=== PATIENT | female | born 1945 | race Caucasian/White ===

== ENCOUNTER 2017-12-16 15:04 | Emergency (ER) | payer OTHER, SELFPAY ==
--- NOTE | 2017-12-16 15:05 | ED_ITS ---
HPI - Extremity Injury (Upper) <JAKE Meehan - Last Filed: 12/16/17 21:56> General Chief Complaint: Extremity Injury, Upper Stated Complaint: GLF,STATES LEFT ELBOW FRACTURE Time Seen by Provider: 12/16/17 15:05 History of Present Illness HPI narrative: 72-year-old female here for complaint of pain into her left elbow. Patient states that she was recently in [place] yesterday and she stepped off the sidewalk awkwardly fallen onto her left elbow. She was seen in the emergency room in [place] yesterday and was diagnosed with the left ulna ulcranon fracture. Patient returned back denies states today and is here for further evaluation and treatment. She denies any head injury. She denies any other concerns or complaints. Decreased pain while wearing the sling. Increased pain with motion of the left elbow MD complaint: injury to: left and elbow Related Data Home Medications Medication Instructions Recorded Confirmed aspirin 81 mg PO DAILY #0 11/20/11 12/18/17 multivitamin 1 cap PO DAILY #0 11/20/11 12/18/17 vitamins A,C,L-sdxo-gdovsq 1 tab PO DAILY #0 12/15/11 12/18/17 [PreserVision AREDS] cholecalciferol (vitamin D3) 1 tab PO QDAY #0 tab 03/13/16 12/18/17 [Vitamin D3] Previous Rx's Medication Instructions Recorded ibuprofen 400 mg PO Q8HP #90 tab 07/09/17 citalopram [Celexa] 40 mg PO QDAY #90 tab 09/27/17 hydroxyzine pamoate [Vistaril] 25 mg PO TID-QID PRN #40 cap 12/18/17 oxycodone-acetaminophen [Percocet] 2 tab PO Q4-6H PRN #60 tab 12/18/17 Allergies Allergy/AdvReac Type Severity Reaction Status Date / Time Penicillins [PENICILLINS] Allergy Unknown as a Verified 12/18/17 09:45 child, unknown Review of Systems <JAKE Meehan - Last Filed: 12/16/17 21:56> Constitutional Denies chills, Denies fever(s), Denies lethargy and Denies weakness Eyes Denies change in vision, Denies eye discharge, Denies irritation and Denies loss of vision ENT Ears, Nose, Mouth, and Throat: Denies change in voice, Denies neck pain and Denies sore throat Cardiovascular Denies chest pain, Denies irregular heart rhythm, Denies lightheadedness, Denies palpitations, Denies dyspnea, Denies dyspnea on exertion and Denies orthopnea Respiratory Denies cough, Denies dyspnea, Denies dyspnea on exertion and Denies wheezing Gastrointestinal Gastrointestinal: Denies abdominal pain, Denies change in bowel habits, Denies diarrhea, Denies nausea and Denies vomiting Genitourinary Denies hematuria, Denies flank pain, Denies urinary incontinence and Denies urinary urgency Musculoskeletal Denies neck pain Comments: Left elbow pain Integumentary/Breasts Denies pruritus, Denies erythema, Denies rash and Denies wounds Neurologic Denies confusion, Denies loss of vision and Denies weakness Psychiatric Denies anxiety, Denies confusion, Denies depression, Denies homicidal ideation and Denies suicidal ideation Endocrine Denies palpitations Hematologic/Lymphatic Denies easy bruising Allergic/Immunologic Denies wheezing Exam <JAKE Meehan - Last Filed: 12/16/17 21:56> Initial Vital Signs Initial Vital Signs: Vital Signs Temperature 99.8 F H 12/16/17 15:14 Pulse Rate 85 12/16/17 15:14 Respiratory Rate 18 12/16/17 15:14 Blood Pressure 141/67 H 12/16/17 15:14 Pulse Oximetry 100 12/16/17 15:14 Const General: cooperative and well developed Nutritional Appearance: well nourished Orientation: alert, awake, oriented x3 and not confused [facility] Mouth: oral mucosae normal and moist mucous membranes Eyes Conjunctivae: conjunctivae normal Sclera: sclerae normal Pupils: PERRL EOM: EOM intact bilaterally Resp Effort & Inspection: normal respiratory effort, able to speak in complete sentences, no respiratory distress and no use of accessory muscles Auscultation: clear to auscultation bilaterally, no rales, no rhonchi and no wheezes Cardio Rate: regular rate Rhythm: regular rhythm Heart Sounds: no click, no gallops, no murmurs and no rubs Pulses: normal peripheral pulses Skin General: no rashes or lesions noted, No jaundice and No petechiae Extrem Other: Swelling to the left elbow. Slight ecchymosis. No deformities. Distal CMS is intact <Claire Yan DO - Last Filed: 12/19/17 08:24> Initial Vital Signs Initial Vital Signs: Vital Signs Temperature 99.8 F H 12/16/17 15:14 Pulse Rate 85 12/16/17 15:14 Respiratory Rate 18 12/16/17 15:14 Blood Pressure 141/67 H 12/16/17 15:14 Pulse Oximetry 100 12/16/17 15:14 Course <JAKE Meehan - Last Filed: 12/16/17 21:56> Orders Ordered: Discontinued Medications Hydrocodone Bitart/Acetaminophen ([place] 5/325) 1 tab PO NOW ONE Stop: 12/16/17 16:13 Last Admin: 12/16/17 16:14 Dose: 1 tab Vital Signs - 8 hr 12/16/17 15:14 12/16/17 16:54 Temperature 99.8 F H 98.4 F Pulse Rate 85 74 Respiratory Rate 18 17 Blood Pressure 141/67 H 174/90 H Pulse Oximetry 100 98 <Claire Yan DO - Last Filed: 12/19/17 08:24> Orders Ordered: Discontinued Medications Hydrocodone Bitart/Acetaminophen ([place] 5/325) 1 tab PO NOW ONE Stop: 12/16/17 16:13 Last Admin: 12/16/17 16:14 Dose: 1 tab Vital Signs - 8 hr 12/16/17 15:14 12/16/17 16:54 Temperature 99.8 F H 98.4 F Pulse Rate 85 74 Respiratory Rate 18 17 Blood Pressure 141/67 H 174/90 H Pulse Oximetry 100 98 MDM - Extremity Injury (Upper) <JAKE Meehan - Last Filed: 12/16/17 21:56> Imaging Data Left elbow : Radiologist's impression: Patient: Kristel Byrd MR#: [id number] : 1945 Acct:[id number] Age/Sex: 72 / F Date of Service: 12/16/17 Loc: ED Accession Number: [id number] Procedure: XR elbow LT min 3V Ordering Provider: Victor M Irving PROCEDURE: XR ELBOW LT MIN 3V INDICATIONS: Fracture to left elbow TECHNIQUE: 3 views of the elbow were acquired. COMPARISON: None. FINDINGS: Bones: Severely displaced olecranon fracture. There is approximately 2 cm of diastasis. Soft tissues: There is elbow joint effusion. No suspicious soft tissue calcifications. IMPRESSION: Severely displaced olecranon fracture. Dictated by: Renato Khan M.D. on 12/16/2017 at 15:57 Approved by: Renato Khan M.D. on 12/16/2017 at 15:59 MDM Narrative Medical decision making narrative: X-ray of the left elbow was obtained and shows a displaced olcranon fracture to the left ulna. Discussed case with Orthopedics who recommended placing the patient in splint and follow up with Orthopedics later this week. She was also placed in a sling for comfort and support. Hqte-sol-kkqzcsz Tylenol as needed for discomfort may use T3 as prescribed for discomfort as prescribed. For any worsening symptoms return emergency room. Follow up with primary care provider. Discharge Plan Departure Patient Disposition: Home, Self-Care Clinical Impression: Closed fracture of left elbow Discharge Date/Time: 12/16/17 16:45 Interventions: ED Discharge Assessment Last Done: 12/16/17 16:54 Instructions: DI for Elbow Fracture Activity Restrictions/Additional Instructions: X-ray of the left elbow was obtained and shows a displaced olcranon fracture to the left ulna. Discussed case with Orthopedics who recommended placing the patient in splint and follow up with Orthopedics later this week. She was also placed in a sling for comfort and support. Wjge-vcp-miafioo Tylenol as needed for discomfort may use T3 as prescribed for discomfort as prescribed. For any worsening symptoms return emergency room. Follow up with primary care provider. Prescriptions: No Action aspirin 81 mg Tablet,Delayed Release (Dr/Ec) 81 mg PO DAILY Qty: 0 RF: 0 multivitamin Capsule 1 cap PO DAILY Qty: 0 RF: 0 vitamins A,C,W-bbmn-lbqlit [PreserVision AREDS] 14,320-226-200 kecj-ij-hykk Capsule 1 tab PO DAILY Qty: 0 RF: 0 cholecalciferol (vitamin D3) [Vitamin D3] 2,000 UNIT tablet 1 tab PO QDAY Qty: 0 RF: 0 ibuprofen 400 MG tablet 400 mg PO Q8HP Qty: 90 RF: 3 citalopram [Celexa] 40 MG tablet 40 mg PO QDAY Qty: 90 RF: 3 oxycodone-acetaminophen [Percocet] 5-325 mg tablet 2 tab PO Q4-6H PRN (Reason: pain) Qty: 60 RF: 0 hydroxyzine pamoate [Vistaril] 25 mg capsule 25 mg PO TID-QID PRN (Reason: spasms) Qty: 40 RF: 0 Referrals: Trista Lou MD [Primary Care Provider] - Israel Gabriel MD [Physician] - <Claire Yan DO - Last Filed: 12/19/17 08:24> Cosign ED Attending Marinature Attestation: I was immediately available in the department for consultation. Documentation has been reviewed. I agree with assessment and plan.
[2017-12-16 15:14] VITALS: BP 141/67; PULSE 85; RESP 18; TEMP 37.7; O2SAT 100; BMI 32.3
--- NOTE | 2017-12-16 15:22 | DI.RAD.S_ITS ---
PROCEDURE: XR ELBOW LT MIN 3V INDICATIONS: Fracture to left elbow TECHNIQUE: 3 views of the elbow were acquired. COMPARISON: None. FINDINGS: Bones: Severely displaced olecranon fracture. There is approximately 2 cm of diastasis. Soft tissues: There is elbow joint effusion. No suspicious soft tissue calcifications. IMPRESSION: Severely displaced olecranon fracture. Dictated by: Renato Khan M.D. on 12/16/2017 at 15:57 Approved by: Renato Khan M.D. on 12/16/2017 at 15:59
[2017-12-16] MEDS: HYDROCODONE/ACET 5/325 TABLET 1 TAB PO (16:14)
[2017-12-16 16:54] VITALS: BP 174/90; PULSE 74; RESP 17; TEMP 36.9; O2SAT 98
== END 2017-12-16 16:45 | disposition home or self-care (01) ==
PROVIDERS: Emergency Provider Nurse Practitioner Family; Family Provider Family Medicine; PCP Family Medicine
DX: S42.402A Unspecified fracture of lower end of left humerus, initial encounter for closed fracture (principal); W10.1XXA Fall (on)(from) sidewalk curb, initial encounter
CPT/HCPCS: 29240; 73080; 99282; 99283

== ENCOUNTER 2017-12-18 09:28 | Day surgery (SDC) | payer OTHER, SELFPAY ==
[2017-12-17 11:15] VITALS: BMI 33.5
[2017-12-18] VITALS (7 sets, daily range): BP systolic 123–167; BP diastolic 70–101; PULSE 80–104; RESP 12–16; TEMP 36.2–36.6; O2SAT 93–98; BMI 33.5
[2017-12-18] MEDS: LACTATED RINGERS 1,000 ML 42 ML IV (10:00)
[2017-12-18] MEDS: fentaNYL 100 MCG/2 ML INJ 50 MCG IV (10:03)
[2017-12-18] MEDS: MIDAZOLAM 2 MG/2 ML VIAL IV (10:03)
--- NOTE | 2017-12-18 10:05 | SUR.PREOP ---
SPOKE WITH DR. LIM REGARDING CURRENT ORDER FOR ANCEF IN REGARDS TO PT ALLERGY TO PCN. PER DR. LIM OK TO CONTINUE WITH CURRENT ORDER TO USE ANCEF. COMMUNICATED THIS WITH CIRCULATING RN.
[2017-12-18] MEDS: CEFAZOLIN 2 GM/100 ML FROZ.PIGGY IV (10:17)
--- NOTE | 2017-12-18 10:17 | SUR.PREOP ---
Block start time [1003] . Monitoring initiated and maintained throughout procedure. Oxygen and medications given per anesthesiologist instructions. Patient remained stable throughout procedure, no adverse reactions noted. Block end time [1014].
--- NOTE | 2017-12-18 10:18 | SUR.PREOP ---
PT TAKEN DIRECTLY INTO THE OR AFTER COMPLETION OF THE BLOCK. PT RESTING IN BED WITH EYES CLOSED, EASILY AROUSABLE TO VOICE WHEN SPOKEN TO. PT LEFT PRE OP AREA IN STABLE CONDITION, VSS.
--- NOTE | 2017-12-18 10:54 | SUR.OPER ---
Right lateral on young bag, on padded OR bed, head on pillow, gel axillary roll in place, bottom leg bent with gel pad under knee to foot, upper leg straight and supported with pillows. left arm draped free in arm positioner. Safety belt at hip, tape over blanket lower legs.
[2017-12-18] MEDS: BUPIVACAINE 0.25% (PF) 30 ML VIAL INJ (11:10)
--- NOTE | 2017-12-18 12:01 | SUR.OPER ---
patients wedding ring, 2 items, removed after letting tourniquet down
--- NOTE | 2017-12-18 12:01 | PM.OP.1 ---
Operative Date/Time/Diagnoses Date of procedure: 12/18/17 Time of procedure: 10:01 Pre-op diagnosis: Left displaced olecranon fracture Post-op diagnosis: same Procedure & Clinicians Procedure: Open reduction internal fixation of a left olecranon fracture Same procedure as scheduled: Yes Indications: Left displaced olecranon fracture Surgeon: Israel Gabriel Shipping Associate: Agnieszka Delacruz Anesthesia Type: General and Peripheral nerve block Operative Notes Findings: Displaced olecranon fracture no sign of any significant comminution. No sign of any distal humerus fracture or dislocation of the elbow joint. Closure Type: primary Specimen(s): none sent Implants & Drains: Trimed olecranon plate Applied: implant(s) Estimated Blood Loss (mL): 5 Blood products transfused: none Procedure in detail: On date of service, the patient was met in the holding area where her operative site was signed and witnessed by the OR staff. Surgeries once again discussed with the patient remaining questions or concerns she had were answered fully. Patient was taken back to the operating theater and placed on the operating table in a supine position. Great care was taken to ensure that all bony prominences were appropriately padded. Well-padded tourniquet was placed up along the left upper extremity. Time-out was performed verifying patient's name procedure and operative site. Patient was then placed into the lateral position. Axillary roll was placed. Beanbag used to position patient laterally. Left arm was then prepped and draped in the normal sterile fashion. Esmarch was used to exsanguinate the limb and the tourniquet was turned up to 250 mm of mercury. A posterior incision was made centered over the fracture site. Ten blade was used to incise the skin and fascial tissue. Electrocautery was used to achieve hemostasis. Gelpi retractors were placed and then sharp dissection was performed with the deep knife given us good visualization of the posterior aspect of the ulna as well as the fractured olecranon. No sign of any significant comminution. No sign of any cartilage loss to the distal humerus or any distal humeral fracture. Fracture site was copiously irrigated and a curette and rongeur were used to debride out the hematoma and soft tissue around the fracture. Once the fractured ends were debrided, reduction was performed and the fracture was held provisionally with 2 K-wires. This reduction was then verified with C-arm. Next a olecranon plate was placed. Screws were placed distal to the fracture site C-arm was used to verify plate positioning and overall reduction. Once we are satisfied with the reduction in the position of the plate the rest of the screws were placed. Combination of locking and nonlocking fully-threaded cortical screws were used. Final x-rays were obtained. Wound was then copiously irrigated and then closed in layered fashion. Patient was placed into a posterior splint extubated and taken to the PACU in stable condition. Patient will be immobilized for a few days and then will be able to begin gentle yzchu-yo-ohjfaj exercises of the elbow. No lifting with the left arm. Complications: none Condition: stable Disposition: PACU Plan for aftercare: Posterior splint for a few days followed by physical therapy to work on gentle mwfxz-da-zceikh exercises.
== END 2017-12-18 13:15 | disposition home or self-care (01) ==
PROVIDERS: PCP Family Medicine; Visit Provider Orthopaedic Surgery
PROC: 0RSM04Z Reposition Left Elbow Joint with Internal Fixation Device, Open Approach (ICD-10-PCS; CPT 24685; principal; 2017-12-18 10:45)
DX: S52.022A Displaced fracture of olecranon process without intraarticular extension of left ulna, initial encounter for closed fracture (principal); W10.1XXA Fall (on)(from) sidewalk curb, initial encounter; G89.18 Other acute postprocedural pain; E66.9 Obesity, unspecified; Z68.35 Body mass index [BMI] 35.0-35.9, adult
CPT/HCPCS: 24685; 64450; J0690; J1100; J2250; J2405; J2704; J3010

== ENCOUNTER 2018-03-12 09:30 | Outpatient (RCR) | payer OTHER, SELFPAY ==
--- NOTE | 2017-12-26 12:09 | OT.OP.EVAL ---
"Visit Care Team Role Provider Type Trista Lou MD Family Provider Physician Primary Care Provider Specialty: Family Practice Address: [address] [place] [address], [id number] Email: [email or web address] Israel Gabriel MD Attending Provider Physician Specialty: Orthopedic Surgery Address: [address] [place] [address], [id number] Email: [email or web address] Occupational Therapy Initial Evaluation OT Outpatient Adult Evaluation Start: 12/26/17 11:23 Freq: Status: Active Protocol: Document 12/26/17 11:24 AMS (Rec: 12/26/17 12:08 AMS [id number]) General Information Visit Start Time 09:30 Visit Stop Time 10:15 Total Visit Minutes 45 Visit Number Plan of Care Dates 12/26/17-02/06/18 Insurance Information [employer]; FED Retiree; No G-CODES Treatment Setting Outpatient Care Note Type Initial Evaluation Referring Physician Israel Gabriel MD Reason for Referral Closed fracture of olecranon process of left ulna; ORIF left ulna (12/18/17) Precautions Protocol: patient to be seen 2-4 days post surgery to start working on ROM of the elbow Patient reported that she was not to remove posterior splint until upcoming Sunday; patient also reported that she is not to lift anything heavy with the arm and to keep the arm dry. Identification Confirmed Yes Identification Confirmed By Paper chart Medical History Medical History Form completed and on file. Findings: arthritis; depression; dizziness; vision problems; h/ o hysterectomy and gallbladder surgeries. Social History Patient resides w/ ; reportedly is assisting patient has needed w / daily tasks. Patient is a [employer] employee who works at the local [employer] 15 hours per week. Therapy Pain Assessment When Pain Assessed pre-tx Pain Present Pain Reported Left Elbow Intensity 3 Scale Used Numeric (1 - 10) Patient Questionnaires Quick Dash UE Score 65.9 Quick Dash UE Impairment 60 to 79% Impaired (Score 60- 79) ADLs Comments Impaired IADLs Comments Impaired Sleep Description Sleeps in recliner versus in bed (+) history of sleep apnea Skill Level Impaired Fine Motor Hand Preference Right Functional Wrist/Hand Scan Overall Observations Able to oppose thumb to each digit pad without difficulty w / L and R hands. Goals Objective Measurements Mild swelling noted of distal L UE --> distal to posterior splint. (+) complaints of splint irritating skin; minor adjustments made to decrease skin irritation of left ulnar wrist and medial border of splint near arm pit. (-) c/o stiffness with wrist flexion/ extension and digit flexion/ extension. Minor c/o of wrist stiffness w/ UD and RD. Minor c/o of shoulder stiffness w/ sh ext w/ slight rounding of L shoulder given location of splint. Education on AROM of hand, wrist, and use of TT to support shoulder AROM. Patient denied questions. Bandages reapplied to reduce movement of arm within splint. ROM - Elbow/Forearm Elbow/Forearm Measured in Degrees Left Elbow/Forearm ROM WFL No Comments Will assess further at time of follow-up treatment session Right Elbow/Forearm ROM WFL Yes ROM Testing Position Sitting Elbow Flex AROM (degrees) WNL Elbow Ext AROM (degrees) WNL Forearm Pron AROM (degrees) WNL Forearm Sup AROM (degrees) 0-78 Forearm Sup PROM (degrees) 0-90 Comments h/o injury to distal right upper extremity ROM - Wrist Wrist Range of Motion Measured in Degrees Left ROM Testing Position Sitting Right ROM Testing Position Sitting Wrist Flex AROM (degrees) 0-65 Wrist Ext AROM Fingers Open (degrees) 0-60 Ulnar Deviation AROM (degrees) 0-30 Radial Deviation AROM (degrees) 0-15 Comments h/o injury to distal right upper extremity ROM Limitations Wrist ROM Limitations Muscle Weakness Swelling Comments Will assess further at time of follow-up treatment session Short Term Goals 1. Patient will be independent with home edema management program. 2. Patient will demonstrate AROM WFL for the left wrist, relative to left wrist flexion , extension, ulnar deviation and radial deviation. 3. Patient will be modified independent with home exercise program for left shoulder, wrist and hand, utilizing provided written and visual instructions. Attendance Clerk Goals 1. Patient will be able to dress independently on a daily basis, with active incorporation of the left upper extremity, without complaints of pain/discomfort. 2. Patient will be able to drive independently on a daily basis, with active incorporation of the left upper extremity, without complaints of pain/discomfort. 3. Patient will be modified independent with left upper extremity home exercise program utilizing provided written and visual instructions. Assessment/Plan Patient Response Good Rehabilitation Potential Good Impairments Identified ADLs Coordination/Dexterity Functional Activities Pain Weakness Posture Range of Motion Recreational Activities Meaningful Activities Stiffness Swelling Treatment Assessment Patient is a 72 year-old female referred to outpatient occupational therapy for post- op rehabilitation following surgery (ORIF left ulna fracture). Patient underwent surgery on 12/18/2017. PMH: arthritis; depression; dizziness; vision problems; additional h/o hysterectomy and gallbladder surgeries. PLOF: Independent with BADLS and IADLS, including driving and working 15 hours per week for the [employer] [facility]. Findings: Pt presents with posterior splint; mild swelling; stiffness of left shoulder and left wrist; full extension of digits w/ wrist extension and ability to oppose thumb to each digit pad ; post-op precautions; left elbow pain/discomfort; and decreased functional use of non-dominant left upper extremity. Patient would likely benefit from outpatient OT so that she may return to PLOF. Patient Understanding Good Comment 6 weeks Treatment Frequency Twice a Week Therapeutic Contents Active Range of Motion Client Education Functional Activities Home Exercise Program Manual Therapy Education Self-Care Stretching/Flexibility Activities Therapeutic Activities Therapeutic Exercises Modalities Modalities As Needed As Prescribed"
--- NOTE | 2018-01-03 14:05 | OT.OP.TRT ---
Visit Care Team Role Provider Type Trista Lou MD Family Provider Physician Primary Care Provider Specialty: Family Practice Address: [address] [place] [address], [id number] Email: [email or web address] Israel Gabriel MD Attending Provider Physician Specialty: Orthopedic Surgery Address: [address] [place] [address], [id number] Email: [email or web address] Occupational Therapy Treatment Note OT Outpatient Treatment Note - Adult Start: 01/03/18 13:35 Freq: Status: Active Protocol: Document 01/02/18 13:36 AMS (Rec: 01/03/18 14:01 AMS [id number]) OT Outpatient Adult Treatment Note Session Time Visit Start Time 08:40 Visit Stop Time 09:30 Total Visit Minutes 50 Visit Information Visit Number Plan of Care Dates 12/26/17-02/06/18 Insurance Information 60 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 Patient underwent surgery on 12/18/2017. PMH: arthritis; depression; dizziness; vision problems; additional h/o hysterectomy and gallbladder surgeries. - Subjective Identification Type Name Picture Identification Reconciled With Medical Record Observations He just told me that I was not to lift more than 5 pounds with this hand per Kristel. Chief Complaint(s) Loss of Motion/Stiffness Restricts Loss of Function Marked Degree Effect on Activity Marked Degree Effect on Daily Life Marked Degree Patient/Caregiver Compliance with Home Good Exercise Program - Objective Objective Measurements Please refer to ROM section for results of goniometer measurements. Pt arrived w/ cast removed; pt reported only limitations were to not lift more than 5 pounds with the left hand. Pt reported impaired sensation relative to site of scar (I can't feel that). (+) pictures taken of scar and placed in paper chart . (+) swelling of the left UE. Decreased active range of motion of elbow. Short Term Goals 1. Patient will be independent with home edema management program. 2. Patient will demonstrate AROM WFL for the left wrist, relative to left wrist flexion , extension, ulnar deviation and radial deviation. 3. Patient will be modified independent with home exercise program for left shoulder, wrist and hand, utilizing provided written and visual instructions. Customer Experience Intern Goals 1. Patient will be able to dress independently on a daily basis, with active incorporation of the left upper extremity, without complaints of pain/discomfort. 2. Patient will be able to drive independently on a daily basis, with active incorporation of the left upper extremity, without complaints of pain/discomfort. 3. Patient will be modified independent with left upper extremity home exercise program utilizing provided written and visual instructions. - Treatment 1 Descriptor HEP Swelling management AROM exercises Exercises 3 Descriptor AROM shoulder Side Left Body Position Sitting Sets 2 Repetitions 10 2 Descriptor AROM Wrist forearm in different positions Side Left Body Position Sitting Sets 2 Repetitions 10 1 Descriptor AROM elbow forearm in different positions Side Left Body Position Sitting Sets 2 Repetitions 10 - Assessment Patient Response to Treatment Good Rehab Potential Good Impairments Identified ADLs Coordination/Dexterity Functional Activities Pain Weakness Range of Motion Recreational Activities Meaningful Activities Stiffness Swelling Assessment of Improvement Decreased AROM of L UE. (+) swelling. Weakness. Decreased functional independence. Home Exercise Program Pt denied questions. See above for additional details. Reviewed with Patient/Caregiver Goals Progress Being Made Home Exercise Program Patient/Caregiver Understanding Fair - Plan Therapy Recommendations Continue with Current Program Advance per Rehabilitation Protocol Occupational Therapy Assessment OT Outpatient Modality Start: 01/03/18 14:01 Freq: Status: Active Protocol: Document 01/02/18 13:36 AMS (Rec: 01/03/18 14:04 AMS [email or web address]) OT Outpatient Modality Treatment Left Medial Forearm Name of Modality Ultrasound Duration (Minutes) 10 Body Position Sitting Comments Address swelling; pulsed; 20% duty cycle; 2.0 w/cm2 Skin intact pre and post treatment.
--- NOTE | 2018-01-07 07:50 | OT.OP.TRT ---
Visit Care Team Role Provider Type Trista Lou MD Family Provider Physician Primary Care Provider Specialty: Family Practice Address: [address] [place] [address], [id number] Email: [email or web address] Gabriel MD Attending Provider Physician Specialty: Orthopedic Surgery Address: [address] [place] [address], [address] Email: [email or web address] Therapy Treatment Note OT Outpatient Treatment Note - Adult Start: 01/03/18 13:35 Freq: Status: Active Protocol: Document 01/04/18 15:35 AMS (Rec: 01/07/18 07:49 AMS [email or web address]) OT Outpatient Adult Treatment Note Session Time Visit Start Time 14:30 Visit Stop Time 15:18 Total Visit Minutes 48 Visit Information Visit Number Plan of Care Dates 12/26/17-02/06/18 Insurance Information 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 Patient underwent surgery on 12/18/2017. PMH: arthritis; depression; dizziness; vision problems; additional h/o hysterectomy and gallbladder surgeries. - Subjective Identification Type Name Picture Identification Reconciled With Medical Record Observations It is feeling so much better per Kristel Chief Complaint(s) Loss of Motion/Stiffness Restricts Loss of Function Marked Degree Effect on Activity Marked Degree Effect on Daily Life Marked Degree Patient/Caregiver Compliance with Home Good Exercise Program - Objective Objective Measurements -35-70 L elbow flex/ext AROM (+) mild swelling. Decreased sensation at site of incision; incision healing. Decreased activity tolerance. Short Term Goals 1. Patient will be independent with home edema management program. 2. Patient will demonstrate AROM WFL for the left wrist, relative to left wrist flexion , extension, ulnar deviation and radial deviation. 3. Patient will be modified independent with home exercise program for left shoulder, wrist and hand, utilizing provided written and visual instructions. Group Home Goals 1. Patient will be able to dress independently on a daily basis, with active incorporation of the left upper extremity, without complaints of pain/discomfort. 2. Patient will be able to drive independently on a daily basis, with active incorporation of the left upper extremity, without complaints of pain/discomfort. 3. Patient will be modified independent with left upper extremity home exercise program utilizing provided written and visual instructions. - Treatment 1 Descriptor HEP AROM exercises Exercises 3 Descriptor AROM shoulder Side Left Body Position Sitting Sets 2 Repetitions 10 2 Descriptor AROM wrist forearm in different positions Side Left Body Position Sitting Sets 2 Repetitions 10 1 Descriptor AROM elbow forearm in different positions Side Left Body Position Sitting Sets 2 Repetitions 10 - Assessment Patient Response to Treatment Good Rehab Potential Good Impairments Identified ADLs Coordination/Dexterity Functional Activities Pain Weakness Range of Motion Recreational Activities Meaningful Activities Stiffness Swelling Assessment of Improvement Decreased functional independence. (+) swelling. Wound healing. Decreased AROM of L UE; improving left elbow extension w/ gravity assisting compared to previous treatment session. Reviewed with Patient/Caregiver Goals Progress Being Made Home Exercise Program Patient/Caregiver Understanding Fair - Plan Therapy Recommendations Continue with Current Program Advance per Rehabilitation Protocol Occupational Therapy Assessment OT Outpatient Modality Start: 01/03/18 14:01 Freq: Status: Active Protocol: Document 01/04/18 15:35 AMS (Rec: 01/07/18 07:49 AMS [email or web address]) OT Outpatient Modality Treatment Left Medial Forearm Name of Modality Ultrasound Duration (Minutes) 12 Body Position Sitting Comments Address swelling; pulsed; 20% duty cycle; 2.0 w/cm2 Skin intact pre and post treatment.
--- NOTE | 2018-01-07 15:33 | OT.OP.TRT ---
Visit Care Team Role Provider Type Trista Lou MD Family Provider Physician Primary Care Provider Specialty: Family Practice Address: [address] [place] [address], [id number] Email: [email or web address] Israel Gabriel MD Attending Provider Physician Specialty: Orthopedic Surgery Address: [address] [place] [address], [address] Email: [email or web address] Occupational Therapy Treatment Note OT Outpatient Treatment Note - Adult Start: 01/03/18 13:35 Freq: Status: Active Protocol: Document 01/07/18 15:25 AMS (Rec: 01/07/18 15:33 AMS [email or web address]) OT Outpatient Adult Treatment Note Session Time Visit Start Time 14:35 Visit Stop Time 15:20 Total Visit Minutes 45 Visit Information Visit Number Plan of Care Dates 12/26/17-02/06/18 Insurance Information 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 Patient underwent surgery on 12/18/2017. PMH: arthritis; depression; dizziness; vision problems; additional h/o hysterectomy and gallbladder surgeries. - Subjective Identification Type Name Picture Identification Reconciled With Medical Record Observations I have been moving this arm all the time per Kristel. Chief Complaint(s) Loss of Motion/Stiffness Restricts Loss of Function Marked Degree Effect on Activity Marked Degree Effect on Daily Life Marked Degree Patient/Caregiver Compliance with Home Good Exercise Program - Objective Objective Measurements -30-70 L elbow flex/ext AROM (+) mild swelling. Decreased sensation at site of incision; incision healing. Incision not healed at this time. No signs of infection at site of incision. Decreased activity tolerance. Decreased awareness of UE in space relative to elbow AROM; inconsistent w/ active L elbow extension. Discussed use of mirror for visual feedback. Short Term Goals 1. Patient will be independent with home edema management program. 2. Patient will demonstrate AROM WFL for the left wrist, relative to left wrist flexion , extension, ulnar deviation and radial deviation. 3. Patient will be modified independent with home exercise program for left shoulder, wrist and hand, utilizing provided written and visual instructions. Field Education Director Goals 1. Patient will be able to dress independently on a daily basis, with active incorporation of the left upper extremity, without complaints of pain/discomfort. 2. Patient will be able to drive independently on a daily basis, with active incorporation of the left upper extremity, without complaints of pain/discomfort. 3. Patient will be modified independent with left upper extremity home exercise program utilizing provided written and visual instructions. - Treatment 1 Descriptor HEP AROM exercises Mirror feedback Complexity Upgraded Exercises 3 Descriptor AROM shoulder Side Left Body Position Sitting Sets 2 Repetitions 10 2 Descriptor AROM wrist forearm in different positions Side Left Body Position Sitting Sets 2 Repetitions 10 1 Descriptor AROM elbow forearm in different positions [place] assist Pillow TT exercises Side Left Body Position Sitting Sets 2 Repetitions 10 Complexity Upgraded OT Outpatient Modality Treatment Left Medial Forearm Name of Modality Ultrasound Duration (Minutes) 12 Body Position Sitting Comments Address swelling; pulsed; 20% duty cycle; 2.0 w/cm2 Skin intact pre and post treatment. - Assessment Patient Response to Treatment Good Rehab Potential Good Impairments Identified ADLs Coordination/Dexterity Functional Activities Pain Weakness Range of Motion Recreational Activities Meaningful Activities Stiffness Swelling Assessment of Improvement Decreased functional independence. (+) swelling. Wound healing. Decreased AROM of L UE; however, improving active elbow extension. This is evidenced by goniometer measurements. Decreased awareness of UE in space relative to elbow AROM. Home Exercise Program Upgraded. Patient denied questions. Please see above for additional details. Reviewed with Patient/Caregiver Goals Progress Being Made Home Exercise Program Patient/Caregiver Understanding Fair - Plan Therapy Recommendations Continue with Current Program Advance per Rehabilitation Protocol
--- NOTE | 2018-01-14 09:59 | OT.OP.TRT ---
Visit Care Team Role Provider Type Trista Lou MD Family Provider Physician Primary Care Provider Specialty: Family Practice Address: [address] [place] [address], [address] Email: [email or web address] Israel Gabriel MD Attending Provider Physician Specialty: Orthopedic Surgery Address: [address] [place] [address], [id number] Email: [email or web address] Occupational Therapy Treatment Note OT Outpatient Treatment Note - Adult Start: 01/03/18 13:35 Freq: Status: Active Protocol: Document 01/11/18 15:30 AMS (Rec: 01/14/18 09:59 AMS [email or web address]) OT Outpatient Adult Treatment Note Session Time Visit Start Time 14:30 Visit Stop Time 15:18 Total Visit Minutes 48 Visit Information Visit Number Plan of Care Dates 12/26/17-02/06/18 Insurance Information 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 Patient underwent surgery on 12/18/2017. PMH: arthritis; depression; dizziness; vision problems; additional h/o hysterectomy and gallbladder surgeries. - Subjective Identification Type Name Picture Identification Reconciled With Medical Record Observations It seems to be getting better per Kristel. I have been getting this pain shooting down my arm. It just started. Chief Complaint(s) Loss of Motion/Stiffness Restricts Loss of Function Marked Degree Effect on Activity Marked Degree Effect on Daily Life Marked Degree Patient/Caregiver Compliance with Home Good Exercise Program - Objective Objective Measurements -20-70 L elbow flex/ext AROM (+) mild swelling. Decreased sensation at site of incision; incision healing. Incision not healed at this time. No signs of infection. Education re: importance of healing of incision. Decreased activity tolerance. Decreased awareness of UE in space relative to elbow AROM; inconsistent w/ active L elbow extension. Presenting w/ shooting pain from elbow --> distally; patient reports shooting pain is inconsistent. Will monitor. Patient denied reproduction of symptoms w/ glides on this date. Short Term Goals 1. Patient will be independent with home edema management program. 2. Patient will demonstrate AROM WFL for the left wrist, relative to left wrist flexion , extension, ulnar deviation and radial deviation. 3. Patient will be modified independent with home exercise program for left shoulder, wrist and hand, utilizing provided written and visual instructions. [facility] Goals 1. Patient will be able to dress independently on a daily basis, with active incorporation of the left upper extremity, without complaints of pain/discomfort. 2. Patient will be able to drive independently on a daily basis, with active incorporation of the left upper extremity, without complaints of pain/discomfort. 3. Patient will be modified independent with left upper extremity home exercise program utilizing provided written and visual instructions. - Treatment 1 Descriptor HEP AROM exercises Mirror feedback Complexity No Change Exercises 4 Descriptor Arm pulleys Side Both Body Position Sitting Time 2 minutes Complexity Upgraded 3 Descriptor AROM shoulder Side Left Body Position Sitting Sets 2 Repetitions 10 2 Descriptor AROM wrist forearm in different positions Side Left Body Position Sitting Sets 2 Repetitions 10 1 Descriptor AROM elbow forearm in different positions [place] assist Side Left Body Position Sitting Sets 2 Repetitions 10 - Assessment Patient Response to Treatment Good Rehab Potential Good Impairments Identified ADLs Coordination/Dexterity Functional Activities Pain Weakness Range of Motion Recreational Activities Meaningful Activities Stiffness Swelling Assessment of Improvement Decreased functional independence. (+) swelling. Decreased bruising. Wound healing. Decreased AROM of L UE. Improved active elbow extension compared to previous treatment session. Presenting w/ shooting pain from elbow - -> distally; patient reports shooting pain is inconsistent. Will monitor. Home Exercise Program Upgraded. Patient denied questions. Please see above for additional details. Reviewed with Patient/Caregiver Goals Progress Being Made Home Exercise Program Patient/Caregiver Understanding Fair - Plan Therapy Recommendations Continue with Current Program Advance per Rehabilitation Protocol Occupational Therapy Assessment OT Outpatient Modality Start: 01/03/18 14:01 Freq: Status: Active Protocol: Document 01/11/18 15:30 AMS (Rec: 01/14/18 09:59 AMS [email or web address]) OT Outpatient Modality Treatment Left Lateral Forearm Name of Modality Ultrasound Duration (Minutes) 15 Body Position Supine Comments Address swelling w/ gravity assisting elbow extension; pulsed; 20% duty cycle; 2.0 w/ cm2 Skin intact pre and post treatment. Occupational Therapy Assessment OT Outpatient Range of Motion Start: 12/26/17 11:23 Freq: Status: Active Protocol: Document 01/11/18 15:30 AMS (Rec: 01/14/18 09:59 AMS [email or web address]) ROM - Elbow/Forearm Elbow/Forearm Measured in Degrees Left Elbow/Forearm ROM WFL No ROM Testing Position Sitting Elbow Flex AROM (degrees) -20-70 Elbow Ext AROM (degrees) -20-70 Forearm Pron AROM (degrees) 0-90 Forearm Sup AROM (degrees) 0-75 Comments Initial evaluation findings: Elbow flex/ext = -45-70 Right Elbow/Forearm ROM WFL Yes ROM Testing Position Sitting Elbow Flex AROM (degrees) 0-140 Elbow Ext AROM (degrees) 0-140 Forearm Pron AROM (degrees) 0-90 Forearm Sup AROM (degrees) 0-78 Forearm Sup PROM (degrees) 0-90 Comments h/o injury to distal right upper extremity
--- NOTE | 2018-01-17 15:15 | OT.OP.TRT ---
Visit Care Team Role Provider Type Tirsta Lou MD Family Provider Physician Primary Care Provider Specialty: Family Practice Address: [address] [place] [address], [address] Email: [email or web address] Israel Gabriel MD Attending Provider Physician Specialty: Orthopedic Surgery Address: [address] [place] [address], [address] Email: [email or web address] Occupational Therapy Treatment Note OT Outpatient Treatment Note - Adult Start: 01/03/18 13:35 Freq: Status: Active Protocol: Document 01/15/18 15:06 AMS (Rec: 01/17/18 15:14 AMS [email or web address]) OT Outpatient Adult Treatment Note Session Time Visit Start Time 10:30 Visit Stop Time 11:18 Total Visit Minutes 48 Visit Information Visit Number Plan of Care Dates 12/26/17-02/06/18 Insurance Information 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 Patient underwent surgery on 12/18/2017. PMH: arthritis; depression; dizziness; vision problems; additional h/o hysterectomy and gallbladder surgeries. - Subjective Identification Type Name Picture Identification Reconciled With Medical Record Observations I didn't do anything with this arm yesterday. I was exhausted. I think I slept most of the day per Kristel. I was a little sore after the last session. I couldn't tell until I got home. The zingers are not as bad but they are still happening. Chief Complaint(s) Loss of Motion/Stiffness Restricts Loss of Function Marked Degree Effect on Activity Marked Degree Effect on Daily Life Marked Degree Patient/Caregiver Compliance with Home Good Exercise Program - Objective Objective Measurements -17 active L elbow extension (+) mild swelling. Decreased sensation at site of incision; incision healing. Incision not fully healed at this time. Scar mobilization initiated distally. Completed only at site of healing of scar. Decreased activity tolerance. Decreased awareness of UE in space relative to elbow AROM; inconsistent w/ active L elbow extension. Short Term Goals 1. Patient will be independent with home edema management program. 2. Patient will demonstrate AROM WFL for the left wrist, relative to left wrist flexion , extension, ulnar deviation and radial deviation. 3. Patient will be modified independent with home exercise program for left shoulder, wrist and hand, utilizing provided written and visual instructions. [facility] Goals 1. Patient will be able to dress independently on a daily basis, with active incorporation of the left upper extremity, without complaints of pain/discomfort. 2. Patient will be able to drive independently on a daily basis, with active incorporation of the left upper extremity, without complaints of pain/discomfort. 3. Patient will be modified independent with left upper extremity home exercise program utilizing provided written and visual instructions. - Treatment 1 Descriptor HEP AROM exercises Complexity No Change Exercises 4 Descriptor Arm pulleys Side Both Body Position Sitting Time 2 minutes Complexity Upgraded 3 Descriptor AROM shoulder Side Left Body Position Sitting Sets 2 Repetitions 10 2 Descriptor AROM wrist forearm in different positions Side Left Body Position Sitting Sets 2 Repetitions 10 1 Descriptor AROM elbow forearm in different positions [place] assist Side Left Body Position Sitting Sets 2 Repetitions 10 Manual Therapy Manual Therapy Scar tissue mobilization. Raised. Manual massage - medial/lateral focus of volar surface of left forearm. - Assessment Patient Response to Treatment Good Rehab Potential Good Impairments Identified ADLs Coordination/Dexterity Functional Activities Pain Weakness Range of Motion Recreational Activities Meaningful Activities Stiffness Swelling Assessment of Improvement Decreased functional independence. Decreasing swelling. Decreased bruising. Wound healing. Initiated scar tissue mobilization w/ positive response. Decreased AROM of L UE. Improved active elbow extension. Reported decreased shooting pain elbow --> distally. Will continue to monitor. Recommend advancement of exercises as able given MD orders; recommend continued scar tissue mobilization as able. Home Exercise Program Upgraded. Patient denied questions. Please see above for additional details. Reviewed with Patient/Caregiver Goals Progress Being Made Home Exercise Program Patient/Caregiver Understanding Fair - Plan Therapy Recommendations Continue with Current Program Advance per Rehabilitation Protocol
--- NOTE | 2018-01-18 12:07 | OT.OP.TRT ---
Visit Care Team Role Provider Type Trista Lou MD Family Provider Physician Primary Care Provider Specialty: Family Practice Address: [address] [place] [address], [id number] Email: [email or web address] Israel Gabriel MD Attending Provider Physician Specialty: Orthopedic Surgery Address: [address] [place] [address], [id number] Email: [email or web address] Occupational Therapy Treatment Note OT Outpatient Treatment Note - Adult Start: 01/03/18 13:35 Freq: Status: Active Protocol: Document 01/18/18 11:57 AMS (Rec: 01/18/18 12:07 AMS [email or web address]) OT Outpatient Adult Treatment Note Session Time Visit Start Time 10:30 Visit Stop Time 11:17 Total Visit Minutes 47 Visit Information Visit Number Plan of Care Dates 12/26/17-02/06/18 Insurance Information 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 Patient underwent surgery on 12/18/2017. PMH: arthritis; depression; dizziness; vision problems; additional h/o hysterectomy and gallbladder surgeries. - Subjective Identification Type Name Picture Identification Reconciled With Medical Record Observations My doctor's appt is later on this afternoon per Kristel. Chief Complaint(s) Loss of Motion/Stiffness Restricts Loss of Function Marked Degree Effect on Activity Marked Degree Effect on Daily Life Marked Degree Patient/Caregiver Compliance with Home Good Exercise Program - Objective Objective Measurements -16 active L elbow extension (+) mild swelling. Impaired sensation at site of incision; incision healing (97% healed at this time). Basic scar tissue mobilization instruction completed; discussed scar tissue sensitization program that can begun once fully healed. Decreased activity tolerance. Decreased awareness of UE in space relative to elbow AROM; inconsistent w/ active L elbow extension. Pt reported decreased intensity of ' zingers'; however, still present. Short Term Goals 1. Patient will be independent with home edema management program. 2. Patient will demonstrate AROM WFL for the left wrist, relative to left wrist flexion , extension, ulnar deviation and radial deviation. 3. Patient will be modified independent with home exercise program for left shoulder, wrist and hand, utilizing provided written and visual instructions. Halfway Goals 1. Patient will be able to dress independently on a daily basis, with active incorporation of the left upper extremity, without complaints of pain/discomfort. 2. Patient will be able to drive independently on a daily basis, with active incorporation of the left upper extremity, without complaints of pain/discomfort. 3. Patient will be modified independent with left upper extremity home exercise program utilizing provided written and visual instructions. - Treatment 1 Descriptor HEP Position Self-massage (scar tissue) Complexity Upgraded Exercises 3 Descriptor AROM shoulder Side Left Body Position Sitting Sets 2 Repetitions 10 2 Descriptor AROM wrist forearm in different positions Side Left Body Position Sitting Sets 2 Repetitions 10 1 Descriptor AROM elbow forearm in different positions [place] assist Side Left Body Position Sitting Sets 2 Repetitions 10 Manual Therapy Manual Therapy Scar tissue mobilization. Raised. Manual massage - medial focus of volar surface of left forearm. - Assessment Patient Response to Treatment Good Rehab Potential Good Impairments Identified ADLs Coordination/Dexterity Functional Activities Pain Weakness Range of Motion Recreational Activities Meaningful Activities Stiffness Swelling Assessment of Improvement Decreased functional independence. Decreasing swelling. Decreasing bruising. Site of incision almost fully healed at this time. Education re: scar tissue sensitization. Will begin once fully healed. Basic self- massage of scar tissue instruction completed. Pt denied questions. Decreased AROM of L UE. Improved active elbow extension. Reported decreased shooting pain elbow --> distally. Will continue to monitor. Recommend advancement of exercises as able given MD orders; recommend continued scar tissue mobilization as able. Home Exercise Program Upgraded. Patient denied questions. Please see above for additional details. Reviewed with Patient/Caregiver Goals Progress Being Made Home Exercise Program Patient/Caregiver Understanding Fair - Plan Therapy Recommendations Continue with Current Program Advance per Rehabilitation Protocol Occupational Therapy Assessment OT Outpatient Modality Start: 01/03/18 14:01 Freq: Status: Active Protocol: Document 01/18/18 11:57 AMS (Rec: 01/18/18 12:07 AMS [email or web address]) OT Outpatient Modality Treatment Left Lateral Forearm Name of Modality Ultrasound Duration (Minutes) 15 Body Position Supine Comments Address swelling w/ gravity assist elbow extension; pulsed ; 20% duty cycle; 2.0 w/cm2 Skin intact pre and post treatment.
--- NOTE | 2018-01-22 15:40 | OT.OP.TRT ---
Visit Care Team Role Provider Type Trista Lou MD Family Provider Physician Primary Care Provider Specialty: Family Practice Address: [address] [place] [address], [id number] Email: [email or web address] Israel Gabriel MD Attending Provider Physician Specialty: Orthopedic Surgery Address: [address] [place] [address], [address] Email: [email or web address] Occupational Therapy Treatment Note OT Outpatient Treatment Note - Adult Start: 01/03/18 13:35 Freq: Status: Active Protocol: Document 01/22/18 14:23 AMS (Rec: 01/22/18 15:40 AMS [email or web address]) OT Outpatient Adult Treatment Note Session Time Visit Start Time 10:35 Visit Stop Time 11:22 Total Visit Minutes 47 Visit Information Visit Number Plan of Care Dates 12/26/17-02/06/18 Insurance Information 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 Patient underwent surgery on 12/18/2017. PMH: arthritis; depression; dizziness; vision problems; additional h/o hysterectomy and gallbladder surgeries. - Subjective Identification Type Name Picture Identification Reconciled With Medical Record Observations Pt had follow-up appt w/ surgeon on 01/18/18. Treatment description: occupational therapist to evaluate and treat. Home exercise program. Range of motion. Protocol: Continue w/ ROM only for 2 more weeks; then in 2 weeks she may start light strengthening. Frequency: 2 x per week. Duration: 6 weeks. *Copy of orders placed in chart. Chief Complaint(s) Loss of Motion/Stiffness Restricts Loss of Function Marked Degree Effect on Activity Marked Degree Effect on Daily Life Marked Degree Patient/Caregiver Compliance with Home Good Exercise Program Comments w/ use of visual/written instructions - Objective Objective Measurements -12-135 active L elbow extension/flexion post- treatment (+) mild swelling. Impaired sensation at site of incision; incision healing (98% healed at this time). Home scar tissue mobilization reviewed; pt denied questions. Decreasing height of scar; focus on proximal scar tissue management. Impaired sensation at site of scar; no c/o pain/ discomfort w/ scar tissue mobilization. Pt reported decreased intensity of ' zingers'; however, still present. Pt reported decreased concerns re: 'zingers' given surgeon told her 'that it will eventually go away'. Short Term Goals 1. Patient will be independent with home edema management program. 2. Patient will demonstrate AROM WFL for the left wrist, relative to left wrist flexion , extension, ulnar deviation and radial deviation. 3. Patient will be modified independent with home exercise program for left shoulder, wrist and hand, utilizing provided written and visual instructions. Setter Up Goals 1. Patient will be able to dress independently on a daily basis, with active incorporation of the left upper extremity, without complaints of pain/discomfort. 2. Patient will be able to drive independently on a daily basis, with active incorporation of the left upper extremity, without complaints of pain/discomfort. 01/22/18= 50% met. 3. Patient will be modified independent with left upper extremity home exercise program utilizing provided written and visual instructions. - Treatment 1 Descriptor HEP Self-massage (scar tissue) Complexity No Change Exercises 4 Descriptor Arm pulleys Side Both Body Position Sitting Time 3 minutes Complexity Upgraded 2 Descriptor UEB Side Both Body Position Sitting Time 3 minutes Complexity Upgraded 1 Descriptor AROM elbow forearm in different positions [place] assist Side Left Body Position Sitting Sets 2 Repetitions 10 - Assessment Patient Response to Treatment Good Rehab Potential Good Impairments Identified ADLs Coordination/Dexterity Functional Activities Pain Weakness Range of Motion Recreational Activities Meaningful Activities Stiffness Swelling Assessment of Improvement Decreased functional independence. Decreasing swelling. Decreasing bruising. Site of incision almost fully healed. Decreased AROM of L UE. Improving active elbow flexion and extension. Decreased verbal report of shooting pain elbow --> distally; pt reported decreased concerns re: ' zingers' given surgeon told her 'that it will eventually go away'. Will follow surgeon recommendations w/ focus on HEP and ROM. Will begin light strengthening program in 2 weeks per surgeon's orders. Home Exercise Program Please see above for additional details. No changes to HEP at this time. Reviewed with Patient/Caregiver Goals Progress Being Made Home Exercise Program Patient/Caregiver Understanding Fair - Plan Therapy Recommendations Continue with Current Program Advance per Rehabilitation Protocol Occupational Therapy Assessment OT Outpatient Modality Start: 01/03/18 14:01 Freq: Status: Active Protocol: Document 01/22/18 14:23 AMS (Rec: 01/22/18 15:40 AMS [email or web address]) OT Outpatient Modality Treatment Left Medial Forearm Name of Modality Ultrasound Duration (Minutes) 15 Body Position Sitting Comments Pulsed; 20% duty cycle; 2.0 w/ cm2 Skin intact pre and post treatment.
--- NOTE | 2018-01-25 14:19 | OT.OP.REEVAL ---
Visit Care Team Role Provider Type Trista Lou MD Family Provider Physician Primary Care Provider Address: [address] [place] [address], [address] Email: [email or web address] Israel Gabriel MD Attending Provider Physician Address: [address] [place] [address], [address] Email: [email or web address] Outpatient OT Outpatient Adult Evaluation Start: 12/26/17 11:23 Freq: Status: Active Protocol: Document 12/26/17 11:24 AMS (Rec: 12/26/17 12:08 AMS [email or web address]) General Information Session Time Visit Start Time 09:30 Visit Stop Time 10:15 Total Visit Minutes 45 Visit Information Visit Number Plan of Care Dates 12/26/17-02/06/18 Insurance Information 60 Vis[employer]; FED Retiree; No G-CODES Setting Treatment Setting Outpatient Care Visit Type Note Type Initial Evaluation Referral Referring Physician Israel Gabriel MD Reason for Referral Closed fracture of olecranon process of left ulna; ORIF left ulna (12/18/17) Precautions Protocol: patient to be seen 2-4 days post surgery to start working on ROM of the elbow Patient reported that she was not to remove posterior splint until upcoming Sunday; patient also reported that she is not to lift anything heavy with the arm and to keep the arm dry. Identification Identification Confirmed Yes Identification Confirmed By Paper chart Medical Information Medical History Medical History Form completed and on file. Findings: arthritis; depression; dizziness; vision problems; h/ o hysterectomy and gallbladder surgeries. Social Information Social History Patient resides w/ ; reportedly is assisting patient has needed w / daily tasks. Patient is a [employer] employee who works at the local [employer] 15 hours per week. Therapy Pain Assessment Pain When Pain Assessed pre-tx Pain Present Pain Present Pain Reported Location Left Elbow Intensity 3 Scale Used Numeric (1 - 10) Patient Questionnaires Quick Dash- Upper Extremity Quick Dash UE Score 65.9 Quick Dash UE Impairment 60 to 79% Impaired (Score 60- 79) ADLs Overall Ability Comments Impaired IADLs Overall Function Comments Impaired Sleep Sleep Description Sleeps in recliner versus in bed (+) history of sleep apnea Driving Skill Level Impaired Fine Motor Handedness Hand Preference Right Functional Wrist/Hand Scan Hand Side Impressions Overall Observations Able to oppose thumb to each digit pad without difficulty w / L and R hands. Goals Objective Measurements Objective Measurements Mild swelling noted of distal L UE --> distal to posterior splint. (+) complaints of splint irritating skin; minor adjustments made to decrease skin irritation of left ulnar wrist and medial border of splint near arm pit. (-) c/o stiffness with wrist flexion/ extension and digit flexion/ extension. Minor c/o of wrist stiffness w/ UD and RD. Minor c/o of shoulder stiffness w/ sh ext w/ slight rounding of L shoulder given location of splint. Education on AROM of hand, wrist, and use of TT to support shoulder AROM. Patient denied questions. Bandages reapplied to reduce movement of arm within splint. Short Term Goals Short Term Goals 1. Patient will be independent with home edema management program. 2. Patient will demonstrate AROM WFL for the left wrist, relative to left wrist flexion , extension, ulnar deviation and radial deviation. 3. Patient will be modified independent with home exercise program for left shoulder, wrist and hand, utilizing provided written and visual instructions. Bar Pointer Goals Bar Pointer Goals 1. Patient will be able to dress independently on a daily basis, with active incorporation of the left upper extremity, without complaints of pain/discomfort. 2. Patient will be able to drive independently on a daily basis, with active incorporation of the left upper extremity, without complaints of pain/discomfort. 3. Patient will be modified independent with left upper extremity home exercise program utilizing provided written and visual instructions. Assessment/Plan Assessment Patient Response Good Rehabilitation Potential Good Impairments Identified ADLs Coordination/Dexterity Functional Activities Pain Weakness Posture Range of Motion Recreational Activities Meaningful Activities Stiffness Swelling Treatment Assessment Patient is a 72 year-old female referred to outpatient occupational therapy for post- op rehabilitation following surgery (ORIF left ulna fracture). Patient underwent surgery on 12/18/2017. PMH: arthritis; depression; dizziness; vision problems; additional h/o hysterectomy and gallbladder surgeries. PLOF: Independent with BADLS and IADLS, including driving and working 15 hours per week for the [employer]. Findings: Pt presents with posterior splint; mild swelling; stiffness of left shoulder and left wrist; full extension of digits w/ wrist extension and ability to oppose thumb to each digit pad ; post-op precautions; left elbow pain/discomfort; and decreased functional use of non-dominant left upper extremity. Patient would likely benefit from outpatient OT so that she may return to [facility]. Patient Understanding Good Plan Comment 6 weeks Treatment Frequency Twice a Week Therapeutic Contents Active Range of Motion Client Education Functional Activities Home Exercise Program Manual Therapy Education Self-Care Stretching/Flexibility Activities Therapeutic Activities Therapeutic Exercises Modalities Modalities As Needed As Prescribed Sensory Assessment Sensory Profile2 OT Outpatient Range of Motion Start: 12/26/17 11:23 Freq: Status: Active Protocol: Document 01/25/18 14:03 AMS (Rec: 01/25/18 14:19 AMS [email or web address]) ROM - Elbow/Forearm Elbow/Forearm Measured in Degrees Left Elbow/Forearm ROM WFL No ROM Testing Position Sitting Elbow Flex AROM (degrees) -10-138 Elbow Ext AROM (degrees) -10-138 Comments Initial evaluation findings: Elbow flex/ext = -45-70 Right Elbow/Forearm ROM WFL Yes ROM Testing Position Sitting Elbow Flex AROM (degrees) 0-140 Elbow Ext AROM (degrees) 0-140 Forearm Pron AROM (degrees) 0-90 Forearm Sup AROM (degrees) 0-78 Forearm Sup PROM (degrees) 0-90 Comments h/o injury to distal right upper extremity ROM - Wrist Wrist Range of Motion Measured in Degrees Left ROM Testing Position Sitting Wrist Flex AROM (degrees) 0-65 Wrist Ext AROM Fingers Open (degrees) 0-55 Ulnar Deviation AROM (degrees) 0-25 Radial Deviation AROM (degrees) 0-15 Right ROM Testing Position Sitting Wrist Flex AROM (degrees) 0-65 Wrist Ext AROM Fingers Open (degrees) 0-60 Ulnar Deviation AROM (degrees) 0-30 Radial Deviation AROM (degrees) 0-15 Comments h/o injury to distal right upper extremity ROM Limitations Wrist ROM Limitations Muscle Weakness Swelling Comments Will assess further at time of follow-up treatment session OT Outpatient Treatment Note - Adult Start: 01/03/18 13:35 Freq: Status: Active Protocol: Document 01/25/18 14:03 AMS (Rec: 01/25/18 14:19 AMS [email or web address]) OT Outpatient Adult Treatment Note Session Time Visit Start Time 10:35 Visit Stop Time 11:30 Total Visit Minutes 55 Visit Information Visit Number Plan of Care Dates 01/25/18-03/08/18 Insurance Information 60 Visits [employer]; FED Retiree; No G-CODES Setting Treatment Setting Outpatient Care Visit Type Note Type Re-Evaluation General Information General Information Patient is a 72 year-old female referred to outpatient occupational therapy for post- op rehabilitation following surgery (ORIF left ulna fracture). Patient underwent surgery on 12/18/2017. PMH: arthritis; depression; dizziness; vision problems; additional h/o hysterectomy and gallbladder surgeries. - Subjective Identification Type Name Picture Identification Reconciled With Medical Record Observations I can't wait to be able to lift things with this hand per Kristel. I can't start it yet can I? Pt had follow-up appt w/ surgeon on 01/18/18. Treatment description: occupational therapist to evaluate and treat. Home exercise program. Range of motion. Protocol: Continue w/ ROM only for 2 more weeks; then in 2 weeks she may start light strengthening. Frequency: 2 x per week. Duration: 6 weeks. *Copy of orders placed in chart. QuickDASH Disability/Symptom Score: 34.1 Pt completed Pain Assessment Grid; pt indicated 2/10 on the pain scale relative to the left elbow. Chief Complaint(s) Loss of Motion/Stiffness Restricts Loss of Function Marked Degree Effect on Activity Marked Degree Effect on Daily Life Marked Degree Patient/Caregiver Compliance with Home Good Exercise Program Comments w/ use of visual/written instructions - Objective Objective Measurements -10-138 active L elbow extension/flexion post- treatment (+) mild swelling. Pt denied impaired sensation at site of scar; recommend following up d /t previous h/o c/o impaired sensation. Reviewed home scar tissue mobilization reviewed; c/o pain/discomfort w/ scar tissue mobilization. Pt reported decreased intensity of 'zingers'; however, still present. Short Term Goals 1. Patient will be independent with home edema management program. 2. Patient will demonstrate AROM WFL for the left wrist, relative to left wrist flexion , extension, ulnar deviation and radial deviation. 3. Patient will be modified independent with home exercise program for left shoulder, wrist and hand, utilizing provided written and visual instructions. Snf Goals 1. Patient will be able to dress independently on a daily basis, with active incorporation of the left upper extremity, without complaints of pain/discomfort. 2. Patient will be able to drive independently on a daily basis, with active incorporation of the left upper extremity, without complaints of pain/discomfort. 01/22/18= 50% met. 3. Patient will be modified independent with left upper extremity home exercise program utilizing provided written and visual instructions. - Treatment 1 Descriptor HEP Provided written and visual instructions Copy placed in chart (date inclusion on HEP - reviewed surgeon's protocol per documentation provided by patient and faxed by surgeon) Complexity Upgraded Exercises 4 Descriptor Arm pulleys In front Sides Side Both Body Position Sitting Time 6 minutes (x3 minutes each) Complexity Upgraded 2 Descriptor UEB Side Both Body Position Sitting Time 3 minutes Complexity No Change 1 Descriptor AROM elbow forearm in different positions [place] assist Side Left Body Position Sitting Sets 2 Repetitions 10 - Assessment Patient Response to Treatment Good Rehab Potential Good Impairments Identified ADLs Coordination/Dexterity Functional Activities Pain Weakness Range of Motion Recreational Activities Meaningful Activities Stiffness Swelling Assessment of Overall Progress Improving Assessment of Improvement Patient is presenting with decreased swelling of the left UE, improved active elbow flexion and extension and decreased left elbow pain (2 vs 3). Pt is reporting improving sensation relative to site of incision; however, has been inconsistent w/ report. Pt continues to present w/ decreased functional abilities of the left hand compared to PLOF; thus, would likely continue to benefit from OT. Home Exercise Program Please see above for additional details. No changes to HEP at this time. Reviewed with Patient/Caregiver Goals Progress Being Made Home Exercise Program Patient/Caregiver Understanding Fair - Plan Therapy Recommendations Continue with Current Program Advance per Rehabilitation Protocol Additional Therapy Recommendations Follow physician protocol Comment 6 weeks Frequency of Treatment Once a Week Therapeutic Contents Active Range of Motion Client Education Functional Activities Home Exercise Program Manual Therapy Education Neuromuscular Re-Education Self-Care Stretching/Flexibility Activities Therapeutic Activities Therapeutic Exercises Modalities Sensory Re-education Modalities As Needed As Prescribed Types of Modalities Contrast Bath E-Stim Ice Massage Ultrasound Additional Types of Modalities Heat Occupational Therapy Assessment OT Outpatient Modality Start: 01/03/18 14:01 Freq: Status: Active Protocol: Document 01/25/18 14:03 AMS (Rec: 01/25/18 14:19 AMS [email or web address]) OT Outpatient Modality Treatment Left Medial Forearm Name of Modality Ultrasound Duration (Minutes) 15 Body Position Sitting Comments Pulsed; 20% duty cycle; 2.0 w/ cm2 Skin intact pre and post treatment. Occupational Therapy Assessment OT Outpatient Range of Motion Start: 12/26/17 11:23 Freq: Status: Active Protocol: Document 01/25/18 14:03 [facility] (Rec: 01/25/18 14:19 AMS [email or web address]) ROM - Elbow/Forearm Elbow/Forearm Measured in Degrees Left Elbow/Forearm ROM WFL No ROM Testing Position Sitting Elbow Flex AROM (degrees) -10-138 Elbow Ext AROM (degrees) -10-138 Comments Initial evaluation findings: Elbow flex/ext = -45-70 Right Elbow/Forearm ROM WFL Yes ROM Testing Position Sitting Elbow Flex AROM (degrees) 0-140 Elbow Ext AROM (degrees) 0-140 Forearm Pron AROM (degrees) 0-90 Forearm Sup AROM (degrees) 0-78 Forearm Sup PROM (degrees) 0-90 Comments h/o injury to distal right upper extremity ROM - Wrist Wrist Range of Motion Measured in Degrees Left ROM Testing Position Sitting Wrist Flex AROM (degrees) 0-65 Wrist Ext AROM Fingers Open (degrees) 0-55 Ulnar Deviation AROM (degrees) 0-25 Radial Deviation AROM (degrees) 0-15 Right ROM Testing Position Sitting Wrist Flex AROM (degrees) 0-65 Wrist Ext AROM Fingers Open (degrees) 0-60 Ulnar Deviation AROM (degrees) 0-30 Radial Deviation AROM (degrees) 0-15 Comments h/o injury to distal right upper extremity ROM Limitations Wrist ROM Limitations Muscle Weakness Swelling Comments Will assess further at time of follow-up treatment session
--- NOTE | 2018-02-15 11:51 | OT.OP.TRT ---
Visit Care Team Role Provider Type Trista Lou MD Family Provider Physician Primary Care Provider Specialty: Family Practice Address: [address] [place] [address], [address] Email: [email or web address] Israel Gabriel MD Attending Provider Physician Specialty: Orthopedic Surgery Address: [address] [place] [address], [address] Email: [email or web address] Occupational Therapy Treatment Note OT Outpatient Treatment Note - Adult Start: 01/03/18 13:35 Freq: Status: Active Protocol: Document 02/15/18 10:33 AMS (Rec: 02/15/18 11:34 AMS [email or web address]) OT Outpatient Adult Treatment Note Session Time Visit Start Time 10:35 Visit Stop Time 11:22 Total Visit Minutes 48 Visit Information Visit Number Plan of Care Dates 01/25/18-03/08/18 Insurance Information 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 Patient underwent surgery on 12/18/2017. PMH: arthritis; depression; dizziness; vision problems; additional h/o hysterectomy and gallbladder surgeries. - Subjective Identification Type Name Picture Identification Reconciled With Medical Record Observations I am now able to touch the top of my shoulder with this hand. I feel like this motion still needs work per Kristel. Chief Complaint(s) Loss of Motion/Stiffness Restricts Loss of Function Marked Degree Effect on Activity Marked Degree Effect on Daily Life Marked Degree Patient/Caregiver Compliance with Home Good Exercise Program Comments w/ use of visual/written instructions - Objective Objective Measurements Please refer to ROM and Muscle Testing section of treatment note for specific details. (+) need for continued scar tissue mobilization proximal; slightly raised. c/o decreased functional I relative to managing heavy objects/items and donning personal bra. c/o mild discomfort of medial arm, proximal to volar surface of elbow; c/o stiffness of left wrist (decreased flexibility). Short Term Goals 1. Patient will be independent with home edema management program. 02/15/18= 50% met 2. Patient will be modified independent w/ home exercise program for left shoulder, wrist and hand, utilizing provided written and visual instructions. 02/15/18= HEP upgraded GOALS MET: Pt demonstrated AROM WFL for the left wrist (0-70 active wrist ext fingers open; 0-65 active wrist flex; 0-26 active wrist UD; 0-[address]). *MET 02/15/18 Appliances Sample Maker Goals 1. Patient will be able to dress independently on a daily basis, with active incorporation of the left upper extremity, without complaints of pain/discomfort. 02/15/18= 50% met 2. Patient will be able to drive independently on a daily basis, with active incorporation of the left upper extremity, without complaints of pain/discomfort. 02/15/18= 75% met. 3. Patient will be modified independent with left upper extremity home exercise program utilizing provided written and visual instructions. - Treatment 1 Descriptor HEP Increased resistance (rec. use of 3# DB; TB#2 in the home) Complexity Upgraded Exercises 4 Descriptor Arm pulleys In front Sides Side Both Body Position Sitting Time 6 minutes (x3 minutes each) Complexity Upgraded 2 Descriptor UEB 1 min. Both 2 min. 15 sec. L Body Position Sitting Time 3 min; 15 sec Complexity Upgraded 1 Descriptor Strengthening Standing row Elbow flex/ext Side Left Body Position Sitting Sets 1 Repetitions 10 Resistance 3# DB Manual Therapy Manual Therapy Scar tissue mobilization. Raised proximally. Focus on this area w/ scar tissue mobilization. Manual massage - medial focus of volar surface of left forearm (proximal to elbow). - Assessment Patient Response to Treatment Good Rehab Potential Good Impairments Identified ADLs Coordination/Dexterity Functional Activities Pain Weakness Range of Motion Recreational Activities Meaningful Activities Stiffness Swelling Assessment of Overall Progress Improving Assessment of Improvement Improving active elbow flexion ; improving active wrist ext w / fingers open. Improving functional AROM of L UE. This is also evidenced by meeting short term goal in this area. Decreased functional independence compared to PLOF. Mild discomfort reaching end active range of elbow flexion/ ext. Verbal cueing to execute strengthening exercises through full range to also assist w/ motor planning for functional task completion. Decreased strength of L UE compared to PLOF. Home Exercise Program Please see above for additional details. Upgraded on this treatment date. Reviewed with Patient/Caregiver Goals Progress Being Made Home Exercise Program Patient/Caregiver Understanding Fair - Plan Therapy Recommendations Continue with Current Program Advance per Rehabilitation Protocol Occupational Therapy Assessment OT Outpatient Muscle Testing Start: 02/15/18 11:30 Freq: Status: Active Protocol: Document 02/15/18 10:33 AMS (Rec: 02/15/18 11:31 AMS [email or web address]) Cutting Machine Operator Helper/Hand Strength Cutting Machine Operator Helper/Hand Strength Left Cutting Machine Operator Helper Dynamometer II 51.3 Right Cutting Machine Operator Helper Dynamometer II 61.0 Occupational Therapy Assessment OT Outpatient Modality Start: 01/03/18 14:01 Freq: Status: Active Protocol: Document 02/15/18 10:33 AMS (Rec: 02/15/18 11:29 AMS [id number]) OT Outpatient Modality Treatment Left Medial Distal Arm Name of Modality ultrasound Duration (Minutes) 12 Body Position Supine Comments pulsed 20% duty cycle, 2.0 w/ cm2. skin intact pre- ad post- tx Occupational Therapy Assessment OT Outpatient Range of Motion Start: 12/26/17 11:23 Freq: Status: Active Protocol: Document 02/15/18 10:33 AMS (Rec: 02/15/18 11:29 AMS [id number]) ROM - Elbow/Forearm Elbow/Forearm Measured in Degrees Left ROM Testing Position Sitting Elbow Flex AROM (degrees) -10-143 Elbow Ext AROM (degrees) -10-143 Forearm Pron AROM (degrees) 0-90 Forearm Sup AROM (degrees) 0-75 Comments Initial evaluation findings: Elbow flex/ext = -45-70 Right Elbow/Forearm ROM WFL Yes ROM Testing Position Sitting Elbow Flex AROM (degrees) 0-140 Elbow Ext AROM (degrees) 0-140 Forearm Pron AROM (degrees) 0-90 Forearm Sup AROM (degrees) 0-78 Forearm Sup PROM (degrees) 0-90 Comments h/o injury to distal right upper extremity ROM - Wrist Wrist Range of Motion Measured in Degrees Left ROM Testing Position Sitting Wrist Flex AROM (degrees) 0-65 Wrist Ext AROM Fingers Open (degrees) 0-70 Ulnar Deviation AROM (degrees) 0-26 Radial Deviation AROM (degrees) 0-15 Right ROM Testing Position Sitting Wrist Flex AROM (degrees) 0-65 Wrist Ext AROM Fingers Open (degrees) 0-60 Ulnar Deviation AROM (degrees) 0-30 Radial Deviation AROM (degrees) 0-15 Comments h/o injury to distal right upper extremity ROM Limitations Wrist ROM Limitations Muscle Weakness Swelling
--- NOTE | 2018-02-19 11:36 | OT.OP.TRT ---
Visit Care Team Role Provider Type Trista Lou MD Family Provider Physician Primary Care Provider Specialty: Family Practice Address: [address] [place] [address], [id number] Email: [email or web address] Israel Gabriel MD Attending Provider Physician Specialty: Orthopedic Surgery Address: [address] [place] [address], [address] Email: [email or web address] Occupational Therapy Treatment Note OT Outpatient Treatment Note - Adult Start: 01/03/18 13:35 Freq: Status: Active Protocol: Document 02/19/18 11:19 AMS (Rec: 02/19/18 11:36 AMS [email or web address]) OT Outpatient Adult Treatment Note Session Time Visit Start Time 10:31 Visit Stop Time 11:17 Total Visit Minutes 46 Visit Information Visit Number Plan of Care Dates 01/25/18-03/08/18 Insurance Information 60 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 Patient underwent surgery on 12/18/2017. PMH: arthritis; depression; dizziness; vision problems; additional h/o hysterectomy and gallbladder surgeries. - Subjective Identification Type Name Picture Identification Reconciled With Medical Record Observations I am now able to fasten my bra with this hand per Kristel . Chief Complaint(s) Loss of Motion/Stiffness Restricts Loss of Function Marked Degree Effect on Activity Marked Degree Effect on Daily Life Marked Degree Patient/Caregiver Compliance with Home Good Exercise Program Comments w/ use of visual/written instructions - Objective Objective Measurements Slightly improved active L elbow flexion; please refer to ROM section of treatment note for specific details. (+) need for continued scar tissue mobilization proximally; slightly raised. Pt reports ability to fasten bra w/ L hand (PLOF); however, pt continues to c/o decreased functional I relative to managing heavy objects/items w / the L hand. c/o mild discomfort of medial elbow. c/ o pain of lateral side of L forearm w/ active forearm supination/pronation w/ 90 degrees sh flex w/ 3# DB. Modified to positioning of DB at side w/ elbow extended; no c/o discomfort. Short Term Goals 1. Patient will be independent with home edema management program. 02/15/18= 50% met GOALS MET: Pt demonstrated AROM WFL for the left wrist (0-70 active wrist ext fingers open; 0-65 active wrist flex; 0-26 active wrist UD; 0-[address]). *MET 02/15/18 GOAL D/C to LTG: Patient will be modified independent w/ home exercise program for left shoulder, wrist and hand, utilizing provided written and visual instructions. 02/19/18 Roll Finisher Goals 1. Patient will be able to dress independently on a daily basis, with active incorporation of the left upper extremity, without complaints of pain/discomfort. 02/19/18= 75% met 2. Patient will be able to drive independently on a daily basis, with active incorporation of the left upper extremity, without complaints of pain/discomfort. 02/19/18= 75% met. 3. Patient will be modified independent with left upper extremity home exercise program utilizing provided written and visual instructions. 4. Patient will demonstrate improved functional abilities of the left hand/upper extremity, as evidenced by obtaining a score of < 10.0 on the QuickDASH UE Outcome Measure. 02/19/18= 25% met - Treatment 1 Descriptor HEP Forearm supination/pronation w / elbow ext seated 2 sets of 15 reps w/ 3# DB w/ home exercises Complexity Upgraded Exercises 7 Descriptor Shoulder ext w/ elbow ext Side Left Body Position Standing Sets 1 Repetitions 15 Resistance 3# DB Complexity Upgraded 6 Descriptor Forearm sup/pronation w/ elbow extension Side Left Body Position Seated Sets 1 Repetitions 15 Resistance 3# DB Complexity Upgraded 5 Descriptor Elbow flexion/extension Side Left Body Position Standing Sets 1 Repetitions 15 Resistance 3# DB Complexity Upgraded 2 Descriptor UEB 1 min. Both 2 min. 15 sec. L Body Position Sitting Time 3 min; 15 sec Complexity Upgraded 1 Descriptor Strengthening Standing row Elbow flex/ext Side Left Body Position Sitting Sets 1 Repetitions 15 Resistance 3# DB Complexity Upgraded Manual Therapy Manual Therapy Scar tissue mobilization. Raised proximally. Focus on this area w/ scar tissue mobilization. Manual massage - medial elbow. - Assessment Patient Response to Treatment Good Rehab Potential Good Impairments Identified ADLs Coordination/Dexterity Functional Activities Pain Weakness Range of Motion Recreational Activities Meaningful Activities Stiffness Swelling Assessment of Overall Progress Improving Assessment of Improvement Slightly improved active elbow flexion. Improving functional abilities of L UE; this is evidenced by pt's report of ability to fasten bra for the first time w/ L hand. Decreased functional independence compared to PLOF. Decreased ability to manipulate objects against gravity near end range of elbow extension. (+) tightness w/ tendency towards slight elbow flexion and forearm pronation. Education completed . Pt denied questions. Decreased strength of L UE compared to PLOF. Home Exercise Program Please see above for additional details. Upgraded on this treatment date. Pt denied questions. Reviewed with Patient/Caregiver Goals Progress Being Made Home Exercise Program Patient/Caregiver Understanding Fair - Plan Therapy Recommendations Continue with Current Program Advance per Rehabilitation Protocol Occupational Therapy Assessment OT Outpatient Range of Motion Start: 12/26/17 11:23 Freq: Status: Active Protocol: Document 02/19/18 11:19 AMS (Rec: 02/19/18 11:36 AMS [email or web address]) ROM - Elbow/Forearm Elbow/Forearm Measured in Degrees Left ROM Testing Position Sitting Elbow Flex AROM (degrees) -10-145 Elbow Ext AROM (degrees) -10-145 Forearm Pron AROM (degrees) 0-90 Forearm Sup AROM (degrees) 0-75 Comments Initial evaluation findings: Elbow flex/ext = -45-70 Right Elbow/Forearm ROM WFL Yes ROM Testing Position Sitting Elbow Flex AROM (degrees) 0-140 Elbow Ext AROM (degrees) 0-140 Forearm Pron AROM (degrees) 0-90 Forearm Sup AROM (degrees) 0-78 Forearm Sup PROM (degrees) 0-90 Comments h/o injury to distal right upper extremity ROM - Wrist Wrist Range of Motion Measured in Degrees Left ROM Testing Position Sitting Wrist Flex AROM (degrees) 0-65 Wrist Ext AROM Fingers Open (degrees) 0-70 Ulnar Deviation AROM (degrees) 0-26 Radial Deviation AROM (degrees) 0-15 Comments Initial evaluation findings: 0-65 wrist flex 0-55 wrist ext fingers open 0-25 wrist [address] Right ROM Testing Position Sitting Wrist Flex AROM (degrees) 0-65 Wrist Ext AROM Fingers Open (degrees) 0-60 Ulnar Deviation AROM (degrees) 0-30 Radial Deviation AROM (degrees) 0-15 Comments h/o injury to distal right upper extremity ROM Limitations Wrist ROM Limitations Muscle Weakness Swelling
--- NOTE | 2018-02-22 11:40 | OT.OP.TRT ---
Visit Care Team Role Provider Type Trista Lou MD Family Provider Physician Primary Care Provider Specialty: Family Practice Address: [address] [place] [address], [address] Email: [email or web address] Israel Gabriel MD Attending Provider Physician Specialty: Orthopedic Surgery Address: [address] [place] [address], [address] Email: [email or web address] Occupational Therapy Treatment Note OT Outpatient Treatment Note - Adult Start: 01/03/18 13:35 Freq: Status: Active Protocol: Document 02/22/18 11:23 AMS (Rec: 02/22/18 11:40 AMS [email or web address]) OT Outpatient Adult Treatment Note Session Time Visit Start Time 10:30 Visit Stop Time 11:15 Total Visit Minutes 45 Visit Information Visit Number Plan of Care Dates 01/25/18-03/08/18 Insurance Information 60 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 Patient underwent surgery on 12/18/2017. PMH: arthritis; depression; dizziness; vision problems; additional h/o hysterectomy and gallbladder surgeries. - Subjective Identification Type Name Picture Identification Reconciled With Medical Record Observations My wrist feels stiff when I do this per Kristel in re: touching sh w/ sh flex & elbow flex and sh abd & elbow flex. I feel it on this side. Chief Complaint(s) Loss of Motion/Stiffness Restricts Loss of Function Marked Degree Effect on Activity Marked Degree Effect on Daily Life Marked Degree Patient/Caregiver Compliance with Home Good Exercise Program Comments w/ use of visual/written instructions - Objective Objective Measurements Pt continues to c/o wrist tightness w/ active elbow flexion. Decreased functional I relative to managing heavy objects/items w/ the L hand. c /o mild discomfort of medial elbow. Upgrading of supination /pronation exercise to sh flex in prep for functional tasks and heavy object manipulation. Short Term Goals 1. Patient will be independent with home edema management program. 02/22/18= 75% met GOALS MET: Pt demonstrated AROM WFL for the left wrist (0-70 active wrist ext fingers open; 0-65 active wrist flex; 0-26 active wrist UD; 0-[address] *MET 02/15/18 GOAL D/C to LTG: Patient will be modified independent w/ home exercise program for left shoulder, wrist and hand, utilizing provided written and visual instructions. 02/19/18 Waterproof Material Folder Goals 1. Patient will be able to dress independently on a daily basis, with active incorporation of the left upper extremity, without complaints of pain/discomfort. 02/22/18= 75% met 2. Patient will be able to drive independently on a daily basis, with active incorporation of the left upper extremity, without complaints of pain/discomfort. 02/22/18= 75% met. 3. Patient will be modified independent with left upper extremity home exercise program utilizing provided written and visual instructions. 02/22/18= 25% met 4. Patient will demonstrate improved functional abilities of the left hand/upper extremity, as evidenced by obtaining a score of < 10.0 on the QuickDASH UE Outcome Measure. 02/22/18= 25% met - Treatment 1 Descriptor HEP Stretch TT (elbow ext w/ wrist ext and sh ext as needed) Complexity Upgraded Exercises 7 Descriptor Shoulder ext w/ elbow ext Side Left Body Position Standing Sets 1 Repetitions 15 Resistance 3# DB Complexity No Change 6 Descriptor Forearm sup/pronation w/ elbow extension w/ sh flex 90 degrees Side Left Body Position Seated Sets 1 Repetitions 15 Resistance 3# DB Complexity Upgraded 5 Descriptor Elbow flexion/extension Side Left Body Position Standing Sets 1 Repetitions 15 Resistance 3# DB Complexity No Change 1 Descriptor Strengthening Standing row Elbow flex/ext Side Left Body Position Sitting Sets 1 Repetitions 15 Resistance 3# DB Complexity No Change Manual Therapy Manual Therapy Manual massage - medial elbow. - Assessment Patient Response to Treatment Good Rehab Potential Good Impairments Identified ADLs Coordination/Dexterity Functional Activities Pain Weakness Range of Motion Recreational Activities Meaningful Activities Stiffness Swelling Assessment of Overall Progress Improving Assessment of Improvement Decreased functional independence compared to PLOF. Improving ability to manipulate heavy objects against gravity near end range of active elbow extension w/ forearm supination/pronation. No increase to amount of resistance w/ HEP at this time based on pt verbal feedback. (+) tightness w/ tendency towards slight elbow flexion and forearm pronation. Pt denied questions. Decreased strength of L UE compared to PLOF. Home Exercise Program Please see above for additional details. Upgraded HEP on this treatment date. Pt denied questions. Reviewed with Patient/Caregiver Goals Progress Being Made Home Exercise Program Patient/Caregiver Understanding Fair - Plan Therapy Recommendations Continue with Current Program Advance per Rehabilitation Protocol Occupational Therapy Assessment OT Outpatient Range of Motion Start: 12/26/17 11:23 Freq: Status: Active Protocol: Document 02/22/18 11:23 AMS (Rec: 02/22/18 11:40 AMS [email or web address]) ROM - Elbow/Forearm Elbow/Forearm Measured in Degrees Left ROM Testing Position Sitting Elbow Flex AROM (degrees) -10-145 Elbow Ext AROM (degrees) -10-145 Forearm Pron AROM (degrees) 0-90 Forearm Sup AROM (degrees) 0-75 Comments Initial evaluation findings: Elbow flex/ext = -45-70 Right Elbow/Forearm ROM WFL Yes ROM Testing Position Sitting Elbow Flex AROM (degrees) 0-140 Elbow Ext AROM (degrees) 0-140 Forearm Pron AROM (degrees) 0-90 Forearm Sup AROM (degrees) 0-78 Forearm Sup PROM (degrees) 0-90 Comments h/o injury to distal right upper extremity ROM - Wrist Wrist Range of Motion Measured in Degrees Left ROM Testing Position Sitting Wrist Flex AROM (degrees) 0-65 Wrist Ext AROM Fingers Open (degrees) 0-70 Ulnar Deviation AROM (degrees) 0-26 Radial Deviation AROM (degrees) 0-15 Comments Initial evaluation findings: 0-65 wrist flex 0-55 wrist ext fingers open 0-25 wrist UD 0-[address] Right ROM Testing Position Sitting Wrist Flex AROM (degrees) 0-65 Wrist Ext AROM Fingers Open (degrees) 0-60 Ulnar Deviation AROM (degrees) 0-30 Radial Deviation AROM (degrees) 0-15 Comments h/o injury to distal right upper extremity ROM Limitations Wrist ROM Limitations Muscle Weakness Swelling Occupational Therapy Assessment OT Outpatient Muscle Testing Start: 02/15/18 11:30 Freq: Status: Active Protocol: Document 02/22/18 11:23 AMS (Rec: 02/22/18 11:40 AMS [email or web address]) Restrictive Preparation Operator/Hand Strength Restrictive Preparation Operator/Hand Strength Left Restrictive Preparation Operator Dynamometer II 51.3 Right Restrictive Preparation Operator Dynamometer II 61.0
--- NOTE | 2018-02-26 11:27 | OT.OP.TRT ---
Visit Care Team Role Provider Type Trista Lou MD Family Provider Physician Primary Care Provider Specialty: Family Practice Address: [address] [place] [address], [id number] Email: [email or web address] Israel Gabriel MD Attending Provider Physician Specialty: Orthopedic Surgery Address: [address] [place] [address], [address] Email: [email or web address] Occupational Therapy Treatment Note OT Outpatient Treatment Note - Adult Start: 01/03/18 13:35 Freq: Status: Active Protocol: Document 02/26/18 11:08 AMS (Rec: 02/26/18 11:27 AMS [email or web address]) OT Outpatient Adult Treatment Note Session Time Visit Start Time 09:35 Visit Stop Time 10:22 Total Visit Minutes 47 Visit Information Visit Number Plan of Care Dates 01/25/18-03/08/18 Insurance Information 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 Patient underwent surgery on 12/18/2017. PMH: arthritis; depression; dizziness; vision problems; additional h/o hysterectomy and gallbladder surgeries. - Subjective Identification Type Name Picture Identification Reconciled With Medical Record Observations I see Dr Ballesteros on Sunday at 3:00 per Kristel. I can tell this hand is getting stronger . I am not having to ask my to help open things anymore (jaw). Chief Complaint(s) Loss of Motion/Stiffness Restricts Loss of Function Marked Degree Effect on Activity Marked Degree Effect on Daily Life Marked Degree Patient/Caregiver Compliance with Home Good Exercise Program Comments w/ use of visual/written instructions - Objective Objective Measurements Decreased functional I relative to managing heavy objects/items w/ the L hand. c /o mild discomfort of medial elbow; c/o L wrist stiffness w / active elbow flexion when attempting to touch shoulder w / sh flex or sh abd. c/o L UE weakness. Decreased L UE strength compared to R UE. See MMT testing for additional details; upgraded HEP and treatment session exercises based on results. Short Term Goals 1. Patient will be independent with home edema management program. 02/22/18= 75% met 2. MMT L forearm supination 4+ /5. 3. MMT L wrist RD/UD 4+/5. GOALS MET: Pt demonstrated AROM WFL for the left wrist (0-70 active wrist ext fingers open; 0-65 active wrist flex; 0-26 active wrist UD; 0-[address] *MET 02/15/18 GOAL D/C to LTG: Patient will be modified independent w/ home exercise program for left shoulder, wrist and hand, utilizing provided written and visual instructions. 02/19/18 Campus Administrator Goals 1. Patient will be able to dress independently on a daily basis, with active incorporation of the left upper extremity, without complaints of pain/discomfort. 02/22/18= 75% met 2. Patient will be modified independent with left upper extremity home exercise program utilizing provided written and visual instructions. 02/26/18= 25% met 3. Patient will demonstrate improved functional abilities of the left hand/upper extremity, as evidenced by obtaining a score of < 10.0 on the QuickDASH UE Outcome Measure. 02/22/18= 25% met GOALS MET Patient is able to drive independently w/ active incorporation of L UE without complaints. *MET 02/26/18 - Treatment 1 Descriptor HEP Sup/Pro on TT Wrist flex/ext Written and visual instructions provided as able (wrist strengthening). Copy placed in chart. Pt denied questions. Complexity Upgraded Exercises 7 Descriptor Shoulder ext w/ elbow ext Side Left Body Position Standing Sets 1 Repetitions 15 Resistance 3# DB Complexity No Change 6 Descriptor Forearm sup/pronation w/ elbow extension w/ sh flex 90 degrees Side Left Body Position Seated Sets 1 Repetitions 15 Resistance 3# DB Complexity No Change 5 Descriptor Elbow flexion/extension Side Left Body Position Standing Sets 1 Repetitions 15 Resistance 3# DB Complexity No Change 4 Descriptor Wrist flex/ext Sh abd Side Left Body Position Standing Sets 1 Repetitions 10 Resistance 3# DB Complexity Upgraded 3 Descriptor Weight bearing Trunk flex EOM L<->R wt shift Side Both Body Position Sitting Sets 1 Repetitions 10 Complexity Upgraded 1 Descriptor Strengthening Standing row Elbow flex/ext Side Left Body Position Sitting Sets 1 Repetitions 15 Resistance 3# DB Complexity No Change Manual Therapy Manual Therapy Manual massage - medial elbow. - Assessment Patient Response to Treatment Good Rehab Potential Good Impairments Identified ADLs Coordination/Dexterity Functional Activities Pain Weakness Range of Motion Recreational Activities Meaningful Activities Stiffness Swelling Assessment of Overall Progress Improving Assessment of Improvement Decreased functional independence compared to PLOF; however, pt reports ability to drive w/ active incorporation of the L UE without restrictions. Decreased L UE elbow/wrist strength compared to PLOF and compared to unaffected UE. Continued c/o stiffness of L wrist and decreased ability to manipulate heavier objects away from body w/ use of L UE. Home Exercise Program Please see above for additional details. Upgraded HEP on this treatment date. Pt denied questions. Reviewed with Patient/Caregiver Goals Progress Being Made Home Exercise Program Patient/Caregiver Understanding Fair - Plan Therapy Recommendations Continue with Current Program Advance per Rehabilitation Protocol Occupational Therapy Assessment OT Outpatient Modality Start: 01/03/18 14:01 Freq: Status: Active Protocol: Document 02/26/18 11:08 AMS (Rec: 02/26/18 11:27 AMS [email or web address]) OT Outpatient Modality Treatment Left Medial Distal Arm Name of Modality ultrasound Duration (Minutes) 12 Body Position Supine Comments pulsed 20% duty cycle, 2.0 w/ cm2. skin intact pre- tx post- tx Occupational Therapy Assessment OT Outpatient Range of Motion Start: 12/26/17 11:23 Freq: Status: Active Protocol: Document 02/26/18 11:08 AMS (Rec: 02/26/18 11:27 AMS [email or web address]) ROM - Elbow/Forearm Elbow/Forearm Measured in Degrees Left ROM Testing Position Sitting Elbow Flex AROM (degrees) -10-145 Elbow Ext AROM (degrees) -10-145 Forearm Pron AROM (degrees) 0-90 Forearm Sup AROM (degrees) 0-75 Comments Initial evaluation findings: Elbow flex/ext = -45-70 Right Elbow/Forearm ROM WFL Yes ROM Testing Position Sitting Elbow Flex AROM (degrees) 0-140 Elbow Ext AROM (degrees) 0-140 Forearm Pron AROM (degrees) 0-90 Forearm Sup AROM (degrees) 0-78 Forearm Sup PROM (degrees) 0-90 Comments h/o injury to distal right upper extremity ROM - Wrist Wrist Range of Motion Measured in Degrees Left ROM Testing Position Sitting Wrist Flex AROM (degrees) 0-65 Wrist Ext AROM Fingers Open (degrees) 0-70 Ulnar Deviation AROM (degrees) 0-26 Radial Deviation AROM (degrees) 0-15 Comments Initial evaluation findings: 0-65 wrist flex 0-55 wrist ext fingers open 0-25 wrist UD 0-[address] Right ROM Testing Position Sitting Wrist Flex AROM (degrees) 0-65 Wrist Ext AROM Fingers Open (degrees) 0-60 Ulnar Deviation AROM (degrees) 0-30 Radial Deviation AROM (degrees) 0-15 Comments h/o injury to distal right upper extremity ROM Limitations Wrist ROM Limitations Muscle Weakness Swelling Occupational Therapy Assessment OT Outpatient Muscle Testing Start: 02/15/18 11:30 Freq: Status: Active Protocol: Document 02/26/18 11:08 AMS (Rec: 02/26/18 11:27 AMS [email or web address]) Elbow/Forearm Strength Elbow and Forearm Manual Muscle Testing Left Flexion (C6) 4 Good Extension (C7) 5 Normal Pronation 4 Good Supination 4- Good- Comments MMT taken 02/26/18 Right Flexion (C6) 5 Normal Extension (C7) 5 Normal Pronation 5 Normal Supination 5 Normal Comments MMT taken 02/26/18 Wrist Strength Wrist Manual Muscle Testing Left Flexion (C7) 4 Good Extension (C6) 4 Good Ulnar Deviation 4- Good- Radial Deviation 4- Good- Comments MMT taken 02/26/18 Right Flexion (C7) 5 Normal Extension (C6) 5 Normal Ulnar Deviation 5 Normal Radial Deviation 5 Normal Comments MMT taken 02/26/18 Project Production Engineer/Hand Strength Project Production Engineer/Hand Strength Left Project Production Engineer Dynamometer II 51.3 Right Project Production Engineer Dynamometer II 61.0
--- NOTE | 2018-03-01 12:58 | OT.OP.TRT ---
Visit Care Team Role Provider Type Trista Lou MD Family Provider Physician Primary Care Provider Specialty: Family Practice Address: [address] [place] [address], [address] Email: [email or web address] Israel Gabriel MD Attending Provider Physician Specialty: Orthopedic Surgery Address: [address] [place] [address], [id number] Email: [email or web address] Occupational Therapy Treatment Note OT Outpatient Treatment Note - Adult Start: 01/03/18 13:35 Freq: Status: Active Protocol: Document 03/01/18 12:48 AMS (Rec: 03/01/18 12:58 AMS [email or web address]) OT Outpatient Adult Treatment Note Session Time Visit Start Time 09:30 Visit Stop Time 10:17 Total Visit Minutes 47 Visit Information Visit Number Plan of Care Dates 01/25/18-03/08/18 Insurance Information 60 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 Patient underwent surgery on 12/18/2017. PMH: arthritis; depression; dizziness; vision problems; additional h/o hysterectomy and gallbladder surgeries. - Subjective Identification Type Name Picture Identification Reconciled With Medical Record Observations I see Dr. Delaney this afternoon per Kristel. I fell into the stairs yesterday. I don't think I injured this arm when I fell. Chief Complaint(s) Loss of Motion/Stiffness Restricts Loss of Function Marked Degree Effect on Activity Marked Degree Effect on Daily Life Marked Degree Patient/Caregiver Compliance with Home Fair Exercise Program - Objective Objective Measurements Decreased functional I relative to managing heavy objects/items w/ the L hand. c /o mild discomfort of medial elbow; c/o L wrist stiffness w / active elbow flexion when attempting to touch shoulder w / sh flex or sh abd. c/o L UE weakness. Decreased L UE strength compared to R UE. See MMT testing for additional details; upgraded HEP and treatment session exercises based on results. Short Term Goals 1. Patient will be independent with home edema management program. 02/22/18= 75% met 2. MMT L forearm supination 4+ /5. 3. MMT L wrist RD/UD 4+/5. GOALS MET: Pt demonstrated AROM WFL for the left wrist (0-70 active wrist ext fingers open; 0-65 active wrist flex; 0-26 active wrist UD; 0-[address] *MET 02/15/18 GOAL D/C to LTG: Patient will be modified independent w/ home exercise program for left shoulder, wrist and hand, utilizing provided written and visual instructions. 02/19/18 Licensed Psychologist Director Goals 1. Patient will be able to dress independently on a daily basis, with active incorporation of the left upper extremity, without complaints of pain/discomfort. 02/22/18= 75% met 2. Patient will be modified independent with left upper extremity home exercise program utilizing provided written and visual instructions. 02/26/18= 25% met 3. Patient will demonstrate improved functional abilities of the left hand/upper extremity, as evidenced by obtaining a score of < 10.0 on the QuickDASH UE Outcome Measure. 02/22/18= 25% met GOALS MET Patient is able to drive independently w/ active incorporation of L UE without complaints. *MET 02/26/18 - Treatment 1 Descriptor HEP Complexity No Change Exercises 7 Descriptor Shoulder ext w/ elbow ext Side Left Body Position Standing Sets 1 Repetitions 15 Resistance 4# DB Complexity Upgraded 6 Descriptor Forearm sup/pronation w/ elbow extension w/ sh flex 90 degrees Side Left Body Position Seated Sets 1 Repetitions 15 Resistance 4# DB Complexity Upgraded 5 Descriptor Elbow flexion/extension Side Left Body Position Standing Sets 1 Repetitions 15 Resistance 4# DB Complexity Upgraded 4 Descriptor Wrist flex/ext Sh abd Side Left Body Position Standing Sets 1 Repetitions 15 Resistance 3# DB Complexity No Change 3 Descriptor Weight bearing Side Both Body Position Sitting Sets 1 Repetitions 10 Complexity Upgraded 2 Descriptor UEB Side Left Body Position Sitting Time 3 min Complexity Upgraded 1 Descriptor Strengthening Standing row Elbow flex/ext Side Left Body Position Sitting Sets 1 Repetitions 15 Resistance 4# DB Complexity Upgraded Manual Therapy Manual Therapy Manual massage - medial elbow. Scar tissue mobilization proximal focus. - Assessment Patient Response to Treatment Good Rehab Potential Good Impairments Identified ADLs Coordination/Dexterity Functional Activities Pain Weakness Range of Motion Recreational Activities Meaningful Activities Stiffness Swelling Assessment of Overall Progress Improving Assessment of Improvement Improving functional incorporation of L UE in daily life; however, decreased ability to manage heavier items w/ active incorporation of the L UE/hand. However, therapist able to increase resistance w/ certain UE strengthening exercises to 4# DB. Decreased compliance w/ HEP over this past week; decreased L UE elbow/wrist strength compared to PLOF. Thus, continued outpt OT recommended. Pt to have follow -up w/ surgeon this afternoon; adjust POC as needed/as recommended by surgeon. Home Exercise Program No changes to HEP on this treatment date given decreased frequency of execution of recommended exercises over this last week. It should be noted however, pt reports increased use of the left upper extremity in daily life and denies current limitations functionally. Reviewed with Patient/Caregiver Goals Progress Being Made Home Exercise Program Patient/Caregiver Understanding Fair - Plan Therapy Recommendations Continue with Current Program Advance per Rehabilitation Protocol Additional Therapy Recommendations Follow physician protocol Occupational Therapy Assessment OT Outpatient Modality Start: 01/03/18 14:01 Freq: Status: Active Protocol: Document 03/01/18 12:48 AMS (Rec: 03/01/18 12:58 AMS [email or web address]) OT Outpatient Modality Treatment Left Medial Distal Arm Name of Modality ultrasound Duration (Minutes) 12 Body Position Supine Comments Medial elbow focus pulsed 20% duty cycle, 2.0 w/ cm2. skin intact pre- tx post- tx
--- NOTE | 2018-03-11 10:16 | OT.OP.REEVAL ---
Visit Care Team Role Provider Type Trista Lou MD Family Provider Physician Primary Care Provider Address: [address] [place] [address], [id number] Email: [email or web address] Israel Gabriel MD Attending Provider Physician Address: [address] [place] [address], [id number] Email: [email or web address] Outpatient OT Outpatient Adult Evaluation Start: 12/26/17 11:23 Freq: Status: Active Protocol: Document 12/26/17 11:24 AMS (Rec: 12/26/17 12:08 AMS [email or web address]) General Information Session Time Visit Start Time 09:30 Visit Stop Time 10:15 Total Visit Minutes 45 Visit Information Visit Number Plan of Care Dates 12/26/17-02/06/18 Insurance Information 60 [employer]; FED Retiree; No G-CODES Setting Treatment Setting Outpatient Care Visit Type Note Type Initial Evaluation Referral Referring Physician Israel Gabriel MD Reason for Referral Closed fracture of olecranon process of left ulna; ORIF left ulna (12/18/17) Precautions Protocol: patient to be seen 2-4 days post surgery to start working on ROM of the elbow Patient reported that she was not to remove posterior splint until upcoming Sunday; patient also reported that she is not to lift anything heavy with the arm and to keep the arm dry. Identification Identification Confirmed Yes Identification Confirmed By Paper chart Medical Information Medical History Medical History Form completed and on file. Findings: arthritis; depression; dizziness; vision problems; h/ o hysterectomy and gallbladder surgeries. Social Information Social History Patient resides w/ ; reportedly is assisting patient has needed w / daily tasks. Patient is a [employer] employee who works at the local [employer] 15 hours per week. Therapy Pain Assessment Pain When Pain Assessed pre-tx Pain Present Pain Present Pain Reported Location Left Elbow Intensity 3 Scale Used Numeric (1 - 10) Patient Questionnaires Quick Dash- Upper Extremity Quick Dash UE Score 65.9 Quick Dash UE Impairment 60 to 79% Impaired (Score 60- 79) ADLs Overall Ability Comments Impaired IADLs Overall Function Comments Impaired Sleep Sleep Description Sleeps in recliner versus in bed (+) history of sleep apnea Driving Skill Level Impaired Fine Motor Handedness Hand Preference Right Functional Wrist/Hand Scan Hand Side Impressions Overall Observations Able to oppose thumb to each digit pad without difficulty w / L and R hands. Goals Objective Measurements Objective Measurements Mild swelling noted of distal L UE --> distal to posterior splint. (+) complaints of splint irritating skin; minor adjustments made to decrease skin irritation of left ulnar wrist and medial border of splint near arm pit. (-) c/o stiffness with wrist flexion/ extension and digit flexion/ extension. Minor c/o of wrist stiffness w/ UD and RD. Minor c/o of shoulder stiffness w/ sh ext w/ slight rounding of L shoulder given location of splint. Education on AROM of hand, wrist, and use of TT to support shoulder AROM. Patient denied questions. Bandages reapplied to reduce movement of arm within splint. Short Term Goals Short Term Goals 1. Patient will be independent with home edema management program. 2. Patient will demonstrate AROM WFL for the left wrist, relative to left wrist flexion , extension, ulnar deviation and radial deviation. 3. Patient will be modified independent with home exercise program for left shoulder, wrist and hand, utilizing provided written and visual instructions. Electrical Products Sales Engineer Goals Electrical Products Sales Engineer Goals 1. Patient will be able to dress independently on a daily basis, with active incorporation of the left upper extremity, without complaints of pain/discomfort. 2. Patient will be able to drive independently on a daily basis, with active incorporation of the left upper extremity, without complaints of pain/discomfort. 3. Patient will be modified independent with left upper extremity home exercise program utilizing provided written and visual instructions. Assessment/Plan Assessment Patient Response Good Rehabilitation Potential Good Impairments Identified ADLs Coordination/Dexterity Functional Activities Pain Weakness Posture Range of Motion Recreational Activities Meaningful Activities Stiffness Swelling Treatment Assessment Patient is a 72 year-old female referred to outpatient occupational therapy for post- op rehabilitation following surgery (ORIF left ulna fracture). Patient underwent surgery on 12/18/2017. PMH: arthritis; depression; dizziness; vision problems; additional h/o hysterectomy and gallbladder surgeries. PLOF: Independent with BADLS and IADLS, including driving and working 15 hours per week for the [employer]. Findings: Pt presents with posterior splint; mild swelling; stiffness of left shoulder and left wrist; full extension of digits w/ wrist extension and ability to oppose thumb to each digit pad ; post-op precautions; left elbow pain/discomfort; and decreased functional use of non-dominant left upper extremity. Patient would likely benefit from outpatient OT so that she may return to [facility]. Patient Understanding Good Plan Comment 6 weeks Treatment Frequency Twice a Week Therapeutic Contents Active Range of Motion Client Education Functional Activities Home Exercise Program Manual Therapy Education Self-Care Stretching/Flexibility Activities Therapeutic Activities Therapeutic Exercises Modalities Modalities As Needed As Prescribed Sensory Assessment Sensory Profile2 OT Outpatient Muscle Testing Start: 02/15/18 11:30 Freq: Status: Active Protocol: Document 03/05/18 12:30 AMS (Rec: 03/11/18 10:15 AMS [email or web address]) Elbow/Forearm Strength Elbow and Forearm Manual Muscle Testing Left Flexion (C6) 5 Normal Extension (C7) 5 Normal Pronation 5 Normal Supination 4+ Good+ Comments MMT 02/26/18 Elbow flex 4/5 Elbow ext 5/5 Pron 4/5 Sup 4-/5 Right Flexion (C6) 5 Normal Extension (C7) 5 Normal Pronation 5 Normal Supination 5 Normal Comments MMT 02/26/18 Elbow flex 5/5 Elbow ext 5/5 Pron 5/5 Sup 5/5 Wrist Strength Wrist Manual Muscle Testing Left Flexion (C7) 5 Normal Extension (C6) 4+ Good+ Ulnar Deviation 5 Normal Radial Deviation 5 Normal Comments MMT 02/26/18: Wrist flex 4/5 Wrist ext 4/5 UD 4-/5 RD 4-/5 Right Flexion (C7) 5 Normal Extension (C6) 5 Normal Ulnar Deviation 5 Normal Radial Deviation 5 Normal Comments MMT taken 02/26/18 Heel Wheeler/Hand Strength Heel Wheeler/Hand Strength Left Heel Wheeler Dynamometer II 51.3 Right Heel Wheeler Dynamometer II 61.0 OT Outpatient Range of Motion Start: 12/26/17 11:23 Freq: Status: Active Protocol: Document 03/05/18 12:30 AMS (Rec: 03/11/18 10:15 AMS [email or web address]) ROM - Elbow/Forearm Elbow/Forearm Measured in Degrees Left ROM Testing Position Sitting Elbow Flex AROM (degrees) -8-145 Elbow Ext AROM (degrees) -8-145 Forearm Pron AROM (degrees) 0-90 Forearm Sup AROM (degrees) 0-75 Comments Initial evaluation findings: Elbow flex/ext = -45-70 Right Elbow/Forearm ROM WFL Yes ROM Testing Position Sitting Elbow Flex AROM (degrees) 0-140 Elbow Ext AROM (degrees) 0-140 Forearm Pron AROM (degrees) 0-90 Forearm Sup AROM (degrees) 0-78 Forearm Sup PROM (degrees) 0-90 Comments h/o injury to distal right upper extremity ROM - Wrist Wrist Range of Motion Measured in Degrees Left ROM Testing Position Sitting Wrist Flex AROM (degrees) 0-65 Wrist Ext AROM Fingers Open (degrees) 0-70 Ulnar Deviation AROM (degrees) 0-26 Radial Deviation AROM (degrees) 0-15 Comments Initial evaluation findings: 0-65 wrist flex 0-55 wrist ext fingers open 0-25 wrist UD 0-[address] Right ROM Testing Position Sitting Wrist Flex AROM (degrees) 0-65 Wrist Ext AROM Fingers Open (degrees) 0-60 Ulnar Deviation AROM (degrees) 0-30 Radial Deviation AROM (degrees) 0-15 Comments h/o injury to distal right upper extremity ROM Limitations Wrist ROM Limitations Soft Tissue Tightness Muscle Weakness Swelling OT Outpatient Treatment Note - Adult Start: 01/03/18 13:35 Freq: Status: Active Protocol: Document 03/05/18 12:30 AMS (Rec: 03/11/18 10:15 AMS [email or web address]) OT Outpatient Adult Treatment Note Session Time Visit Start Time 09:30 Visit Stop Time 10:21 Total Visit Minutes 51 Visit Information Visit Number [id number] Plan of Care Dates 03/08/18-05/31/18 Insurance Information 60 Visits P[employer]; FED Retiree; No G-CODES Setting Treatment Setting Outpatient Care Visit Type Note Type Re-Evaluation General Information General Information Patient is a 72 year-old female referred to outpatient occupational therapy for post- op rehabilitation following surgery (ORIF left ulna fracture). Patient underwent surgery on 12/18/2017. PMH: arthritis; depression; dizziness; vision problems; additional h/o hysterectomy and gallbladder surgeries. - Subjective Identification Type Name Picture Identification Reconciled With Medical Record Observations New orders from Doctor Gabriel placed in paper chart from appt w/ pt. Treatment description as follows: Occupational therapist to evaluate and treat. Home exercise program. Range of motion. Strengthening exercises. Protocol: No restrictions. Frequency: 2 per week. Duration: 6 weeks. Pt completed Pain Assessment Grid; pt indicated 1/10 on the pain scale relative to left elbow and left wrist. Pt completed QuickDASH UE Outcome Measure; pt obtained a score of 6.82. Pt indicated Mild Difficulty washing back; slight limitations in daily activities; and mild arm, shoulder or hand pain. Chief Complaint(s) Loss of Motion/Stiffness Restricts Loss of Function Marked Degree Effect on Activity Marked Degree Effect on Daily Life Marked Degree Patient/Caregiver Compliance with Home Fair Exercise Program Comments w/ use of visual/written instructions - Objective Objective Measurements Increased distal L UE strength ; please refer to MMT section of note. Increased functional I compared to time of initial eval; please refer to results of QuickDASH UE Outcome Measure. Improved AROM of elbow since time of initial evaluation; please refer to ROM section of note for details. Decreased wrist ext and forearm supination strength of L UE compared to R UE. Short Term Goals 1. MMT L forearm supination 10/13. 03/05/18= GOAL UPGRADED 2. MMT L wrist extension 10/13. 03/05/18= 75% met GOALS MET: Pt demonstrated AROM WFL for the left wrist (0-70 active wrist ext fingers open; 0-65 active wrist flex; 0-26 active wrist UD; 0-[address] *MET 02/15/18 MMT L forearm supination 4+/5. *MET 03/05/18; 4+/5 MMT L forearm supination MMT L wrist RD/UD 4+/5. *MET ; 5/[address]/UD Pt mod I w/ home edema management program. *MET Long-Term Goals 1. Patient will be mod independent with left upper extremity home exercise program utilizing provided written and visual instructions. 03/05/18= 75% met ; HEP upgraded GOALS MET Patient is able to drive independently w/ active incorporation of L UE without complaints. *MET 02/26/18 Patient is able to dress I on daily basis, w/ active use of L UE, without c/o. *MET Patient is demonstrating improved functional abilities of L hand/UE, as evidenced by obtaining a score of < 10.0 on the QuickDASH UE Outcome Measure. *MET 03/05/18= obtained a score of 6.82 - Treatment 1 Descriptor HEP Written and visual instructions provided for new exercises. Original was placed in paper chart for reference. All exercises were practiced in treatment session and pt denied all questions. Complexity Upgraded Exercises 6 Descriptor Sh flex [address]/UD Side Left Body Position Seated Sets 1 Repetitions 15 Resistance 5# DB Complexity Upgraded 5 Descriptor Elbow flex/ext w/ wrist flex/ ext at end range of elbow flex Side Left Body Position Standing Sets 1 Repetitions 15 Resistance 5# DB Complexity Upgraded 3 Descriptor Weight bearing PROM Side Both Body Position Sitting Sets 1 Repetitions 3 Complexity Upgraded 2 Descriptor UEB Side Left Body Position Sitting Time 3 min Complexity Upgraded Manual Therapy Manual Therapy Manual massage - medial elbow. - Assessment Patient Response to Treatment Good Rehab Potential Good Impairments Identified ADLs Coordination/Dexterity Functional Activities Pain Weakness Range of Motion Recreational Activities Meaningful Activities Stiffness Swelling Assessment of Overall Progress Improving Assessment of Improvement Pt has made progress over the last certification period in the areas of strength and functional independence; this is evidenced by pt meeting short term goals in these areas, as well as pt indicating low degree of pain on rating scale of 1/10. Pt continues to present w/ decreased L wrist ext and L forearm supination strength compared to R UE; pt also continues to c/o intermittent pain/stiffness of the left wrist when manipulating heavier objects away from base of support and actively combining motor movements (e.g ., supination w/ wrist ext). For these reasons, pt would likely continue to benefit from outpatient OT to address these areas and to advance HEP and guarantee pt's mod I w/ HEP execution. Continued outpt OT also recommended given referring physician's orders. Home Exercise Program Please refer to treatment section of note for specific details. Reviewed with Patient/Caregiver Goals Progress Being Made Home Exercise Program Patient/Caregiver Understanding Fair - Plan Therapy Recommendations Advance per Rehabilitation Protocol Comment 6 weeks per MD instructions Frequency of Treatment Twice a Week Therapeutic Contents Active Range of Motion Client Education Functional Activities Home Exercise Program Manual Therapy Neurodevelopment Treatment Neuromuscular Re-Education Self-Care Stretching/Flexibility Activities Modalities Sensory Re-education Modalities As Needed As Prescribed Types of Modalities Contrast Bath E-Stim Functional Stimulation (FES) Ice Massage Ultrasound Occupational Therapy Assessment OT Outpatient Modality Start: 01/03/18 14:01 Freq: Status: Active Protocol: Document 03/05/18 12:30 AMS (Rec: 03/11/18 10:15 AMS [email or web address]) OT Outpatient Modality Treatment Left Medial Distal Arm Name of Modality ultrasound Duration (Minutes) 12 Body Position Supine Comments Medial elbow focus pulsed 20% duty cycle, 2.0 w/ cm2. skin intact pre- tx post- tx Occupational Therapy Assessment OT Outpatient Range of Motion Start: 12/26/17 11:23 Freq: Status: Active Protocol: Document 03/05/18 12:30 AMS (Rec: 03/11/18 10:15 AMS [email or web address]) ROM - Elbow/Forearm Elbow/Forearm Measured in Degrees Left ROM Testing Position Sitting Elbow Flex AROM (degrees) -8-145 Elbow Ext AROM (degrees) -8-145 Forearm Pron AROM (degrees) 0-90 Forearm Sup AROM (degrees) 0-75 Comments Initial evaluation findings: Elbow flex/ext = -45-70 Right Elbow/Forearm ROM WFL Yes ROM Testing Position Sitting Elbow Flex AROM (degrees) 0-140 Elbow Ext AROM (degrees) 0-140 Forearm Pron AROM (degrees) 0-90 Forearm Sup AROM (degrees) 0-78 Forearm Sup PROM (degrees) 0-90 Comments h/o injury to distal right upper extremity ROM - Wrist Wrist Range of Motion Measured in Degrees Left ROM Testing Position Sitting Wrist Flex AROM (degrees) 0-65 Wrist Ext AROM Fingers Open (degrees) 0-70 Ulnar Deviation AROM (degrees) 0-26 Radial Deviation AROM (degrees) 0-15 Comments Initial evaluation findings: 0-65 wrist flex 0-55 wrist ext fingers open 0-25 wrist UD 0-[address] Right ROM Testing Position Sitting Wrist Flex AROM (degrees) 0-65 Wrist Ext AROM Fingers Open (degrees) 0-60 Ulnar Deviation AROM (degrees) 0-30 Radial Deviation AROM (degrees) 0-15 Comments h/o injury to distal right upper extremity ROM Limitations Wrist ROM Limitations Soft Tissue Tightness Muscle Weakness Swelling Occupational Therapy Assessment OT Outpatient Muscle Testing Start: 02/15/18 11:30 Freq: Status: Active Protocol: Document 03/05/18 12:30 AMS (Rec: 03/11/18 10:15 AMS [email or web address]) Elbow/Forearm Strength Elbow and Forearm Manual Muscle Testing Left Flexion (C6) 5 Normal Extension (C7) 5 Normal Pronation 5 Normal Supination 4+ Good+ Comments MMT 02/26/18 Elbow flex 4/5 Elbow ext 5/5 Pron 4/5 Sup 4-/5 Right Flexion (C6) 5 Normal Extension (C7) 5 Normal Pronation 5 Normal Supination 5 Normal Comments MMT 02/26/18 Elbow flex 5/5 Elbow ext 5/5 Pron 5/5 Sup 5/5 Wrist Strength Wrist Manual Muscle Testing Left Flexion (C7) 5 Normal Extension (C6) 4+ Good+ Ulnar Deviation 5 Normal Radial Deviation 5 Normal Comments MMT 02/26/18: Wrist flex 4/5 Wrist ext 4/5 UD 4-/5 RD 4-/5 Right Flexion (C7) 5 Normal Extension (C6) 5 Normal Ulnar Deviation 5 Normal Radial Deviation 5 Normal Comments MMT taken 02/26/18 Heel Wheeler/Hand Strength Heel Wheeler/Hand Strength Left Heel Wheeler Dynamometer II 51.3 Right Heel Wheeler Dynamometer II 61.0
--- NOTE | 2018-03-12 15:50 | OT.OP.DC ---
Visit Care Team Role Provider Type Trista Lou MD Family Provider Physician Primary Care Provider Address: [address] [place] [address], [id number] Email: [email or web address] Israel Gabriel MD Attending Provider Physician Address: [address] [place] [address], [id number] Email: [email or web address] Outpatient OT Outpatient Adult Evaluation Start: 12/26/17 11:23 Freq: Status: Active Protocol: Document 12/26/17 11:24 AMS (Rec: 12/26/17 12:08 AMS [email or web address]) General Information Session Time Visit Start Time 09:30 Visit Stop Time 10:15 Total Visit Minutes 45 Visit Information Visit Number Plan of Care Dates 12/26/17-02/06/18 Insurance Information 60 [employer]its [employer]; FED Retiree; No G-CODES Setting Treatment Setting Outpatient Care Visit Type Note Type Initial Evaluation Referral Referring Physician Israel Gabriel MD Reason for Referral Closed fracture of olecranon process of left ulna; ORIF left ulna (12/18/17) Precautions Protocol: patient to be seen 2-4 days post surgery to start working on ROM of the elbow Patient reported that she was not to remove posterior splint until upcoming Sunday; patient also reported that she is not to lift anything heavy with the arm and to keep the arm dry. Identification Identification Confirmed Yes Identification Confirmed By Paper chart Medical Information Medical History Medical History Form completed and on file. Findings: arthritis; depression; dizziness; vision problems; h/ o hysterectomy and gallbladder surgeries. Social Information Social History Patient resides w/ ; reportedly is assisting patient has needed w / daily tasks. Patient is a [employer] [employer] employee who works at the local [employer] 15 hours per week. Therapy Pain Assessment Pain When Pain Assessed pre-tx Pain Present Pain Present Pain Reported Location Left Elbow Intensity 3 Scale Used Numeric (1 - 10) Patient Questionnaires Quick Dash- Upper Extremity Quick Dash UE Score 65.9 Quick Dash UE Impairment 60 to 79% Impaired (Score 60- 79) ADLs Overall Ability Comments Impaired IADLs Overall Function Comments Impaired Sleep Sleep Description Sleeps in recliner versus in bed (+) history of sleep apnea Driving Skill Level Impaired Fine Motor Handedness Hand Preference Right Functional Wrist/Hand Scan Hand Side Impressions Overall Observations Able to oppose thumb to each digit pad without difficulty w / L and R hands. Goals Objective Measurements Objective Measurements Mild swelling noted of distal L UE --> distal to posterior splint. (+) complaints of splint irritating skin; minor adjustments made to decrease skin irritation of left ulnar wrist and medial border of splint near arm pit. (-) c/o stiffness with wrist flexion/ extension and digit flexion/ extension. Minor c/o of wrist stiffness w/ UD and RD. Minor c/o of shoulder stiffness w/ sh ext w/ slight rounding of L shoulder given location of splint. Education on AROM of hand, wrist, and use of TT to support shoulder AROM. Patient denied questions. Bandages reapplied to reduce movement of arm within splint. Short Term Goals Short Term Goals 1. Patient will be independent with home edema management program. 2. Patient will demonstrate AROM WFL for the left wrist, relative to left wrist flexion , extension, ulnar deviation and radial deviation. 3. Patient will be modified independent with home exercise program for left shoulder, wrist and hand, utilizing provided written and visual instructions. Clinical Safety Specialist Goals Clinical Safety Specialist Goals 1. Patient will be able to dress independently on a daily basis, with active incorporation of the left upper extremity, without complaints of pain/discomfort. 2. Patient will be able to drive independently on a daily basis, with active incorporation of the left upper extremity, without complaints of pain/discomfort. 3. Patient will be modified independent with left upper extremity home exercise program utilizing provided written and visual instructions. Assessment/Plan Assessment Patient Response Good Rehabilitation Potential Good Impairments Identified ADLs Coordination/Dexterity Functional Activities Pain Weakness Posture Range of Motion Recreational Activities Meaningful Activities Stiffness Swelling Treatment Assessment Patient is a 72 year-old female referred to outpatient occupational therapy for post- op rehabilitation following surgery (ORIF left ulna fracture). Patient underwent surgery on 12/18/2017. PMH: arthritis; depression; dizziness; vision problems; additional h/o hysterectomy and gallbladder surgeries. PLOF: Independent with BADLS and IADLS, including driving and working 15 hours per week for the [employer]. Findings: Pt presents with posterior splint; mild swelling; stiffness of left shoulder and left wrist; full extension of digits w/ wrist extension and ability to oppose thumb to each digit pad ; post-op precautions; left elbow pain/discomfort; and decreased functional use of non-dominant left upper extremity. Patient would likely benefit from outpatient OT so that she may return to [facility]. Patient Understanding Good Plan Comment 6 weeks Treatment Frequency Twice a Week Therapeutic Contents Active Range of Motion Client Education Functional Activities Home Exercise Program Manual Therapy Education Self-Care Stretching/Flexibility Activities Therapeutic Activities Therapeutic Exercises Modalities Modalities As Needed As Prescribed Sensory Assessment Sensory Profile2 OT Outpatient Muscle Testing Start: 02/15/18 11:30 Freq: Status: Active Protocol: Document 03/12/18 15:24 AMS (Rec: 03/12/18 15:49 AMS [email or web address]) Elbow/Forearm Strength Elbow and Forearm Manual Muscle Testing Left Flexion (C6) 5 Normal Extension (C7) 5 Normal Pronation 5 Normal Supination 4+ Good+ Comments MMT 02/26/18 Elbow flex 4/5 Elbow ext 5/5 Pron 4/5 Sup 4-/5 Right Flexion (C6) 5 Normal Extension (C7) 5 Normal Pronation 5 Normal Supination 5 Normal Comments MMT 02/26/18 Elbow flex 5/5 Elbow ext 5/5 Pron 5/5 Sup 5/5 Wrist Strength Wrist Manual Muscle Testing Left Flexion (C7) 5 Normal Extension (C6) 5 Normal Ulnar Deviation 5 Normal Radial Deviation 5 Normal Comments MMT 02/26/18: Wrist flex 4/5 Wrist ext 4/5 UD 4-/5 RD 4-/5 Right Flexion (C7) 5 Normal Extension (C6) 5 Normal Ulnar Deviation 5 Normal Radial Deviation 5 Normal Comments MMT taken 02/26/18 Street Openings Inspector/Hand Strength Street Openings Inspector/Hand Strength Left Street Openings Inspector Dynamometer II 51.[address] Openings Inspector Dynamometer II 61.0 OT Outpatient Range of Motion Start: 12/26/17 11:23 Freq: Status: Active Protocol: Document 03/12/18 15:24 AMS (Rec: 03/12/18 15:49 AMS [email or web address]) ROM - Elbow/Forearm Elbow/Forearm Measured in Degrees Left ROM Testing Position Sitting Elbow Flex AROM (degrees) -8-145 Elbow Ext AROM (degrees) -8-145 Forearm Pron AROM (degrees) 0-90 Forearm Sup AROM (degrees) 0-75 Comments Initial evaluation findings: Elbow flex/ext = -45-70 Right Elbow/Forearm ROM WFL Yes ROM Testing Position Sitting Elbow Flex AROM (degrees) 0-140 Elbow Ext AROM (degrees) 0-140 Forearm Pron AROM (degrees) 0-90 Forearm Sup AROM (degrees) 0-78 Forearm Sup PROM (degrees) 0-90 Comments h/o injury to distal right upper extremity ROM - Wrist Wrist Range of Motion Measured in Degrees Left ROM Testing Position Sitting Wrist Flex AROM (degrees) 0-65 Wrist Ext AROM Fingers Open (degrees) 0-70 Ulnar Deviation AROM (degrees) 0-26 Radial Deviation AROM (degrees) 0-15 Comments Initial evaluation findings: 0-65 wrist flex 0-55 wrist ext fingers open 0-25 wrist UD 0-[address] Right ROM Testing Position Sitting Wrist Flex AROM (degrees) 0-65 Wrist Ext AROM Fingers Open (degrees) 0-60 Ulnar Deviation AROM (degrees) 0-30 Radial Deviation AROM (degrees) 0-15 Comments h/o injury to distal right upper extremity ROM Limitations Wrist ROM Limitations Soft Tissue Tightness Muscle Weakness Swelling OT Outpatient Treatment Note - Adult Start: 01/03/18 13:35 Freq: Status: Active Protocol: Document 03/12/18 15:24 AMS (Rec: 03/12/18 15:49 AMS [email or web address]) OT Outpatient Adult Treatment Note Session Time Visit Start Time 09:30 Visit Stop Time 10:22 Total Visit Minutes 52 Visit Information Visit Number [id number] Plan of Care Dates 03/08/18-05/31/18 Insurance Information 60 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 Patient underwent surgery on 12/18/2017. PMH: arthritis; depression; dizziness; vision problems; additional h/o hysterectomy and gallbladder surgeries. - Subjective Identification Type Name Picture Identification Reconciled With Medical Record Loss of Function None Effect on Activity None Effect on Daily Life None Patient/Caregiver Compliance with Home Good Exercise Program Comments w/ use of visual/written instructions - Objective Objective Measurements Increased distal L UE strength ; please refer to MMT section of note. Increased functional I. Short Term Goals 1. MMT L forearm supination 5/ 5. 03/12/18= GOAL DISCHARGED; pt request to d/c to HEP GOALS MET: Pt demonstrated AROM WFL for the left wrist (0-70 active wrist ext fingers open; 0-65 active wrist flex; 0-26 active wrist UD; 0-[address] *MET 02/15/18 MMT L forearm supination 4+/5. *MET 03/05/18; 4+/5 MMT L forearm supination MMT L wrist RD/UD 4+/5. *MET ; 5/[address]/UD Pt mod I w/ home edema management program. *MET MMT L wrist ext 5/5. 03/12/18 Clinical Safety Specialist Goals GOALS MET: Pt is able to drive I w/ active incorporation of L UE without complaints. *MET Pt is able to dress I on daily basis, w/ active use of L UE, without c/o. *MET 03/05/18 Pt is demonstrating improved functional abilities of L hand /UE, as evidenced by obtaining a score of < 10.0 on the QuickDASH UE Outcome Measure. *MET 03/05/18= obtained a score of 6.82 Pt is mod I w/ L UE HEP. *MET 03/12/18 - Treatment 1 Descriptor HEP Reviewed current HEP and answered all questions. Complexity No Change Exercises 7 Descriptor Arm Pulleys Side Both Body Position Sitting Time 3 minutes Complexity No Change 6 Descriptor Sh flex [address]UD Side Left Body Position Seated Sets 1 Repetitions 15 Resistance 5# DB Complexity No Change 5 Descriptor Elbow flex/ext w/ wrist flex/ ext at end range of elbow flex Side Left Body Position Standing Sets 1 Repetitions 15 Resistance 5# DB Complexity No Change 4 Descriptor Gross grasp - Spherical ball exchange between hands Side Both Body Position Sitting Sets 1 Repetitions 15 Resistance 4.4# Complexity Upgraded 3 Descriptor Weight bearing PROM Side Both Body Position Sitting Sets 1 Repetitions 3 Complexity No Change 2 Descriptor UEB Side Left Body Position Sitting Time 3 min Complexity No Change 1 Descriptor Rowing Machine Side Both Body Position Sitting Resistance Level 3 Time 3 minutes Complexity Upgraded Manual Therapy Manual Therapy Manual massage - medial elbow. - Assessment Patient Response to Treatment Good Rehab Potential Good Impairments Identified ADLs Coordination/Dexterity Functional Activities Pain Weakness Range of Motion Recreational Activities Meaningful Activities Stiffness Swelling Assessment of Improvement Patient request to d/c to HEP. Therapist reviewed current HEP w/ focus on functional strengthening of the hand/ upper extremity (e.g., managing purse and grocery bags w/ the left hand). Patient denied questions. Patient has made progress since time of initial evaluation in the areas of ROM , strength, and functional independence w/ active engagement of the L UE. Home Exercise Program Please refer to treatment section of note for specific details. Reviewed with Patient/Caregiver Goals Progress Being Made Home Exercise Program Patient/Caregiver Understanding Fair - Plan Therapy Recommendations Discharge to Home Exercise Program Discharge from Occupational Therapy Additional Therapy Recommendations d/c to HEP per pt request Occupational Therapy Assessment OT Outpatient Muscle Testing Start: 02/15/18 11:30 Freq: Status: Active Protocol: Document 03/12/18 15:24 AMS (Rec: 03/12/18 15:49 AMS [email or web address]) Elbow/Forearm Strength Elbow and Forearm Manual Muscle Testing Left Flexion (C6) 5 Normal Extension (C7) 5 Normal Pronation 5 Normal Supination 4+ Good+ Comments MMT 02/26/18 Elbow flex 4/5 Elbow ext 5/5 Pron 4/5 Sup 4-/5 Right Flexion (C6) 5 Normal Extension (C7) 5 Normal Pronation 5 Normal Supination 5 Normal Comments MMT 02/26/18 Elbow flex 5/5 Elbow ext 5/5 Pron 5/5 Sup 5/5 Wrist Strength Wrist Manual Muscle Testing Left Flexion (C7) 5 Normal Extension (C6) 5 Normal Ulnar Deviation 5 Normal Radial Deviation 5 Normal Comments MMT 02/26/18: Wrist flex 4/5 Wrist ext 4/5 UD 4-/5 RD 4-/5 Right Flexion (C7) 5 Normal Extension (C6) 5 Normal Ulnar Deviation 5 Normal Radial Deviation 5 Normal Comments MMT taken 02/26/18 Street Openings Inspector/Hand Strength Street Openings Inspector/Hand Strength Left Street Openings Inspector Dynamometer II 51.[address] Openings Inspector Dynamometer II 61.0 Occupational Therapy Assessment OT Outpatient Range of Motion Start: 12/26/17 11:23 Freq: Status: Active Protocol: Document 03/12/18 15:24 AMS (Rec: 03/12/18 15:49 AMS [email or web address]) ROM - Elbow/Forearm Elbow/Forearm Measured in Degrees Left ROM Testing Position Sitting Elbow Flex AROM (degrees) -8-145 Elbow Ext AROM (degrees) -8-145 Forearm Pron AROM (degrees) 0-90 Forearm Sup AROM (degrees) 0-75 Comments Initial evaluation findings: Elbow flex/ext = -45-70 Right Elbow/Forearm ROM WFL Yes ROM Testing Position Sitting Elbow Flex AROM (degrees) 0-140 Elbow Ext AROM (degrees) 0-140 Forearm Pron AROM (degrees) 0-90 Forearm Sup AROM (degrees) 0-78 Forearm Sup PROM (degrees) 0-90 Comments h/o injury to distal right upper extremity ROM - Wrist Wrist Range of Motion Measured in Degrees Left ROM Testing Position Sitting Wrist Flex AROM (degrees) 0-65 Wrist Ext AROM Fingers Open (degrees) 0-70 Ulnar Deviation AROM (degrees) 0-26 Radial Deviation AROM (degrees) 0-15 Comments Initial evaluation findings: 0-65 wrist flex 0-55 wrist ext fingers open 0-25 wrist UD 0-[address] Right ROM Testing Position Sitting Wrist Flex AROM (degrees) 0-65 Wrist Ext AROM Fingers Open (degrees) 0-60 Ulnar Deviation AROM (degrees) 0-30 Radial Deviation AROM (degrees) 0-15 Comments h/o injury to distal right upper extremity ROM Limitations Wrist ROM Limitations Soft Tissue Tightness Muscle Weakness Swelling
== END 2018-03-25 09:23 ==
LOC: OT 09:30
PROVIDERS: Family Provider Family Medicine; PCP Family Medicine; Visit Provider Orthopaedic Surgery
DX: S52.022A Displaced fracture of olecranon process without intraarticular extension of left ulna, initial encounter for closed fracture (principal)
CPT/HCPCS: 97035; 97110; 97140; 97166; 97530

== ENCOUNTER → 2018-07-24 09:40 | Outpatient (CLI) | payer OTHER, SELFPAY ==
--- NOTE | 2018-07-24 09:43 | DI.RAD.S_ITS ---
PROCEDURE: XR ELBOW RT 2V INDICATIONS: right shoulder pain TECHNIQUE: 2 views of the elbow were acquired. COMPARISON: [facility], CR, XR ELBOW 1 OR 2 VIEWS LEFT, 05/28/2018, 13:25. FINDINGS: Bones: No fractures or dislocations. No suspicious bony lesions. Soft tissues: No elbow joint effusion. No suspicious soft tissue calcifications. IMPRESSION: No trauma found to the elbow. Delayed plain films or advanced imaging such as MR or CT scanning may be warranted if a fracture is clinically suspected. MR scanning is considered the gold standard for detecting occult fractures. Dictated by: Shemar Sneed M.D. on 07/24/2018 at 10:11 Approved by: Shemar Sneed M.D. on 07/24/2018 at 10:12
--- NOTE | 2018-07-24 09:43 | DI.RAD.S_ITS ---
PROCEDURE: XR SHOULDER RT MIN 2V INDICATIONS: right shoulder pain TECHNIQUE: 3 views of the shoulder were acquired. COMPARISON: None. FINDINGS: Bones: No dislocations but there is a greater tuberosity fracture involving the right humeral head. No suspicious bony lesions. Visualized ribs appear intact. A moderate to moderately severe a.c. joint osteoarthritis. A small calcific radiodensity at the lateral border of the humeral head superiorly appears amorphous and likely represents calcific tendinitis or bursitis. This measures only 6 mm in maximal dimension Soft tissues: No suspicious soft tissue calcifications. IMPRESSION: Minimally displaced acute appearing fracture vertically oriented through the right humeral greater tuberosity base. 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 Dictated by: Shemar Sneed M.D. on 07/24/2018 at 10:08 Approved by: Shemar Sneed M.D. on 07/24/2018 at 10:11
--- NOTE | 2018-07-24 09:43 | DI.RAD.S_ITS ---
PROCEDURE: XR CLAVICLE RT INDICATIONS: right shoulder pain TECHNIQUE: 2 views of the clavicle were acquired. COMPARISON: None. FINDINGS: Bones: No dislocations. No suspicious bony lesions. Again noted is the fracture involving the humeral head at the base of the greater tuberosity. Moderate a.c. joint osteoarthritis is present. No clavicular fracture is found. Soft tissues: No suspicious soft tissue calcifications. IMPRESSION: Acute humeral head fracture through the base of the greater tuberosity. Clavicle fracture is not found. Dictated by: Shemar Sneed M.D. on 07/24/2018 at 10:12 Approved by: Shemar Sneed M.D. on 07/24/2018 at 10:13
== END ==
PROVIDERS: PCP Family Medicine; Visit Provider Physician Assistant
DX: S42.251A Displaced fracture of greater tuberosity of right humerus, initial encounter for closed fracture (principal); M19.011 Primary osteoarthritis, right shoulder; M25.511 Pain in right shoulder; M75.31 Calcific tendinitis of right shoulder; W19.XXXA Unspecified fall, initial encounter
CPT/HCPCS: 73000; 73030; 73070

== ENCOUNTER → 2018-09-12 10:56 | Outpatient (CLI) | payer OTHER, SELFPAY ==
--- NOTE | 2018-09-12 11:03 | DI.CT.S_ITS ---
PROCEDURE: CT KIDNEY URETER BLADDER (KUB) INDICATIONS: suspect kidney stone right side TECHNIQUE: Noncontrast 5 mm thick sections acquired from the diaphragms to the symphysis. 5 mm thick coronal and sagittal reformats were then performed. For radiation dose reduction, the following was used: automated exposure control, adjustment of mA and/or kV according to patient size. COMPARISON: [facility], CT, ABDOMEN/PELVIS WITH CONTRAST, 05/16/2016, 8:14. [facility], CT, IVP (ABD & PEL WWO CONTRAST), 10/05/2014, 8:52. FINDINGS: Image quality: Excellent. Lung bases: Lung bases are clear. Heart size is normal. Urinary system: Both kidneys are normal in size. Areas of dense medullary calcification are seen. Several low-density lesions are seen, with a simple cyst involving posterior left kidney that measures water density and 5.3 cm. Small presumed cysts are seen elsewhere. They did not appear suspicious on [address] CT examination. No hydronephrosis or perinephric fat stranding. Both ureters appear non-dilated throughout their expected courses. 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 This is better seen on the prior contrast enhanced examination. Bladder wall thickness is normal; no calcified bladder stones. Other solid organs: Liver is normal in size. Gallbladder has been removed. Pancreas is normal in contours. Spleen is normal in size. No adrenal nodules. Peritoneum and bowel: Unenhanced bowel loops demonstrate normal wall thickness and caliber. No free fluid or air. Air is a moderate amount. The cecum is mildly high riding. No appendix (either normal or abnormal) is identified on this study. Nodes and vessels: No retroperitoneal or mesenteric adenopathy by size criteria. Aorta and inferior vena cava are normal in caliber. Abdominal wall: No ventral hernias. Pelvis: No free pelvic fluid. No inguinal hernias or adenopathy. This patient is status post hysterectomy. No adnexal masses are seen. Bones: No suspicious bony lesions. No vertebral body compression fractures. Mild levoconvex scoliotic curvature is noted. Age-appropriate bony degenerative changes are seen. IMPRESSION: Numerous bilateral renal calcifications are seen. The appearance and distribution of the calcifications is most consistent with prominent medullary nephrocalcinosis There is no hydronephrosis. Dislocation of the right renal collecting system is again seen. There is a moderate amount of stool seen within the colon. Please correlate with an underlying history of constipation. The cecum is high riding. There is a 5.3 cm left renal cyst. Apparent simple appearing renal cysts are seen elsewhere. Incidental note is made of: Cholecystectomy Levoconvex scoliotic curvature Hysterectomy Dictated by: Michael Roth M.D. on 09/12/2018 at 10:44 Approved by: Michael Roth M.D. on 09/12/2018 at 10:50
== END ==
PROVIDERS: PCP Internal Medicine; Visit Provider Physician Assistant
DX: R10.9 Unspecified abdominal pain (principal); R31.9 Hematuria, unspecified; N20.0 Calculus of kidney; N28.1 Cyst of kidney, acquired; Z90.49 Acquired absence of other specified parts of digestive tract; M41.9 Scoliosis, unspecified
CPT/HCPCS: 74176

== ENCOUNTER 2018-10-15 09:00 | Outpatient (RCR) | payer OTHER, SELFPAY ==
--- NOTE | 2018-08-07 16:40 | PT.OIE ---
Current Diagnoses Pain in right shoulder (08/07/18) Other nondisplaced fracture of upper end of right humerus, initial encounter for closed fracture (08/07/18) History of falling (08/07/18) Past Medical History (Last Updated 03/18/18 @ 14:55 by Katherine Moody) Anxiety and depression (Chronic) History of squamous cell carcinoma (Chronic) Hyperlipidemia (Chronic) Osteopenia (Chronic) Past Surgical History (Last Updated 03/18/18 @ 14:55 by Katherine Moody) Hx of excision of dermoid cyst (Resolved) Status post adenoidectomy Status post hysterectomy Status post laparoscopic cholecystectomy Provider Visit Care Team Role Provider Type Jefferson Raya MD Primary Care Provider Physician Specialty: Internal Medicine Address: [address] [place] [address], [id number] Email: [email or web address] Ifeoma Maharaj MD Attending Provider Physician Specialty: Orthopedic Surgery Address: [address] [place] [address], [id number] Email: Physical Therapy Initial Evaluation PT-OP-A Visit Information Start: 08/07/18 12:47 Freq: Status: Active Protocol: Document 08/07/18 13:00 AMB (Rec: 08/09/18 11:15 AMB [email or web address]) Out-Patient Physical Therapy Visit Information Visit Information Visit Type Initial Evaluation Visit Start Time 13:00 Visit Stop Time 13:45 Total Visit Minutes 45 Visit Number 1 Precautions Precautions See protocol in paper chart: PROM until week 5, Add resistance at week 7. Avoid external rotation with abduction for six weeks. Sling for 2 weeks. PT-OP-B Current Condition Start: 08/07/18 12:47 Freq: Status: Active Protocol: Document 08/07/18 13:00 AMB (Rec: 08/09/18 11:15 AMB [email or web address]) Current Condition History of Current Condition Onset Date 07/24/18 Current Complaints R humerus fracture, difficulty / pain with using R arm History of Current Condition Kristel is a RHD woman who fell on the ice on 07/24 and fractured her R humerus at the greater tuberosity. Last summer she fell and broke her left elbow, she states neither of these had to do with poor balance but that she hasn't had a DEXA scan in a while and will mention this to her PCP, she does not believe she has been diagnosed with osteoporosis. She has been wearing a sling for the last 2 weeks, but is slowly starting to use it less. She will be traveling to [place] in a few weeks. She lives in a private home with her Francisco J. Prior Treatments and Tests X-ray on 07/24/18: Minimally displaced acute appearing fracture vertically oriented through the right humeral greater tuberosity base. 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 Prior Functional Status Baseline Function- ADL's Independent Baseline Function- Mobility Independent Current Functional Impairments (Reported) Functional Limitations- ADL's Difficulty dressing, requires assist to write, unable to lift anything with dominant arm Personal Factors Other Personal Factors That May Effect History of L elbow fracture Therapy/Recovery due to fall, concussion 11 years ago, TMJ pain, depression. PT-OP-C Subjective Start: 08/07/18 12:47 Freq: Status: Active Protocol: Document 08/07/18 13:00 AMB (Rec: 08/09/18 11:15 AMB [email or web address]) Patient Questionnaires Quick Dash- Upper Extremity Quick Dash UE Score 77 Quick Dash UE Impairment 60 to 79% Impaired (Score 60- 79) OP-PT Pain Assessment Location Right Shoulder Intensity 4 Scale Used Numeric (1 - 10) PT-OP-J Posture/Palpation/Skin Start: 08/07/18 12:47 Freq: Status: Active Protocol: Document 08/07/18 13:00 AMB (Rec: 08/09/18 16:21 AMB [email or web address]) Posture Evaluation Comments Posture Comments R arm raised in slight elevation while in sling. Palpation Assessment Location One Palpation Location R shoulder Palpation Findings Muscle Guarding Tenderness Palpation Details Tender at anterior shoulder and down into bicep, mild tenderness through scapular musculature PT-OP-K Range of Motion Start: 08/07/18 12:47 Freq: Status: Active Protocol: Document 08/07/18 13:00 AMB (Rec: 08/09/18 16:21 AMB [email or web address]) Shoulder Goniometric Range of Motion Shoulder Measured in Degrees Right Passive Testing Position Supine Flexion 70 External Rotation at 0 degrees Abduction 20 Internal Rotation 60 Left Active Testing Position Supine Flexion 175 Abduction 180 External Rotation at 90 degrees 95 Abduction Internal Rotation 95 PT-OP-Q Treatments Start: 08/07/18 12:47 Freq: Status: Active Protocol: Document 08/07/18 13:00 AMB (Rec: 08/09/18 16:21 AMB [email or web address]) Therapeutic Exercises Supine Exercises 1 Supine Exercise Name PROM flexion, ER, IR Comments instructed pt and PT-OP-T Assessment and Plan Start: 08/07/18 12:47 Freq: Status: Active Protocol: Document 08/07/18 13:00 AMB (Rec: 08/09/18 16:37 AMB [email or web address]) Physical Therapy Assessment Rehab Potential Rehabilitation Potential Good Evaluation Complexity Number of Personal Factors/Comorbidities 1-2 Number of Body Systems Impaired 4 or More Clinical Presentation at Evaluation Evolving Impairments Impairments Pain Posture ROM Strength Goals Four Impairment balance/gait Short Term Goal (STG) Pt will complete DGI and be instructed in balance HEP if in fall risk category. STG Duration 09/25/09 Three Impairment ADLs Short Term Goal (STG) Kristel will perform all upper body dressing independently. STG Duration 09/18/18 Artificial Flower Maker Goal (LTG) Kristel will perform light cooking activities (chopping, stirring) without an increase in shoulder pain. LTG Duration 10/16/18 Two Impairment Strength Short Term Goal (STG) Kristel will have 3/10 strength in all planes. STG Duration 09/25/18 Long-Term Goal (LTG) Kristel will lift 10 pounds to shoulder height without an increase in baseline pain. LTG Duration 10/16/18 One Impairment Range of motion Short Term Goal (STG) Kristel will increase her shoulder PROM to 150 degrees of flexion and abduction. STG Duration 09/18/18 Artificial Flower Maker Goal (LTG) Kristel will increase her shoulder AROM to 150 degrees of flexion and abduction. LTG Duration 10/16/18 Assessment Summary Assessment Kristel attends PT with a non- displaced R humeral fracture. Currently 2 weeks s/p fracture. She will be traveling out of state, so we will see her for 2-3 visits to instruct her and her in a safe HEP of PROM. Then when she returns we will be able to progress to AROM and then strengthening per Dr. Maharaj's protocol. We will also perform a balance screen, since this is the patient's second fall resulting in fracture in a year. Pt did have difficulty relaxing into PROM, and did have pain when not relaxing, but this should improve with instruction. Physical Therapy Plan Frequency and Duration Frequency of Treatment 2x/Week Duration of Treatment 10 weeks Plan of Care Start Date 08/07/18 Plan of Care End Date 10/16/18 Therapeutic Interventions Therapeutic Interventions Balance Training Gait Training Home Exercise Program Joint Mobilizations Manual Therapy Neuromuscular Re-education Self-Care/Home Management Therapeutic Activities Therapeutic Exercises Modalities Cold Pack/Ice Massage Electric Stimulation Hot Packs Ultrasound Next Visit Focus/Plan Next Note Type Treatment Note Next Visit Plan Progress HEP for PROM
--- NOTE | 2018-08-07 16:41 | PT.OPPOC ---
Current Diagnoses Pain in right shoulder (08/07/18) Other nondisplaced fracture of upper end of right humerus, initial encounter for closed fracture (08/07/18) History of falling (08/07/18) Provider Visit Care Team Role Provider Type Jefferson Raya MD Primary Care Provider Physician Specialty: Internal Medicine Address: [address] [place] [address], [phone] Email: [email or web address] Ifeoma Maharaj MD Attending Provider Physician Specialty: Orthopedic Surgery Address: [address] [place] [address], [address] Email: Plan Of Care PT-OP-T Assessment and Plan Start: 08/07/18 12:47 Freq: Status: Active Protocol: Document 08/07/18 13:00 AMB (Rec: 08/09/18 16:37 AMB [email or web address]) Physical Therapy Assessment Rehab Potential Rehabilitation Potential Good Evaluation Complexity Number of Personal Factors/Comorbidities 1-2 Number of Body Systems Impaired 4 or More Clinical Presentation at Evaluation Evolving Impairments Impairments Pain Posture ROM Strength Goals Four Impairment balance/gait Short Term Goal (STG) Pt will complete DGI and be instructed in balance HEP if in fall risk category. STG Duration 09/25/09 Three Impairment ADLs Short Term Goal (STG) Kristel will perform all upper body dressing independently. STG Duration 09/18/18 Sound Ranging Crewmember Goal (LTG) Kristel will perform light cooking activities (chopping, stirring) without an increase in shoulder pain. LTG Duration 10/16/18 Two Impairment Strength Short Term Goal (STG) Kristel will have 3/10 strength in all planes. STG Duration 09/25/18 Sound Ranging Crewmember Goal (LTG) Kristel will lift 10 pounds to shoulder height without an increase in baseline pain. LTG Duration 10/16/18 One Impairment Range of motion Short Term Goal (STG) Kristel will increase her shoulder PROM to 150 degrees of flexion and abduction. STG Duration 09/18/18 Longterm Goal (LTG) Kristel will increase her shoulder AROM to 150 degrees of flexion and abduction. LTG Duration 10/16/18 Assessment Summary Assessment Kristel attends PT with a non- displaced R humeral fracture. Currently 2 weeks s/p fracture. She will be traveling out of state, so we will see her for 2-3 visits to instruct her and her in a safe HEP of PROM. Then when she returns we will be able to progress to AROM and then strengthening per Dr. Maharaj's protocol. We will also perform a balance screen, since this is the patient's second fall resulting in fracture in a year. Pt did have difficulty relaxing into PROM, and did have pain when not relaxing, but this should improve with instruction. Physical Therapy Plan Frequency and Duration Frequency of Treatment 2x/Week Duration of Treatment 10 weeks Plan of Care Start Date 08/07/18 Plan of Care End Date 10/16/18 Therapeutic Interventions Therapeutic Interventions Balance Training Gait Training Home Exercise Program Joint Mobilizations Manual Therapy Neuromuscular Re-education Self-Care/Home Management Therapeutic Activities Therapeutic Exercises Modalities Cold Pack/Ice Massage Electric Stimulation Hot Packs Ultrasound Next Visit Focus/Plan Next Note Type Treatment Note Next Visit Plan Progress HEP for PROM Plan of Care Dates Plan of Care Start Date 08/07/18 Plan of Care End Date 10/16/18 Please Sign and Return: I have reviewed this Plan of Care and certify that the skilled therapy services above are required to meet the patient?s needs. Physician Signature Date Printed Name and Credentials Clinical Instructor Signature Printed Name and Credentials
--- NOTE | 2018-08-09 16:37 | PT.OIE ---
Current Diagnoses Other nondisplaced fracture of upper end of right humerus, initial encounter for closed fracture (08/07/18) Past Medical History (Last Updated 03/18/18 @ 14:55 by Katherine Moody) Anxiety and depression (Chronic) History of squamous cell carcinoma (Chronic) Hyperlipidemia (Chronic) Osteopenia (Chronic) Past Surgical History (Last Updated 03/18/18 @ 14:55 by Katherine Moody) Hx of excision of dermoid cyst (Resolved) Status post adenoidectomy Status post hysterectomy Status post laparoscopic cholecystectomy Provider Visit Care Team Role Provider Type Jefferson Raya MD Primary Care Provider Physician Specialty: Internal Medicine Address: [address] [place] [address], [phone] Email: [email or web address] Ifeoma Maharaj MD Attending Provider Physician Specialty: Orthopedic Surgery Address: [address] [place] [address], [phone] Email: Physical Therapy Initial Evaluation PT-OP-A Visit Information Start: 08/07/18 12:47 Freq: Status: Active Protocol: Document 08/07/18 13:00 AMB (Rec: 08/09/18 11:15 AMB [email or web address]) Out-Patient Physical Therapy Visit Information Visit Information Visit Type Initial Evaluation Visit Start Time 13:00 Visit Stop Time 13:45 Total Visit Minutes 45 Visit Number 1 Precautions Precautions See protocol in paper chart: PROM until week 5, Add resistance at week 7. Avoid external rotation with abduction for six weeks. Sling for 2 weeks. PT-OP-B Current Condition Start: 08/07/18 12:47 Freq: Status: Active Protocol: Document 08/07/18 13:00 AMB (Rec: 08/09/18 11:15 AMB [email or web address]) Current Condition History of Current Condition Onset Date 07/24/18 Current Complaints R humerus fracture, difficulty / pain with using R arm History of Current Condition Kristel is a RHD woman who fell on the ice on 07/24 and fractured her R humerus at the greater tuberosity. Last summer she fell and broke her left elbow, she states neither of these had to do with poor balance but that she hasn't had a DEXA scan in a while and will mention this to her PCP, she does not believe she has been diagnosed with osteoporosis. She has been wearing a sling for the last 2 weeks, but is slowly starting to use it less. She will be traveling to [place] in a few weeks. She lives in a private home with her Francisco J. Prior Treatments and Tests X-ray on 07/24/18: Minimally displaced acute appearing fracture vertically oriented through the right humeral greater tuberosity base. 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 Prior Functional Status Baseline Function- ADL's Independent Baseline Function- Mobility Independent Current Functional Impairments (Reported) Functional Limitations- ADL's Difficulty dressing, requires assist to write, unable to lift anything with dominant arm Personal Factors Other Personal Factors That May Effect History of L elbow fracture Therapy/Recovery due to fall, concussion 11 years ago, TMJ pain, depression. PT-OP-C Subjective Start: 08/07/18 12:47 Freq: Status: Active Protocol: Document 08/07/18 13:00 AMB (Rec: 08/09/18 11:15 AMB [email or web address]) Patient Questionnaires Quick Dash- Upper Extremity Quick Dash UE Score 77 Quick Dash UE Impairment 60 to 79% Impaired (Score 60- 79) OP-PT Pain Assessment Location Right Shoulder Intensity 4 Scale Used Numeric (1 - 10) PT-OP-J Posture/Palpation/Skin Start: 08/07/18 12:47 Freq: Status: Active Protocol: Document 08/07/18 13:00 AMB (Rec: 08/09/18 16:21 AMB [email or web address]) Posture Evaluation Comments Posture Comments R arm raised in slight elevation while in sling. Palpation Assessment Location One Palpation Location R shoulder Palpation Findings Muscle Guarding Tenderness Palpation Details Tender at anterior shoulder and down into bicep, mild tenderness through scapular musculature PT-OP-K Range of Motion Start: 08/07/18 12:47 Freq: Status: Active Protocol: Document 08/07/18 13:00 AMB (Rec: 08/09/18 16:21 AMB [email or web address]) Shoulder Goniometric Range of Motion Shoulder Measured in Degrees Right Passive Testing Position Supine Flexion 70 External Rotation at 0 degrees Abduction 20 Internal Rotation 60 Left Active Testing Position Supine Flexion 175 Abduction 180 External Rotation at 90 degrees 95 Abduction Internal Rotation 95 PT-OP-Q Treatments Start: 08/07/18 12:47 Freq: Status: Active Protocol: Document 08/07/18 13:00 AMB (Rec: 08/09/18 16:21 AMB [email or web address]) Therapeutic Exercises Supine Exercises 1 Supine Exercise Name PROM flexion, ER, IR Comments instructed pt and PT-OP-T Assessment and Plan Start: 08/07/18 12:47 Freq: Status: Active Protocol: Document 08/07/18 13:00 AMB (Rec: 08/09/18 16:37 AMB [email or web address]) Physical Therapy Assessment Rehab Potential Rehabilitation Potential Good Evaluation Complexity Number of Personal Factors/Comorbidities 1-2 Number of Body Systems Impaired 4 or More Clinical Presentation at Evaluation Evolving Impairments Impairments Pain Posture ROM Strength Goals Four Impairment balance/gait Short Term Goal (STG) Pt will complete DGI and be instructed in balance HEP if in fall risk category. STG Duration 09/25/09 Three Impairment ADLs Short Term Goal (STG) Kristel will perform all upper body dressing independently. STG Duration 09/18/18 Associate Professor Of Anthropology Goal (LTG) Kristel will perform light cooking activities (chopping, stirring) without an increase in shoulder pain. LTG Duration 10/16/18 Two Impairment Strength Short Term Goal (STG) Kristel will have 3/10 strength in all planes. STG Duration 09/25/18 Associate Professor Of Anthropology Goal (LTG) Kristel will lift 10 pounds to shoulder height without an increase in baseline pain. LTG Duration 10/16/18 One Impairment Range of motion Short Term Goal (STG) Kristel will increase her shoulder PROM to 150 degrees of flexion and abduction. STG Duration 09/18/18 Assisted Goal (LTG) Kristel will increase her shoulder AROM to 150 degrees of flexion and abduction. LTG Duration 10/16/18 Assessment Summary Assessment Kristel attends PT with a non- displaced R humeral fracture. Currently 2 weeks s/p fracture. She will be traveling out of state, so we will see her for 2-3 visits to instruct her and her in a safe HEP of PROM. Then when she returns we will be able to progress to AROM and then strengthening per Dr. Maharaj's protocol. We will also perform a balance screen, since this is the patient's second fall resulting in fracture in a year. Pt did have difficulty relaxing into PROM, and did have pain when not relaxing, but this should improve with instruction. Physical Therapy Plan Frequency and Duration Frequency of Treatment 2x/Week Duration of Treatment 10 weeks Plan of Care Start Date 08/07/18 Plan of Care End Date 10/16/18 Therapeutic Interventions Therapeutic Interventions Balance Training Gait Training Home Exercise Program Joint Mobilizations Manual Therapy Neuromuscular Re-education Self-Care/Home Management Therapeutic Activities Therapeutic Exercises Modalities Cold Pack/Ice Massage Electric Stimulation Hot Packs Ultrasound Next Visit Focus/Plan Next Note Type Treatment Note Next Visit Plan Progress HEP for PROM
--- NOTE | 2018-08-13 15:24 | PT.OTN ---
Current Diagnoses Other nondisplaced fracture of upper end of right humerus, initial encounter for closed fracture (08/13/18) Physical Therapy Treatment Note PT-OP-A Visit Information Start: 08/07/18 12:47 Freq: Status: Active Protocol: Document 08/13/18 10:30 AMB (Rec: 08/13/18 12:57 AMB [email or web address]) Out-Patient Physical Therapy Visit Information Visit Information Visit Type Treatment Note Visit Start Time 10:30 Visit Stop Time 11:15 Total Visit Minutes 45 Visit Number 2 PT-OP-B Current Condition Start: 08/07/18 12:47 Freq: Status: Active Protocol: Document 08/07/18 13:00 AMB (Rec: 08/09/18 11:15 AMB [email or web address]) Current Condition History of Current Condition Onset Date 07/24/18 Current Complaints R humerus fracture, difficulty / pain with using R arm History of Current Condition Kristel is a RHD woman who fell on the ice on 07/24 and fractured her R humerus at the greater tuberosity. Last summer she fell and broke her left elbow, she states neither of these had to do with poor balance but that she hasn't had a DEXA scan in a while and will mention this to her PCP, she does not believe she has been diagnosed with osteoporosis. She has been wearing a sling for the last 2 weeks, but is slowly starting to use it less. She will be traveling to [place] in a few weeks. She lives in a private home with her Francisco J. Prior Treatments and Tests X-ray on 07/24/18: Minimally displaced acute appearing fracture vertically oriented through the right humeral greater tuberosity base. 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 Prior Functional Status Baseline Function- ADL's Independent Baseline Function- Mobility Independent Current Functional Impairments (Reported) Functional Limitations- ADL's Difficulty dressing, requires assist to write, unable to lift anything with dominant arm Personal Factors Other Personal Factors That May Effect History of L elbow fracture Therapy/Recovery due to fall, concussion 11 years ago, TMJ pain, depression. PT-OP-C Subjective Start: 08/07/18 12:47 Freq: Status: Active Protocol: Document 08/13/18 10:30 AMB (Rec: 08/13/18 12:57 AMB [email or web address]) OP-PT Subjective Patient Comments Patient Comments Pt states her shoulder hurt after her helped her with her exercises on and they have not tried them since. Overall she is able to use the arm a bit more normally, able to type now. PT-OP-J Posture/Palpation/Skin Start: 08/07/18 12:47 Freq: Status: Active Protocol: Document 08/07/18 13:00 AMB (Rec: 08/09/18 16:21 AMB [email or web address]) Posture Evaluation Comments Posture Comments R arm raised in slight elevation while in sling. Palpation Assessment Location One Palpation Location R shoulder Palpation Findings Muscle Guarding Tenderness Palpation Details Tender at anterior shoulder and down into bicep, mild tenderness through scapular musculature PT-OP-K Range of Motion Start: 08/07/18 12:47 Freq: Status: Active Protocol: Document 08/07/18 13:00 AMB (Rec: 08/09/18 16:21 AMB [email or web address]) Shoulder Goniometric Range of Motion Shoulder Measured in Degrees Right Passive Testing Position Supine Flexion 70 External Rotation at 0 degrees Abduction 20 Internal Rotation 60 Left Active Testing Position Supine Flexion 175 Abduction 180 External Rotation at 90 degrees 95 Abduction Internal Rotation 95 PT-OP-Q Treatments Start: 08/07/18 12:47 Freq: Status: Active Protocol: Document 08/13/18 10:30 AMB (Rec: 08/13/18 12:57 AMB [email or web address]) Therapeutic Exercises Supine Exercises 1 Supine Exercise Name PROM flexion, ER, IR Side right Comments slow and gentle, up to 90 degrees flexion Standing Exercises 1 Standing Exercise Name pendulum Comments vc to avoid active movement Manual Therapy Treatment Soft Tissue Mobilization 1 Body Location upper trap, deltoid, Mobilization Type Myofascial Release Strumming PT-OP-R Modalities Start: 08/07/18 12:47 Freq: Status: Active Protocol: Document 08/13/18 10:30 AMB (Rec: 08/13/18 15:24 AMB [email or web address]) Hot Pack/Cold Pack Treatment Cold Pack Location R shoulder Patient Position Hooklying Treatment Duration (minutes) 10 PT-OP-T Assessment and Plan Start: 08/07/18 12:47 Freq: Status: Active Protocol: Document 08/13/18 10:30 AMB (Rec: 08/13/18 12:57 AMB [email or web address]) Physical Therapy Assessment Assessment Summary Assessment Pt did well with tolerance with exercises, will need more follow up on pendulum exercises, provide written handout next visit. Physical Therapy Plan Next Visit Focus/Plan Next Note Type Treatment Note Next Visit Plan Progress HEP for PROM
--- NOTE | 2018-08-20 13:25 | PT.OTN ---
Current Diagnoses Other nondisplaced fracture of upper end of right humerus, initial encounter for closed fracture (08/20/18) Physical Therapy Treatment Note PT-OP-A Visit Information Start: 08/07/18 12:47 Freq: Status: Active Protocol: Document 08/20/18 09:45 AMB (Rec: 08/20/18 13:25 AMB [email or web address]) Out-Patient Physical Therapy Visit Information Visit Information Visit Type Treatment Note Visit Start Time 09:45 Visit Stop Time 10:30 Total Visit Minutes 45 Visit Number 3 PT-OP-B Current Condition Start: 08/07/18 12:47 Freq: Status: Active Protocol: Document 08/07/18 13:00 AMB (Rec: 08/09/18 11:15 AMB [email or web address]) Current Condition History of Current Condition Onset Date 07/24/18 Current Complaints R humerus fracture, difficulty / pain with using R arm History of Current Condition Kristel is a RHD woman who fell on the ice on 07/24 and fractured her R humerus at the greater tuberosity. Last summer she fell and broke her left elbow, she states neither of these had to do with poor balance but that she hasn't had a DEXA scan in a while and will mention this to her PCP, she does not believe she has been diagnosed with osteoporosis. She has been wearing a sling for the last 2 weeks, but is slowly starting to use it less. She will be traveling to [place] in a few weeks. She lives in a private home with her Francisco J. Prior Treatments and Tests X-ray on 07/24/18: Minimally displaced acute appearing fracture vertically oriented through the right humeral greater tuberosity base. 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 Prior Functional Status Baseline Function- ADL's Independent Baseline Function- Mobility Independent Current Functional Impairments (Reported) Functional Limitations- ADL's Difficulty dressing, requires assist to write, unable to lift anything with dominant arm Personal Factors Other Personal Factors That May Effect History of L elbow fracture Therapy/Recovery due to fall, concussion 11 years ago, TMJ pain, depression. PT-OP-C Subjective Start: 08/07/18 12:47 Freq: Status: Active Protocol: Document 08/20/18 09:45 AMB (Rec: 08/20/18 13:25 AMB [email or web address]) OP-PT Subjective Patient Comments Patient Comments Pt reports her has been trying to help with her exercises, and it is going better. She can use the computer now just fine. PT-OP-J Posture/Palpation/Skin Start: 08/07/18 12:47 Freq: Status: Active Protocol: Document 08/07/18 13:00 AMB (Rec: 08/09/18 16:21 AMB [email or web address]) Posture Evaluation Comments Posture Comments R arm raised in slight elevation while in sling. Palpation Assessment Location One Palpation Location R shoulder Palpation Findings Muscle Guarding Tenderness Palpation Details Tender at anterior shoulder and down into bicep, mild tenderness through scapular musculature PT-OP-K Range of Motion Start: 08/07/18 12:47 Freq: Status: Active Protocol: Document 08/07/18 13:00 AMB (Rec: 08/09/18 16:21 AMB [email or web address]) Shoulder Goniometric Range of Motion Shoulder Measured in Degrees Right Passive Testing Position Supine Flexion 70 External Rotation at 0 degrees Abduction 20 Internal Rotation 60 Left Active Testing Position Supine Flexion 175 Abduction 180 External Rotation at 90 degrees 95 Abduction Internal Rotation 95 PT-OP-Q Treatments Start: 08/07/18 12:47 Freq: Status: Active Protocol: Document 08/20/18 09:45 AMB (Rec: 08/20/18 13:25 AMB [email or web address]) Therapeutic Exercises Supine Exercises 2 Supine Exercise Name AAROM with cane Comments instructed pt to start at week 5 while on vacation 1 Supine Exercise Name PROM flexion, ER, IR Side right Comments ~100 degrees of flexion Sitting Exercises 1 Sitting Exercise Name table stretch into flexion Standing Exercises 1 Standing Exercise Name pendulum Comments vc to avoid active movement Manual Therapy Treatment Soft Tissue Mobilization 1 Body Location upper trap, deltoid, bicep Mobilization Type Myofascial Release Strumming PT-OP-R Modalities Start: 08/07/18 12:47 Freq: Status: Active Protocol: Document 08/13/18 10:30 AMB (Rec: 08/13/18 15:24 AMB [email or web address]) Hot Pack/Cold Pack Treatment Cold Pack Location R shoulder Patient Position Hooklying Treatment Duration (minutes) 10 PT-OP-T Assessment and Plan Start: 08/07/18 12:47 Freq: Status: Active Protocol: Document 08/20/18 09:45 AMB (Rec: 08/20/18 13:25 AMB [email or web address]) Physical Therapy Assessment Assessment Summary Assessment Pt tolerating PROM better, will start AAROM while on vacation, and then return to PT after vacation. Physical Therapy Plan Frequency and Duration Frequency of Treatment 2x/Week Duration of Treatment 10 weeks Plan of Care Start Date 08/07/18 Plan of Care End Date 10/16/18 Therapeutic Interventions Therapeutic Interventions Balance Training Gait Training Home Exercise Program Joint Mobilizations Manual Therapy Neuromuscular Re-education Self-Care/Home Management Therapeutic Activities Therapeutic Exercises Modalities Cold Pack/Ice Massage Electric Stimulation Hot Packs Ultrasound Next Visit Focus/Plan Next Note Type Treatment Note Next Visit Plan Advance to AROM after returning from vacation
--- NOTE | 2018-09-13 09:27 | PT.OTN ---
Current Diagnoses Other nondisplaced fracture of upper end of right humerus, initial encounter for closed fracture (09/13/18) Physical Therapy Treatment Note PT-OP-A Visit Information Start: 08/07/18 12:47 Freq: Status: Active Protocol: Document 09/13/18 08:25 [facility] (Rec: 09/13/18 09:27 [facility] [id number]) Out-Patient Physical Therapy Visit Information Visit Information Visit Type Treatment Note Visit Start Time 08:20 Visit Stop Time 09:10 Total Visit Minutes 50 Visit Number 4 PT-OP-B Current Condition Start: 08/07/18 12:47 Freq: Status: Active Protocol: Document 08/07/18 13:00 AMB (Rec: 08/09/18 11:15 AMB [email or web address]) Current Condition History of Current Condition Onset Date 07/24/18 Current Complaints R humerus fracture, difficulty / pain with using R arm History of Current Condition Kristel is a RHD woman who fell on the ice on 07/24 and fractured her R humerus at the greater tuberosity. Last summer she fell and broke her left elbow, she states neither of these had to do with poor balance but that she hasn't had a DEXA scan in a while and will mention this to her PCP, she does not believe she has been diagnosed with osteoporosis. She has been wearing a sling for the last 2 weeks, but is slowly starting to use it less. She will be traveling to [place] in a few weeks. She lives in a private home with her Francisco J. Prior Treatments and Tests X-ray on 07/24/18: Minimally displaced acute appearing fracture vertically oriented through the right humeral greater tuberosity base. 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 Prior Functional Status Baseline Function- ADL's Independent Baseline Function- Mobility Independent Current Functional Impairments (Reported) Functional Limitations- ADL's Difficulty dressing, requires assist to write, unable to lift anything with dominant arm Personal Factors Other Personal Factors That May Effect History of L elbow fracture Therapy/Recovery due to fall, concussion 11 years ago, TMJ pain, depression. PT-OP-C Subjective Start: 08/07/18 12:47 Freq: Status: Active Protocol: Document 09/13/18 08:25 [facility] (Rec: 09/13/18 09:27 [facility] [id number]) OP-PT Subjective Patient Comments Patient Comments Reports she has not been doing exercises. PT-OP-J Posture/Palpation/Skin Start: 08/07/18 12:47 Freq: Status: Active Protocol: Document 08/07/18 13:00 AMB (Rec: 08/09/18 16:21 AMB [email or web address]) Posture Evaluation Comments Posture Comments R arm raised in slight elevation while in sling. Palpation Assessment Location One Palpation Location R shoulder Palpation Findings Muscle Guarding Tenderness Palpation Details Tender at anterior shoulder and down into bicep, mild tenderness through scapular musculature PT-OP-K Range of Motion Start: 08/07/18 12:47 Freq: Status: Active Protocol: Document 08/07/18 13:00 AMB (Rec: 08/09/18 16:21 AMB [email or web address]) Shoulder Goniometric Range of Motion Shoulder Measured in Degrees Right Passive Testing Position Supine Flexion 70 External Rotation at 0 degrees Abduction 20 Internal Rotation 60 Left Active Testing Position Supine Flexion 175 Abduction 180 External Rotation at 90 degrees 95 Abduction Internal Rotation 95 PT-OP-Q Treatments Start: 08/07/18 12:47 Freq: Status: Active Protocol: Document 09/13/18 08:25 [facility] (Rec: 09/13/18 09:27 [facility] [id number]) Therapeutic Exercises Supine Exercises abd Supine Exercise Name tbar Side right Reps/Minutes 10 2 Supine Exercise Name rotation ER 90/90 Side right Reps/Minutes 10 1 Supine Exercise Name flex tbar Side right Reps/Minutes 15 Standing Exercises IR Standing Exercise Name behind back w/tbar Side right Reps/Minutes 10 ext Standing Exercise Name tbar Side right Reps/Minutes 10 pully Standing Exercise Name pully:flex, abd, IR Side right Reps/Minutes 15 Manual Therapy Treatment Soft Tissue Mobilization 1 Body Location upper trap, deltoid, bicep Mobilization Type Myofascial Release Strumming Manual Techniques prom Type flex, abd, er, ir PT-OP-R Modalities Start: 08/07/18 12:47 Freq: Status: Active Protocol: Document 09/13/18 08:25 [facility] (Rec: 09/13/18 09:27 [facility] [id number]) Hot Pack/Cold Pack Treatment Cold Pack Location R shoulder Patient Position Hooklying Treatment Duration (minutes) 10 PT-OP-T Assessment and Plan Start: 08/07/18 12:47 Freq: Status: Active Protocol: Document 09/13/18 08:25 [facility] (Rec: 09/13/18 09:27 [facility] [id number]) Physical Therapy Assessment Goals Four Impairment balance/gait Short Term Goal (STG) Pt will complete DGI and be instructed in balance HEP if in fall risk category. STG Duration 09/25/09 Three Impairment ADLs Short Term Goal (STG) Kristel will perform all upper body dressing independently. STG Duration 09/18/18 Group Home Goal (LTG) Kristel will perform light cooking activities (chopping, stirring) without an increase in shoulder pain. LTG Duration 10/16/18 Two Impairment Strength Short Term Goal (STG) Kristel will have 3/10 strength in all planes. STG Duration 09/25/18 Group Home Goal (LTG) Kristel will lift 10 pounds to shoulder height without an increase in baseline pain. LTG Duration 10/16/18 One Impairment Range of motion Short Term Goal (STG) Kristel will increase her shoulder PROM to 150 degrees of flexion and abduction. STG Duration 09/18/18 Group Home Goal (LTG) Kristel will increase her shoulder AROM to 150 degrees of flexion and abduction. LTG Duration 10/16/18 Assessment Summary Assessment Pt tolerated AAROM w/ breaks. Encouraged to start exercises daily and icing daily now. She has significant pec tightness that does limit ROM Physical Therapy Plan Frequency and Duration Frequency of Treatment 2x/Week Duration of Treatment 10 weeks Plan of Care Start Date 08/07/18 Plan of Care End Date 10/16/18 Next Visit Focus/Plan Next Note Type Treatment Note Next Visit Plan Advance to AROM
--- NOTE | 2018-09-17 18:14 | PT.OTN ---
Current Diagnoses Other nondisplaced fracture of upper end of right humerus, initial encounter for closed fracture (09/17/18) Physical Therapy Treatment Note PT-OP-A Visit Information Start: 08/07/18 12:47 Freq: Status: Active Protocol: Document 09/17/18 18:08 [facility] (Rec: 09/18/18 18:14 [facility] [email or web address]) Out-Patient Physical Therapy Visit Information Visit Information Visit Type Treatment Note Visit Start Time 10:30 Visit Stop Time 11:20 Total Visit Minutes 50 Visit Number 5 PT-OP-B Current Condition Start: 08/07/18 12:47 Freq: Status: Active Protocol: Document 08/07/18 13:00 AMB (Rec: 08/09/18 11:15 AMB [email or web address]) Current Condition History of Current Condition Onset Date 07/24/18 Current Complaints R humerus fracture, difficulty / pain with using R arm History of Current Condition Kristel is a RHD woman who fell on the ice on 07/24 and fractured her R humerus at the greater tuberosity. Last summer she fell and broke her left elbow, she states neither of these had to do with poor balance but that she hasn't had a DEXA scan in a while and will mention this to her PCP, she does not believe she has been diagnosed with osteoporosis. She has been wearing a sling for the last 2 weeks, but is slowly starting to use it less. She will be traveling to [place] in a few weeks. She lives in a private home with her Francisco J. Prior Treatments and Tests X-ray on 07/24/18: Minimally displaced acute appearing fracture vertically oriented through the right humeral greater tuberosity base. 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 Prior Functional Status Baseline Function- ADL's Independent Baseline Function- Mobility Independent Current Functional Impairments (Reported) Functional Limitations- ADL's Difficulty dressing, requires assist to write, unable to lift anything with dominant arm Personal Factors Other Personal Factors That May Effect History of L elbow fracture Therapy/Recovery due to fall, concussion 11 years ago, TMJ pain, depression. PT-OP-C Subjective Start: 08/07/18 12:47 Freq: Status: Active Protocol: Document 09/17/18 18:08 [facility] (Rec: 09/18/18 18:14 [facility] [email or web address]) OP-PT Subjective Patient Comments Patient Comments Reports she has been doing her exercises since last session PT-OP-J Posture/Palpation/Skin Start: 08/07/18 12:47 Freq: Status: Active Protocol: Document 08/07/18 13:00 AMB (Rec: 08/09/18 16:21 AMB [email or web address]) Posture Evaluation Comments Posture Comments R arm raised in slight elevation while in sling. Palpation Assessment Location One Palpation Location R shoulder Palpation Findings Muscle Guarding Tenderness Palpation Details Tender at anterior shoulder and down into bicep, mild tenderness through scapular musculature PT-OP-K Range of Motion Start: 08/07/18 12:47 Freq: Status: Active Protocol: Document 08/07/18 13:00 AMB (Rec: 08/09/18 16:21 AMB [email or web address]) Shoulder Goniometric Range of Motion Shoulder Measured in Degrees Right Passive Testing Position Supine Flexion 70 External Rotation at 0 degrees Abduction 20 Internal Rotation 60 Left Active Testing Position Supine Flexion 175 Abduction 180 External Rotation at 90 degrees 95 Abduction Internal Rotation 95 PT-OP-Q Treatments Start: 08/07/18 12:47 Freq: Status: Active Protocol: Document 09/17/18 18:08 [facility] (Rec: 09/18/18 18:14 [facility] [email or web address]) Therapeutic Exercises Supine Exercises 1 Supine Exercise Name chest press w/serratus punch Side right Reps/Minutes 20 Sidelying Exercises abd Sidelying Exercise Name abd Side right Reps/Minutes 20 Comments to 90 deg ER Sidelying Exercise Name ER Side right Reps/Minutes 20 Standing Exercises ext Standing Exercise Name tbar Side right Reps/Minutes 10 pully Standing Exercise Name pully:flex, abd, IR Side right Reps/Minutes 15 1 Standing Exercise Name tbar:flex, abd , 90/90 ER Side right Reps/Minutes 10 ea Manual Therapy Treatment Soft Tissue Mobilization 1 Body Location upper trap, deltoid, bicep Mobilization Type Myofascial Release Strumming Manual Techniques prom Type flex, abd, er, ir Comments focus on rotations PT-OP-R Modalities Start: 08/07/18 12:47 Freq: Status: Active Protocol: Document 09/17/18 18:08 [facility] (Rec: 09/18/18 18:14 [facility] [email or web address]) Hot Pack/Cold Pack Treatment Cold Pack Location R shoulder Patient Position Hooklying Treatment Duration (minutes) 10 PT-OP-T Assessment and Plan Start: 08/07/18 12:47 Freq: Status: Active Protocol: Document 09/17/18 18:08 [facility] (Rec: 09/18/18 18:14 [facility] [email or web address]) Physical Therapy Assessment Goals Four Impairment balance/gait Short Term Goal (STG) Pt will complete DGI and be instructed in balance HEP if in fall risk category. STG Duration 09/25/09 Three Impairment ADLs Short Term Goal (STG) Kristel will perform all upper body dressing independently. STG Duration 09/18/18 [employer] Goal (LTG) Kristel will perform light cooking activities (chopping, stirring) without an increase in shoulder pain. LTG Duration 10/16/18 Two Impairment Strength Short Term Goal (STG) Kristel will have 3/10 strength in all planes. STG Duration 09/25/18 [employer] Goal (LTG) Kristel will lift 10 pounds to shoulder height without an increase in baseline pain. LTG Duration 10/16/18 One Impairment Range of motion Short Term Goal (STG) Kristel will increase her shoulder PROM to 150 degrees of flexion and abduction. STG Duration 09/18/18 [employer]rycook Goal (LTG) Kristel will increase her shoulder AROM to 150 degrees of flexion and abduction. LTG Duration 10/16/18 Assessment Summary Assessment Pt tolerated progression with AAROM and AROM exercises today . She fatigues with exercise but does improve ROM w/ repetition. Encouraged pt to ice at home. Physical Therapy Plan Frequency and Duration Frequency of Treatment 2x/Week Duration of Treatment 10 weeks Plan of Care Start Date 08/07/18 Plan of Care End Date 10/16/18 Next Visit Focus/Plan Next Note Type Treatment Note Next Visit Plan Prone AROM
--- NOTE | 2018-09-20 11:46 | PT.OTN ---
Current Diagnoses Other nondisplaced fracture of upper end of right humerus, initial encounter for closed fracture (09/20/18) Physical Therapy Treatment Note PT-OP-A Visit Information Start: 08/07/18 12:47 Freq: Status: Active Protocol: Document 09/20/18 09:05 [facility] (Rec: 09/20/18 11:45 [facility] [id number]) Out-Patient Physical Therapy Visit Information Visit Information Visit Type Treatment Note Visit Start Time 09:05 Visit Stop Time 09:55 Total Visit Minutes 50 Visit Number 6 PT-OP-B Current Condition Start: 08/07/18 12:47 Freq: Status: Active Protocol: Document 08/07/18 13:00 AMB (Rec: 08/09/18 11:15 AMB [email or web address]) Current Condition History of Current Condition Onset Date 07/24/18 Current Complaints R humerus fracture, difficulty / pain with using R arm History of Current Condition Kristel is a RHD woman who fell on the ice on 07/24 and fractured her R humerus at the greater tuberosity. Last summer she fell and broke her left elbow, she states neither of these had to do with poor balance but that she hasn't had a DEXA scan in a while and will mention this to her PCP, she does not believe she has been diagnosed with osteoporosis. She has been wearing a sling for the last 2 weeks, but is slowly starting to use it less. She will be traveling to [place] in a few weeks. She lives in a private home with her Francisco J. Prior Treatments and Tests X-ray on 07/24/18: Minimally displaced acute appearing fracture vertically oriented through the right humeral greater tuberosity base. 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 Prior Functional Status Baseline Function- ADL's Independent Baseline Function- Mobility Independent Current Functional Impairments (Reported) Functional Limitations- ADL's Difficulty dressing, requires assist to write, unable to lift anything with dominant arm Personal Factors Other Personal Factors That May Effect History of L elbow fracture Therapy/Recovery due to fall, concussion 11 years ago, TMJ pain, depression. PT-OP-C Subjective Start: 08/07/18 12:47 Freq: Status: Active Protocol: Document 09/20/18 09:05 [facility] (Rec: 09/20/18 11:45 [facility] [id number]) OP-PT Subjective Patient Comments Patient Comments Reports MD thinks her issue is LBP not kidney stones creating the pain. PT-OP-J Posture/Palpation/Skin Start: 08/07/18 12:47 Freq: Status: Active Protocol: Document 08/07/18 13:00 AMB (Rec: 08/09/18 16:21 AMB [email or web address]) Posture Evaluation Comments Posture Comments R arm raised in slight elevation while in sling. Palpation Assessment Location One Palpation Location R shoulder Palpation Findings Muscle Guarding Tenderness Palpation Details Tender at anterior shoulder and down into bicep, mild tenderness through scapular musculature PT-OP-K Range of Motion Start: 08/07/18 12:47 Freq: Status: Active Protocol: Document 08/07/18 13:00 AMB (Rec: 08/09/18 16:21 AMB [email or web address]) Shoulder Goniometric Range of Motion Shoulder Measured in Degrees Right Passive Testing Position Supine Flexion 70 External Rotation at 0 degrees Abduction 20 Internal Rotation 60 Left Active Testing Position Supine Flexion 175 Abduction 180 External Rotation at 90 degrees 95 Abduction Internal Rotation 95 PT-OP-Q Treatments Start: 08/07/18 12:47 Freq: Status: Active Protocol: Document 09/20/18 09:05 [facility] (Rec: 09/20/18 11:45 [facility] [id number]) Cardio Equipment Upper Body Ergometer (UBE) Duration (Minutes) 5 Seat Position 13 Height 4 Therapeutic Exercises Standing Exercises IR Standing Exercise Name resisted Side right Equipment Used L1 Reps/Minutes 20 ext Standing Exercise Name resisted Side bilateral Equipment Used L1 Reps/Minutes 20 1 Standing Exercise Name ER Side right Equipment Used L1 Reps/Minutes 20 Manual Therapy Treatment Soft Tissue Mobilization 1 Body Location upper trap, deltoid, bicep Mobilization Type Myofascial Release Strumming Manual Techniques prom Type flex, abd, er, ir Comments focus on rotations PT-OP-R Modalities Start: 08/07/18 12:47 Freq: Status: Active Protocol: Document 09/17/18 18:08 [facility] (Rec: 09/18/18 18:14 [facility] [email or web address]) Hot Pack/Cold Pack Treatment Cold Pack Location R shoulder Patient Position Hooklying Treatment Duration (minutes) 10 PT-OP-T Assessment and Plan Start: 08/07/18 12:47 Freq: Status: Active Protocol: Document 09/20/18 09:05 [facility] (Rec: 09/20/18 11:45 [facility] [id number]) Physical Therapy Assessment Goals Four Impairment balance/gait Short Term Goal (STG) Pt will complete DGI and be instructed in balance HEP if in fall risk category. STG Duration 09/25/09 Three Impairment ADLs Short Term Goal (STG) Kristel will perform all upper body dressing independently. STG Duration 09/18/18 [facility] Goal (LTG) Kristel will perform light cooking activities (chopping, stirring) without an increase in shoulder pain. LTG Duration 10/16/18 Two Impairment Strength Short Term Goal (STG) Kristel will have 3/10 strength in all planes. STG Duration 09/25/18 Manager Contact Goal (LTG) Kristel will lift 10 pounds to shoulder height without an increase in baseline pain. LTG Duration 10/16/18 One Impairment Range of motion Short Term Goal (STG) Kristel will increase her shoulder PROM to 150 degrees of flexion and abduction. STG Duration 09/18/18 [facility] Goal (LTG) Kristel will increase her shoulder AROM to 150 degrees of flexion and abduction. LTG Duration 10/16/18 Assessment Summary Assessment Pt is improving with ROM and had about 120 deg PROM into flex and about 80 deg of ER today.She was able to tolerate resistance without inc pain. Physical Therapy Plan Frequency and Duration Frequency of Treatment 2x/Week Duration of Treatment 10 weeks Plan of Care Start Date 08/07/18 Plan of Care End Date 10/16/18 Next Visit Focus/Plan Next Note Type Treatment Note Next Visit Plan Prone AROM
--- NOTE | 2018-09-24 17:09 | PT.OTN ---
Current Diagnoses Other nondisplaced fracture of upper end of right humerus, initial encounter for closed fracture (09/24/18) Physical Therapy Treatment Note PT-OP-A Visit Information Start: 08/07/18 12:47 Freq: Status: Active Protocol: Document 09/24/18 10:30 [facility] (Rec: 09/24/18 17:08 [facility] [email or web address]) Out-Patient Physical Therapy Visit Information Visit Information Visit Type Treatment Note Visit Start Time 10:30 Visit Stop Time 11:15 Total Visit Minutes 45 Visit Number 7 Number of LASER BEAM CUTTER Visits 1 PT-OP-B Current Condition Start: 08/07/18 12:47 Freq: Status: Active Protocol: Document 08/07/18 13:00 AMB (Rec: 08/09/18 11:15 AMB [email or web address]) Current Condition History of Current Condition Onset Date 07/24/18 Current Complaints R humerus fracture, difficulty / pain with using R arm History of Current Condition Kristel is a RHD woman who fell on the ice on 07/24 and fractured her R humerus at the greater tuberosity. Last summer she fell and broke her left elbow, she states neither of these had to do with poor balance but that she hasn't had a DEXA scan in a while and will mention this to her PCP, she does not believe she has been diagnosed with osteoporosis. She has been wearing a sling for the last 2 weeks, but is slowly starting to use it less. She will be traveling to [place] in a few weeks. She lives in a private home with her Francisco J. Prior Treatments and Tests X-ray on 07/24/18: Minimally displaced acute appearing fracture vertically oriented through the right humeral greater tuberosity base. 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 Prior Functional Status Baseline Function- ADL's Independent Baseline Function- Mobility Independent Current Functional Impairments (Reported) Functional Limitations- ADL's Difficulty dressing, requires assist to write, unable to lift anything with dominant arm Personal Factors Other Personal Factors That May Effect History of L elbow fracture Therapy/Recovery due to fall, concussion 11 years ago, TMJ pain, depression. PT-OP-C Subjective Start: 08/07/18 12:47 Freq: Status: Active Protocol: Document 09/24/18 10:30 [facility] (Rec: 09/24/18 17:08 [facility] [email or web address]) OP-PT Subjective Patient Comments Patient Comments Pt states she is using her arm mobr. PT-OP-J Posture/Palpation/Skin Start: 08/07/18 12:47 Freq: Status: Active Protocol: Document 08/07/18 13:00 AMB (Rec: 08/09/18 16:21 AMB [email or web address]) Posture Evaluation Comments Posture Comments R arm raised in slight elevation while in sling. Palpation Assessment Location One Palpation Location R shoulder Palpation Findings Muscle Guarding Tenderness Palpation Details Tender at anterior shoulder and down into bicep, mild tenderness through scapular musculature PT-OP-K Range of Motion Start: 08/07/18 12:47 Freq: Status: Active Protocol: Document 08/07/18 13:00 AMB (Rec: 08/09/18 16:21 AMB [email or web address]) Shoulder Goniometric Range of Motion Shoulder Measured in Degrees Right Passive Testing Position Supine Flexion 70 External Rotation at 0 degrees Abduction 20 Internal Rotation 60 Left Active Testing Position Supine Flexion 175 Abduction 180 External Rotation at 90 degrees 95 Abduction Internal Rotation 95 PT-OP-Q Treatments Start: 08/07/18 12:47 Freq: Status: Active Protocol: Document 09/24/18 10:30 [facility] (Rec: 09/24/18 17:08 [facility] [email or web address]) Cardio Equipment Upper Body Ergometer (UBE) Duration (Minutes) 5 Seat Position 13 Height 4 Therapeutic Exercises Supine Exercises 1 Supine Exercise Name chest press w/serratus punch Side right Reps/Minutes 20 Prone Exercises 1 Prone Exercise Name AAROM into flexion, extension and abduciton Side left Reps/Minutes 10 x Sidelying Exercises abd Sidelying Exercise Name abd Side right Reps/Minutes 20 Comments to 90 deg ER Sidelying Exercise Name ER Side right Reps/Minutes 20 Standing Exercises IR Standing Exercise Name resisted Side right Equipment Used L1 Reps/Minutes 20 ext Standing Exercise Name resisted Side bilateral Equipment Used L1 Reps/Minutes 20 1 Standing Exercise Name ER Side right Equipment Used L1 Reps/Minutes 20 Manual Therapy Treatment Soft Tissue Mobilization 1 Body Location upper trap, deltoid, bicep Mobilization Type Myofascial Release Strumming Manual Techniques prom Type flex, abd, er, ir Comments focus on rotations PT-OP-R Modalities Start: 08/07/18 12:47 Freq: Status: Active Protocol: Document 09/17/18 18:08 [facility] (Rec: 09/18/18 18:14 [facility] [email or web address]) Hot Pack/Cold Pack Treatment Cold Pack Location R shoulder Patient Position Hooklying Treatment Duration (minutes) 10 PT-OP-T Assessment and Plan Start: 08/07/18 12:47 Freq: Status: Active Protocol: Document 09/24/18 10:30 [facility]GD (Rec: 09/24/18 17:08 [facility]GD [email or web address]) Physical Therapy Assessment Assessment Summary Assessment Pt improving with PROM. She needed AA with prone ROM for scap. control. She had increase in UT activation with flexion. Physical Therapy Plan Frequency and Duration Frequency of Treatment 2x/Week Duration of Treatment 10 weeks Plan of Care Start Date 08/07/18 Plan of Care End Date 10/16/18 Next Visit Focus/Plan Next Note Type Treatment Note Next Visit Plan Prone AROM
--- NOTE | 2018-09-27 09:46 | PT.OTN ---
Current Diagnoses Other nondisplaced fracture of upper end of right humerus, initial encounter for closed fracture (09/27/18) Physical Therapy Treatment Note PT-OP-A Visit Information Start: 08/07/18 12:47 Freq: Status: Active Protocol: Document 09/27/18 09:07 [facility] (Rec: 09/27/18 09:46 [facility] [id number]) Out-Patient Physical Therapy Visit Information Visit Information Visit Type Treatment Note Visit Start Time 09:05 Visit Stop Time 09:45 Total Visit Minutes 40 Visit Number 8 Number of FACEPIECE LINE SUPERVISOR Visits 0 PT-OP-B Current Condition Start: 08/07/18 12:47 Freq: Status: Active Protocol: Document 08/07/18 13:00 AMB (Rec: 08/09/18 11:15 AMB [email or web address]) Current Condition History of Current Condition Onset Date 07/24/18 Current Complaints R humerus fracture, difficulty / pain with using R arm History of Current Condition Kristel is a RHD woman who fell on the ice on 07/24 and fractured her R humerus at the greater tuberosity. Last summer she fell and broke her left elbow, she states neither of these had to do with poor balance but that she hasn't had a DEXA scan in a while and will mention this to her PCP, she does not believe she has been diagnosed with osteoporosis. She has been wearing a sling for the last 2 weeks, but is slowly starting to use it less. She will be traveling to [place] in a few weeks. She lives in a private home with her Francisco J. Prior Treatments and Tests X-ray on 07/24/18: Minimally displaced acute appearing fracture vertically oriented through the right humeral greater tuberosity base. 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 Prior Functional Status Baseline Function- ADL's Independent Baseline Function- Mobility Independent Current Functional Impairments (Reported) Functional Limitations- ADL's Difficulty dressing, requires assist to write, unable to lift anything with dominant arm Personal Factors Other Personal Factors That May Effect History of L elbow fracture Therapy/Recovery due to fall, concussion 11 years ago, TMJ pain, depression. PT-OP-C Subjective Start: 08/07/18 12:47 Freq: Status: Active Protocol: Document 09/27/18 09:07 [facility] (Rec: 09/27/18 09:46 [facility] [id number]) OP-PT Subjective Patient Comments Patient Comments Pt reports she feels like she can reach further. Patient Reported Progress Improving PT-OP-J Posture/Palpation/Skin Start: 08/07/18 12:47 Freq: Status: Active Protocol: Document 08/07/18 13:00 AMB (Rec: 08/09/18 16:21 AMB [email or web address]) Posture Evaluation Comments Posture Comments R arm raised in slight elevation while in sling. Palpation Assessment Location One Palpation Location R shoulder Palpation Findings Muscle Guarding Tenderness Palpation Details Tender at anterior shoulder and down into bicep, mild tenderness through scapular musculature PT-OP-K Range of Motion Start: 08/07/18 12:47 Freq: Status: Active Protocol: Document 08/07/18 13:00 AMB (Rec: 08/09/18 16:21 AMB [email or web address]) Shoulder Goniometric Range of Motion Shoulder Measured in Degrees Right Passive Testing Position Supine Flexion 70 External Rotation at 0 degrees Abduction 20 Internal Rotation 60 Left Active Testing Position Supine Flexion 175 Abduction 180 External Rotation at 90 degrees 95 Abduction Internal Rotation 95 PT-OP-Q Treatments Start: 08/07/18 12:47 Freq: Status: Active Protocol: Document 09/27/18 09:07 [facility] (Rec: 09/27/18 09:46 [facility] [id number]) Cardio Equipment Upper Body Ergometer (UBE) Duration (Minutes) 6 RPM 60 Seat Position 13 Height 4 Therapeutic Exercises Prone Exercises HAbd Prone Exercise Name Habd Side right Reps/Minutes 10 Comments cueing for scapula ext Prone Exercise Name ext Side right Reps/Minutes 10 1 Prone Exercise Name AAROM into flexion Side right Reps/Minutes 3 Comments stopped d/t pain Sidelying Exercises abd Sidelying Exercise Name abd Side right Reps/Minutes 20 Comments to 90 deg Standing Exercises pec stretch Standing Exercise Name doorway straightelbow Side bilateral Reps/Minutes 30 sec hold elbow flex Standing Exercise Name curls Side bilateral Equipment Used lvl 2 Reps/Minutes 20 IR Standing Exercise Name resisted Side right Equipment Used L2 Reps/Minutes 20 ext Standing Exercise Name resisted Side bilateral Equipment Used L2 Reps/Minutes 20 1 Standing Exercise Name ER Side right Equipment Used L2 Reps/Minutes 20 Manual Therapy Treatment Soft Tissue Mobilization 1 Body Location pec Mobilization Type Rolling Manual Techniques prom Type flex, abd, er, ir Comments focus on flex & abd PT-OP-R Modalities Start: 08/07/18 12:47 Freq: Status: Active Protocol: Document 09/17/18 18:08 [facility] (Rec: 09/18/18 18:14 [facility] [id number]) Hot Pack/Cold Pack Treatment Cold Pack Location R shoulder Patient Position Hooklying Treatment Duration (minutes) 10 PT-OP-T Assessment and Plan Start: 08/07/18 12:47 Freq: Status: Active Protocol: Document 09/27/18 09:07 [facility] (Rec: 09/27/18 09:46 [facility] [id number]) Physical Therapy Assessment Goals Four Impairment balance/gait Short Term Goal (STG) Pt will complete DGI and be instructed in balance HEP if in fall risk category. STG Duration 09/25/09 Three Impairment ADLs Short Term Goal (STG) Kristel will perform all upper body dressing independently. STG Duration 09/18/18 [employer] Plant Operator Goal (LTG) Kristel will perform light cooking activities (chopping, stirring) without an increase in shoulder pain. LTG Duration 10/16/18 Two Impairment Strength Short Term Goal (STG) Kristel will have 3/10 strength in all planes. STG Duration 09/25/18 Long-Term Goal (LTG) Kristel will lift 10 pounds to shoulder height without an increase in baseline pain. LTG Duration 10/16/18 One Impairment Range of motion Short Term Goal (STG) Kristel will increase her shoulder PROM to 150 degrees of flexion and abduction. STG Duration 09/18/18 Long-Term Goal (LTG) Kristel will increase her shoulder AROM to 150 degrees of flexion and abduction. LTG Duration 10/16/18 Assessment Summary Assessment Pt improved with AROM for HAbd and ext today but was unable to do flex without significant pain. min cueing with exercises and was able to tolerate inc resistance. Physical Therapy Plan Frequency and Duration Frequency of Treatment 2x/Week Duration of Treatment 10 weeks Plan of Care Start Date 08/07/18 Plan of Care End Date 10/16/18 Next Visit Focus/Plan Next Note Type Treatment Note Next Visit Plan cont to advance strengthening.
--- NOTE | 2018-10-01 11:22 | PT.OTN ---
Current Diagnoses Other nondisplaced fracture of upper end of right humerus, initial encounter for closed fracture (10/01/18) Physical Therapy Treatment Note PT-OP-A Visit Information Start: 08/07/18 12:47 Freq: Status: Active Protocol: Document 10/01/18 10:43 LR (Rec: 10/01/18 11:22 [facility] [id number]) Out-Patient Physical Therapy Visit Information Visit Information Visit Type Treatment Note Visit Start Time 10:35 Visit Stop Time 11:15 Total Visit Minutes 40 Visit Number 9 Number of ADULT SCHOOL TEACHER Visits 0 PT-OP-B Current Condition Start: 08/07/18 12:47 Freq: Status: Active Protocol: Document 08/07/18 13:00 AMB (Rec: 08/09/18 11:15 AMB [email or web address]) Current Condition History of Current Condition Onset Date 07/24/18 Current Complaints R humerus fracture, difficulty / pain with using R arm History of Current Condition Kristel is a RHD woman who fell on the ice on 07/24 and fractured her R humerus at the greater tuberosity. Last summer she fell and broke her left elbow, she states neither of these had to do with poor balance but that she hasn't had a DEXA scan in a while and will mention this to her PCP, she does not believe she has been diagnosed with osteoporosis. She has been wearing a sling for the last 2 weeks, but is slowly starting to use it less. She will be traveling to [place] in a few weeks. She lives in a private home with her Francisco J. Prior Treatments and Tests X-ray on 07/24/18: Minimally displaced acute appearing fracture vertically oriented through the right humeral greater tuberosity base. 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 Prior Functional Status Baseline Function- ADL's Independent Baseline Function- Mobility Independent Current Functional Impairments (Reported) Functional Limitations- ADL's Difficulty dressing, requires assist to write, unable to lift anything with dominant arm Personal Factors Other Personal Factors That May Effect History of L elbow fracture Therapy/Recovery due to fall, concussion 11 years ago, TMJ pain, depression. PT-OP-C Subjective Start: 08/07/18 12:47 Freq: Status: Active Protocol: Document 10/01/18 10:43 [facility] (Rec: 10/01/18 11:22 [facility] [id number]) OP-PT Subjective Patient Comments Patient Comments Pt notes she is doing better with her hair and daily tasks Patient Reported Progress Improving PT-OP-J Posture/Palpation/Skin Start: 08/07/18 12:47 Freq: Status: Active Protocol: Document 08/07/18 13:00 AMB (Rec: 08/09/18 16:21 AMB [email or web address]) Posture Evaluation Comments Posture Comments R arm raised in slight elevation while in sling. Palpation Assessment Location One Palpation Location R shoulder Palpation Findings Muscle Guarding Tenderness Palpation Details Tender at anterior shoulder and down into bicep, mild tenderness through scapular musculature PT-OP-K Range of Motion Start: 08/07/18 12:47 Freq: Status: Active Protocol: Document 08/07/18 13:00 AMB (Rec: 08/09/18 16:21 AMB [email or web address]) Shoulder Goniometric Range of Motion Shoulder Measured in Degrees Right Passive Testing Position Supine Flexion 70 External Rotation at 0 degrees Abduction 20 Internal Rotation 60 Left Active Testing Position Supine Flexion 175 Abduction 180 External Rotation at 90 degrees 95 Abduction Internal Rotation 95 PT-OP-Q Treatments Start: 08/07/18 12:47 Freq: Status: Active Protocol: Document 10/01/18 10:43 [facility] (Rec: 10/01/18 11:22 [facility] [id number]) Cardio Equipment Upper Body Ergometer (UBE) Duration (Minutes) 6 RPM 60 Seat Position 13 Height 4 Therapeutic Exercises Sitting Exercises 1 Sitting Exercise Name pully Side right Reps/Minutes 10 x5 sec hold Comments flex, abd, IR Standing Exercises flex Standing Exercise Name wall slides Side right Reps/Minutes 8 pec stretch Standing Exercise Name doorway straightelbow Side bilateral Reps/Minutes 30 sec hold Manual Therapy Treatment Soft Tissue Mobilization 1 Body Location upper trap, deltoid, bicep Mobilization Type Myofascial Release Strumming Manual Techniques prom Type flex, abd, er, ir Comments focus on flex & abd PT-OP-R Modalities Start: 08/07/18 12:47 Freq: Status: Active Protocol: Document 10/01/18 10:43 [facility] (Rec: 10/01/18 11:22 [facility] [id number]) Hot Pack/Cold Pack Treatment Cold Pack Location R shoulder Patient Position Hooklying Treatment Duration (minutes) 10 PT-OP-T Assessment and Plan Start: 08/07/18 12:47 Freq: Status: Active Protocol: Document 10/01/18 10:43 [facility] (Rec: 10/01/18 11:22 [facility] [id number]) Physical Therapy Assessment Goals Four Impairment balance/gait Short Term Goal (STG) Pt will complete DGI and be instructed in balance HEP if in fall risk category. STG Duration 09/25/09 Three Impairment ADLs Short Term Goal (STG) Kristel will perform all upper body dressing independently. STG Duration 09/18/18 Roof Bolter Operator Goal (LTG) Kristel will perform light cooking activities (chopping, stirring) without an increase in shoulder pain. LTG Duration 10/16/18 Two Impairment Strength Short Term Goal (STG) Kristel will have 3/10 strength in all planes. STG Duration 09/25/18 Penitentiary Goal (LTG) Kristel will lift 10 pounds to shoulder height without an increase in baseline pain. LTG Duration 10/16/18 One Impairment Range of motion Short Term Goal (STG) Kristel will increase her shoulder PROM to 150 degrees of flexion and abduction. STG Duration 09/18/18 Penitentiary Goal (LTG) Kristel will increase her shoulder AROM to 150 degrees of flexion and abduction. LTG Duration 10/16/18 Assessment Summary Assessment Pt encouraged to cont stretching at home to work on ROM. She had difficulty with holding stretches for extended time. Improving PROM with most limit into abd & IR. Physical Therapy Plan Frequency and Duration Frequency of Treatment 2x/Week Duration of Treatment 10 weeks Plan of Care Start Date 08/07/18 Plan of Care End Date 10/16/18 Next Visit Focus/Plan Next Note Type Treatment Note Next Visit Plan cont to advance strengthening &ROM.
--- NOTE | 2018-10-04 09:47 | PT.OTN ---
Current Diagnoses Other nondisplaced fracture of upper end of right humerus, initial encounter for closed fracture (10/04/18) Physical Therapy Treatment Note PT-OP-A Visit Information Start: 08/07/18 12:47 Freq: Status: Active Protocol: Document 10/04/18 08:59 [facility] (Rec: 10/04/18 09:47 [facility] [id number]) Out-Patient Physical Therapy Visit Information Visit Information Visit Type Treatment Note Visit Start Time 09:02 Visit Stop Time 09:42 Total Visit Minutes 40 Visit Number 10 Number of CONTACT CENTER DIRECTOR Visits 0 PT-OP-B Current Condition Start: 08/07/18 12:47 Freq: Status: Active Protocol: Document 08/07/18 13:00 AMB (Rec: 08/09/18 11:15 AMB [email or web address]) Current Condition History of Current Condition Onset Date 07/24/18 Current Complaints R humerus fracture, difficulty / pain with using R arm History of Current Condition Kristel is a RHD woman who fell on the ice on 07/24 and fractured her R humerus at the greater tuberosity. Last summer she fell and broke her left elbow, she states neither of these had to do with poor balance but that she hasn't had a DEXA scan in a while and will mention this to her PCP, she does not believe she has been diagnosed with osteoporosis. She has been wearing a sling for the last 2 weeks, but is slowly starting to use it less. She will be traveling to [place] in a few weeks. She lives in a private home with her Francisco J. Prior Treatments and Tests X-ray on 07/24/18: Minimally displaced acute appearing fracture vertically oriented through the right humeral greater tuberosity base. 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 Prior Functional Status Baseline Function- ADL's Independent Baseline Function- Mobility Independent Current Functional Impairments (Reported) Functional Limitations- ADL's Difficulty dressing, requires assist to write, unable to lift anything with dominant arm Personal Factors Other Personal Factors That May Effect History of L elbow fracture Therapy/Recovery due to fall, concussion 11 years ago, TMJ pain, depression. PT-OP-C Subjective Start: 08/07/18 12:47 Freq: Status: Active Protocol: Document 10/04/18 08:59 [facility] (Rec: 10/04/18 09:47 [facility] [id number]) OP-PT Subjective Patient Comments Patient Comments Pt reports she is suprised at how well she is progressing. Patient Reported Progress Improving PT-OP-J Posture/Palpation/Skin Start: 08/07/18 12:47 Freq: Status: Active Protocol: Document 08/07/18 13:00 AMB (Rec: 08/09/18 16:21 AMB [email or web address]) Posture Evaluation Comments Posture Comments R arm raised in slight elevation while in sling. Palpation Assessment Location One Palpation Location R shoulder Palpation Findings Muscle Guarding Tenderness Palpation Details Tender at anterior shoulder and down into bicep, mild tenderness through scapular musculature PT-OP-K Range of Motion Start: 08/07/18 12:47 Freq: Status: Active Protocol: Document 08/07/18 13:00 AMB (Rec: 08/09/18 16:21 AMB [email or web address]) Shoulder Goniometric Range of Motion Shoulder Measured in Degrees Right Passive Testing Position Supine Flexion 70 External Rotation at 0 degrees Abduction 20 Internal Rotation 60 Left Active Testing Position Supine Flexion 175 Abduction 180 External Rotation at 90 degrees 95 Abduction Internal Rotation 95 PT-OP-Q Treatments Start: 08/07/18 12:47 Freq: Status: Active Protocol: Document 10/04/18 08:59 [facility] (Rec: 10/04/18 09:47 [facility] [id number]) Cardio Equipment Upper Body Ergometer (UBE) Duration (Minutes) 6 RPM 60 Seat Position 13 Height 4 Therapeutic Exercises Sitting Exercises 1 Sitting Exercise Name pully Side right Reps/Minutes 10 x5 sec hold Comments flex, abd, IR Standing Exercises serratus punch Standing Exercise Name on wall Side bilateral Reps/Minutes 10 flex Standing Exercise Name wall slides Side right Reps/Minutes 8 pec stretch Standing Exercise Name doorway straightelbow Side bilateral Reps/Minutes 30 sec hold elbow flex Standing Exercise Name curls Side bilateral Equipment Used lvl 3 Reps/Minutes 20 Manual Therapy Treatment Soft Tissue Mobilization 1 Body Location upper trap, deltoid, bicep Mobilization Type Myofascial Release Strumming Manual Techniques prom Type flex, abd, er, ir Comments focus on flex & abd PT-OP-R Modalities Start: 08/07/18 12:47 Freq: Status: Active Protocol: Document 10/01/18 10:43 [facility] (Rec: 10/01/18 11:22 [facility] [id number]) Hot Pack/Cold Pack Treatment Cold Pack Location R shoulder Patient Position Hooklying Treatment Duration (minutes) 10 PT-OP-T Assessment and Plan Start: 08/07/18 12:47 Freq: Status: Active Protocol: Document 10/04/18 08:59 [facility] (Rec: 10/04/18 09:47 [facility] [id number]) Physical Therapy Assessment Goals Four Impairment balance/gait Short Term Goal (STG) Pt will complete DGI and be instructed in balance HEP if in fall risk category. STG Duration 09/25/09 Three Impairment ADLs Short Term Goal (STG) Kristel will perform all upper body dressing independently. STG Duration 09/18/18 National Expansion Recruiter Goal (LTG) Kristel will perform light cooking activities (chopping, stirring) without an increase in shoulder pain. LTG Duration 10/16/18 Two Impairment Strength Short Term Goal (STG) Kristel will have 3/10 strength in all planes. STG Duration 09/25/18 National Expansion Recruiter Goal (LTG) Kristel will lift 10 pounds to shoulder height without an increase in baseline pain. LTG Duration 10/16/18 One Impairment Range of motion Short Term Goal (STG) Kristel will increase her shoulder PROM to 150 degrees of flexion and abduction. STG Duration 09/18/18 National Expansion Recruiter Goal (LTG) Kristel will increase her shoulder AROM to 150 degrees of flexion and abduction. LTG Duration 10/16/18 Assessment Summary Assessment Pt had much imrpoved PROM & AAROM today. She cont to progress with toleraance to strengthening exercises. Physical Therapy Plan Frequency and Duration Frequency of Treatment 2x/Week Duration of Treatment 10 weeks Plan of Care Start Date 08/07/18 Plan of Care End Date 10/16/18 Next Visit Focus/Plan Next Note Type Treatment Note Next Visit Plan cont to advance strengthening &ROM.
--- NOTE | 2018-10-08 11:35 | PT.OTN ---
Current Diagnoses Other nondisplaced fracture of upper end of right humerus, initial encounter for closed fracture (10/08/18) Physical Therapy Treatment Note PT-OP-A Visit Information Start: 08/07/18 12:47 Freq: Status: Active Protocol: Document 10/08/18 10:34 [facility] (Rec: 10/08/18 11:34 [facility] [id number]) Out-Patient Physical Therapy Visit Information Visit Information Visit Type Progress Note Visit Start Time 10:30 Visit Stop Time 11:10 Total Visit Minutes 40 Visit Number 11 Number of APIGEE DEVELOPER Visits 0 PT-OP-B Current Condition Start: 08/07/18 12:47 Freq: Status: Active Protocol: Document 08/07/18 13:00 AMB (Rec: 08/09/18 11:15 AMB [email or web address]) Current Condition History of Current Condition Onset Date 07/24/18 Current Complaints R humerus fracture, difficulty / pain with using R arm History of Current Condition Kristel is a RHD woman who fell on the ice on 07/24 and fractured her R humerus at the greater tuberosity. Last summer she fell and broke her left elbow, she states neither of these had to do with poor balance but that she hasn't had a DEXA scan in a while and will mention this to her PCP, she does not believe she has been diagnosed with osteoporosis. She has been wearing a sling for the last 2 weeks, but is slowly starting to use it less. She will be traveling to [place] in a few weeks. She lives in a private home with her Francisco J. Prior Treatments and Tests X-ray on 07/24/18: Minimally displaced acute appearing fracture vertically oriented through the right humeral greater tuberosity base. 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 Prior Functional Status Baseline Function- ADL's Independent Baseline Function- Mobility Independent Current Functional Impairments (Reported) Functional Limitations- ADL's Difficulty dressing, requires assist to write, unable to lift anything with dominant arm Personal Factors Other Personal Factors That May Effect History of L elbow fracture Therapy/Recovery due to fall, concussion 11 years ago, TMJ pain, depression. PT-OP-C Subjective Start: 08/07/18 12:47 Freq: Status: Active Protocol: Document 10/08/18 10:34 [facility] (Rec: 10/08/18 11:34 [facility] [id number]) OP-PT Subjective Patient Comments Patient Comments Pt feels like she is doing more activity. Reports she is feels like she has too many exercises. PT-OP-E Functional Tests Start: 10/08/18 10:34 Freq: Status: Active Protocol: Document 10/08/18 10:34 [facility] (Rec: 10/08/18 11:34 [facility] [id number]) Functional Tests Dynamic Gait Index (DGI) Score 24 DGI Impairment Rating 0% Impaired (Score 24) Functional Gait Assessment Score 28 Functional Gait Assessment Impairment 1 to <20% Impaired (Score 25- Rating 29) PT-OP-J Posture/Palpation/Skin Start: 08/07/18 12:47 Freq: Status: Active Protocol: Document 08/07/18 13:00 AMB (Rec: 08/09/18 16:21 AMB [email or web address]) Posture Evaluation Comments Posture Comments R arm raised in slight elevation while in sling. Palpation Assessment Location One Palpation Location R shoulder Palpation Findings Muscle Guarding Tenderness Palpation Details Tender at anterior shoulder and down into bicep, mild tenderness through scapular musculature PT-OP-K Range of Motion Start: 08/07/18 12:47 Freq: Status: Active Protocol: Document 10/08/18 10:34 [facility] (Rec: 10/08/18 11:34 [facility] [id number]) Shoulder Goniometric Range of Motion Shoulder Measured in Degrees Right Active Testing Position Standing Flexion 116 Extension 66 Abduction 104 External Rotation at 45 degrees 70 Abduction Internal Rotation 46 Internal Rotation Behind Back (text) R SI Right Passive Testing Position Supine Flexion 133 Abduction 103 External Rotation at 90 degrees 71 Abduction Internal Rotation 48 PT-OP-M Strength Start: 08/07/18 12:47 Freq: Status: Active Protocol: Document 10/08/18 10:34 [facility] (Rec: 10/08/18 11:34 [facility] [id number]) Shoulder Strength Shoulder Manual Muscle Testing Right Flexion 4 Good Extension 4+ Good+ Abduction (C5) 3+ Fair+ External Rotation 4 Good Internal Rotation 4 Good Left Flexion 5 Normal Extension 5 Normal Abduction (C5) 5 Normal External Rotation 5 Normal Internal Rotation 5 Normal Elbow/Forearm Strength Elbow and Forearm Manual Muscle Testing Left Flexion (C6) 5 Normal Extension (C7) 5 Normal Right Flexion (C6) 5 Normal Extension (C7) 5 Normal PT-OP-Q Treatments Start: 08/07/18 12:47 Freq: Status: Active Protocol: Document 10/08/18 10:34 [facility] (Rec: 10/08/18 11:34 [facility] [id number]) Cardio Equipment Upper Body Ergometer (UBE) Duration (Minutes) 6 RPM 60 Seat Position 13 Height 5 Therapeutic Exercises Prone Exercises HAbd Prone Exercise Name Habd Side right Reps/Minutes 10 Comments cueing for scapula ext Prone Exercise Name ext Side right Reps/Minutes 10 1 Prone Exercise Name scaption Side right Reps/Minutes 10 Standing Exercises IR Standing Exercise Name resisted Side right Equipment Used L2 Reps/Minutes 20 ext Standing Exercise Name resisted Side bilateral Equipment Used L3 Reps/Minutes 20 1 Standing Exercise Name ER Side right Equipment Used L3 Reps/Minutes 20 Manual Therapy Treatment Joint Mobilizations GH Joint gh r Direction inf, post & distraction Grade I Body Position Supine Manual Techniques prom Type flex, abd, er, ir Comments focus on flex & abd Self-Care/Home Management Treatment Education Patient Education Home Exercise Program Other Education Adjusted and reviewed PT-OP-R Modalities Start: 08/07/18 12:47 Freq: Status: Active Protocol: Document 10/08/18 10:34 [facility] (Rec: 10/08/18 11:35 [facility] [id number]) Hot Pack/Cold Pack Treatment Cold Pack Location R shoulder Patient Position Hooklying Treatment Duration (minutes) 10 PT-OP-T Assessment and Plan Start: 08/07/18 12:47 Freq: Status: Active Protocol: Document 10/08/18 10:34 [facility] (Rec: 10/08/18 11:34 [facility] [id number]) Physical Therapy Assessment Goals Four Impairment balance/gait Short Term Goal (STG) Pt will complete DGI and be instructed in balance HEP if in fall risk category. STG Duration achieved Three Impairment ADLs Short Term Goal (STG) Kristel will perform all upper body dressing independently. STG Duration achieved Warehouse Attendant Goal (LTG) Kristel will perform light cooking activities (chopping, stirring) without an increase in shoulder pain. LTG Duration achieved Two Impairment Strength Short Term Goal (STG) Kristel will have 3/10 strength in all planes. STG Duration 4/5 strength achieved Skilled Nursing Goal (LTG) Kristel will lift 10 pounds to shoulder height without an increase in baseline pain. LTG Duration 5/8/19 One Impairment Range of motion Short Term Goal (STG) Kristel will increase her shoulder PROM to 150 degrees of flexion and abduction. STG Duration 09/18/18improving Skilled Nursing Goal (LTG) Kristel will increase her shoulder AROM to 150 degrees of flexion and abduction. LTG Duration 10/16/18 Assessment Summary Assessment Pt is improving with her ROM and her strength and functional activity. She cont to advance with exercises and requires mod cueing for form. Physical Therapy Plan Frequency and Duration Frequency of Treatment 2x/Week Duration of Treatment 10 weeks Plan of Care Start Date 08/07/18 Plan of Care End Date 10/16/18 Next Visit Focus/Plan Next Note Type Treatment Note Next Visit Plan cont to advance strengthening &ROM as tolerated
--- NOTE | 2018-10-08 11:37 | PT.OPPOC ---
Current Diagnoses Other nondisplaced fracture of upper end of right humerus, initial encounter for closed fracture (10/08/18) Provider Visit Care Team Role Provider Type Jefferson Raya MD Primary Care Provider Physician Specialty: Internal Medicine Address: [address] [place] [address], [id number] Email: [email or web address] Ifeoma Maharaj MD Attending Provider Physician Specialty: Orthopedic Surgery Address: [address] [place] [address], [id number] Email: Plan Of Care PT-OP-T Assessment and Plan Start: 08/07/18 12:47 Freq: Status: Active Protocol: Document 10/08/18 10:34 [facility] (Rec: 10/08/18 11:34 [facility] [id number]) Physical Therapy Assessment Goals Four Impairment balance/gait Short Term Goal (STG) Pt will complete DGI and be instructed in balance HEP if in fall risk category. STG Duration achieved Three Impairment ADLs Short Term Goal (STG) Kristel will perform all upper body dressing independently. STG Duration achieved Mold Making Plastics Sheets Supervisor Goal (LTG) Kristel will perform light cooking activities (chopping, stirring) without an increase in shoulder pain. LTG Duration achieved Two Impairment Strength Short Term Goal (STG) Kristel will have 3/10 strength in all planes.- achieved Upgraded to pt able to have 4+ /5 strength in all planes STG Duration 11/07/18 Senior Care Goal (LTG) Kristel will lift 10 pounds to shoulder height without an increase in baseline pain. LTG Duration 12/08/18 One Impairment Range of motion Short Term Goal (STG) Kristel will increase her shoulder PROM to 150 degrees of flexion and abduction. STG Duration 10/18/18improving Senior Care Goal (LTG) Kristel will increase her shoulder AROM to 150 degrees of flexion and abduction. LTG Duration 11/28/18 Assessment Summary Assessment Pt is improving with her ROM and her strength and functional activity. She cont to advance with exercises and requires mod cueing for form. Physical Therapy Plan Frequency and Duration Frequency of Treatment 2x/Week Duration of Treatment 2 months Plan of Care Start Date 10/08/18 Plan of Care End Date 12/08/18 Therapeutic Interventions Therapeutic Interventions Aquatic Therapy Home Exercise Program Joint Mobilizations Manual Therapy Neuromuscular Re-education Self-Care/Home Management Sensory Integration Soft Tissue Mobilization Taping Therapeutic Activities Therapeutic Exercises Modalities Cold Pack/Ice Massage Electric Stimulation Hot Packs Infrared Therapy Iontophoresis Ultrasound Next Visit Focus/Plan Next Note Type Treatment Note Next Visit Plan cont to advance strengthening &ROM as tolerated Plan of Care Dates Plan of Care Start Date 10/08/18 Plan of Care End Date 12/08/18 Please Sign and Return: I have reviewed this Plan of Care and certify that the skilled therapy services above are required to meet the patient?s needs. Physician Signature Date Printed Name and Credentials Clinical Instructor Signature Printed Name and Credentials
--- NOTE | 2018-10-15 10:10 | PT.OTN ---
Current Diagnoses Other nondisplaced fracture of upper end of right humerus, initial encounter for closed fracture (10/15/18) Physical Therapy Treatment Note PT-OP-A Visit Information Start: 08/07/18 12:47 Freq: Status: Active Protocol: Document 10/15/18 10:00 SA (Rec: 10/15/18 10:10 SA [email or web address]) Out-Patient Physical Therapy Visit Information Visit Information Visit Type Treatment Note Visit Start Time 09:00 Visit Stop Time 09:48 Total Visit Minutes 48 Visit Number 12 Number of AS400 OPERATOR Visits 1 PT-OP-B Current Condition Start: 08/07/18 12:47 Freq: Status: Active Protocol: Document 08/07/18 13:00 AMB (Rec: 08/09/18 11:15 AMB [email or web address]) Current Condition History of Current Condition Onset Date 07/24/18 Current Complaints R humerus fracture, difficulty / pain with using R arm History of Current Condition Kristel is a RHD woman who fell on the ice on 07/24 and fractured her R humerus at the greater tuberosity. Last summer she fell and broke her left elbow, she states neither of these had to do with poor balance but that she hasn't had a DEXA scan in a while and will mention this to her PCP, she does not believe she has been diagnosed with osteoporosis. She has been wearing a sling for the last 2 weeks, but is slowly starting to use it less. She will be traveling to [place] in a few weeks. She lives in a private home with her Francisco J. Prior Treatments and Tests X-ray on 07/24/18: Minimally displaced acute appearing fracture vertically oriented through the right humeral greater tuberosity base. 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 Prior Functional Status Baseline Function- ADL's Independent Baseline Function- Mobility Independent Current Functional Impairments (Reported) Functional Limitations- ADL's Difficulty dressing, requires assist to write, unable to lift anything with dominant arm Personal Factors Other Personal Factors That May Effect History of L elbow fracture Therapy/Recovery due to fall, concussion 11 years ago, TMJ pain, depression. PT-OP-C Subjective Start: 08/07/18 12:47 Freq: Status: Active Protocol: Document 10/15/18 10:00 SA (Rec: 10/15/18 10:10 SA [email or web address]) OP-PT Subjective Patient Comments Patient Comments Pt reports very little pain and improving tolerance of OH activity, doing HEP daily. States she feels like her ROM is greatly improved. PT-OP-E Functional Tests Start: 10/08/18 10:34 Freq: Status: Active Protocol: Document 10/08/18 10:34 LR (Rec: 10/08/18 11:34 LR [id number]) Functional Tests Dynamic Gait Index (DGI) Score 24 DGI Impairment Rating 0% Impaired (Score 24) Functional Gait Assessment Score 28 Functional Gait Assessment Impairment 1 to <20% Impaired (Score 25- Rating 29) PT-OP-J Posture/Palpation/Skin Start: 08/07/18 12:47 Freq: Status: Active Protocol: Document 08/07/18 13:00 AMB (Rec: 08/09/18 16:21 AMB [email or web address]) Posture Evaluation Comments Posture Comments R arm raised in slight elevation while in sling. Palpation Assessment Location One Palpation Location R shoulder Palpation Findings Muscle Guarding Tenderness Palpation Details Tender at anterior shoulder and down into bicep, mild tenderness through scapular musculature PT-OP-K Range of Motion Start: 08/07/18 12:47 Freq: Status: Active Protocol: Document 10/08/18 10:34 LR (Rec: 10/08/18 11:34 [facility] [id number]) Shoulder Goniometric Range of Motion Shoulder Measured in Degrees Right Active Testing Position Standing Flexion 116 Extension 66 Abduction 104 External Rotation at 45 degrees 70 Abduction Internal Rotation 46 Internal Rotation Behind Back (text) R SI Right Passive Testing Position Supine Flexion 133 Abduction 103 External Rotation at 90 degrees 71 Abduction Internal Rotation 48 PT-OP-M Strength Start: 08/07/18 12:47 Freq: Status: Active Protocol: Document 10/08/18 10:34 LR (Rec: 10/08/18 11:34 [facility] [id number]) Shoulder Strength Shoulder Manual Muscle Testing Right Flexion 4 Good Extension 4+ Good+ Abduction (C5) 3+ Fair+ External Rotation 4 Good Internal Rotation 4 Good Left Flexion 5 Normal Extension 5 Normal Abduction (C5) 5 Normal External Rotation 5 Normal Internal Rotation 5 Normal Elbow/Forearm Strength Elbow and Forearm Manual Muscle Testing Left Flexion (C6) 5 Normal Extension (C7) 5 Normal Right Flexion (C6) 5 Normal Extension (C7) 5 Normal PT-OP-Q Treatments Start: 08/07/18 12:47 Freq: Status: Active Protocol: Document 10/15/18 10:00 SA (Rec: 10/15/18 10:10 SA [email or web address]) Cardio Equipment Upper Body Ergometer (UBE) Duration (Minutes) 6 RPM 60 Seat Position 13 Height 5 Other frw/bkw Therapeutic Exercises Supine Exercises Serratus Punch Side right Reps/Minutes 12x Comments cues for scapular movement Prone Exercises HAbd Prone Exercise Name Habd Side right Reps/Minutes 10 Comments cueing for scapula ext Prone Exercise Name ext Side right Reps/Minutes 10 1 Prone Exercise Name scaption Side right Reps/Minutes 10 Sitting Exercises 1 Sitting Exercise Name pully Side right Reps/Minutes 10 x5 sec hold Comments flex, abd, IR Standing Exercises flex Standing Exercise Name wall slides Side right Reps/Minutes 8 pec stretch Standing Exercise Name doorway straightelbow Side bilateral Reps/Minutes 30 x 2 IR Standing Exercise Name resisted Side right Equipment Used L2 Reps/Minutes 20 ext Standing Exercise Name resisted Side bilateral Reps/Minutes 20 1 Standing Exercise Name ER Side right Equipment Used L3 Reps/Minutes 20 Manual Therapy Treatment Joint Mobilizations GH Joint gh r Direction inf, post & distraction Grade I Body Position Supine Manual Techniques prom Type flex, abd, er, ir Comments focus on flex & abd PT-OP-R Modalities Start: 08/07/18 12:47 Freq: Status: Active Protocol: Document 10/15/18 10:00 SA (Rec: 10/15/18 10:10 [email or web address]) Hot Pack/Cold Pack Treatment Cold Pack Location R shoulder Patient Position Hooklying Treatment Duration (minutes) 10 Patient Tolerance Good PT-OP-T Assessment and Plan Start: 08/07/18 12:47 Freq: Status: Active Protocol: Document 10/15/18 10:00 SA (Rec: 10/15/18 10:10 [email or web address]) Physical Therapy Assessment Progress Towards Goals Progress Towards Goals Progressing Toward Goals Progress Comments Improving ROM and exercise tolerance, decreased pain. Assessment Summary Assessment Pt reports progress, review of HEP and pt to continue with HEP IND for two weeks then follow up with primary PT for possible d/c. Physical Therapy Plan Next Visit Focus/Plan Next Note Type Discharge Summary Next Visit Plan Pt progressing well, IND with HEP, follow up visit in 2 weeks for probable d/c.
--- NOTE | 2018-10-31 11:57 | PT.OPDS ---
Current Diagnoses Other nondisplaced fracture of upper end of right humerus, initial encounter for closed fracture (10/15/18) Provider Visit Care Team Role Provider Type Jefferson Raya MD Primary Care Provider Physician Specialty: Internal Medicine Address: [address] [place] [address], [id number] Email: [email or web address] Ifeoma Maharaj MD Attending Provider Physician Specialty: Orthopedic Surgery Address: [address] [place] [address], [phone] Email: Visit Number Visit Number 12 Discharge Summary PT-OP-B Current Condition Start: 08/07/18 12:47 Freq: Status: Active Protocol: Document 08/07/18 13:00 AMB (Rec: 08/09/18 11:15 AMB [email or web address]) Current Condition History of Current Condition Onset Date 07/24/18 Current Complaints R humerus fracture, difficulty / pain with using R arm History of Current Condition Kristel is a RHD woman who fell on the ice on 07/24 and fractured her R humerus at the greater tuberosity. Last summer she fell and broke her left elbow, she states neither of these had to do with poor balance but that she hasn't had a DEXA scan in a while and will mention this to her PCP, she does not believe she has been diagnosed with osteoporosis. She has been wearing a sling for the last 2 weeks, but is slowly starting to use it less. She will be traveling to [place] in a few weeks. She lives in a private home with her Francisco J. Prior Treatments and Tests X-ray on 07/24/18: Minimally displaced acute appearing fracture vertically oriented through the right humeral greater tuberosity base. 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 Prior Functional Status Baseline Function- ADL's Independent Baseline Function- Mobility Independent Current Functional Impairments (Reported) Functional Limitations- ADL's Difficulty dressing, requires assist to write, unable to lift anything with dominant arm Personal Factors Other Personal Factors That May Effect History of L elbow fracture Therapy/Recovery due to fall, concussion 11 years ago, TMJ pain, depression. PT-OP-C Subjective Start: 08/07/18 12:47 Freq: Status: Active Protocol: Document 10/15/18 10:00 SA (Rec: 10/15/18 10:10 SA [email or web address]) OP-PT Subjective Patient Comments Patient Comments Pt reports very little pain and improving tolerance of OH activity, doing HEP daily. States she feels like her ROM is greatly improved. PT-OP-E Functional Tests Start: 10/08/18 10:34 Freq: Status: Active Protocol: Document 10/08/18 10:34 [facility] (Rec: 10/08/18 11:34 [facility] [id number]) Functional Tests Dynamic Gait Index (DGI) Score 24 DGI Impairment Rating 0% Impaired (Score 24) Functional Gait Assessment Score 28 Functional Gait Assessment Impairment 1 to <20% Impaired (Score 25- Rating 29) PT-OP-J Posture/Palpation/Skin Start: 08/07/18 12:47 Freq: Status: Active Protocol: Document 08/07/18 13:00 AMB (Rec: 08/09/18 16:21 AMB [email or web address]) Posture Evaluation Comments Posture Comments R arm raised in slight elevation while in sling. Palpation Assessment Location One Palpation Location R shoulder Palpation Findings Muscle Guarding Tenderness Palpation Details Tender at anterior shoulder and down into bicep, mild tenderness through scapular musculature PT-OP-K Range of Motion Start: 08/07/18 12:47 Freq: Status: Active Protocol: Document 10/08/18 10:34 [facility] (Rec: 10/08/18 11:34 [facility] [id number]) Shoulder Goniometric Range of Motion Shoulder Measured in Degrees Right Active Testing Position Standing Flexion 116 Extension 66 Abduction 104 External Rotation at 45 degrees 70 Abduction Internal Rotation 46 Internal Rotation Behind Back (text) R SI Right Passive Testing Position Supine Flexion 133 Abduction 103 External Rotation at 90 degrees 71 Abduction Internal Rotation 48 PT-OP-M Strength Start: 08/07/18 12:47 Freq: Status: Active Protocol: Document 10/08/18 10:34 [facility] (Rec: 10/08/18 11:34 [facility] [id number]) Shoulder Strength Shoulder Manual Muscle Testing Right Flexion 4 Good Extension 4+ Good+ Abduction (C5) 3+ Fair+ External Rotation 4 Good Internal Rotation 4 Good Left Flexion 5 Normal Extension 5 Normal Abduction (C5) 5 Normal External Rotation 5 Normal Internal Rotation 5 Normal Elbow/Forearm Strength Elbow and Forearm Manual Muscle Testing Left Flexion (C6) 5 Normal Extension (C7) 5 Normal Right Flexion (C6) 5 Normal Extension (C7) 5 Normal PT-OP-T Assessment and Plan Start: 08/07/18 12:47 Freq: Status: Active Protocol: Document 10/31/18 11:56 [facility] (Rec: 10/31/18 11:57 [facility] [email or web address]) Physical Therapy Assessment Goals Four Impairment balance/gait Short Term Goal (STG) Pt will complete DGI and be instructed in balance HEP if in fall risk category. STG Duration achieved Three Impairment ADLs Short Term Goal (STG) Kristel will perform all upper body dressing independently. STG Duration achieved Lapel Padder Goal (LTG) Kristel will perform light cooking activities (chopping, stirring) without an increase in shoulder pain. LTG Duration achieved Two Impairment Strength Short Term Goal (STG) Kristel will have 3/10 strength in all planes.- achieved Upgraded to pt able to have 4+ /5 strength in all planes STG Duration 11/07/18 Lapel Padder Goal (LTG) Kristel will lift 10 pounds to shoulder height without an increase in baseline pain. LTG Duration 12/08/18 One Impairment Range of motion Short Term Goal (STG) Kristel will increase her shoulder PROM to 150 degrees of flexion and abduction. STG Duration 10/18/18improving Care Home Goal (LTG) Kristel will increase her shoulder AROM to 150 degrees of flexion and abduction. LTG Duration 11/28/18 improved Physical Therapy Plan Discharge Physical Therapy Discharge Reasons Patient Request Discharge Comments Pt reports MD told pt to d/c. Pt made good progress with goals but was still limited with ROM. She is planning to cont w/HEP
== END 2018-10-31 16:07 | disposition home or self-care (01) ==
LOC: PHYS 09:00
PROVIDERS: PCP Internal Medicine; Visit Provider Orthopaedic Surgery Foot and Ankle Surgery
DX: S42.294A Other nondisplaced fracture of upper end of right humerus, initial encounter for closed fracture (principal)
CPT/HCPCS: 97110; 97140; 97161

== ENCOUNTER → 2018-12-13 10:26 | Outpatient (CLI) | payer OTHER, SELFPAY ==
[2018-12-13 11:23] LABS: Add Manual Diff / Slide Review NO; Basophils Absolute Auto 100 /uL (0-100); Eosinophils Absolute Auto 200 /uL (0-450); Eosinophils Percent Auto 3.6 % (2-4); Hematocrit 36.5 % (36-46); Hemoglobin 12.1 g/dL (12.0-16.0); Lymphocytes Absolute Auto 1800 /uL (1100-4500); Lymphocytes Percent Auto 25.7 % (25-40); Mean Corpuscular HGB Conc 33.1 % (30-36); Mean Corpuscular Hemoglobin 29.6 PG (26-34); Mean Corpuscular Volume 89.3 fL (80-100); Monocytes Absolute Auto 600 /uL (0-900); Monocytes Percent Auto 8.4 % (3-14); Neutrophils Absolute Auto 4200 /uL (1500-7000); Neutrophils Percent Auto 61.3 % (50-75); Platelet Count 356 X10^3/uL (150-400); Red Blood Cell Count 4.08 X10^6/uL (4.0-5.2); Red Cell Distribution Width 14.3 % (11.6-14.8); White Blood Cell Count 6.9 X10^3/uL (4.5-11.0)
[2018-12-13 12:03] LABS: Alanine Aminotransferase 38 IU/L (9-52); Albumin 4.3 g/dL (3.5-5.0); Alkaline Phosphatase 161 U/L (38-126); Aspartate Aminotransferase 34 IU/L (14-36); BUN Creatinine Ratio 31.1 (6-22); Bilirubin Total 0.3 mg/dL (0.2-1.3); Blood Urea Nitrogen 28 mg/dL (7-17); Calcium 9.3 mg/dL (8.4-10.2); Carbon Dioxide 32 mmol/L (22-32); Chloride 106 mmol/L (98-107); Cholesterol 172 mg/dL (140-199); Estimated Glomerular Filt Rate > 60.0 mL/min (>60); Globulin 4.1 g/dL (1.7-4.1); Glucose 102 mg/dL (80-110); HDL Cholesterol 36 mg/dL (40-60); HEMOLYSIS < 15 (0-50); LDL Cholesterol Calculated 107 mg/dL (<100); Potassium 4.6 mmol/L (3.4-5.1); Sodium 144 mmol/L (137-145); Total Protein 8.4 g/dL (6.3-8.2); Triglycerides 146 mg/dL (35-150)
== END ==
PROVIDERS: PCP Hospitalist; Visit Provider Hospitalist
DX: Z00.00 Encounter for general adult medical examination without abnormal findings (principal); Z13.220 Encounter for screening for lipoid disorders; Z13.6 Encounter for screening for cardiovascular disorders
CPT/HCPCS: 36415; 80053; 80061; 85025

== ENCOUNTER → 2018-12-23 14:17 | Outpatient (CLI) | payer OTHER, SELFPAY ==
--- NOTE | 2018-12-23 | DI.MG.S_ITS ---
BILATERAL DIGITAL SCREENING MAMMOGRAM 3D/2D WITH CAD: 12/23/2018 CLINICAL: Routine screening. Family history of breast cancer. Comparison is made to exams dated: 02/15/2016 mammogram, 06/05/2013 mammogram, and 05/31/2010 mammogram - [facility]. There are scattered fibroglandular elements in both breasts. Current study was also evaluated with a Computer Aided Detection (CAD) system. There are benign calcifications in both breasts. No significant masses, calcifications, or other findings are seen in either breast. There has been no significant interval change. IMPRESSION: There is no mammographic evidence of malignancy. A 1 year screening mammogram is recommended. This exam was interpreted at Station ID: [id number]. NOTE: For mammograms, a report in lay terms will be sent to the patient. Approximately 15% of breast malignancies will not be visualized mammographically. In the management of a palpable breast mass, a negative mammogram must not discourage biopsy of a clinically suspicious lesion. Electronically Signed By: Jorge scott/deejay:12/23/2018 19:09:06 letter sent: Normal Exam ACR BI-RADS Category 2: Benign Finding(s) 3342F
== END ==
PROVIDERS: PCP Hospitalist; Visit Provider Hospitalist
DX: Z12.31 Encounter for screening mammogram for malignant neoplasm of breast (principal); Z80.3 Family history of malignant neoplasm of breast; Z78.0 Asymptomatic menopausal state
CPT/HCPCS: 77063; 77067; 77080

== ENCOUNTER 2019-04-07 07:28 | Day surgery (SDC) | payer OTHER, SELFPAY ==
[2019-04-07] VITALS (9 sets, daily range): BP systolic 112–143; BP diastolic 62–84; PULSE 79–96; RESP 13–18; TEMP 36.1–37.3; O2SAT 91–97; BMI 35.5
--- NOTE | 2019-04-07 06:48 | P.HP_ITS ---
History of Present Illness History of Present Illness Date Patient Seen: 04/07/19 Time Patient Seen: 09:09 Chief complaint: [id number] SCREENING COLONOSCOPY Narrative: Patient presents for colorectal screening. They had 2 prior colonoscopies last 5 years ago notable for an adenomatous polyp. On further history denies any recent gastrointestinal symptoms. No nausea, vomiting, abdominal pain, loss of appetite, unexplained weight loss, change in bowel habits, diarrhea, constipation, melena, hematochezia, or bright red blood per rectum. Patient History Family & Social History Social History: household members spouse Tobacco & Substance use: Smoking Status Never smoker alcohol intake current alcohol intake frequency 0-2 drinks per day Substance Use Type does not use Meds Home Medications and Allergies Home Medications Medication Instructions Recorded Confirmed Type aspirin 81 mg PO DAILY #0 11/20/11 10/23/18 History multivitamin 1 cap PO DAILY #0 11/20/11 10/23/18 History vitamins A,C,X-lqfu-khjecs 1 tab PO DAILY #0 12/15/11 10/23/18 History [PreserVision AREDS] cholecalciferol (vitamin D3) 1 tab PO QDAY #0 tab 03/13/16 10/23/18 History [Vitamin D3] ibuprofen 400 mg PO Q8HP #90 tab 07/09/17 10/23/18 Rx tamsulosin 0.4 mg capsule 0.4 mg PO BEDTIME #14 cap 09/18/18 10/23/18 Rx adjuvant AS01B (PF)vial 1 of 2 0.5 ml IM ONCE #0.5 ml 10/02/18 10/23/18 Rx sertraline 25 mg tablet 25 mg PO DAILY #30 tab 10/02/18 10/23/18 Rx citalopram 40 mg tablet 40 mg PO QDAY #90 tab 01/10/19 Rx Allergies Allergy/AdvReac Type Severity Reaction Status Date / Time Penicillins [PENICILLINS] Allergy Unknown as a Verified 10/23/18 08:49 child, unknown Review of Systems Review of Systems ROS Unobtainable: All systems reviewed & are unremarkable except as noted in HPI and below Exam Narrative Exam Narrative: General-no acute distress, well nourished HEENT-moist mucous membranes, no scleral icterus Neck-supple, no lymphadenopathy Chest- non labored respirations, clear to auscultation bilaterally Cardiac-regular rate no peripheral edema Abdomen-soft, nontender, non distended Extremities-warm, well perfused Neurological-alert and oriented, no focal deficits Assessment & Plan Assessment & Plan narrative: The patient requires colorectal screening and c olonoscopy is recommended. Technical details were discussed. Risks, benefits, alternatives explained. Risks including but not limited to myocardial infarction, aspiration, bleeding, pain, missed lesion, incomplete examination, need for further radiographic studies, colonic perforation, and need for major abdominal surgery were discussed. All questions were answered to their satisfaction, and they are in agreement with this plan.
[2019-04-07] MEDS: SODIUM CHLORIDE 0.9% 1,000 ML 200 ML IV (08:11)
[2019-04-07] MEDS: fentaNYL 250 MCG/5 ML INJ IV (09:13)
[2019-04-07] MEDS: MIDAZOLAM 5 MG/5 ML VIAL IV ×2 (09:13→09:21)
--- NOTE | 2019-04-07 09:43 | PM.OP.ENDO ---
Operative Date/Time/Diagnoses Date of procedure: 04/07/19 Time of procedure: 09:43 Pre-op diagnosis: History of adenomatous polyps Post-op diagnosis: same Procedure & Clinicians Study performed: Colonoscopy Same procedure as scheduled: Yes Indications: This is a 74-year-old woman 2 prior colonoscopies last performed 5 years ago demonstrated adenomatous polyp Surgeon: Brooks Painting Procedure Notes SCOAP/Timeout: Performed Procedure in detail: Patient placed in left lateral decubitus position. Time out was performed. Procedural sedation was administered with Versed and Fentanyl. A rectal exam demonstrated external hemorrhoids no internal masses. Colonoscopy scope was placed into the rectum and advanced through the colon to the cecum. The ileocecal valve was identified. The scope was then slowly withdrawn examining colon thoroughly in all directions. The colonoscopy was notable for the following 1. Excellent prep 2. Internal hemorrhoids grade 1 Scope withdrawal time: 8 Sedation minutes: 21 Findings: internal hemorrhoids Specimen(s): none sent Complications: none Impression: normal Post-procedure Recommendations: Colonscopy in 10 years Disposition: same day surgery
--- NOTE | 2019-04-07 11:31 | SUR.PHASEII ---
Pt awake. Condition stable.
== END 2019-04-07 11:19 | disposition home or self-care (01) ==
PROVIDERS: PCP Hospitalist; Visit Provider Surgery
PROC: 0DJD8ZZ Inspection of Lower Intestinal Tract, Via Natural or Artificial Opening Endoscopic (ICD-10-PCS; CPT 45378; principal; 2019-04-07 08:45)
DX: Z86.010 Personal history of colon polyps (principal); K64.0 First degree hemorrhoids
CPT/HCPCS: 45378; 99152; J2250; J3010

== ENCOUNTER → 2020-06-22 08:59 | Outpatient (CLI) | payer OTHER, SELFPAY ==
[2020-06-22 11:29] LABS: Alanine Aminotransferase 30 IU/L (<35); Albumin Globulin Ratio 1.1 (1.0-2.8); Alkaline Phosphatase 128 U/L (38-126); Aspartate Aminotransferase 24 IU/L (14-36); BUN Creatinine Ratio 27.5 (6-22); Bilirubin Total 0.2 mg/dL (0.2-1.3); Blood Urea Nitrogen 25 mg/dL (7-17); Calcium 9.4 mg/dL (8.4-10.2); Carbon Dioxide 33 mmol/L (22-32); Chloride 104 mmol/L (98-107); Cholesterol 180 mg/dL (140-199); Estimated Glomerular Filt Rate > 60.0 mL/min (>60); Globulin 3.6 g/dL (1.7-4.1); Glucose 103 mg/dL (80-110); HDL Cholesterol 37 mg/dL (40-60); HEMOLYSIS < 15 (0-50); LDL Cholesterol Calculated 110 mg/dL (<100); Potassium 4.6 mmol/L (3.4-5.1); Sodium 140 mmol/L (137-145); Total Protein 7.6 g/dL (6.3-8.2); Triglycerides 166 mg/dL (35-150)
[2020-06-22 17:23] LABS: Vitamin D 25 Hydroxy (D3) 54.1 ng/mL (30.0-100.0)
== END ==
PROVIDERS: PCP Family Medicine; Referring Provider Family Medicine; Visit Provider Family Medicine
DX: E78.5 Hyperlipidemia, unspecified (principal); F32.9 Major depressive disorder, single episode, unspecified; F41.9 Anxiety disorder, unspecified; R74.8 Abnormal levels of other serum enzymes
CPT/HCPCS: 36415; 80053; 80061; 82306

== ENCOUNTER → 2020-09-08 10:26 | Outpatient (CLI) | payer OTHER, SELFPAY ==
--- NOTE | 2020-09-08 10:27 | DI.RAD.S_ITS ---
PROCEDURE: XR LUMBAR SPINE 2-3V INDICATIONS: LOW BACK PAIN TECHNIQUE: 3 views of the lumbar spine were acquired. COMPARISON: [facility], CT, CT KIDNEY URETER BLADDER (KUB), 09/12/2018, 10:59. FINDINGS: Bones: 5 [id number] vertebrae are present. There is normal bony alignment except for a slight degree of convex leftward scoliosis centered at L2. No vertebral body compression fractures. No suspicious bony lesions. The degenerative disc disease present is associated with ligamentous laxity allowing slight retrolisthesis of L2 on L3 and anterolisthesis that is also grade 1 of L4 on L5. L5 on S1 anterolisthesis is moderate grade 1 and there is slight retrolisthesis of L3 on L4. Soft tissues: Overlying bowel gas pattern is normal. No suspicious soft tissue calcifications. IMPRESSION: Multilevel degenerative disc disease and facet osteoarthritis present along the middle and lower thirds of the LS spine allowing ligamentous laxity and both anterolisthesis and retrolisthesis, grade 1, at multiple levels. No compression fracture found. Spinal and foraminal stenosis likely is present at L4-5 and L5-S1. Dictated by: Shemar Sneed M.D. on 09/08/2020 at 12:08 Approved by: Shemar Sneed M.D. on 09/08/2020 at 12:11
== END ==
PROVIDERS: PCP Family Medicine; Referring Provider Family Medicine; Visit Provider Family Medicine
DX: M54.5 Low back pain (principal); M51.36 Other intervertebral disc degeneration, lumbar region; M47.816 Spondylosis without myelopathy or radiculopathy, lumbar region; M43.16 Spondylolisthesis, lumbar region; M43.17 Spondylolisthesis, lumbosacral region
CPT/HCPCS: 72100

== ENCOUNTER 2020-11-23 09:45 | Outpatient (RCR) | payer OTHER, SELFPAY ==
--- NOTE | 2020-10-13 10:04 | PT.OIE ---
Current Diagnoses Unspecified osteoarthritis, unspecified site (10/13/20) Spinal stenosis, lumbosacral region (10/13/20) Low back pain (10/13/20) Difficulty in walking, not elsewhere classified (10/13/20) Abnormal posture (10/13/20) Weakness (10/13/20) Past Medical History (Last Reviewed 09/08/20 @ 10:29 by Werner Fernandez MD) Actinic keratosis Anxiety and depression Dry skin dermatitis Headache History of nephrolithiasis History of squamous cell carcinoma Hyperlipidemia Left foot pain Neoplasm of uncertain behavior of skin Obstructive sleep apnea Osteopenia Seborrhea Shingles Stress incontinence Ureterolithiasis Past Surgical History (Last Reviewed 09/08/20 @ 10:29 by Werner Fernandez MD) Hx of excision of dermoid cyst Status post adenoidectomy Status post hysterectomy Status post laparoscopic cholecystectomy Visit Care Team Role Provider Type Werner Fernandez MD Attending Provider Physician Family Provider Primary Care Provider Referring Provider Specialty: Family Practice Address: [address] [place] [address] Email: [email or web address] Physical Therapy Initial Evaluation PT-OP-A Visit Information Start: 10/12/20 17:50 Freq: Status: Active Protocol: Document 10/13/20 08:07 [facility] (Rec: 10/13/20 09:01 [facility] [id number]) Out-Patient Physical Therapy Visit Information Visit Information Visit Type Initial Evaluation Visit Note 06/20 Visit Start Time 08:15 Visit Stop Time 09:00 Total Visit Minutes 45 Visit Number 1 Number of NEUROLOGY EPILEPSY PHYSICIAN Visits 0 PT-OP-B Current Condition Start: 10/12/20 17:50 Freq: Status: Active Protocol: Document 10/13/20 08:07 [facility] (Rec: 10/13/20 09:01 [facility] [id number]) Current Condition History of Current Condition Onset Date over a year Current Complaints LBP History of Current Condition Pt notes she has noticed for a while, when she is doing dishes, if its a long session, she needs to sit down to rest . Pt notes when she went to Dr Rajinder Fernandez, she had been sititng in her recliner all day and when she went to bed, it was painful wehn rolling in bed. Now she is careful to not stay in one place for too long. She was prescribed mm relaxors but hasn't taken them. Pain typcally starts in L side and then spreads to entire lower area. Used to walk the [email or web address] loop but cannot even think about that. Walking from [employer] to [employer] is about as far as she can go. Its been a couple years since edita walked [place]. R knee pain limits her. She had Dr. Child work on it whcih helped but edita has to move it often. Pt reports within 10-15 min standing like in line,she gets pain. Pt has chronic history of incontinence that improved w/ seeing Meryl in past but now its back worse so she plans to go see her again. Prior Treatments and Tests Dr. Fernandez taught her to do some exercises and those helped a lot. Xray: IMPRESSION: Multilevel degenerative disc disease and facet osteoarthritis present along the middle and lower thirds of the LS spine allowing ligamentous laxity and both anterolisthesis and retrolisthesis, grade 1, at multiple levels. No compression fracture found. Spinal and foraminal stenosis likely is present at L4-5 and L5-S1. Treatment Goals Patient/Caregiver Goals Return to walking [email or web address] 2x/ week, be able to stand longer, be able to garden, be able to get up/down from the ground easier, improve balance Personal Factors Other Personal Factors That May Effect gallbladder removal, Therapy/Recovery hysterectomy, R knee pain, incontinence, SALAZAR, dizziness when getting out of bed too fast, thoracic pain PT-OP-C Subjective Start: 10/12/20 17:50 Freq: Status: Active Protocol: Document 10/13/20 08:07 [facility] (Rec: 10/13/20 09:01 [facility] [id number]) Patient Questionnaires Oswestry Low Back Index Oswestry Score 8/50 OP-PT Pain Assessment Location LBP Pain Location Details L progressing to entire LB Intensity 7 Scale Used Numeric (0 - 10) Description Sharp Description- Other strong Frequency Intermittent Pain Duration goes away pretty quickly when sit down Radiating Location none Pain Aggravating Factors Standing,Walking,Lifting Other Pain Aggravating Factors dishes Pain Alleviating Factors Sitting PT-OP-D Balance Start: 10/12/20 17:50 Freq: Status: Active Protocol: Document 10/13/20 08:07 [facility] (Rec: 10/13/20 09:01 [facility] [id number]) Balance Tests Single Limb Standing Single Limb- Right 2 sec signficiant lat lean & hip lat Single Limb- Left 3 sec signficiant lat lean & hip lat PT-OP-F Manual Assessment Start: 10/12/20 17:50 Freq: Status: Active Protocol: Document 10/13/20 08:07 [facility] (Rec: 10/13/20 09:01 [facility] [id number]) Manual Assessments Soft Tissue Assessment Soft Tissue Mobility Assessment tightness L>R QL, ES, tightness sup glutes B Joint Mobility Assessment Joint Mobility Assessment R iliac crest higher, greater trochanters equal PT-OP-G Mobility & Gait Start: 10/12/20 17:50 Freq: Status: Active Protocol: Document 10/13/20 08:07 [facility] (Rec: 10/13/20 09:01 [facility] [id number]) OP Gait Assessment Comments Gait Comments L leg turned out, R pelvic shear w/R wt bearing, dec push off B PT-OP-J Posture/Palpation/Skin Start: 10/12/20 17:50 Freq: Status: Active Protocol: Document 10/13/20 08:07 [facility] (Rec: 10/13/20 09:01 [facility] [id number]) Posture Evaluation [facility] Postural Classification System April Postural Classifications Vertical/Posterior Vertebral Compression Test 1 Elbow Flexion Test 1 Lumbar Protective Mechanism Left AP 0 Lumbar Protective Mechanism Right AP 0 Lumbar Protective Mechanism Left PA 0 Lumbar Protective Mechanism Right PA 0 Comments Posture Comments L trunk sidebend, inc kyphosis , fwd head PT-OP-K Range of Motion Start: 10/12/20 17:50 Freq: Status: Active Protocol: Document 10/13/20 08:07 [facility] (Rec: 10/13/20 09:01 [facility] [id number]) Lumbar Spine Range of Motion Lumbar Spine Active Degrees Flexion 36 Extension 24 Rotation Left 64 Rotation Right 65 Lateral Flexion Left 14 Lateral Flexion Right 13 Comments all ext occurs around TL junction PT-OP-L Special Tests Start: 10/12/20 17:50 Freq: Status: Active Protocol: Document 10/13/20 08:07 [facility] (Rec: 10/13/20 09:01 [facility] [id number]) Special Tests Lumbar Spine Special Tests Straight Leg Raise Test Results 72 R, 78 L Comments neg for neutral tension Slump Test Results neg B PT-OP-M Strength Start: 10/12/20 17:50 Freq: Status: Active Protocol: Document 10/13/20 08:07 [facility] (Rec: 10/13/20 09:01 [facility] [id number]) Hip Strength Hip Manual Muscle Testing Right Flexion (L2) 4 Good Extension (S1) 3+ Fair+ Abduction 4 Good External Rotation 4 Good Internal Rotation 4 Good Left Flexion (L2) 4 Good Extension (S1) 3+ Fair+ Abduction 4 Good External Rotation 4 Good Internal Rotation 4 Good Knee Strength Knee Manual Muscle Testing Right Flexion (S2) 4+ Good+ Extension (L3) 4 Good Left Flexion (S2) 5 Normal Extension (L3) 5 Normal Ankle/Foot Strength Ankle and Foot Manual Muscle Testing Right Dorsiflexion (L4) 5 Normal Plantarflexion (S1) 5 Normal Comments PF tested seated B Left Dorsiflexion (L4) 5 Normal Plantarflexion (S1) 5 Normal PT-OP-Q Treatments Start: 10/12/20 17:50 Freq: Status: Active Protocol: Document 10/13/20 08:07 [facility] (Rec: 10/13/20 09:01 [facility] [id number]) Therapeutic Exercises Supine Exercises diaphramatic breathing Reps/Minutes 10 2 Supine Exercise Name pelvic tilts Reps/Minutes 5 sec x8 1 Supine Exercise Name TA engagment w/march Side bilateral Reps/Minutes 2x8 Comments cues slow and controlled PT-OP-T Assessment and Plan Start: 10/12/20 17:50 Freq: Status: Active Protocol: Document 10/13/20 08:07 [facility] (Rec: 10/13/20 09:01 [facility] [id number]) Physical Therapy Assessment Rehab Potential Rehabilitation Potential Good Evaluation Complexity Number of Personal Factors/Comorbidities 3 or More Number of Body Systems Impaired 4 or More Clinical Presentation at Evaluation Stable Impairments Impairments Activity Tolerance,Balance, Functional Activities, Functional Mobility,Gait,Pain, Posture,ROM,Soft Tissue Mobility,Strength Goals Four Impairment activity tolerance Short Term Goal (STG) Pt will be able to stand as long as she needs for home chores and waiting in line. STG Duration 11/13/20 Sand Cutter Goal (LTG) Pt will be able to return to full gardening activity without inc pain. LTG Duration 12/13/20 Three Short Term Goal (STG) pt will be able to do SLS B for at least 5 sec w/lat lean/ shear STG Duration 11/13/20 Senior Care Goal (LTG) Pt will be able to get up/down from the gorund without inc difficulty. LTG Duration 12/13/20 Two Impairment walking Short Term Goal (STG) Pt will be able to walk 1 mile without inc pain more than 3 points on VAS scale STG Duration 11/13/20 Sand Cutter Goal (LTG) pt will be able to walk around [place] park without inc pain more than 3 points on VAS scale. LTG Duration 12/13/20 One Impairment weakness Short Term Goal (STG) Pt will be indep with HEP STG Duration 11/13/20 Senior Care Goal (LTG) Pt will have 5/5 LE strength in all planes along with LPM of at least 3/5 in all planes to show imrpoved stability to improve pt's ability to particiapte in typical activities. LTG Duration 12/13/20 Assessment Summary Assessment Pt presents with chronic LBP that pt describes as arthritis pain and notes pain over the past year that did imrpove with some stretching exercises provided by her physician. She is able to have relief with sitting down, but any extended time standing or walking, especially uphill increases her pain. She has dec core stability and dec hip strength whcih likely is related to this pain. She would benefit from skilled PT to work on these deficits to improve her overall mobility. Physical Therapy Plan Frequency and Duration Frequency of Treatment 2x/Week Duration of Treatment 2 months Plan of Care Start Date 10/13/20 Plan of Care End Date 12/13/20 Therapeutic Interventions Therapeutic Interventions Aquatic Therapy,Balance Training,Gait Training,Home Exercise Program,Joint Mobilizations,Manual Therapy, Neuromuscular Re-education, Patient/Caregiver Education, Self-Care/Home Management,Soft Tissue Mobilization,Taping, Therapeutic Activities, Therapeutic Exercises Modalities Cold Pack/Ice Massage,Electric Stimulation,Hot Packs, Traction- Mechanical, Ultrasound Next Visit Focus/Plan Next Note Type Treatment Note Next Visit Plan review exercises, progress core stability, prone hip ext, side step and/or hip abd, manual to low back
--- NOTE | 2020-10-13 10:04 | PT.OPPOC ---
Physical, Occupational & Speech Therapy At [facility] Current Diagnoses Unspecified osteoarthritis, unspecified site (10/13/20) Spinal stenosis, lumbosacral region (10/13/20) Low back pain (10/13/20) Difficulty in walking, not elsewhere classified (10/13/20) Abnormal posture (10/13/20) Weakness (10/13/20) Visit Care Team Role Provider Type Werner Fernandez MD Attending Provider Physician Family Provider Primary Care Provider Referring Provider Specialty: Family Practice Address: [address] [place] [address] Email: [email or web address] Plan Of Care PT-OP-T Assessment and Plan Start: 10/12/20 17:50 Freq: Status: Active Protocol: Document 10/13/20 08:07 [facility] (Rec: 10/13/20 09:01 [facility] [id number]) Physical Therapy Assessment Rehab Potential Rehabilitation Potential Good Evaluation Complexity Number of Personal Factors/Comorbidities 3 or More Number of Body Systems Impaired 4 or More Clinical Presentation at Evaluation Stable Impairments Impairments Activity Tolerance,Balance, Functional Activities, Functional Mobility,Gait,Pain, Posture,ROM,Soft Tissue Mobility,Strength Goals Four Impairment activity tolerance Short Term Goal (STG) Pt will be able to stand as long as she needs for home chores and waiting in line. STG Duration 11/13/20 Director Of [facility] Systems Goal (LTG) Pt will be able to return to full gardening activity without inc pain. LTG Duration 12/13/20 Three Short Term Goal (STG) pt will be able to do SLS B for at least 5 sec w/lat lean/ shear STG Duration 11/13/20 Nursing Home Goal (LTG) Pt will be able to get up/down from the gorund without inc difficulty. LTG Duration 12/13/20 Two Impairment walking Short Term Goal (STG) Pt will be able to walk 1 mile without inc pain more than 3 points on VAS scale STG Duration 11/13/20 Nursing Home Goal (LTG) pt will be able to walk around [place] park without inc pain more than 3 points on VAS scale. LTG Duration 12/13/20 One Impairment weakness Short Term Goal (STG) Pt will be indep with HEP STG Duration 11/13/20 Director Of Healthcare Systems Goal (LTG) Pt will have 5/5 LE strength in all planes along with LPM of at least 3/5 in all planes to show imrpoved stability to improve pt's ability to particiapte in typical activities. LTG Duration 12/13/20 Assessment Summary Assessment Pt presents with chronic LBP that pt describes as arthritis pain and notes pain over the past year that did imrpove with some stretching exercises provided by her physician. She is able to have relief with sitting down, but any extended time standing or walking, especially uphill increases her pain. She has dec core stability and dec hip strength whcih likely is related to this pain. She would benefit from skilled PT to work on these deficits to improve her overall mobility. Physical Therapy Plan Frequency and Duration Frequency of Treatment 2x/Week Duration of Treatment 2 months Plan of Care Start Date 10/13/20 Plan of Care End Date 12/13/20 Therapeutic Interventions Therapeutic Interventions Aquatic Therapy,Balance Training,Gait Training,Home Exercise Program,Joint Mobilizations,Manual Therapy, Neuromuscular Re-education, Patient/Caregiver Education, Self-Care/Home Management,Soft Tissue Mobilization,Taping, Therapeutic Activities, Therapeutic Exercises Modalities Cold Pack/Ice Massage,Electric Stimulation,Hot Packs, Traction- Mechanical, Ultrasound Next Visit Focus/Plan Next Note Type Treatment Note Next Visit Plan review exercises, progress core stability, prone hip ext, side step and/or hip abd, manual to low back Plan of Care Dates Plan of Care Start Date 10/13/20 Plan of Care End Date 12/13/20 Electronically Signed by: Gypsy Pascual, PT 10/13/20 1009 Please Sign and Return: I have reviewed this Plan of Care and certify that the skilled therapy services above are required to meet the patient?s needs. Physician Signature Date Printed Name and Credentials Clinical Instructor Signature Printed Name and Credentials
--- NOTE | 2020-10-18 12:01 | PT.OTN ---
Current Diagnoses Unspecified osteoarthritis, unspecified site (10/18/20) Spinal stenosis, lumbosacral region (10/18/20) Low back pain (10/18/20) Difficulty in walking, not elsewhere classified (10/18/20) Abnormal posture (10/18/20) Weakness (10/18/20) Physical Therapy Treatment Note PT-OP-A Visit Information Start: 10/12/20 17:50 Freq: Status: Active Protocol: Document 10/18/20 11:21 [facility] (Rec: 10/18/20 12:01 [facility] [id number]) Out-Patient Physical Therapy Visit Information Visit Information Visit Type Treatment Note Visit Note 07/21 Visit Start Time 11:21 Visit Stop Time 12:00 Total Visit Minutes 39 Visit Number 2 Number of HOTEL ASSOCIATE Visits 0 PT-OP-B Current Condition Start: 10/12/20 17:50 Freq: Status: Active Protocol: Document 10/13/20 08:07 [facility] (Rec: 10/13/20 09:01 [facility] [id number]) Current Condition History of Current Condition Onset Date over a year Current Complaints LBP History of Current Condition Pt notes she has noticed for a while, when she is doing dishes, if its a long session, she needs to sit down to rest . Pt notes when she went to Dr Rajinder Fernandez, she had been sititng in her recliner all day and when she went to bed, it was painful wehn rolling in bed. Now she is careful to not stay in one place for too long. She was prescribed mm relaxors but hasn't taken them. Pain typcally starts in L side and then spreads to entire lower area. Used to walk the [employer] loop but cannot even think about that. Walking from [employer] to [employer] is about as far as she can go. Its been a couple years since edita walked [place]. R knee pain limits her. She had Dr. Child work on it whcih helped but edita has to move it often. Pt reports within 10-15 min standing like in line,she gets pain. Pt has chronic history of incontinence that improved w/ seeing Meryl in past but now its back worse so she plans to go see her again. Prior Treatments and Tests Dr. Fernandez taught her to do some exercises and those helped a lot. Xray: IMPRESSION: Multilevel degenerative disc disease and facet osteoarthritis present along the middle and lower thirds of the LS spine allowing ligamentous laxity and both anterolisthesis and retrolisthesis, grade 1, at multiple levels. No compression fracture found. Spinal and foraminal stenosis likely is present at L4-5 and L5-S1. Treatment Goals Patient/Caregiver Goals Return to walking [place] park 2x/ week, be able to stand longer, be able to garden, be able to get up/down from the ground easier, improve balance Personal Factors Other Personal Factors That May Effect gallbladder removal, Therapy/Recovery hysterectomy, R knee pain, incontinence, SALAZAR, dizziness when getting out of bed too fast, thoracic pain PT-OP-C Subjective Start: 10/12/20 17:50 Freq: Status: Active Protocol: Document 10/18/20 11:21 [facility] (Rec: 10/18/20 12:01 [facility] [id number]) OP-PT Subjective Patient Comments Patient Comments I'm surprised at how much a couple days of exercises can do. PT-OP-D Balance Start: 10/12/20 17:50 Freq: Status: Active Protocol: Document 10/13/20 08:07 [facility] (Rec: 10/13/20 09:01 [facility] [id number]) Balance Tests Single Limb Standing Single Limb- Right 2 sec signficiant lat lean & hip lat Single Limb- Left 3 sec signficiant lat lean & hip lat PT-OP-F Manual Assessment Start: 10/12/20 17:50 Freq: Status: Active Protocol: Document 10/13/20 08:07 [facility] (Rec: 10/13/20 09:01 [facility] [id number]) Manual Assessments Soft Tissue Assessment Soft Tissue Mobility Assessment tightness L>R QL, ES, tightness sup glutes B Joint Mobility Assessment Joint Mobility Assessment R iliac crest higher, greater trochanters equal PT-OP-G Mobility & Gait Start: 10/12/20 17:50 Freq: Status: Active Protocol: Document 10/13/20 08:07 [facility] (Rec: 10/13/20 09:01 [facility] [id number]) OP Gait Assessment Comments Gait Comments L leg turned out, R pelvic shear w/R wt bearing, dec push off B PT-OP-J Posture/Palpation/Skin Start: 10/12/20 17:50 Freq: Status: Active Protocol: Document 10/13/20 08:07 [facility] (Rec: 10/13/20 09:01 [facility] [id number]) Posture Evaluation April Postural Classification System April Postural Classifications Vertical/Posterior Vertebral Compression Test 1 Elbow Flexion Test 1 Lumbar Protective Mechanism Left AP 0 Lumbar Protective Mechanism Right AP 0 Lumbar Protective Mechanism Left PA 0 Lumbar Protective Mechanism Right PA 0 Comments Posture Comments L trunk sidebend, inc kyphosis , fwd head PT-OP-K Range of Motion Start: 10/12/20 17:50 Freq: Status: Active Protocol: Document 10/13/20 08:07 [facility] (Rec: 10/13/20 09:01 [facility] [id number]) Lumbar Spine Range of Motion Lumbar Spine Active Degrees Flexion 36 Extension 24 Rotation Left 64 Rotation Right 65 Lateral Flexion Left 14 Lateral Flexion Right 13 Comments all ext occurs around TL junction PT-OP-L Special Tests Start: 10/12/20 17:50 Freq: Status: Active Protocol: Document 10/13/20 08:07 [facility] (Rec: 10/13/20 09:01 [facility] [id number]) Special Tests Lumbar Spine Special Tests Straight Leg Raise Test Results 72 R, 78 L Comments neg for neutral tension Slump Test Results neg B PT-OP-M Strength Start: 10/12/20 17:50 Freq: Status: Active Protocol: Document 10/13/20 08:07 [facility] (Rec: 10/13/20 09:01 [facility] [id number]) Hip Strength Hip Manual Muscle Testing Right Flexion (L2) 4 Good Extension (S1) 3+ Fair+ Abduction 4 Good External Rotation 4 Good Internal Rotation 4 Good Left Flexion (L2) 4 Good Extension (S1) 3+ Fair+ Abduction 4 Good External Rotation 4 Good Internal Rotation 4 Good Knee Strength Knee Manual Muscle Testing Right Flexion (S2) 4+ Good+ Extension (L3) 4 Good Left Flexion (S2) 5 Normal Extension (L3) 5 Normal Ankle/Foot Strength Ankle and Foot Manual Muscle Testing Right Dorsiflexion (L4) 5 Normal Plantarflexion (S1) 5 Normal Comments PF tested seated B Left Dorsiflexion (L4) 5 Normal Plantarflexion (S1) 5 Normal PT-OP-Q Treatments Start: 10/12/20 17:50 Freq: Status: Active Protocol: Document 10/18/20 11:21 [facility] (Rec: 10/18/20 12:01 [facility] [id number]) Therapeutic Exercises Supine Exercises LTR Side bilateral Reps/Minutes 10 Comments small motion, focus on segmental control bridge Side bilateral Reps/Minutes 5 sec x15 Comments manual traction for facilitaiton diaphramatic breathing Reps/Minutes 5 2 Supine Exercise Name pelvic tilts Reps/Minutes 5 sec x8 1 Supine Exercise Name TA engagment w/march Side bilateral Reps/Minutes 20 Comments cues slow and controlled Prone Exercises ext Prone Exercise Name alt Side bilateral Reps/Minutes 2x10 Standing Exercises 1 Standing Exercise Name hip abd Side bilateral Resistance L2 Equipment Used rail Reps/Minutes 12 Manual Therapy Treatment Soft Tissue Mobilization 1 Body Location ES, QL, upper glutes Mobilization Type Myofascial Release,Rolling, Strumming Intensity/Depth Moderate Body Position Prone Joint Mobilizations sacrum Direction caudal FM & LUPA Grade II hip Joint L Direction on axis IR & ER FM PT-OP-T Assessment and Plan Start: 10/12/20 17:50 Freq: Status: Active Protocol: Document 10/18/20 11:21 [facility] (Rec: 10/18/20 12:01 [facility] [id number]) Physical Therapy Assessment Goals Four Impairment activity tolerance Short Term Goal (STG) Pt will be able to stand as long as she needs for home chores and waiting in line. STG Duration 11/13/20 Hay Stacker Goal (LTG) Pt will be able to return to full gardening activity without inc pain. LTG Duration 12/13/20 Three Short Term Goal (STG) pt will be able to do SLS B for at least 5 sec w/lat lean/ shear STG Duration 11/13/20 Hay Stacker Goal (LTG) Pt will be able to get up/down from the gorund without inc difficulty. LTG Duration 12/13/20 Two Impairment walking Short Term Goal (STG) Pt will be able to walk 1 mile without inc pain more than 3 points on VAS scale STG Duration 11/13/20 Senior Living Goal (LTG) pt will be able to walk around [place] park without inc pain more than 3 points on VAS scale. LTG Duration 12/13/20 One Impairment weakness Short Term Goal (STG) Pt will be indep with HEP STG Duration 11/13/20 Hay Stacker Goal (LTG) Pt will have 5/5 LE strength in all planes along with LPM of at least 3/5 in all planes to show imrpoved stability to improve pt's ability to particiapte in typical activities. LTG Duration 12/13/20 Assessment Summary Assessment Pt required cueing for breathing duirng exercises & for neutral spine. She was challenged by hip strengthening exercises alla abd with working on standing in neutral. Bridge required traction facilitiation to avoid back pain and inc glute use. Physical Therapy Plan Frequency and Duration Frequency of Treatment 2x/Week Duration of Treatment 2 months Plan of Care Start Date 10/13/20 Plan of Care End Date 12/13/20 Next Visit Focus/Plan Next Note Type Treatment Note Next Visit Plan review exercises, cont to advance core stability, manual as needed
--- NOTE | 2020-10-20 10:00 | PT.OTN ---
Current Diagnoses Unspecified osteoarthritis, unspecified site (10/20/20) Spinal stenosis, lumbosacral region (10/20/20) Low back pain (10/20/20) Difficulty in walking, not elsewhere classified (10/20/20) Abnormal posture (10/20/20) Weakness (10/20/20) Physical Therapy Treatment Note PT-OP-A Visit Information Start: 10/12/20 17:50 Freq: Status: Active Protocol: Document 10/20/20 09:03 [facility] (Rec: 10/20/20 10:00 [facility] [id number]) Out-Patient Physical Therapy Visit Information Visit Information Visit Type Treatment Note Visit Note 08/18 Visit Start Time 09:03 Visit Stop Time 09:44 Total Visit Minutes 41 Visit Number 3 Number of RESEARCHER Visits 0 PT-OP-B Current Condition Start: 10/12/20 17:50 Freq: Status: Active Protocol: Document 10/13/20 08:07 [facility] (Rec: 10/13/20 09:01 [facility] [id number]) Current Condition History of Current Condition Onset Date over a year Current Complaints LBP History of Current Condition Pt notes she has noticed for a while, when she is doing dishes, if its a long session, she needs to sit down to rest . Pt notes when she went to Dr Rajinder Fernandez, she had been sititng in her recliner all day and when she went to bed, it was painful wehn rolling in bed. Now she is careful to not stay in one place for too long. She was prescribed mm relaxors but hasn't taken them. Pain typcally starts in L side and then spreads to entire lower area. Used to walk the [employer] loop but cannot even think about that. Walking from [employer] to [employer] is about as far as she can go. Its been a couple years since edita walked [place]. R knee pain limits her. She had Dr. Child work on it whcih helped but edita has to move it often. Pt reports within 10-15 min standing like in line,she gets pain. Pt has chronic history of incontinence that improved w/ seeing Meryl in past but now its back worse so she plans to go see her again. Prior Treatments and Tests Dr. Fernandez taught her to do some exercises and those helped a lot. Xray: IMPRESSION: Multilevel degenerative disc disease and facet osteoarthritis present along the middle and lower thirds of the LS spine allowing ligamentous laxity and both anterolisthesis and retrolisthesis, grade 1, at multiple levels. No compression fracture found. Spinal and foraminal stenosis likely is present at L4-5 and L5-S1. Treatment Goals Patient/Caregiver Goals Return to walking [place] park 2x/ week, be able to stand longer, be able to garden, be able to get up/down from the ground easier, improve balance Personal Factors Other Personal Factors That May Effect gallbladder removal, Therapy/Recovery hysterectomy, R knee pain, incontinence, SALAZAR, dizziness when getting out of bed too fast, thoracic pain PT-OP-C Subjective Start: 10/12/20 17:50 Freq: Status: Active Protocol: Document 10/20/20 09:03 [facility] (Rec: 10/20/20 10:00 [facility] [id number]) OP-PT Subjective Patient Comments Patient Comments I can't believe how fast this is working notes incontinence has even improved Patient Reported Progress Improving PT-OP-D Balance Start: 10/12/20 17:50 Freq: Status: Active Protocol: Document 10/13/20 08:07 [facility] (Rec: 10/13/20 09:01 [facility] [id number]) Balance Tests Single Limb Standing Single Limb- Right 2 sec signficiant lat lean & hip lat Single Limb- Left 3 sec signficiant lat lean & hip lat PT-OP-F Manual Assessment Start: 10/12/20 17:50 Freq: Status: Active Protocol: Document 10/13/20 08:07 [facility] (Rec: 10/13/20 09:01 [facility] [id number]) Manual Assessments Soft Tissue Assessment Soft Tissue Mobility Assessment tightness L>R QL, ES, tightness sup glutes B Joint Mobility Assessment Joint Mobility Assessment R iliac crest higher, greater trochanters equal PT-OP-G Mobility & Gait Start: 10/12/20 17:50 Freq: Status: Active Protocol: Document 10/13/20 08:07 [facility] (Rec: 10/13/20 09:01 [facility] [id number]) OP Gait Assessment Comments Gait Comments L leg turned out, R pelvic shear w/R wt bearing, dec push off B PT-OP-J Posture/Palpation/Skin Start: 10/12/20 17:50 Freq: Status: Active Protocol: Document 10/13/20 08:07 [facility] (Rec: 10/13/20 09:01 [facility] [id number]) Posture Evaluation [facility] Postural Classification System April Postural Classifications Vertical/Posterior Vertebral Compression Test 1 Elbow Flexion Test 1 Lumbar Protective Mechanism Left AP 0 Lumbar Protective Mechanism Right AP 0 Lumbar Protective Mechanism Left PA 0 Lumbar Protective Mechanism Right PA 0 Comments Posture Comments L trunk sidebend, inc kyphosis , fwd head PT-OP-K Range of Motion Start: 10/12/20 17:50 Freq: Status: Active Protocol: Document 10/13/20 08:07 [facility] (Rec: 10/13/20 09:01 [facility] [id number]) Lumbar Spine Range of Motion Lumbar Spine Active Degrees Flexion 36 Extension 24 Rotation Left 64 Rotation Right 65 Lateral Flexion Left 14 Lateral Flexion Right 13 Comments all ext occurs around TL junction PT-OP-L Special Tests Start: 10/12/20 17:50 Freq: Status: Active Protocol: Document 10/13/20 08:07 [facility] (Rec: 10/13/20 09:01 [facility] [id number]) Special Tests Lumbar Spine Special Tests Straight Leg Raise Test Results 72 R, 78 L Comments neg for neutral tension Slump Test Results neg B PT-OP-M Strength Start: 10/12/20 17:50 Freq: Status: Active Protocol: Document 10/13/20 08:07 [facility] (Rec: 10/13/20 09:01 [facility] [id number]) Hip Strength Hip Manual Muscle Testing Right Flexion (L2) 4 Good Extension (S1) 3+ Fair+ Abduction 4 Good External Rotation 4 Good Internal Rotation 4 Good Left Flexion (L2) 4 Good Extension (S1) 3+ Fair+ Abduction 4 Good External Rotation 4 Good Internal Rotation 4 Good Knee Strength Knee Manual Muscle Testing Right Flexion (S2) 4+ Good+ Extension (L3) 4 Good Left Flexion (S2) 5 Normal Extension (L3) 5 Normal Ankle/Foot Strength Ankle and Foot Manual Muscle Testing Right Dorsiflexion (L4) 5 Normal Plantarflexion (S1) 5 Normal Comments PF tested seated B Left Dorsiflexion (L4) 5 Normal Plantarflexion (S1) 5 Normal PT-OP-Q Treatments Start: 10/12/20 17:50 Freq: Status: Active Protocol: Document 10/20/20 09:03 [facility] (Rec: 10/20/20 10:00 [facility] [id number]) Therapeutic Exercises Supine Exercises LTR Side bilateral Reps/Minutes 10 Comments small motion, focus on segmental control bridge Side bilateral Reps/Minutes 5 sec x10 diaphramatic breathing Reps/Minutes 5 1 Supine Exercise Name TA engagment w/alt march Side bilateral Reps/Minutes 2x8 Comments cues slow and controlled Sidelying Exercises abd Sidelying Exercise Name hip Side bilateral Reps/Minutes 2x10 ER Sidelying Exercise Name hip Side bilateral Reps/Minutes 2x10 Standing Exercises ext Standing Exercise Name hip ext Side bilateral Resistance L2 Equipment Used rail Reps/Minutes 2x10 1 Standing Exercise Name hip abd Side bilateral Resistance L2 Equipment Used rail Reps/Minutes 2x10 Therapeutic Activity Therapeutic Activity sit to stand Comments faciliation for glute via traction to RLE then training for sit to stand Manual Therapy Treatment Soft Tissue Mobilization 1 Body Location ES, QL Mobilization Type Myofascial Release,Rolling, Strumming Intensity/Depth Moderate Body Position Prone PT-OP-T Assessment and Plan Start: 10/12/20 17:50 Freq: Status: Active Protocol: Document 10/20/20 09:03 [facility] (Rec: 10/20/20 10:00 [facility] [id number]) Physical Therapy Assessment Goals Four Impairment activity tolerance Short Term Goal (STG) Pt will be able to stand as long as she needs for home chores and waiting in line. STG Duration 11/13/20 Patternator Goal (LTG) Pt will be able to return to full gardening activity without inc pain. LTG Duration 12/13/20 Three Short Term Goal (STG) pt will be able to do SLS B for at least 5 sec w/lat lean/ shear STG Duration 11/13/20 Patternator Goal (LTG) Pt will be able to get up/down from the [place] without inc difficulty. LTG Duration 12/13/20 Two Impairment walking Short Term Goal (STG) Pt will be able to walk 1 mile without inc pain more than 3 points on VAS scale STG Duration 11/13/20 Snf Goal (LTG) pt will be able to walk around [place] park without inc pain more than 3 points on VAS scale. LTG Duration 12/13/20 One Impairment weakness Short Term Goal (STG) Pt will be indep with HEP STG Duration 11/13/20 Patternator Goal (LTG) Pt will have 5/5 LE strength in all planes along with LPM of at least 3/5 in all planes to show imrpoved stability to improve pt's ability to particiapte in typical activities. LTG Duration 12/13/20 Assessment Summary Assessment Pt did better with exercises today with less cueing. She did have difficulty and fatigue with addition of glute exercises. Imrpoved ability to do sit ot stand after treatment today. Physical Therapy Plan Frequency and Duration Frequency of Treatment 2x/Week Duration of Treatment 2 months Plan of Care Start Date 10/13/20 Plan of Care End Date 12/13/20 Next Visit Focus/Plan Next Note Type Treatment Note Next Visit Plan cont to advance core stability and hip strength, manual as needed
--- NOTE | 2020-10-25 09:06 | PT.OTN ---
Current Diagnoses Unspecified osteoarthritis, unspecified site (10/25/20) Spinal stenosis, lumbosacral region (10/25/20) Low back pain (10/25/20) Difficulty in walking, not elsewhere classified (10/25/20) Abnormal posture (10/25/20) Weakness (10/25/20) Physical Therapy Treatment Note PT-OP-A Visit Information Start: 10/12/20 17:50 Freq: Status: Active Protocol: Document 10/25/20 08:23 [facility] (Rec: 10/25/20 09:06 [facility] [id number]) Out-Patient Physical Therapy Visit Information Visit Information Visit Type Treatment Note Visit Note 09/18 Visit Start Time 08:19 Visit Stop Time 09:00 Total Visit Minutes 41 Visit Number 4 Number of EPIC KALEIDOSCOPE ANALYST Visits 0 PT-OP-B Current Condition Start: 10/12/20 17:50 Freq: Status: Active Protocol: Document 10/13/20 08:07 [facility] (Rec: 10/13/20 09:01 [facility] [id number]) Current Condition History of Current Condition Onset Date over a year Current Complaints LBP History of Current Condition Pt notes she has noticed for a while, when she is doing dishes, if its a long session, she needs to sit down to rest . Pt notes when she went to Dr Rajinder Fernandez, she had been sititng in her recliner all day and when she went to bed, it was painful wehn rolling in bed. Now she is careful to not stay in one place for too long. She was prescribed mm relaxors but hasn't taken them. Pain typcally starts in L side and then spreads to entire lower area. Used to walk the [employer] loop but cannot even think about that. Walking from [place] to [employer] is about as far as she can go. Its been a couple years since edita walked [employer]. R knee pain limits her. She had Dr. Child work on it whcih helped but edita has to move it often. Pt reports within 10-15 min standing like in line,she gets pain. Pt has chronic history of incontinence that improved w/ seeing Meryl in past but now its back worse so she plans to go see her again. Prior Treatments and Tests Dr. Fernandez taught her to do some exercises and those helped a lot. Xray: IMPRESSION: Multilevel degenerative disc disease and facet osteoarthritis present along the middle and lower thirds of the LS spine allowing ligamentous laxity and both anterolisthesis and retrolisthesis, grade 1, at multiple levels. No compression fracture found. Spinal and foraminal stenosis likely is present at L4-5 and L5-S1. Treatment Goals Patient/Caregiver Goals Return to walking [place] park 2x/ week, be able to stand longer, be able to garden, be able to get up/down from the ground easier, improve balance Personal Factors Other Personal Factors That May Effect gallbladder removal, Therapy/Recovery hysterectomy, R knee pain, incontinence, SALAZAR, dizziness when getting out of bed too fast, thoracic pain PT-OP-C Subjective Start: 10/12/20 17:50 Freq: Status: Active Protocol: Document 10/25/20 08:23 [facility] (Rec: 10/25/20 09:06 [facility] [id number]) OP-PT Subjective Patient Comments Patient Comments Pt reports back is doing well. noticing her knee more. She sneezed 2x this weekend and had no incontinence. Patient Reported Progress Improving PT-OP-D Balance Start: 10/12/20 17:50 Freq: Status: Active Protocol: Document 10/13/20 08:07 [facility] (Rec: 10/13/20 09:01 [facility] [id number]) Balance Tests Single Limb Standing Single Limb- Right 2 sec signficiant lat lean & hip lat Single Limb- Left 3 sec signficiant lat lean & hip lat PT-OP-F Manual Assessment Start: 10/12/20 17:50 Freq: Status: Active Protocol: Document 10/13/20 08:07 [facility] (Rec: 10/13/20 09:01 [facility] [id number]) Manual Assessments Soft Tissue Assessment Soft Tissue Mobility Assessment tightness L>R QL, ES, tightness sup glutes B Joint Mobility Assessment Joint Mobility Assessment R iliac crest higher, greater trochanters equal PT-OP-G Mobility & Gait Start: 10/12/20 17:50 Freq: Status: Active Protocol: Document 10/13/20 08:07 [facility] (Rec: 10/13/20 09:01 [facility] [id number]) OP Gait Assessment Comments Gait Comments L leg turned out, R pelvic shear w/R wt bearing, dec push off B PT-OP-J Posture/Palpation/Skin Start: 10/12/20 17:50 Freq: Status: Active Protocol: Document 10/13/20 08:07 [facility] (Rec: 10/13/20 09:01 [facility] [id number]) Posture Evaluation April Postural Classification System April Postural Classifications Vertical/Posterior Vertebral Compression Test 1 Elbow Flexion Test 1 Lumbar Protective Mechanism Left AP 0 Lumbar Protective Mechanism Right AP 0 Lumbar Protective Mechanism Left PA 0 Lumbar Protective Mechanism Right PA 0 Comments Posture Comments L trunk sidebend, inc kyphosis , fwd head PT-OP-K Range of Motion Start: 10/12/20 17:50 Freq: Status: Active Protocol: Document 10/13/20 08:07 [facility] (Rec: 10/13/20 09:01 [facility] [id number]) Lumbar Spine Range of Motion Lumbar Spine Active Degrees Flexion 36 Extension 24 Rotation Left 64 Rotation Right 65 Lateral Flexion Left 14 Lateral Flexion Right 13 Comments all ext occurs around TL junction PT-OP-L Special Tests Start: 10/12/20 17:50 Freq: Status: Active Protocol: Document 10/13/20 08:07 [facility] (Rec: 10/13/20 09:01 [facility] [id number]) Special Tests Lumbar Spine Special Tests Straight Leg Raise Test Results 72 R, 78 L Comments neg for neutral tension Slump Test Results neg B PT-OP-M Strength Start: 10/12/20 17:50 Freq: Status: Active Protocol: Document 10/13/20 08:07 [facility] (Rec: 10/13/20 09:01 [facility] [id number]) Hip Strength Hip Manual Muscle Testing Right Flexion (L2) 4 Good Extension (S1) 3+ Fair+ Abduction 4 Good External Rotation 4 Good Internal Rotation 4 Good Left Flexion (L2) 4 Good Extension (S1) 3+ Fair+ Abduction 4 Good External Rotation 4 Good Internal Rotation 4 Good Knee Strength Knee Manual Muscle Testing Right Flexion (S2) 4+ Good+ Extension (L3) 4 Good Left Flexion (S2) 5 Normal Extension (L3) 5 Normal Ankle/Foot Strength Ankle and Foot Manual Muscle Testing Right Dorsiflexion (L4) 5 Normal Plantarflexion (S1) 5 Normal Comments PF tested seated B Left Dorsiflexion (L4) 5 Normal Plantarflexion (S1) 5 Normal PT-OP-Q Treatments Start: 10/12/20 17:50 Freq: Status: Active Protocol: Document 10/25/20 08:23 [facility] (Rec: 10/25/20 09:06 [facility] [id number]) Therapeutic Exercises Sidelying Exercises abd Sidelying Exercise Name hip Side bilateral Reps/Minutes 15 ER Sidelying Exercise Name hip Side bilateral Reps/Minutes 15 Standing Exercises mini squat Standing Exercise Name mini Side bilateral Equipment Used rail Reps/Minutes 10 side step Side bilateral Equipment Used yellow Reps/Minutes 2x20ft ext Standing Exercise Name hip ext Side bilateral Resistance yellow Equipment Used rail Reps/Minutes 2x10 1 Standing Exercise Name hip abd Side bilateral Resistance yellow tband Equipment Used rail Reps/Minutes 10 Therapeutic Activity Therapeutic Activity raking Name wroking on neutral back position & using hip hinge & wt shfit hip hinge Name seated and standing w/yard stick Reps/Minutes 8 min Manual Therapy Treatment Soft Tissue Mobilization 1 Body Location ES, QL Mobilization Type Myofascial Release,Rolling, Strumming Intensity/Depth Moderate Comments s/l & seated flex PT-OP-T Assessment and Plan Start: 10/12/20 17:50 Freq: Status: Active Protocol: Document 10/25/20 08:23 [facility] (Rec: 10/25/20 09:06 [facility] [id number]) Physical Therapy Assessment Goals Four Impairment activity tolerance Short Term Goal (STG) Pt will be able to stand as long as she needs for home chores and waiting in line. STG Duration 11/13/20 [facility] Goal (LTG) Pt will be able to return to full gardening activity without inc pain. LTG Duration 12/13/20 Three Short Term Goal (STG) pt will be able to do SLS B for at least 5 sec w/lat lean/ shear STG Duration 11/13/20 [facility] Goal (LTG) Pt will be able to get up/down from the gorund without inc difficulty. LTG Duration 12/13/20 Two Impairment walking Short Term Goal (STG) Pt will be able to walk 1 mile without inc pain more than 3 points on VAS scale STG Duration 11/13/20 [facility] Goal (LTG) pt will be able to walk around [place] park without inc pain more than 3 points on VAS scale. LTG Duration 12/13/20 One Impairment weakness Short Term Goal (STG) Pt will be indep with HEP STG Duration 11/13/20 Last Marker Goal (LTG) Pt will have 5/5 LE strength in all planes along with LPM of at least 3/5 in all planes to show imrpoved stability to improve pt's ability to particiapte in typical activities. LTG Duration 12/13/20 Assessment Summary Assessment Pt still requires cuieng for s /l exercises (abd more than ER ). she fatigues with standing hip exercises. She had difficulty with hip hinge at first but after seated hip hinge, improved w/motion. Able to go through raking motion w /less rotation & flex of spien after training. Physical Therapy Plan Frequency and Duration Frequency of Treatment 2x/Week Duration of Treatment 2 months Plan of Care Start Date 10/13/20 Plan of Care End Date 12/13/20 Next Visit Focus/Plan Next Note Type Treatment Note Next Visit Plan cont to advance core stability and hip strength, manual as needed
--- NOTE | 2020-11-01 08:58 | PT.OTN ---
Current Diagnoses Unspecified osteoarthritis, unspecified site (11/01/20) Spinal stenosis, lumbosacral region (11/01/20) Low back pain (11/01/20) Difficulty in walking, not elsewhere classified (11/01/20) Abnormal posture (11/01/20) Weakness (11/01/20) Physical Therapy Treatment Note PT-OP-A Visit Information Start: 10/12/20 17:50 Freq: Status: Active Protocol: Document 11/01/20 08:17 [facility] (Rec: 11/01/20 08:58 [facility] [id number]) Out-Patient Physical Therapy Visit Information Visit Information Visit Type Treatment Note Visit Note 10/18 Visit Start Time 08:17 Visit Stop Time 08:56 Total Visit Minutes 39 Visit Number 5 Number of PROFESSOR OF RELIGION Visits 0 PT-OP-B Current Condition Start: 10/12/20 17:50 Freq: Status: Active Protocol: Document 10/13/20 08:07 [facility] (Rec: 10/13/20 09:01 [facility] [id number]) Current Condition History of Current Condition Onset Date over a year Current Complaints LBP History of Current Condition Pt notes she has noticed for a while, when she is doing dishes, if its a long session, she needs to sit down to rest . Pt notes when she went to Dr Rajinder Fernandez, she had been sititng in her recliner all day and when she went to bed, it was painful wehn rolling in bed. Now she is careful to not stay in one place for too long. She was prescribed mm relaxors but hasn't taken them. Pain typcally starts in L side and then spreads to entire lower area. Used to walk the [employer] loop but cannot even think about that. Walking from [place] to [place] is about as far as she can go. Its been a couple years since edita walked [employer]. R knee pain limits her. She had Dr. Child work on it whcih helped but edita has to move it often. Pt reports within 10-15 min standing like in line,she gets pain. Pt has chronic history of incontinence that improved w/ seeing Meryl in past but now its back worse so she plans to go see her again. Prior Treatments and Tests Dr. Fernandez taught her to do some exercises and those helped a lot. Xray: IMPRESSION: Multilevel degenerative disc disease and facet osteoarthritis present along the middle and lower thirds of the LS spine allowing ligamentous laxity and both anterolisthesis and retrolisthesis, grade 1, at multiple levels. No compression fracture found. Spinal and foraminal stenosis likely is present at L4-5 and L5-S1. Treatment Goals Patient/Caregiver Goals Return to walking [place] park 2x/ week, be able to stand longer, be able to garden, be able to get up/down from the ground easier, improve balance Personal Factors Other Personal Factors That May Effect gallbladder removal, Therapy/Recovery hysterectomy, R knee pain, incontinence, SALAZAR, dizziness when getting out of bed too fast, thoracic pain PT-OP-C Subjective Start: 10/12/20 17:50 Freq: Status: Active Protocol: Document 11/01/20 08:17 [facility] (Rec: 11/01/20 08:58 [facility] [id number]) OP-PT Subjective Patient Comments Patient Comments Pt reports back is sore this Am but she hasn't done exercises yet Patient Reported Progress Improving PT-OP-D Balance Start: 10/12/20 17:50 Freq: Status: Active Protocol: Document 10/13/20 08:07 [facility] (Rec: 10/13/20 09:01 [facility] [id number]) Balance Tests Single Limb Standing Single Limb- Right 2 sec signficiant lat lean & hip lat Single Limb- Left 3 sec signficiant lat lean & hip lat PT-OP-F Manual Assessment Start: 10/12/20 17:50 Freq: Status: Active Protocol: Document 10/13/20 08:07 [facility] (Rec: 10/13/20 09:01 [facility] [id number]) Manual Assessments Soft Tissue Assessment Soft Tissue Mobility Assessment tightness L>R QL, ES, tightness sup glutes B Joint Mobility Assessment Joint Mobility Assessment R iliac crest higher, greater trochanters equal PT-OP-G Mobility & Gait Start: 10/12/20 17:50 Freq: Status: Active Protocol: Document 10/13/20 08:07 [facility] (Rec: 10/13/20 09:01 [facility] [id number]) OP Gait Assessment Comments Gait Comments L leg turned out, R pelvic shear w/R wt bearing, dec push off B PT-OP-J Posture/Palpation/Skin Start: 10/12/20 17:50 Freq: Status: Active Protocol: Document 10/13/20 08:07 [facility] (Rec: 10/13/20 09:01 [facility] [id number]) Posture Evaluation [facility] Postural Classification System April Postural Classifications Vertical/Posterior Vertebral Compression Test 1 Elbow Flexion Test 1 Lumbar Protective Mechanism Left AP 0 Lumbar Protective Mechanism Right AP 0 Lumbar Protective Mechanism Left PA 0 Lumbar Protective Mechanism Right PA 0 Comments Posture Comments L trunk sidebend, inc kyphosis , fwd head PT-OP-K Range of Motion Start: 10/12/20 17:50 Freq: Status: Active Protocol: Document 10/13/20 08:07 [facility] (Rec: 10/13/20 09:01 [facility] [id number]) Lumbar Spine Range of Motion Lumbar Spine Active Degrees Flexion 36 Extension 24 Rotation Left 64 Rotation Right 65 Lateral Flexion Left 14 Lateral Flexion Right 13 Comments all ext occurs around TL junction PT-OP-L Special Tests Start: 10/12/20 17:50 Freq: Status: Active Protocol: Document 10/13/20 08:07 [facility] (Rec: 10/13/20 09:01 [facility] [id number]) Special Tests Lumbar Spine Special Tests Straight Leg Raise Test Results 72 R, 78 L Comments neg for neutral tension Slump Test Results neg B PT-OP-M Strength Start: 10/12/20 17:50 Freq: Status: Active Protocol: Document 10/13/20 08:07 [facility] (Rec: 10/13/20 09:01 [facility] [id number]) Hip Strength Hip Manual Muscle Testing Right Flexion (L2) 4 Good Extension (S1) 3+ Fair+ Abduction 4 Good External Rotation 4 Good Internal Rotation 4 Good Left Flexion (L2) 4 Good Extension (S1) 3+ Fair+ Abduction 4 Good External Rotation 4 Good Internal Rotation 4 Good Knee Strength Knee Manual Muscle Testing Right Flexion (S2) 4+ Good+ Extension (L3) 4 Good Left Flexion (S2) 5 Normal Extension (L3) 5 Normal Ankle/Foot Strength Ankle and Foot Manual Muscle Testing Right Dorsiflexion (L4) 5 Normal Plantarflexion (S1) 5 Normal Comments PF tested seated B Left Dorsiflexion (L4) 5 Normal Plantarflexion (S1) 5 Normal PT-OP-Q Treatments Start: 10/12/20 17:50 Freq: Status: Active Protocol: Document 11/01/20 08:17 [facility] (Rec: 11/01/20 08:58 [facility] [id number]) Gym Equipment Therapeutic Ball supine Ball Size/Color 65cm Body Position Supine Reps/Duration 10 Comments 1. knee bends w/focus on core neutral 2. LTR B 3. bridges w/feet on ball w/3 sec hold seated Ball Size/Color 65cm Body Position sit Reps/Duration 15 ea Comments 1.bouncing 2. pelvic circles B 3. march B Therapeutic Exercises Supine Exercises 2 Supine Exercise Name TA w/SLR Side bilateral Reps/Minutes 10 1 Supine Exercise Name TA engagment w/alt march Side bilateral Reps/Minutes 2x8 Comments cues slow and controlled Standing Exercises mini squat Standing Exercise Name mini Side bilateral Equipment Used rail Reps/Minutes 12 side step Side bilateral Equipment Used yellow Reps/Minutes 2x20ft ext Standing Exercise Name hip ext Side bilateral Resistance yellow Equipment Used rail Reps/Minutes 2x10 1 Standing Exercise Name hip abd Side bilateral Resistance yellow tband Equipment Used rail Reps/Minutes 10 Manual Therapy Treatment Soft Tissue Mobilization 1 Body Location ES, QL, L upper & lat glute Mobilization Type Myofascial Release,Rolling, Strumming Intensity/Depth Moderate Body Position Prone Joint Mobilizations innominate Joint L Direction ER FM PT-OP-T Assessment and Plan Start: 10/12/20 17:50 Freq: Status: Active Protocol: Document 11/01/20 08:17 [facility] (Rec: 11/01/20 08:58 [facility] [id number]) Physical Therapy Assessment Goals Four Impairment activity tolerance Short Term Goal (STG) Pt will be able to stand as long as she needs for home chores and waiting in line. STG Duration 11/13/20 [facility] Goal (LTG) Pt will be able to return to full gardening activity without inc pain. LTG Duration 12/13/20 Three Short Term Goal (STG) pt will be able to do SLS B for at least 5 sec w/lat lean/ shear STG Duration 11/13/20 L[employer] Mixer Tender Goal (LTG) Pt will be able to get up/down from the gorund without inc difficulty. LTG Duration 12/13/20 Two Impairment walking Short Term Goal (STG) Pt will be able to walk 1 mile without inc pain more than 3 points on VAS scale STG Duration 11/13/20 [employer] Tender Goal (LTG) pt will be able to walk around [place] without inc pain more than 3 points on VAS scale. LTG Duration 12/13/20 One Impairment weakness Short Term Goal (STG) Pt will be indep with HEP STG Duration 11/13/20 Lime Mixer Tender Goal (LTG) Pt will have 5/5 LE strength in all planes along with LPM of at least 3/5 in all planes to show imrpoved stability to improve pt's ability to particiapte in typical activities. LTG Duration 12/13/20 Assessment Summary Assessment Pt showed more ease with all exercises today and did well with addition of ball exercises but did show most difficult w/balance on ball w/ august and occ required min A. Pt encouraged to walk and gradually inc distance until next appt. Physical Therapy Plan Frequency and Duration Frequency of Treatment 2x/Week Duration of Treatment 2 months Plan of Care Start Date 10/13/20 Plan of Care End Date 12/13/20 Next Visit Focus/Plan Next Note Type Treatment Note Next Visit Plan cont to advance core stability and hip strength, manual as needed
--- NOTE | 2020-11-23 10:30 | PT.OTN ---
Current Diagnoses Unspecified osteoarthritis, unspecified site (11/23/20) Spinal stenosis, lumbosacral region (11/23/20) Low back pain (11/23/20) Difficulty in walking, not elsewhere classified (11/23/20) Abnormal posture (11/23/20) Weakness (11/23/20) Physical Therapy Treatment Note PT-OP-A Visit Information Start: 10/12/20 17:50 Freq: Status: Active Protocol: Document 11/23/20 09:57 [facility] (Rec: 11/23/20 10:30 [facility] [id number]) Out-Patient Physical Therapy Visit Information Visit Information Visit Type Discharge Summary Visit Start Time 09:48 Visit Stop Time 10:26 Total Visit Minutes 38 Visit Number 6 Number of TOLL GATE KEEPER Visits 0 PT-OP-B Current Condition Start: 10/12/20 17:50 Freq: Status: Active Protocol: Document 10/13/20 08:07 [facility] (Rec: 10/13/20 09:01 [facility] [id number]) Current Condition History of Current Condition Onset Date over a year Current Complaints LBP History of Current Condition Pt notes she has noticed for a while, when she is doing dishes, if its a long session, she needs to sit down to rest . Pt notes when she went to Dr Rajinder Fernandez, she had been sititng in her recliner all day and when she went to bed, it was painful wehn rolling in bed. Now she is careful to not stay in one place for too long. She was prescribed mm relaxors but hasn't taken them. Pain typcally starts in L side and then spreads to entire lower area. Used to walk [place] [employer] loop but cannot even think about that. Walking from [employer] [place] to museum is about as far as she can go. Its been a couple years since edita walked [employer]. R knee pain limits her. She had Dr. Child work on it whcih helped but edita has to move it often. Pt reports within 10-15 min standing like in line,she gets pain. Pt has chronic history of incontinence that improved w/ seeing Meryl in past but now its back worse so she plans to go see her again. Prior Treatments and Tests Dr. Fernandez taught her to do some exercises and those helped a lot. Xray: IMPRESSION: Multilevel degenerative disc disease and facet osteoarthritis present along the middle and lower thirds of the LS spine allowing ligamentous laxity and both anterolisthesis and retrolisthesis, grade 1, at multiple levels. No compression fracture found. Spinal and foraminal stenosis likely is present at L4-5 and L5-S1. Treatment Goals Patient/Caregiver Goals Return to walking [place] park 2x/ week, be able to stand longer, be able to garden, be able to get up/down from the ground easier, improve balance Personal Factors Other Personal Factors That May Effect gallbladder removal, Therapy/Recovery hysterectomy, R knee pain, incontinence, SALAZAR, dizziness when getting out of bed too fast, thoracic pain PT-OP-C Subjective Start: 10/12/20 17:50 Freq: Status: Active Protocol: Document 11/23/20 09:57 [facility] (Rec: 11/23/20 10:30 [facility] [id number]) OP-PT Subjective Patient Comments Patient Comments Pt reprots she has been doing great. Pain only occ w/ repetitive activity. Cannot think of the times she had pain Patient Reported Progress Improving PT-OP-D Balance Start: 10/12/20 17:50 Freq: Status: Active Protocol: Document 10/13/20 08:07 [facility] (Rec: 10/13/20 09:01 [facility] [id number]) Balance Tests Single Limb Standing Single Limb- Right 2 sec signficiant lat lean & hip lat Single Limb- Left 3 sec signficiant lat lean & hip lat PT-OP-F Manual Assessment Start: 10/12/20 17:50 Freq: Status: Active Protocol: Document 10/13/20 08:07 [facility] (Rec: 10/13/20 09:01 [facility] [id number]) Manual Assessments Soft Tissue Assessment Soft Tissue Mobility Assessment tightness L>R QL, ES, tightness sup glutes B Joint Mobility Assessment Joint Mobility Assessment R iliac crest higher, greater trochanters equal PT-OP-G Mobility & Gait Start: 10/12/20 17:50 Freq: Status: Active Protocol: Document 10/13/20 08:07 [facility] (Rec: 10/13/20 09:01 [facility] [id number]) OP Gait Assessment Comments Gait Comments L leg turned out, R pelvic shear w/R wt bearing, dec push off B PT-OP-J Posture/Palpation/Skin Start: 10/12/20 17:50 Freq: Status: Active Protocol: Document 11/23/20 09:57 [facility] (Rec: 11/23/20 10:30 [facility] [id number]) Posture Evaluation April Postural Classification System Lumbar Protective Mechanism Left AP 3 Lumbar Protective Mechanism Right AP 3 Lumbar Protective Mechanism Left PA 4 Lumbar Protective Mechanism Right PA 3 PT-OP-K Range of Motion Start: 10/12/20 17:50 Freq: Status: Active Protocol: Document 10/13/20 08:07 [facility] (Rec: 10/13/20 09:01 [facility] [id number]) Lumbar Spine Range of Motion Lumbar Spine Active Degrees Flexion 36 Extension 24 Rotation Left 64 Rotation Right 65 Lateral Flexion Left 14 Lateral Flexion Right 13 Comments all ext occurs around TL junction PT-OP-L Special Tests Start: 10/12/20 17:50 Freq: Status: Active Protocol: Document 10/13/20 08:07 [facility] (Rec: 10/13/20 09:01 [facility] [id number]) Special Tests Lumbar Spine Special Tests Straight Leg Raise Test Results 72 R, 78 L Comments neg for neutral tension Slump Test Results neg B PT-OP-M Strength Start: 10/12/20 17:50 Freq: Status: Active Protocol: Document 11/23/20 09:57 [facility] (Rec: 11/23/20 10:30 [facility] [id number]) Hip Strength Hip Manual Muscle Testing Right Flexion (L2) 5 Normal Extension (S1) 5 Normal Abduction 5 Normal Adduction 5 Normal External Rotation 5 Normal Internal Rotation 5 Normal Left Flexion (L2) 4+ Good+ Extension (S1) 5 Normal Abduction 5 Normal Adduction 5 Normal External Rotation 4+ Good+ Internal Rotation 5 Normal Knee Strength Knee Manual Muscle Testing Right Flexion (S2) 5 Normal Extension (L3) 5 Normal Left Flexion (S2) 5 Normal Extension (L3) 5 Normal Ankle/Foot Strength Ankle and Foot Manual Muscle Testing Right Dorsiflexion (L4) 5 Normal Plantarflexion (S1) 5 Normal Comments PF tested seated B Left Dorsiflexion (L4) 5 Normal Plantarflexion (S1) 5 Normal PT-OP-Q Treatments Start: 10/12/20 17:50 Freq: Status: Active Protocol: Document 11/23/20 09:57 [facility] (Rec: 11/23/20 10:30 [facility] [id number]) Therapeutic Exercises Supine Exercises LTR Side bilateral Reps/Minutes 10 Comments focus on segmental control bridge Supine Exercise Name arms in air Reps/Minutes 10 2 Supine Exercise Name DL at 90 then SLR drop down about 45 deg Side bilateral Reps/Minutes 10 Prone Exercises ext Prone Exercise Name alt Side bilateral Reps/Minutes 15 Sidelying Exercises abd Sidelying Exercise Name hip Side bilateral Reps/Minutes 15 ER Sidelying Exercise Name hip Side bilateral Equipment Used L2 Reps/Minutes 15 Self-Care/Home Management Treatment Education Other Education edu to cont HEP& to avoid bending and twisting repetitive and edu how to avoid that w/common activities PT-OP-T Assessment and Plan Start: 10/12/20 17:50 Freq: Status: Active Protocol: Document 11/23/20 09:57 [facility] (Rec: 11/23/20 10:30 [facility] [id number]) Physical Therapy Assessment Goals Four Impairment activity tolerance Short Term Goal (STG) Pt will be able to stand as long as she needs for home chores and waiting in line. STG Duration achieved Workers Compensation Claims Adjuster Goal (LTG) Pt will be able to return to full gardening activity without inc pain. LTG Duration achieved Three Short Term Goal (STG) pt will be able to do SLS B for at least 5 sec w/lat lean/ shear STG Duration able to do 4 sec B Workers Compensation Claims Adjuster Goal (LTG) Pt will be able to get up/down from the gorund without inc difficulty. LTG Duration achieved Two Impairment walking Short Term Goal (STG) Pt will be able to walk 1 mile without inc pain more than 3 points on VAS scale STG Duration has not gone for walks but can walk around store etc w/o pain Workers Compensation Claims Adjuster Goal (LTG) pt will be able to walk around [employer] park without inc pain more than 3 points on VAS scale. LTG Duration has not tried One Impairment weakness Short Term Goal (STG) Pt will be indep with HEP STG Duration achieved Senior Care Goal (LTG) Pt will have 5/5 LE strength in all planes along with LPM of at least 3/5 in all planes to show imrpoved stability to improve pt's ability to particiapte in typical activities. LTG Duration achieved Assessment Summary Assessment Pt is doing well with exercises and required very min cueing. She has met most goals and strength is signficiantly improved. She is indep w/HEP and now dc to cont HEP. She has signficant dec in paina nd incontinence at this time. She is doing well functionally but has not tried walking. Physical Therapy Plan Discharge Physical Therapy Discharge Reasons Goals Met
== END 2020-11-23 13:12 | disposition home or self-care (01) ==
LOC: PHYS 09:45
PROVIDERS: Family Provider Family Medicine; PCP Family Medicine; Referring Provider Family Medicine; Visit Provider Family Medicine
DX: M54.5 Low back pain (principal); M19.90 Unspecified osteoarthritis, unspecified site; M48.07 Spinal stenosis, lumbosacral region; R53.1 Weakness; R26.2 Difficulty in walking, not elsewhere classified; R29.3 Abnormal posture
CPT/HCPCS: 97110; 97140; 97161; 97530; 97535

== ENCOUNTER → 2021-02-24 18:01 | Outpatient (CLI) | payer OTHER, SELFPAY ==
--- NOTE | 2021-02-24 18:05 | DI.RAD.S_ITS ---
PROCEDURE: XR KNEE RT 3V INDICATIONS: R medial knee pain post extension TECHNIQUE: Three views of the knee were acquired. COMPARISON: None. FINDINGS: Bones: No fractures or dislocations. Moderate medial compartment joint space loss and slight lateral femorotibial subluxation. Moderate joint space loss in the patellofemoral compartment with spur formation. No suspicious bony lesions. Soft tissues: Small joint effusion. No suspicious soft tissue calcifications. IMPRESSION: 1. No visible fractures. 2. Small joint effusion. 3. Moderate tricompartment osteoarthritic changes. Dictated by: Janine West M.D. on 02/24/2021 at 19:43 Approved by: Janine West M.D. on 02/24/2021 at 19:45
== END ==
PROVIDERS: Family Provider Family Medicine; PCP Family Medicine; Referring Provider Nurse Practitioner; Visit Provider Nurse Practitioner
DX: M25.561 Pain in right knee (principal)
CPT/HCPCS: 73562

== ENCOUNTER → 2021-03-31 16:27 | Outpatient (CLI) | payer OTHER, SELFPAY ==
--- NOTE | 2021-03-31 16:32 | DI.MRI.S_ITS ---
PROCEDURE: MR KNEE RT WO CON INDICATIONS: right knee swelling and pain TECHNIQUE: Noncontrast sagittal PD fast spin echo and T2 fast spin echo with fat saturation, sagittal 3-D FLASH with fat saturation; coronal T1 spin echo and PD fast spin echo with fat saturation, and axial PD fast spin echo with fat saturation through the knee. COMPARISON: None. FINDINGS: Image quality: Some sequences are degraded by motion artifact. Menisci: The lateral meniscus is intact. Non surfacing signal in the posterior horn, medial meniscus, compatible with degeneration. Deficiency of the meniscal body with extrusion, likely reflecting chronic tear. Cruciate ligaments: The anterior and posterior cruciate ligaments appear intact. Medial structures: Periligamentous edema, compatible with grade 2 injury. The visualized portions of the pes anserinus tendons appear normal. Lateral structures: The lateral collateral ligament complexes intact. The popliteus tendon appears normal. The iliotibial band appears normal. Anterior structures: The quadriceps and patellar tendons appear intact. Patellar alignment is normal. No edema in the infrapatellar fat pad. Bones and cartilage: Minimal subchondral edema in the medial tibial plateau. No acute fracture. Degenerative changes of the tricompartment hyaline cartilage with signal heterogeneity, thinning, and fissuring, most prominent in the medial compartment and lateral aspect of the trochlea. . Joint space: Small to moderate joint effusion. An 8.2 x 2.3 x 1.8 cm T2 hyperintense collection is seen in the popliteal fossa, which contains intra-articular bodies, measuring up to 9.2 mm. IMPRESSION: 1. Medial meniscal tear as detailed above. 2. Grade 2 MCL injury. 3. Degenerative changes of the hyaline cartilage, most prominent in the medial compartment. 4. Small to moderate joint effusion. 5. Pham cyst with intra-articular bodies. Dictated by: Valdemar Pickens M.D. on 04/01/2021 at 7:41 Approved by: Valdemar Pickens M.D. on 04/01/2021 at 7:52
== END ==
PROVIDERS: Family Provider Family Medicine; PCP Family Medicine; Referring Provider Family Medicine; Visit Provider Family Medicine
DX: S83.241A Other tear of medial meniscus, current injury, right knee, initial encounter (principal); S83.411A Sprain of medial collateral ligament of right knee, initial encounter; M25.461 Effusion, right knee; M17.11 Unilateral primary osteoarthritis, right knee; M71.21 Synovial cyst of popliteal space [Baker], right knee; X58.XXXA Exposure to other specified factors, initial encounter
CPT/HCPCS: 73721

== ENCOUNTER → 2021-05-13 11:45 | Outpatient (CLI) | payer OTHER, SELFPAY ==
--- NOTE | 2021-05-13 11:46 | DI.RAD.S_ITS ---
PROCEDURE: XR DEXA AXIAL SKELETON INDICATIONS: fracture in the last year COMPARISON: [facility], CR, XR DEXA AXIAL SKELETON, 12/23/2018, 14:43. FINDINGS: This blank DEXA report has been sent in error by the PACS system. The correct and complete report will be forthcoming in 1-2 days. Thank you for your patience and understanding. Dictated by: Alexa Castro MD, PhD on 05/13/2021 at 16:10 Approved by: Alexa Castro MD, PhD on 05/13/2021 at 16:10
== END ==
PROVIDERS: Family Provider Family Medicine; PCP Family Medicine; Referring Provider Family Medicine; Visit Provider Family Medicine
DX: Z78.0 Asymptomatic menopausal state (principal); T14.8XXA Other injury of unspecified body region, initial encounter
CPT/HCPCS: 77080

== ENCOUNTER → 2021-05-27 12:35 | Outpatient (CLI) | payer OTHER, SELFPAY ==
[2021-05-27 13:45] LABS: Appearance Urine UA CLEAR; Bilirubin Urine UA NEGATIVE (NEGATIVE); Color Urine UA YELLOW; Glucose Urine UA NEGATIVE (Negative); Ketones Urine UA NEGATIVE (NEGATIVE); Leukocyte Esterase Urine UA NEGATIVE (NEGATIVE); Nitrite Urine UA NEGATIVE (Negative); Occult Blood Urine UA 1+ (Negative); Protein Urine UA TRACE (Negative); Specific Gravity Urine UA 1.025 (1.000-1.035); Urobilinogen Urine UA 0.2 E.U./dL (0.2)
[2021-05-27 13:47] LABS: pH Urine UA 5.5 (4.5-8.0)
[2021-05-27 13:57] LABS: Bacteria Urine None Seen; Culture Indicated Urine Cult Not Indicated; Mucus Urine 1+ (Negative); RBC Urine 0-1/HPF (0-5/HPF); Squamous Epithelial Cell Urine 0-1 /HPF (0-5/HPF); WBC Urine 0-1/HPF (0-5/HPF)
[2021-05-27 13:58] LABS: Add Manual Diff / Slide Review NO; Basophils Absolute Auto 100 /uL (0-100); Basophils Percent Auto 0.9 % (0-2); Eosinophils Absolute Auto 200 /uL (0-450); Eosinophils Percent Auto 2.4 % (2-4); Hematocrit 36.6 % (36-46); Hemoglobin 12.3 g/dL (12.0-16.0); Lymphocytes Absolute Auto 1900 /uL (1100-4500); Lymphocytes Percent Auto 26.2 % (25-40); Mean Corpuscular HGB Conc 33.7 % (30-36); Mean Corpuscular Hemoglobin 29.8 PG (26-34); Mean Corpuscular Volume 88.4 fL (80-100); Monocytes Absolute Auto 800 /uL (0-900); Monocytes Percent Auto 10.7 % (3-14); Neutrophils Absolute Auto 4400 /uL (1500-7000); Neutrophils Percent Auto 59.8 % (50-75); Platelet Count 311 X10^3/uL (150-400); Red Blood Cell Count 4.14 X10^6/uL (4.0-5.2); Red Cell Distribution Width 14.1 % (11.6-14.8); White Blood Cell Count 7.4 X10^3/uL (4.5-11.0)
[2021-05-27 14:16] LABS: Hemoglobin A1C% w Est Avg Glu 5.5 % (4.0-6.0)
[2021-05-27 14:29] LABS: BUN Creatinine Ratio 28.6 (6-22); Blood Urea Nitrogen 28 mg/dL (7-17); Calcium 9.7 mg/dL (8.4-10.2); Carbon Dioxide 30 mmol/L (22-32); Chloride 105 mmol/L (98-107); Estimated Glomerular Filt Rate 55.2 mL/min (>60); Glucose 129 mg/dL (80-110); HEMOLYSIS < 15 (0-50); Potassium 4.3 mmol/L (3.4-5.1); Sodium 144 mmol/L (137-145)
== END ==
PROVIDERS: Family Provider Family Medicine; PCP Family Medicine; Referring Provider Orthopaedic Surgery; Visit Provider Orthopaedic Surgery
DX: Z01.818 Encounter for other preprocedural examination (principal); Z01.812 Encounter for preprocedural laboratory examination; R73.9 Hyperglycemia, unspecified; N39.0 Urinary tract infection, site not specified
CPT/HCPCS: 36415; 80048; 81001; 83036; 85025; 93005; 93010

== ENCOUNTER → 2021-08-24 11:21 | Outpatient (CLI) | payer OTHER, SELFPAY ==
[2021-08-24 12:29] LABS: Hematocrit 33.4 % (36-46); Hemoglobin 11.2 g/dL (12.0-16.0); Mean Corpuscular HGB Conc 33.5 % (30-36); Mean Corpuscular Hemoglobin 29.7 PG (26-34); Mean Corpuscular Volume 88.7 fL (80-100); Platelet Count 460 X10^3/uL (150-400); Red Blood Cell Count 3.76 X10^6/uL (4.0-5.2)
[2021-08-24 12:49] LABS: Appearance Urine UA CLEAR; Bilirubin Urine UA NEGATIVE (NEGATIVE); Color Urine UA YELLOW; Glucose Urine UA TRACE g/dL (Negative); Ketones Urine UA NEGATIVE (NEGATIVE); Leukocyte Esterase Urine UA NEGATIVE (NEGATIVE); Nitrite Urine UA NEGATIVE (Negative); Occult Blood Urine UA 1+ (Negative); Protein Urine UA NEGATIVE (Negative)
[2021-08-24 13:07] LABS: pH Urine UA 5.5 (4.5-8.0)
[2021-08-24 13:09] LABS: Bacteria Urine None Seen; Culture Indicated Urine Cult Not Indicated; RBC Urine 1-5/HPF (0-5/HPF); WBC Urine None Seen (0-5/HPF)
[2021-08-24 13:13] LABS: BUN Creatinine Ratio 27.5 (6-22); Blood Urea Nitrogen 25 mg/dL (7-17); Calcium 9.3 mg/dL (8.4-10.2); Carbon Dioxide 27 mmol/L (22-32); Chloride 101 mmol/L (98-107); Estimated Glomerular Filt Rate > 60.0 mL/min (>60); Glucose 120 mg/dL (80-110); HEMOLYSIS < 15 (0-50); Sodium 138 mmol/L (137-145)
== END ==
PROVIDERS: Family Provider Family Medicine; PCP Family Medicine; Referring Provider Orthopaedic Surgery; Visit Provider Orthopaedic Surgery
DX: M25.561 Pain in right knee (principal); N39.0 Urinary tract infection, site not specified
CPT/HCPCS: 36415; 80048; 81001; 85027

== ENCOUNTER → 2021-10-03 14:25 | Outpatient (CLI) | payer OTHER, SELFPAY ==
--- NOTE | 2021-10-03 14:27 | DI.RAD.S_ITS ---
PROCEDURE: XR KNEE RT 3V INDICATIONS: RIGHT knee pain, hx of replacement 7wk ago TECHNIQUE: 3 views of the knee were acquired. COMPARISON: [facility], CR, XR KNEE RT 3V, 02/24/2021, 18:13. FINDINGS: Bones: Patient is status post prior right total knee arthroplasty. Right knee alignment is anatomic. No gross hardware loosening or failure. No acute fracture or dislocation. No suspicious bony lesions. Soft tissues: Moderate suprapatellar joint effusion is seen. No suspicious soft tissue calcifications. IMPRESSION: Prior right total knee arthroplasty with anatomic alignment. No gross hardware complication. Moderate joint effusion. No acute fracture or dislocation. Dictated by: Michael Lopes M.D. on 10/03/2021 at 14:50 Approved by: Michael Lopes M.D. on 10/03/2021 at 14:51
--- NOTE | 2021-10-03 14:27 | DI.RAD.S_ITS ---
PROCEDURE: XR ANKLE RT MIN 3V INDICATIONS: RIGHT lateral ankle pain TECHNIQUE: 3 views of the ankle were acquired. COMPARISON: [facility], , ANKLE 3 VIEWS LEFT, 10/12/2010, 15:35. FINDINGS: Bones: Tiny calcification adjacent to tip of lateral malleolus is seen which may represent age indeterminate avulsion injury. No other fracture or dislocation. Ankle mortise is normally aligned. No suspicious bony lesions. Well-defined plantar calcaneal enthesophyte is seen. Soft tissues: Very mild lateral soft tissue swelling is seen. No tibiotalar joint effusion. Achilles tendon appears normal. IMPRESSION: Suggestion of age indeterminate avulsion injury involving tip of lateral malleolus. Intact ankle mortise. No other fracture or dislocation. Very mild lateral ankle soft tissue swelling. Dictated by: Michael Lopes M.D. on 10/03/2021 at 14:51 Approved by: Michael Lopes M.D. on 10/03/2021 at 14:52
== END ==
PROVIDERS: Family Provider Family Medicine; PCP Family Medicine; Referring Provider Physician Assistant; Visit Provider Physician Assistant
DX: S93.401A Sprain of unspecified ligament of right ankle, initial encounter (principal); S86.911A Strain of unspecified muscle(s) and tendon(s) at lower leg level, right leg, initial encounter; M25.571 Pain in right ankle and joints of right foot; M25.461 Effusion, right knee; M79.89 Other specified soft tissue disorders; Z96.651 Presence of right artificial knee joint; W19.XXXA Unspecified fall, initial encounter
CPT/HCPCS: 73562; 73610

== ENCOUNTER 2021-12-06 16:45 | Outpatient (RCR) | payer OTHER, SELFPAY ==
--- NOTE | 2021-06-15 13:03 | PT.OIE ---
Current Diagnoses Unilateral primary osteoarthritis, right knee (06/15/21) Presence of right artificial knee joint (06/15/21) Past Medical History (Last Updated 03/23/21 @ 13:47 by Werner Fernandez MD) Actinic keratosis Anxiety and depression Dry skin dermatitis Headache History of nephrolithiasis History of squamous cell carcinoma Hx of excision of dermoid cyst Hyperlipidemia Left foot pain Neoplasm of uncertain behavior of skin Nondisplaced fracture Obstructive sleep apnea Osteoarthritis of right knee Osteopenia Seborrhea Shingles Skin lesion Stress incontinence Swelling of right knee joint Ureterolithiasis Past Surgical History (Last Reviewed 02/24/21 @ 17:58 by JAKE Clements) Hx of excision of dermoid cyst Status post adenoidectomy Status post hysterectomy Status post laparoscopic cholecystectomy Visit Care Team Role Provider Type Werner Fernandez MD Family Provider Physician Primary Care Provider Specialty: Family Practice Address: [address] [place] [address], [id number] Email: [email or web address] Ericka Greene MD Attending Provider Physician Referring Provider Specialty: Orthopedic Surgery Address: [address] [place] [address], [id number] Email: [email or web address] Physical Therapy Initial Evaluation PT-OP-A Visit Information Start: 06/15/21 09:13 Freq: Status: Active Protocol: Document 06/15/21 12:04 [facility] (Rec: 06/15/21 12:35 [facility] [id number]) Out-Patient Physical Therapy Visit Information Visit Information Visit Type Initial Evaluation Visit Start Time 12:04 Visit Stop Time 13:50 Total Visit Minutes 45 Visit Number 1 PT-OP-B Current Condition Start: 06/15/21 09:13 Freq: Status: Active Protocol: Document 06/15/21 12:04 [facility] (Rec: 06/15/21 12:35 [facility] [id number]) Current Condition History of Current Condition History of Current Condition surgery 07/14/21 Right knee pain is 4/10 the knee is aggravated is longer walking distances, she needs to hold onto the cart at the store, the more I use it the more it hurts PT is scheduled to go to [place] on Sunday for 3 weeks so is doing her pre op now PT-OP-C Subjective Start: 06/15/21 09:13 Freq: Status: Active Protocol: Document 06/15/21 12:00 [facility] (Rec: 06/16/21 12:44 [facility] [id number]) OP-PT Pain Assessment Location right knee pain Pain Location Details right knee Intensity 4 Scale Used Numeric (0 - 10) Description Aching,With Movement PT-OP-G Mobility & Gait Start: 06/15/21 09:13 Freq: Status: Active Protocol: Document 06/15/21 12:00 [facility] (Rec: 06/16/21 12:47 [facility] [id number]) OP Mobility Evaluation Bed Mobility Rolling able to roll I B Supine to and from Sit able to transfer I OP Gait Assessment Assistive Devices Assistive Device Gait Belt,Straight Cane Orthotic/Prosthetic Devices or Brace: No Gait Deviations General Gait Pattern Ataxic,Decreased Stride Length Factors Limiting Gait Function Factors Limiting Gait Function Decreased Strength,Pain Comments Gait Comments pt was educated in usign her SPC in the left hand to help with right sided weakness PT-OP-J Posture/Palpation/Skin Start: 06/15/21 09:13 Freq: Status: Active Protocol: Document 06/15/21 12:00 [facility] (Rec: 06/16/21 12:50 [facility] [id number]) Skin Assessment Circumference Measurement 5 cm above patella Measurement (Centimeters) 19 Comments bilaterally joint line knee Location knee joint line Measurement (Centimeters) 17.5 Comments 16.5 L PT-OP-K Range of Motion Start: 06/15/21 09:13 Freq: Status: Active Protocol: Document 06/15/21 12:00 [facility] (Rec: 06/16/21 12:47 [facility] [id number]) Knee Goniometric Range of Motion Knee Right Knee ROM WFL No Patient Position Supine Flexion Active (degrees) 115 Extension Active (degrees) 20 Comments pain is increased with knee extension PT-OP-M Strength Start: 06/15/21 09:13 Freq: Status: Active Protocol: Document 06/15/21 12:00 [facility] (Rec: 06/16/21 12:50 [facility] [id number]) Knee Strength Knee Manual Muscle Testing Right Flexion (S2) 3 Fair Extension (L3) 2+ Poor+ Comments unable to get full extension, with a pillow under her knee she is able to perform a quad set PT-OP-Q Treatments Start: 06/15/21 09:13 Freq: Status: Active Protocol: Document 06/15/21 12:00 [facility] (Rec: 06/15/21 13:32 [facility] [id number]) Therapeutic Exercises Supine Exercises bridges Reps/Minutes 2 x 10 reps heel slides Reps/Minutes 2 x 10 reps quad sets Reps/Minutes 2 x 10 reps holding x 5 seconds Sitting Exercises sit to stand Reps/Minutes x 10 reps Standing Exercises standing calf raises Reps/Minutes 2 x 10 reps Gait Training Gait Activity gait training with SPC Comments pt was instructed in gait training with SPC in her left hand. Pt had been using the cane in her right and it wasn' t working for her PT-OP-T Assessment and Plan Start: 06/15/21 09:13 Freq: Status: Active Protocol: Document 06/15/21 12:00 [facility] (Rec: 06/16/21 13:02 [facility] [id number]) Physical Therapy Assessment Rehab Potential Rehabilitation Potential Excellent Evaluation Complexity Number of Personal Factors/Comorbidities 0 Number of Body Systems Impaired 1-2 Clinical Presentation at Evaluation Stable Impairments Impairments Activity Tolerance,Balance, Functional Mobility,Pain,ROM, Soft Tissue Mobility,Strength Goals 1 Impairment pt lacks a pre-operative HEP Short Term Goal (STG) Pt is educated on a pre- operative HEP for knee ROM and strength as well as home preparation for her upcoming TKA Right STG Duration 1 visit Assessment Summary Assessment Kristel is a 76 year old female who presents to PT today for a pre-op appointment for her upcoming TKA on the right knee July 14 2021. She was educated in knee ROM and strengthening exercises as well as transfer training and gait training. Pt will be leaving for [place] this next week for 3 weeks. We discussed knee ROM exercises to do in the pool as well as water walking. She lacks 20 degrees of knee extension on the right and knee flexion is 115 deg. Pt has a walker and cane for home use. She has 14 stairs in her home but will be able to avoid the stairs until she is ready. She responded well to her PT exercises today and is set up for her post op visits 1 week following her surgery. She would like to do home health PT the first week post op. Physical Therapy Plan Frequency and Duration Frequency of Treatment 2x/Week Duration of Treatment 8 Plan of Care Start Date 06/15/21 Plan of Care End Date 08/13/21 Therapeutic Interventions Therapeutic Interventions Home Exercise Program,Manual Therapy,Neuromuscular Re- education,Self-Care/Home Management,Therapeutic Exercises Modalities Cold Pack/Ice Massage,Electric Stimulation Next Visit Focus/Plan Next Note Type Re-Evaluation Next Visit Plan pt will not be seen until after her TKE, Re-evaluation post op
--- NOTE | 2021-06-16 13:04 | PT.OPPOC ---
Physical, Occupational & Speech Therapy At [facility] Current Diagnoses Unilateral primary osteoarthritis, right knee (06/15/21) Presence of right artificial knee joint (06/15/21) Visit Care Team Role Provider Type Werner Fernandez MD Family Provider Physician Primary Care Provider Specialty: Family Practice Address: [address] [place] [address], [phone] Email: [email or web address] Ericka Greene MD Attending Provider Physician Referring Provider Specialty: Orthopedic Surgery Address: [address] [place] [address], [phone] Email: [email or web address] Plan Of Care PT-OP-T Assessment and Plan Start: 06/15/21 09:13 Freq: Status: Active Protocol: Document 06/15/21 12:00 [facility] (Rec: 06/16/21 13:02 [facility] [id number]) Physical Therapy Assessment Rehab Potential Rehabilitation Potential Excellent Evaluation Complexity Number of Personal Factors/Comorbidities 0 Number of Body Systems Impaired 1-2 Clinical Presentation at Evaluation Stable Impairments Impairments Activity Tolerance,Balance, Functional Mobility,Pain,ROM, Soft Tissue Mobility,Strength Goals 1 Impairment pt lacks a pre-operative HEP Short Term Goal (STG) Pt is educated on a pre- operative HEP for knee ROM and strength as well as home preparation for her upcoming TKA Right STG Duration 1 visit Assessment Summary Assessment Kristel is a 76 year old female who presents to PT today for a pre-op appointment for her upcoming TKA on the right knee July 14 2021. She was educated in knee ROM and strengthening exercises as well as transfer training and gait training. Pt will be leaving for [place] this next week for 3 weeks. We discussed knee ROM exercises to do in the pool as well as water walking. She lacks 20 degrees of knee extension on the right and knee flexion is 115 deg. Pt has a walker and cane for home use. She has 14 stairs in her home but will be able to avoid the stairs until she is ready. She responded well to her PT exercises today and is set up for her post op visits 1 week following her surgery. She would like to do home health PT the first week post op. Physical Therapy Plan Frequency and Duration Frequency of Treatment 2x/Week Duration of Treatment 8 Plan of Care Start Date 06/15/21 Plan of Care End Date 08/13/21 Therapeutic Interventions Therapeutic Interventions Home Exercise Program,Manual Therapy,Neuromuscular Re- education,Self-Care/Home Management,Therapeutic Exercises Modalities Cold Pack/Ice Massage,Electric Stimulation Next Visit Focus/Plan Next Note Type Re-Evaluation Next Visit Plan pt will not be seen until after her TKE, Re-evaluation post op Plan of Care Dates Plan of Care Start Date 06/15/21 Plan of Care End Date 08/13/21 Electronically Signed by: Meryl Lyons, PT 06/16/21 1306 Please Sign and Return: I have reviewed this Plan of Care and certify that the skilled therapy services above are required to meet the patient?s needs. Physician Signature Date Printed Name and Credentials Clinical Instructor Signature Printed Name and Credentials
--- NOTE | 2021-08-22 18:03 | PT.OTRE ---
Current Diagnoses Unilateral primary osteoarthritis, right knee (08/22/21) Difficulty in walking, not elsewhere classified (08/22/21) Weakness (08/22/21) Presence of right artificial knee joint (08/22/21) Past Medical History (Last Updated 07/06/21 @ 13:13 by Diana Cortes, RN) Actinic keratosis Anxiety and depression Depression Dry skin dermatitis Headache History of nephrolithiasis History of squamous cell carcinoma Hx of bilateral cataract extraction Hx of elbow surgery (12/18/17) Hx of excision of dermoid cyst Hyperlipidemia Left foot pain Neoplasm of uncertain behavior of skin Nondisplaced fracture Obstructive sleep apnea Osteoarthritis of right knee Osteopenia Seborrhea Shingles Skin cancer Skin lesion Stress incontinence Swelling of right knee joint Ureterolithiasis Surgical History (Last Updated 07/06/21 @ 13:12 by Diana Cortes RN) Hx of bilateral cataract extraction Hx of elbow surgery (12/18/17) Hx of excision of dermoid cyst Status post adenoidectomy Status post hysterectomy Status post laparoscopic cholecystectomy Visit Care Team Role Provider Type Werner Fernandez MD Family Provider Physician Primary Care Provider Specialty: Family Practice Address: [address] [place] [address], [facility] Email: [email or web address] Ericka Greene MD Attending Provider Physician Referring Provider Specialty: Orthopedics Orthopedic Surgery Address: [address] [place] [address], [id number] Email: [email or web address] Physical Therapy Re-Evaluation PT-OP-A Visit Information Start: 06/15/21 09:13 Freq: Status: Active Protocol: Document 08/22/21 12:59 [facility] (Rec: 08/22/21 13:53 [facility] [id number]) Out-Patient Physical Therapy Visit Information Visit Information Visit Type Re-Evaluation Visit Note 06/20 Visit Start Time 13:02 Visit Stop Time 13:47 Total Visit Minutes 45 Visit Number 2 Number of JACK [employer]IP ASSEMBLER Visits 0 PT-OP-B Current Condition Start: 06/15/21 09:13 Freq: Status: Active Protocol: Document 08/22/21 12:59 [facility] (Rec: 08/22/21 13:53 [facility] [id number]) Current Condition History of Current Condition Onset Date 08/15 Current Complaints R knee pain s/p TKA History of Current Condition RE-eval 08/22- Pt reports surgery 1 week ago on 08/15/21 in surgery center and overall doing well. She has been doing ice and breathing exercises for pain and has only had to take 1 ibuprofen. Pt lost her exercises so she hasn't been doing them. She has been making herself walk through the house for meals and bathroom. IE:surgery 07/14/21 Right knee pain is 4/10 the knee is aggravated is longer walking distances, she needs to hold onto the cart at the store, the more I use it the more it hurts PT is scheduled to go to [place] on Sunday for 3 weeks so is doing her pre op now Treatment Goals Patient/Caregiver Goals Be able to return to work at the [employer] (needs to be amb w/ o cane), Be able to walk distance at a time w/o cane so she can do her trip in Jan in [place], gardening (weeding)-being able to get up/down from ground, get downstairs to her own bed (15 stairs)-eventually reciprocally & w/o rail PT-OP-C Subjective Start: 06/15/21 09:13 Freq: Status: Active Protocol: Document 08/22/21 12:59 [facility] (Rec: 08/22/21 13:53 [facility] [id number]) OP-PT Pain Assessment Location right knee pain Pain Location Details R quad and tibial plateau Intensity 7 Scale Used Numeric (0 - 10) Description Aching Frequency Intermittent Pain Aggravating Factors Standing,Walking,Bending Other Pain Aggravating Factors getting up Pain Alleviating Factors Cold Other Pain Alleviating Factors breathing PT-OP-F Manual Assessment Start: 06/15/21 09:13 Freq: Status: Active Protocol: Document 08/22/21 12:59 [facility] (Rec: 08/22/21 13:53 [facility] [id number]) Manual Assessments Soft Tissue Assessment Soft Tissue Mobility Assessment tightness in ITB, add, quads, HS& calf R Other Manual Assessments Other Manual Assessments some yellow streaking on RLE unsure if bruising or iodine left; fredrick drain intact, no drainage on bandage PT-OP-G Mobility & Gait Start: 06/15/21 09:13 Freq: Status: Active Protocol: Document 08/22/21 12:59 [facility] (Rec: 08/22/21 13:53 [facility] [id number]) OP Mobility Evaluation Bed Mobility Supine to and from Sit indep and can lift LE into bed w/o UEs Transfers Sit to Stand uses UE on seat RLE out in front OP Gait Assessment Comments Gait Comments Amb w/ dec knee ext in WB on RLE and dec push off, dec stance time RLE and some lat leaning w/4WW PT-OP-J Posture/Palpation/Skin Start: 06/15/21 09:13 Freq: Status: Active Protocol: Document 06/15/21 12:00 [facility] (Rec: 06/16/21 12:50 [facility] [id number]) Skin Assessment Circumference Measurement 5 cm above patella Measurement (Centimeters) 19 Comments bilaterally joint line knee Location knee joint line Measurement (Centimeters) 17.5 Comments 16.5 L PT-OP-K Range of Motion Start: 06/15/21 09:13 Freq: Status: Active Protocol: Document 08/22/21 12:59 [facility] (Rec: 08/22/21 13:53 [facility] [id number]) Knee Goniometric Range of Motion Knee Measured in Degrees Left Flexion Active (degrees) 126 Extension Active (degrees) 4 Right Flexion Active (degrees) 70 Extension Active (degrees) 32 Comments lacking to ext PT-OP-M Strength Start: 06/15/21 09:13 Freq: Status: Active Protocol: Document 08/22/21 12:59 [facility] (Rec: 08/22/21 13:53 [facility] [id number]) Hip Strength Hip Manual Muscle Testing Left Flexion (L2) 4 Good Abduction 3+ Fair+ Adduction 4- Good- External Rotation 4 Good Internal Rotation 4 Good Right Flexion (L2) 3 Fair Abduction 3+ Fair+ Adduction 3 Fair External Rotation 3 Fair Internal Rotation 3 Fair Knee Strength Knee Manual Muscle Testing Left Flexion (S2) 5 Normal Extension (L3) 4 Good Right Flexion (S2) 3+ Fair+ Extension (L3) 3- Fair- Ankle/Foot Strength Ankle and Foot Manual Muscle Testing Left Dorsiflexion (L4) 5 Normal Plantarflexion (S1) 5 Normal Right Dorsiflexion (L4) 5 Normal Plantarflexion (S1) 4 Good Comments PF tested seated PT-OP-Q Treatments Start: 06/15/21 09:13 Freq: Status: Active Protocol: Document 08/22/21 12:59 [facility] (Rec: 08/22/21 13:53 [facility] [id number]) Therapeutic Exercises Supine Exercises passive ext Side right Reps/Minutes 1 min SLR Side right Reps/Minutes 10 SAQ Side right Reps/Minutes 10 APs Side right Reps/Minutes 20 heel slides Side right Reps/Minutes 10 quad sets Side right Reps/Minutes 5 sec x10 Self-Care/Home Management Treatment Education Other Education discussed HEP and importance of doing 2-3x/day, edu to keep walking during the day and ice and take her pain meds as needed that MD instrusted to take so she can do her exercises and therapy. Edu to tell re: having a spurting stream and dark urine, edu on cont icing, discussed prognosis and when to expect to change to cane and return home. PT-OP-R Modalities Start: 08/22/21 14:02 Freq: Status: Active Protocol: Document 08/22/21 12:59 [facility] (Rec: 08/22/21 14:03 [facility] [id number]) Hot Pack/Cold Pack Treatment Cold Pack Location R groin & R knee Patient Position Supine Treatment Duration (minutes) 10 Comments pillow under R lower leg PT-OP-T Assessment and Plan Start: 06/15/21 09:13 Freq: Status: Active Protocol: Document 08/22/21 12:59 [facility] (Rec: 08/22/21 13:53 [facility] [id number]) Physical Therapy Assessment Impairments Impairments Activity Tolerance,Balance, Edema,Functional Activities, Functional Mobility,Gait, Integument,Pain,Posture,ROM, Soft Tissue Mobility,Strength Goals up/down Short Term Goal (STG) Pt will be able to do sit to stand from chair w/equal WB and no hands. STG Duration 09/28/21 Senior Living Goal (LTG) Pt will be able to get up/down from the ground and squat for gardening tasks. LTG Duration 10/22/21 stairs Short Term Goal (STG) Pt will be able to go up/down stairs in house (15) with SPC and 1 rail safely step to so she can sleep in her bedroom STG Duration 09/09/21 Senior Living Goal (LTG) Pt will be able to ascend and descend stairs reciprocally without rail in order to be safe in the community when amb . LTG Duration 10/22/21 ROM Short Term Goal (STG) Pt will improve AROM R knee ROM to 5-105 degrees. STG Duration 09/22/21 Senior Living Goal (LTG) Pt will improve AROM R knee ROM to 0-120 degrees to allow for ability to do stairs and good gait mechanics. LTG Duration 10/22/21 gait Short Term Goal (STG) Pt will be able to amb with cane safely in order to be able to return to wrt[place] at the [facility] [place] STG Duration 09/22/21 Senior Living Goal (LTG) Pt will be able to amb as much as she would like w/o AD without inc pain with good gait pattern in order to be able to travel to [place] with family. LTG Duration 10/22/21 1 Impairment strength Short Term Goal (STG) Pt will be indep w/HEP STG Duration 09/22/21 Accountant Systems Goal (LTG) Pt will score at least 5/5 BLE strength to show improved strength to allow improved functional mobility. LTG Duration 10/22/21 Assessment Summary Assessment Pt presents 1 week s/p R TKA with good pain control, but significantly limited ROM without pt doing any exercises yet. She was educated on all but seated knee flex from TKA packet and was encouraged to be doing them 2-3x/day and to ice. She has no drainage, but does have some swelling at knee and thigh which likely contributes to her pain. She is very motivated to return to work and to get back to her typical activities along w/ prepare for being able to walk long distances for a trip in Jan. Pt would benefit from skilled PT to work on R knee ROM, RLE and core strength, improved balance, dec pain and improved gait mechanics. Physical Therapy Plan Frequency and Duration Frequency of Treatment 1-2x/week Duration of Treatment 2 months Plan of Care Start Date 08/22/21 Plan of Care End Date 10/22/21 Therapeutic Interventions Therapeutic Interventions Aquatic Therapy,Balance Training,Gait Training,Home Exercise Program,Joint Mobilizations,Manual Therapy, Neuromuscular Re-education, Patient/Caregiver Education, Self-Care/Home Management,Soft Tissue Mobilization,Taping, Therapeutic Activities, Therapeutic Exercises Modalities Cold Pack/Ice Massage,Electric Stimulation,Hot Packs Next Visit Focus/Plan Next Note Type Treatment Note Next Visit Plan review TKA exercises, recumbant stepper, STM to quad , & add
--- NOTE | 2021-08-22 18:04 | PT.OPPOC ---
Physical, Occupational & Speech Therapy At [facility] Current Diagnoses Unilateral primary osteoarthritis, right knee (08/22/21) Difficulty in walking, not elsewhere classified (08/22/21) Weakness (08/22/21) Presence of right artificial knee joint (08/22/21) Visit Care Team Role Provider Type Werner Fernandez MD Family Provider Physician Primary Care Provider Specialty: Family Practice Address: [address] [place] [address], [id number] Email: [email or web address] Ericka Greene MD Attending Provider Physician Referring Provider Specialty: Orthopedics Orthopedic Surgery Address: [address] [place] [address], [id number] Email: [email or web address] Plan Of Care PT-OP-T Assessment and Plan Start: 06/15/21 09:13 Freq: Status: Active Protocol: Document 08/22/21 12:59 [facility] (Rec: 08/22/21 13:53 [facility] [id number]) Physical Therapy Assessment Impairments Impairments Activity Tolerance,Balance, Edema,Functional Activities, Functional Mobility,Gait, Integument,Pain,Posture,ROM, Soft Tissue Mobility,Strength Goals up/down Short Term Goal (STG) Pt will be able to do sit to stand from chair w/equal WB and no hands. STG Duration 09/28/21 [employer] Data Architect Goal (LTG) Pt will be able to get up/down from the ground and squat for gardening tasks. LTG Duration 10/22/21 stairs Short Term Goal (STG) Pt will be able to go up/down stairs in house (15) with SPC and 1 rail safely step to so she can sleep in her bedroom STG Duration 09/09/21 Halfway Goal (LTG) Pt will be able to ascend and descend stairs reciprocally without rail in order to be safe in the community when amb . LTG Duration 10/22/21 ROM Short Term Goal (STG) Pt will improve AROM R knee ROM to 5-105 degrees. STG Duration 09/22/21 Halfway Goal (LTG) Pt will improve AROM R knee ROM to 0-120 degrees to allow for ability to do stairs and good gait mechanics. 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 STG Duration 09/22/21 [employer] Data Architect Goal (LTG) Pt will be able to amb as much as she would like w/o AD without inc pain with good gait pattern in order to be able to travel to [place] with family. LTG Duration 10/22/21 1 Impairment strength Short Term Goal (STG) Pt will be indep w/HEP STG Duration 09/22/21 Halfway Goal (LTG) Pt will score at least 5/5 BLE strength to show improved strength to allow improved functional mobility. LTG Duration 10/22/21 Assessment Summary Assessment Pt presents 1 week s/p R TKA with good pain control, but significantly limited ROM without pt doing any exercises yet. She was educated on all but seated knee flex from TKA packet and was encouraged to be doing them 2-3x/day and to ice. She has no drainage, but does have some swelling at knee and thigh which likely contributes to her pain. She is very motivated to return to work and to get back to her typical activities along w/ prepare for being able to walk long distances for a trip in Jan. Pt would benefit from skilled PT to work on R knee ROM, RLE and core strength, improved balance, dec pain and improved gait mechanics. Physical Therapy Plan Frequency and Duration Frequency of Treatment 1-2x/week Duration of Treatment 2 months Plan of Care Start Date 08/22/21 Plan of Care End Date 10/22/21 Therapeutic Interventions Therapeutic Interventions Aquatic Therapy,Balance Training,Gait Training,Home Exercise Program,Joint Mobilizations,Manual Therapy, Neuromuscular Re-education, Patient/Caregiver Education, Self-Care/Home Management,Soft Tissue Mobilization,Taping, Therapeutic Activities, Therapeutic Exercises Modalities Cold Pack/Ice Massage,Electric Stimulation,Hot Packs Next Visit Focus/Plan Next Note Type Treatment Note Next Visit Plan review TKA exercises, recumbant stepper, STM to quad , & add Plan of Care Dates Plan of Care Start Date 08/22/21 Plan of Care End Date 10/22/21 Electronically Signed by: Gypsy Pascual, PT 08/22/21 4112 Please Sign and Return: I have reviewed this Plan of Care and certify that the skilled therapy services above are required to meet the patient?s needs. Physician Signature Date Printed Name and Credentials Clinical Instructor Signature Printed Name and Credentials
--- NOTE | 2021-08-25 13:15 | PT.OTN ---
Current Diagnoses Unilateral primary osteoarthritis, right knee (08/25/21) Difficulty in walking, not elsewhere classified (08/25/21) Weakness (08/25/21) Presence of right artificial knee joint (08/25/21) Physical Therapy Treatment Note PT-OP-A Visit Information Start: 06/15/21 09:13 Freq: Status: Active Protocol: Document 08/25/21 11:20 [facility] (Rec: 08/25/21 11:47 [facility] [id number]) Out-Patient Physical Therapy Visit Information Visit Information Visit Type Treatment Note Visit Start Time 11:20 Visit Stop Time 12:00 Total Visit Minutes 40 Visit Number 3 PT-OP-B Current Condition Start: 06/15/21 09:13 Freq: Status: Active Protocol: Document 08/22/21 12:59 [facility] (Rec: 08/22/21 13:53 [facility] [id number]) Current Condition History of Current Condition Onset Date 08/15 Current Complaints R knee pain s/p TKA History of Current Condition RE-eval 08/22- Pt reports surgery 1 week ago on 08/15/21 in surgery center and overall doing well. She has been doing ice and breathing exercises for pain and has only had to take 1 ibuprofen. Pt lost her exercises so she hasn't been doing them. She has been making herself walk through the house for meals and bathroom. IE:surgery 07/14/21 Right knee pain is 4/10 the knee is aggravated is longer walking distances, she needs to hold onto the cart at the store, the more I use it the more it hurts PT is scheduled to go to [place] on Sunday for 3 weeks so is doing her pre op now Treatment Goals Patient/Caregiver Goals Be able to return to work at the [employer] (needs to be amb w/ o cane), Be able to walk distance at a time w/o cane so she can do her trip in Jan in [place], gardening (weeding)-being able to get up/down from ground, get downstairs to her own bed (15 stairs)-eventually reciprocally & w/o rail PT-OP-C Subjective Start: 06/15/21 09:13 Freq: Status: Active Protocol: Document 08/25/21 11:20 [facility] (Rec: 08/25/21 11:47 [facility] [id number]) OP-PT Subjective Patient Comments Patient Comments pt reports she has good pain control with IBU, she has been able to sleep on both sides at night. See is walking with a SPC today Patient Reported Progress Improving PT-OP-F Manual Assessment Start: 06/15/21 09:13 Freq: Status: Active Protocol: Document 08/22/21 12:59 [facility] (Rec: 08/22/21 13:53 [facility] [id number]) Manual Assessments Soft Tissue Assessment Soft Tissue Mobility Assessment tightness in ITB, add, quads, HS& calf R Other Manual Assessments Other Manual Assessments some yellow streaking on RLE unsure if bruising or iodine left; fredrick drain intact, no drainage on bandage PT-OP-G Mobility & Gait Start: 06/15/21 09:13 Freq: Status: Active Protocol: Document 08/22/21 12:59 [facility] (Rec: 08/22/21 13:53 [id number] OP Mobility Evaluation Bed Mobility Supine to and from Sit indep and can lift LE into bed w/o UEs Transfers Sit to Stand uses UE on seat RLE out in front OP Gait Assessment Comments Gait Comments Amb w/ dec knee ext in WB on RLE and dec push off, dec stance time RLE and some lat leaning w/4WW PT-OP-J Posture/Palpation/Skin Start: 06/15/21 09:13 Freq: Status: Active Protocol: Document 06/15/21 12:00 [facility] (Rec: 06/16/21 12:50 [facility] [id number]) Skin Assessment Circumference Measurement 5 cm above patella Measurement (Centimeters) 19 Comments bilaterally joint line knee Location knee joint line Measurement (Centimeters) 17.5 Comments 16.5 L PT-OP-K Range of Motion Start: 06/15/21 09:13 Freq: Status: Active Protocol: Document 08/25/21 11:20 [facility] (Rec: 08/25/21 11:50 [facility] [id number]) Knee Goniometric Range of Motion Knee Right Flexion Active (degrees) 85 Extension Active (degrees) 0 Comments pt is able to touch the back of her knee to the table PT-OP-M Strength Start: 06/15/21 09:13 Freq: Status: Active Protocol: Document 08/22/21 12:59 [facility] (Rec: 08/22/21 13:53 [facility] [id number]) Hip Strength Hip Manual Muscle Testing Left Flexion (L2) 4 Good Abduction 3+ Fair+ Adduction 4- Good- External Rotation 4 Good Internal Rotation 4 Good Right Flexion (L2) 3 Fair Abduction 3+ Fair+ Adduction 3 Fair External Rotation 3 Fair Internal Rotation 3 Fair Knee Strength Knee Manual Muscle Testing Left Flexion (S2) 5 Normal Extension (L3) 4 Good Right Flexion (S2) 3+ Fair+ Extension (L3) 3- Fair- Ankle/Foot Strength Ankle and Foot Manual Muscle Testing Left Dorsiflexion (L4) 5 Normal Plantarflexion (S1) 5 Normal Right Dorsiflexion (L4) 5 Normal Plantarflexion (S1) 4 Good Comments PF tested seated PT-OP-Q Treatments Start: 06/15/21 09:13 Freq: Status: Active Protocol: Document 08/25/21 11:20 [facility] (Rec: 08/25/21 11:47 [facility] [id number]) Therapeutic Exercises Supine Exercises passive ext Side right Reps/Minutes 1 min SLR Side right Reps/Minutes 10 SAQ Side right Reps/Minutes 10 APs Side right Reps/Minutes 20 bridges Reps/Minutes 2 x 10 reps heel slides Side right Reps/Minutes 10 quad sets Side right Reps/Minutes 5 sec x10 Sitting Exercises sit to stand Reps/Minutes x 10 reps Standing Exercises standing calf raises Reps/Minutes 2 x 10 reps Gait Training Gait Activity stair training Description stair training Distance/Duration up and down both sides of stairs x 2 times Comments pt used B rails and was able to perform step over step for up and step to step for down stairs. needed vc to bend right knee when going up stairs PT-OP-R Modalities Start: 08/22/21 14:02 Freq: Status: Active Protocol: Document 08/22/21 12:59 [facility] (Rec: 08/22/21 14:03 [facility] [id number]) Hot Pack/Cold Pack Treatment Cold Pack Location R groin & R knee Patient Position Supine Treatment Duration (minutes) 10 Comments pillow under R lower leg PT-OP-T Assessment and Plan Start: 06/15/21 09:13 Freq: Status: Active Protocol: Document 08/25/21 11:20 [facility] (Rec: 08/25/21 11:47 [facility] [id number]) Physical Therapy Assessment Assessment Summary Assessment knee flexion 85 and pt able to extend her knee to 0. She has been working on her extension stretch at home and reports she could tell a big difference after the first visit. Worked on stairs, pt was able to do step over step with B railings for both sets of stairs. She needs verbal cues to bend her right knee with stairs. Physical Therapy Plan Frequency and Duration Frequency of Treatment 1-2x/week Duration of Treatment 2 months Plan of Care Start Date 08/22/21 Plan of Care End Date 10/22/21 Therapeutic Interventions Therapeutic Interventions Aquatic Therapy,Balance Training,Gait Training,Home Exercise Program,Joint Mobilizations,Manual Therapy, Neuromuscular Re-education, Patient/Caregiver Education, Self-Care/Home Management,Soft Tissue Mobilization,Taping, Therapeutic Activities, Therapeutic Exercises Modalities Cold Pack/Ice Massage,Electric Stimulation,Hot Packs Next Visit Focus/Plan Next Note Type Treatment Note Next Visit Plan continue with TKA exercises, progressing ROM into flexion as tolerated, stair training, and bike or stepper
--- NOTE | 2021-08-30 10:37 | PT.OTN ---
Current Diagnoses Unilateral primary osteoarthritis, right knee (08/30/21) Difficulty in walking, not elsewhere classified (08/30/21) Weakness (08/30/21) Presence of right artificial knee joint (08/30/21) Physical Therapy Treatment Note PT-OP-A Visit Information Start: 06/15/21 09:13 Freq: Status: Active Protocol: Document 08/30/21 08:21 [facility] (Rec: 08/30/21 08:57 [facility] [id number]) Out-Patient Physical Therapy Visit Information Visit Information Visit Type Treatment Note Visit Note 08/18 Visit Start Time 08:18 Visit Stop Time 08:58 Total Visit Minutes 40 Visit Number 4 Number of LIQUID FERTILIZER SERVICER Visits 0 PT-OP-B Current Condition Start: 06/15/21 09:13 Freq: Status: Active Protocol: Document 08/22/21 12:59 [facility] (Rec: 08/22/21 13:53 [facility] [id number]) Current Condition History of Current Condition Onset Date 08/15 Current Complaints R knee pain s/p TKA History of Current Condition RE-eval 08/22- Pt reports surgery 1 week ago on 08/15/21 in surgery center and overall doing well. She has been doing ice and breathing exercises for pain and has only had to take 1 ibuprofen. Pt lost her exercises so she hasn't been doing them. She has been making herself walk through the house for meals and bathroom. IE:surgery 07/14/21 Right knee pain is 4/10 the knee is aggravated is longer walking distances, she needs to hold onto the cart at the store, the more I use it the more it hurts PT is scheduled to go to [place] on Sunday for 3 weeks so is doing her pre op now Treatment Goals Patient/Caregiver Goals Be able to return to work at the [employer] (needs to be amb w/ o cane), Be able to walk distance at a time w/o cane so she can do her trip in Jan in [place], gardening (weeding)-being able to get up/down from ground, get downstairs to her own bed (15 stairs)-eventually reciprocally & w/o rail PT-OP-C Subjective Start: 06/15/21 09:13 Freq: Status: Active Protocol: Document 08/30/21 08:21 [facility] (Rec: 08/30/21 08:57 [facility] [id number]) OP-PT Subjective Patient Comments Patient Comments Pt reports she is rarely used the cane at home. SHe hasn't gone back to work yet. PT-OP-F Manual Assessment Start: 06/15/21 09:13 Freq: Status: Active Protocol: Document 08/22/21 12:59 [facility] (Rec: 08/22/21 13:53 [facility] [id number]) Manual Assessments Soft Tissue Assessment Soft Tissue Mobility Assessment tightness in ITB, add, quads, HS& calf R Other Manual Assessments Other Manual Assessments some yellow streaking on RLE unsure if bruising or iodine left; fredrick drain intact, no drainage on bandage PT-OP-G Mobility & Gait Start: 06/15/21 09:13 Freq: Status: Active Protocol: Document 08/22/21 12:59 [facility] (Rec: 08/22/21 [id number] OP Mobility Evaluation Bed Mobility Supine to and from Sit indep and can lift LE into bed w/o UEs Transfers Sit to Stand uses UE on seat RLE out in front OP Gait Assessment Comments Gait Comments Amb w/ dec knee ext in WB on RLE and dec push off, dec stance time RLE and some lat leaning w/4WW PT-OP-J Posture/Palpation/Skin Start: 06/15/21 09:13 Freq: Status: Active Protocol: Document 06/15/21 12:00 [facility] (Rec: 06/16/21 12:50 [facility] [id number]) Skin Assessment Circumference Measurement 5 cm above patella Measurement (Centimeters) 19 Comments bilaterally joint line knee Location knee joint line Measurement (Centimeters) 17.5 Comments 16.5 L PT-OP-K Range of Motion Start: 06/15/21 09:13 Freq: Status: Active Protocol: Document 08/25/21 11:20 [facility] (Rec: 08/25/21 11:50 [facility] [id number]) Knee Goniometric Range of Motion Knee Right Flexion Active (degrees) 85 Extension Active (degrees) 0 Comments pt is able to touch the back of her knee to the table PT-OP-M Strength Start: 06/15/21 09:13 Freq: Status: Active Protocol: Document 08/22/21 12:59 [facility] (Rec: 08/22/21 13:53 [facility] [id number]) Hip Strength Hip Manual Muscle Testing Left Flexion (L2) 4 Good Abduction 3+ Fair+ Adduction 4- Good- External Rotation 4 Good Internal Rotation 4 Good Right Flexion (L2) 3 Fair Abduction 3+ Fair+ Adduction 3 Fair External Rotation 3 Fair Internal Rotation 3 Fair Knee Strength Knee Manual Muscle Testing Left Flexion (S2) 5 Normal Extension (L3) 4 Good Right Flexion (S2) 3+ Fair+ Extension (L3) 3- Fair- Ankle/Foot Strength Ankle and Foot Manual Muscle Testing Left Dorsiflexion (L4) 5 Normal Plantarflexion (S1) 5 Normal Right Dorsiflexion (L4) 5 Normal Plantarflexion (S1) 4 Good Comments PF tested seated PT-OP-Q Treatments Start: 06/15/21 09:13 Freq: Status: Active Protocol: Document 08/30/21 08:21 [facility] (Rec: 08/30/21 08:57 [facility] [id number]) Cardio Equipment Recumbent Stepper (Sci-Fit) Duration (Minutes) 6 Resistance 1 Seat Position 12-11 Gym Equipment Shuttle Recovery Bilateral Squats Resistance 37# Shuttle Recovery Platform Stable Reps/Time 2x15 Therapeutic Exercises Supine Exercises SLR Side right Reps/Minutes 10 SAQ Side right Reps/Minutes 10x2-3 sec hold heel slides Side right Reps/Minutes 10x3 sec hold quad sets Side right Reps/Minutes 5 sec x10 Sitting Exercises knee flex Side right Reps/Minutes 10 sec x5 sit to stand Sitting Exercise Name from mat table Reps/Minutes x 10 reps Comments trying to get R LE under her further Standing Exercises standing calf raises Reps/Minutes 15 reps Gait Training Gait Activity stair training Description stair training Distance/Duration 2x 4 in and 2x 6 in Comments pt used 1-2 rails and was able to perform step over step for up and step to step for down stairs. needed vc to bend right knee when going up stairs gait training with SPC Comments cues for use of cane and for doing some knee flex during gait and slowing down PT-OP-R Modalities Start: 08/22/21 14:02 Freq: Status: Active Protocol: Document 08/22/21 12:59 [facility] (Rec: 08/22/21 14:03 [facility] [id number]) Hot Pack/Cold Pack Treatment Cold Pack Location R groin & R knee Patient Position Supine Treatment Duration (minutes) 10 Comments pillow under R lower leg PT-OP-T Assessment and Plan Start: 06/15/21 09:13 Freq: Status: Active Protocol: Document 08/30/21 08:21 [facility] (Rec: 08/30/21 08:57 [facility] [id number]) Physical Therapy Assessment Goals up/down Short Term Goal (STG) Pt will be able to do sit to stand from chair w/equal WB and no hands. STG Duration 09/28/21 Trust Operations Assistant Goal (LTG) Pt will be able to get up/down from the ground and squat for gardening tasks. LTG Duration 10/22/21 stairs Short Term Goal (STG) Pt will be able to go up/down stairs in house (15) with SPC and 1 rail safely step to so she can sleep in her bedroom STG Duration 09/09/21 Halfway Goal (LTG) Pt will be able to ascend and descend stairs reciprocally without rail in order to be safe in the community when amb . LTG Duration 10/22/21 ROM Short Term Goal (STG) Pt will improve AROM R knee ROM to 5-105 degrees. STG Duration 09/22/21 Trust Operations Assistant Goal (LTG) Pt will improve AROM R knee ROM to 0-120 degrees to allow for ability to do stairs and good gait mechanics. LTG Duration 10/22/21 gait Short Term Goal (STG) Pt will be able to amb with cane safely in order to be able to [place] [facility] [place] STG Duration 09/22/21 Trust Operations Assistant Goal (LTG) Pt will be able to amb as much as she would like w/o AD without inc pain with good gait pattern in order to be able to travel to [place] with family. LTG Duration 10/22/21 1 Impairment strength Impairment pt lacks a pre-operative HEP Short Term Goal (STG) Pt will be indep w/HEP STG Duration 09/22/21 Halfway Goal (LTG) Pt will score at least 5/5 BLE strength to show improved strength to allow improved functional mobility. LTG Duration 10/22/21 Assessment Summary Assessment Pt did well with exercises today with gradual imprvoing range when performing exericses. She has ROM from 4- 88 degrees today when in supine. She is improving functionally w/mobility. Physical Therapy Plan Frequency and Duration Frequency of Treatment 1-2x/week Duration of Treatment 2 months Plan of Care Start Date 08/22/21 Plan of Care End Date 10/22/21 Next Visit Focus/Plan Next Note Type Treatment Note Next Visit Plan cont to work on gait and stair training and progress knee flex
--- NOTE | 2021-09-01 09:03 | PT.OTN ---
Current Diagnoses Unilateral primary osteoarthritis, right knee (09/01/21) Difficulty in walking, not elsewhere classified (09/01/21) Weakness (09/01/21) Presence of right artificial knee joint (09/01/21) Physical Therapy Treatment Note PT-OP-A Visit Information Start: 06/15/21 09:13 Freq: Status: Active Protocol: Document 09/01/21 08:16 [facility] (Rec: 09/01/21 09:03 [facility] [id number]) Out-Patient Physical Therapy Visit Information Visit Information Visit Type Treatment Note Visit Note 09/18 Visit Start Time 08:19 Visit Stop Time 08:59 Total Visit Minutes 40 Visit Number 5 Number of VESSEL MANAGER Visits 0 PT-OP-B Current Condition Start: 06/15/21 09:13 Freq: Status: Active Protocol: Document 08/22/21 12:59 [facility] (Rec: 08/22/21 13:53 [facility] [id number]) Current Condition History of Current Condition Onset Date 08/15 Current Complaints R knee pain s/p TKA History of Current Condition RE-eval 08/22- Pt reports surgery 1 week ago on 08/15/21 in surgery center and overall doing well. She has been doing ice and breathing exercises for pain and has only had to take 1 ibuprofen. Pt lost her exercises so she hasn't been doing them. She has been making herself walk through the house for meals and bathroom. IE:surgery 07/14/21 Right knee pain is 4/10 the knee is aggravated is longer walking distances, she needs to hold onto the cart at the store, the more I use it the more it hurts PT is scheduled to go to [place] on Sunday for 3 weeks so is doing her pre op now Treatment Goals Patient/Caregiver Goals Be able to return to work at the [employer] (needs to be amb w/ o cane), Be able to walk distance at a time w/o cane so she can do her trip in Jan in [place], gardening (weeding)-being able to get up/down from ground, get downstairs to her own bed (15 stairs)-eventually reciprocally & w/o rail PT-OP-C Subjective Start: 06/15/21 09:13 Freq: Status: Active Protocol: Document 09/01/21 08:16 [facility] (Rec: 09/01/21 09:03 [facility] [id number]) OP-PT Subjective Patient Comments Patient Comments Pt reports she saw Dr. Greene yesterday and she was pleased with where pt was PT-OP-F Manual Assessment Start: 06/15/21 09:13 Freq: Status: Active Protocol: Document 08/22/21 12:59 [facility] (Rec: 08/22/21 13:53 [facility] [id number]) Manual Assessments Soft Tissue Assessment Soft Tissue Mobility Assessment tightness in ITB, add, quads, HS& calf R Other Manual Assessments Other Manual Assessments some yellow streaking on RLE unsure if bruising or iodine left; fredrick drain intact, no drainage on bandage PT-OP-G Mobility & Gait Start: 06/15/21 09:13 Freq: Status: Active Protocol: Document 08/22/21 12:59 [facility] (Rec: 08/22/21 13:53 [facility] [id number]) OP Mobility Evaluation Bed Mobility Supine to and from Sit indep and can lift LE into bed w/o UEs Transfers Sit to Stand uses UE on seat RLE out in front OP Gait Assessment Comments Gait Comments Amb w/ dec knee ext in WB on RLE and dec push off, dec stance time RLE and some lat leaning w/4WW PT-OP-J Posture/Palpation/Skin Start: 06/15/21 09:13 Freq: Status: Active Protocol: Document 06/15/21 12:00 [facility] (Rec: 06/16/21 12:50 [facility] [id number]) Skin Assessment Circumference Measurement 5 cm above patella Measurement (Centimeters) 19 Comments bilaterally joint line knee Location knee joint line Measurement (Centimeters) 17.5 Comments 16.5 L PT-OP-K Range of Motion Start: 06/15/21 09:13 Freq: Status: Active Protocol: Document 08/25/21 11:20 [facility] (Rec: 08/25/21 11:50 [facility] [id number]) Knee Goniometric Range of Motion Knee Right Flexion Active (degrees) 85 Extension Active (degrees) 0 Comments pt is able to touch the back of her knee to the table PT-OP-M Strength Start: 06/15/21 09:13 Freq: Status: Active Protocol: Document 08/22/21 12:59 [facility] (Rec: 08/22/21 13:53 [facility] [id number]) Hip Strength Hip Manual Muscle Testing Left Flexion (L2) 4 Good Abduction 3+ Fair+ Adduction 4- Good- External Rotation 4 Good Internal Rotation 4 Good Right Flexion (L2) 3 Fair Abduction 3+ Fair+ Adduction 3 Fair External Rotation 3 Fair Internal Rotation 3 Fair Knee Strength Knee Manual Muscle Testing Left Flexion (S2) 5 Normal Extension (L3) 4 Good Right Flexion (S2) 3+ Fair+ Extension (L3) 3- Fair- Ankle/Foot Strength Ankle and Foot Manual Muscle Testing Left Dorsiflexion (L4) 5 Normal Plantarflexion (S1) 5 Normal Right Dorsiflexion (L4) 5 Normal Plantarflexion (S1) 4 Good Comments PF tested seated PT-OP-Q Treatments Start: 06/15/21 09:13 Freq: Status: Active Protocol: Document 09/01/21 08:16 [facility] (Rec: 09/01/21 09:03 [facility] [id number]) Cardio Equipment Recumbent Elliptical (Biodex) Duration (Minutes) 6 Resistance 1 Seat Position 8 Gym Equipment Shuttle Recovery Bilateral Squats Resistance 50# Shuttle Recovery Platform Stable Reps/Time 2x15 Therapeutic Ball supine Ball Size/Color 65cm Body Position Supine Reps/Duration 15x 5 sec hold Comments 1. knee bends w/focus on core neutral for ROM Therapeutic Exercises Supine Exercises quad sets Supine Exercise Name into PT hand Side right Reps/Minutes 5 sec x10 Sitting Exercises knee flex Side right Reps/Minutes 10 sec x8 sit to stand Sitting Exercise Name from mat table Reps/Minutes x 10 reps Comments trying to get R LE under her further Standing Exercises standing calf raises Reps/Minutes 15 reps Gait Training Gait Activity gait Comments gait without AD working on knee flex throughout clinic stair training Description stair training Distance/Duration 6 in up and 4 in downx3 Comments using 1 rail and working on reciprocal up/down Manual Therapy Treatment Soft Tissue Mobilization quad Body Location VM & VL Mobilization Type Rolling,Strumming Intensity/Depth Moderate 1 Body Location HS & Calf Mobilization Type Rolling,Strumming Intensity/Depth Moderate PT-OP-R Modalities Start: 08/22/21 14:02 Freq: Status: Active Protocol: Document 08/22/21 12:59 [facility] (Rec: 08/22/21 14:03 [facility] [id number]) Hot Pack/Cold Pack Treatment Cold Pack Location R groin & R knee Patient Position Supine Treatment Duration (minutes) 10 Comments pillow under R lower leg PT-OP-T Assessment and Plan Start: 06/15/21 09:13 Freq: Status: Active Protocol: Document 09/01/21 08:16 [facility] (Rec: 09/01/21 09:03 [facility] [id number]) Physical Therapy Assessment Goals up/down Short Term Goal (STG) Pt will be able to do sit to stand from chair w/equal WB and no hands. STG Duration 09/28/21 [facility] Goal (LTG) Pt will be able to get up/down from the ground and squat for gardening tasks. LTG Duration 10/22/21 stairs Short Term Goal (STG) Pt will be able to go up/down stairs in house (15) with SPC and 1 rail safely step to so she can sleep in her bedroom STG Duration 09/09/21 [facility] Goal (LTG) Pt will be able to ascend and descend stairs reciprocally without rail in order to be safe in the community when amb . LTG Duration 10/22/21 ROM Short Term Goal (STG) Pt will improve AROM R knee ROM to 5-105 degrees. STG Duration 09/22/21 [facility] Goal (LTG) Pt will improve AROM R knee ROM to 0-120 degrees to allow for ability to do stairs and good gait mechanics. LTG Duration 10/22/21 gait Short Term Goal (STG) Pt will be able to amb with cane safely in order to be able to return to [place]rok [place] the [facility] [place]. STG Duration 09/22/21 [facility] Goal (LTG) Pt will be able to amb as much as she would like w/o AD without inc pain with good gait pattern in order to be able to travel to [place] with family. LTG Duration 10/22/21 1 Impairment strength Impairment pt lacks a pre-operative HEP Short Term Goal (STG) Pt will be indep w/HEP STG Duration 09/22/21 Skirt Clipper Goal (LTG) Pt will score at least 5/5 BLE strength to show improved strength to allow improved functional mobility. LTG Duration 10/22/21 Assessment Summary Assessment Pt did well with ROM with about 6-90 deg and showed ability to do more range on stepper and w/leg press. She improved ext to about 2 deg after manual treatment. Physical Therapy Plan Frequency and Duration Frequency of Treatment 1-2x/week Duration of Treatment 2 months Plan of Care Start Date 08/22/21 Plan of Care End Date 10/22/21 Next Visit Focus/Plan Next Note Type Treatment Note Next Visit Plan cont to work on gait and stair training and progress knee flex
--- NOTE | 2021-09-05 13:46 | PT.OTN ---
Current Diagnoses Unilateral primary osteoarthritis, right knee (09/05/21) Difficulty in walking, not elsewhere classified (09/05/21) Weakness (09/05/21) Presence of right artificial knee joint (09/05/21) Physical Therapy Treatment Note PT-OP-A Visit Information Start: 06/15/21 09:13 Freq: Status: Active Protocol: Document 09/05/21 12:23 [facility] (Rec: 09/05/21 13:46 [facility] [id number]) Out-Patient Physical Therapy Visit Information Visit Information Visit Type Treatment Note Visit Note 10/18 Visit Start Time 13:00 Visit Stop Time 13:42 Total Visit Minutes 42 Visit Number 6 Number of DESIGN ENGINEER PRODUCTS Visits 0 PT-OP-B Current Condition Start: 06/15/21 09:13 Freq: Status: Active Protocol: Document 08/22/21 12:59 [facility] (Rec: 08/22/21 13:53 [facility] [id number]) Current Condition History of Current Condition Onset Date 08/15 Current Complaints R knee pain s/p TKA History of Current Condition RE-eval 08/22- Pt reports surgery 1 week ago on 08/15/21 in surgery center and overall doing well. She has been doing ice and breathing exercises for pain and has only had to take 1 ibuprofen. Pt lost her exercises so she hasn't been doing them. She has been making herself walk through the house for meals and bathroom. IE:surgery 07/14/21 Right knee pain is 4/10 the knee is aggravated is longer walking distances, she needs to hold onto the cart at the store, the more I use it the more it hurts PT is scheduled to go to [place] on Sunday for 3 weeks so is doing her pre op now Treatment Goals Patient/Caregiver Goals Be able to return to work at the [employer] (needs to be amb w/ o cane), Be able to walk distance at a time w/o cane so she can do her trip in Jan in [place], gardening (weeding)-being able to get up/down from ground, get downstairs to her own bed (15 stairs)-eventually reciprocally & w/o rail PT-OP-C Subjective Start: 06/15/21 09:13 Freq: Status: Active Protocol: Document 09/05/21 12:23 [facility] (Rec: 09/05/21 13:[id number]-PT Subjective Patient Comments Patient Comments Pt reports she got downstairs and tried to go step over step was painful. She was able to go up one at a time though. Notes she is working on her walking without the cane. Worked 2 hours on and 2 on Sunday and plans to try for 3 tomorrow. PT-OP-F Manual Assessment Start: 06/15/21 09:13 Freq: Status: Active Protocol: Document 08/22/21 12:59 [facility] (Rec: 08/22/21 13:53 [id number] Manual Assessments Soft Tissue Assessment Soft Tissue Mobility Assessment tightness in ITB, add, quads, HS& calf R Other Manual Assessments Other Manual Assessments some yellow streaking on RLE unsure if bruising or iodine left; fredrick drain intact, no drainage on bandage PT-OP-G Mobility & Gait Start: 06/15/21 09:13 Freq: Status: Active Protocol: Document 08/22/21 12:59 [facility] (Rec: 08/22/21 13:53 [id number] OP Mobility Evaluation Bed Mobility Supine to and from Sit indep and can lift LE into bed w/o UEs Transfers Sit to Stand uses UE on seat RLE out in front OP Gait Assessment Comments Gait Comments Amb w/ dec knee ext in WB on RLE and dec push off, dec stance time RLE and some lat leaning w/4WW PT-OP-J Posture/Palpation/Skin Start: 06/15/21 09:13 Freq: Status: Active Protocol: Document 06/15/21 12:00 [facility] (Rec: 06/16/21 12:50 [facility] [id number]) Skin Assessment Circumference Measurement 5 cm above patella Measurement (Centimeters) 19 Comments bilaterally joint line knee Location knee joint line Measurement (Centimeters) 17.5 Comments 16.5 L PT-OP-K Range of Motion Start: 06/15/21 09:13 Freq: Status: Active Protocol: Document 08/25/21 11:20 [facility] (Rec: 08/25/21 11:50 [facility] [id number]) Knee Goniometric Range of Motion Knee Right Flexion Active (degrees) 85 Extension Active (degrees) 0 Comments pt is able to touch the back of her knee to the table PT-OP-M Strength Start: 06/15/21 09:13 Freq: Status: Active Protocol: Document 08/22/21 12:59 [facility] (Rec: 08/22/21 13:53 [facility] [id number]) Hip Strength Hip Manual Muscle Testing Left Flexion (L2) 4 Good Abduction 3+ Fair+ Adduction 4- Good- External Rotation 4 Good Internal Rotation 4 Good Right Flexion (L2) 3 Fair Abduction 3+ Fair+ Adduction 3 Fair External Rotation 3 Fair Internal Rotation 3 Fair Knee Strength Knee Manual Muscle Testing Left Flexion (S2) 5 Normal Extension (L3) 4 Good Right Flexion (S2) 3+ Fair+ Extension (L3) 3- Fair- Ankle/Foot Strength Ankle and Foot Manual Muscle Testing Left Dorsiflexion (L4) 5 Normal Plantarflexion (S1) 5 Normal Right Dorsiflexion (L4) 5 Normal Plantarflexion (S1) 4 Good Comments PF tested seated PT-OP-Q Treatments Start: 06/15/21 09:13 Freq: Status: Active Protocol: Document 09/05/21 12:23 [facility] (Rec: 09/05/21 13:46 [facility] [id number]) Cardio Equipment Recumbent Elliptical (Biodex) Duration (Minutes) 6 Resistance 1 Seat Position 8-7 Gym Equipment Shuttle Recovery Bilateral Squats Resistance 62# Shuttle Recovery Platform Stable Reps/Time 2x15 Therapeutic Ball supine Ball Size/Color 65cm Body Position Supine Reps/Duration 10x 5 sec hold Comments 1. knee bends w/focus on core neutral for ROM Therapeutic Exercises Sitting Exercises knee flex Side right Reps/Minutes 10 sec x6 sit to stand Sitting Exercise Name from mat table Reps/Minutes x 10 reps Comments trying to get R LE under her further Standing Exercises sidestep Side bilateral Equipment Used Lvl 1 Reps/Minutes 20ft ea TKE Side right Equipment Used L1 Reps/Minutes 15 stretch Standing Exercise Name [place] Side bilateral Reps/Minutes 1 min standing calf raises Reps/Minutes 20 reps Gait Training Gait Activity stair training Description stair training Distance/Duration 6 in up and 4 in downx2 Comments using 1 rail and working on reciprocal up/down Manual Therapy Treatment Soft Tissue Mobilization quad Body Location VM & VL Mobilization Type Rolling,Strumming Intensity/Depth Moderate Body Position Supine 1 Body Location HS & adductor Mobilization Type Rolling,Strumming Intensity/Depth Moderate Body Position Supine PT-OP-R Modalities Start: 08/22/21 14:02 Freq: Status: Active Protocol: Document 08/22/21 12:59 [facility] (Rec: 08/22/21 14:03 [facility] [id number]) Hot Pack/Cold Pack Treatment Cold Pack Location R groin & R knee Patient Position Supine Treatment Duration (minutes) 10 Comments pillow under R lower leg PT-OP-T Assessment and Plan Start: 06/15/21 09:13 Freq: Status: Active Protocol: Document 09/05/21 12:23 [facility] (Rec: 09/05/21 13:46 [facility] [id number]) Physical Therapy Assessment Goals up/down Short Term Goal (STG) Pt will be able to do sit to stand from chair w/equal WB and no hands. STG Duration 09/28/21 Senior Care Goal (LTG) Pt will be able to get up/down from the ground and squat for gardening tasks. LTG Duration 10/22/21 stairs Short Term Goal (STG) Pt will be able to go up/down stairs in house (15) with SPC and 1 rail safely step to so she can sleep in her bedroom STG Duration 09/09/21 Senior Care Goal (LTG) Pt will be able to ascend and descend stairs reciprocally without rail in order to be safe in the community when amb . LTG Duration 10/22/21 ROM Short Term Goal (STG) Pt will improve AROM R knee ROM to 5-105 degrees. STG Duration 09/22/21 Senior Care Goal (LTG) Pt will improve AROM R knee ROM to 0-120 degrees to allow for ability to do stairs and good gait mechanics. LTG Duration 10/22/21 gait Short Term Goal (STG) Pt will be able to amb with cane safely in order to be able to return to wrok [place] the [facility] [place] STG Duration 09/22/21 Private Investigator Surveillance Goal (LTG) Pt will be able to amb as much as she would like w/o AD without inc pain with good gait pattern in order to be able to travel to [place] with family. LTG Duration 10/22/21 1 Impairment strength Impairment pt lacks a pre-operative HEP Short Term Goal (STG) Pt will be indep w/HEP STG Duration 09/22/21 Private Investigator Surveillance Goal (LTG) Pt will score at least 5/5 BLE strength to show improved strength to allow improved functional mobility. LTG Duration 10/22/21 Assessment Summary Assessment Pt presented with much better gait today even w/o cane. She was told seh could now amb without cane. She cont to improve w/ROM and functionally . pt had 4-98 deg rOM Physical Therapy Plan Frequency and Duration Frequency of Treatment 1-2x/week Duration of Treatment 2 months Plan of Care Start Date 08/22/21 Plan of Care End Date 10/22/21 Next Visit Focus/Plan Next Note Type Treatment Note Next Visit Plan cont to work knee ROM and LE strength
--- NOTE | 2021-09-08 09:00 | PT.OTN ---
Current Diagnoses Unilateral primary osteoarthritis, right knee (09/08/21) Difficulty in walking, not elsewhere classified (09/08/21) Weakness (09/08/21) Presence of right artificial knee joint (09/08/21) Physical Therapy Treatment Note PT-OP-A Visit Information Start: 06/15/21 09:13 Freq: Status: Active Protocol: Document 09/08/21 08:12 [facility] (Rec: 09/08/21 09:00 [facility] [id number]) Out-Patient Physical Therapy Visit Information Visit Information Visit Type Treatment Note Visit Note 11/18 Visit Start Time 08:14 Visit Stop Time 08:58 Total Visit Minutes 44 Visit Number 7 Number of CUSTOM SKI MAKER Visits 0 PT-OP-B Current Condition Start: 06/15/21 09:13 Freq: Status: Active Protocol: Document 08/22/21 12:59 [facility] (Rec: 08/22/21 13:53 [facility] [id number]) Current Condition History of Current Condition Onset Date 08/15 Current Complaints R knee pain s/p TKA History of Current Condition RE-eval 08/22- Pt reports surgery 1 week ago on 08/15/21 in surgery center and overall doing well. She has been doing ice and breathing exercises for pain and has only had to take 1 ibuprofen. Pt lost her exercises so she hasn't been doing them. She has been making herself walk through the house for meals and bathroom. IE:surgery 07/14/21 Right knee pain is 4/10 the knee is aggravated is longer walking distances, she needs to hold onto the cart at the store, the more I use it the more it hurts PT is scheduled to go to [place] on Sunday for 3 weeks so is doing her pre op now Treatment Goals Patient/Caregiver Goals Be able to return to work at the [employer] (needs to be amb w/ o cane), Be able to walk distance at a time w/o cane so she can do her trip in Jan in [place], gardening (weeding)-being able to get up/down from ground, get downstairs to her own bed (15 stairs)-eventually reciprocally & w/o rail PT-OP-C Subjective Start: 06/15/21 09:13 Freq: Status: Active Protocol: Document 09/08/21 08:12 [facility] (Rec: 09/08/21 09:00 [facility] [id number]) OP-PT Subjective Patient Comments Patient Comments you just about killed me last session. Pt reports she was very wiped out after last session PT-OP-F Manual Assessment Start: 06/15/21 09:13 Freq: Status: Active Protocol: Document 08/22/21 12:59 [facility] (Rec: 08/22/21 13:53 [facility] [id number]) Manual Assessments Soft Tissue Assessment Soft Tissue Mobility Assessment tightness in ITB, add, quads, HS& calf R Other Manual Assessments Other Manual Assessments some yellow streaking on RLE unsure if bruising or iodine left; fredrick drain intact, no drainage on bandage PT-OP-G Mobility & Gait Start: 06/15/21 09:13 Freq: Status: Active Protocol: Document 08/22/21 12:59 [facility] (Rec: 08/22/21 13:53 [id number] OP Mobility Evaluation Bed Mobility Supine to and from Sit indep and can lift LE into bed w/o UEs Transfers Sit to Stand uses UE on seat RLE out in front OP Gait Assessment Comments Gait Comments Amb w/ dec knee ext in WB on RLE and dec push off, dec stance time RLE and some lat leaning w/4WW PT-OP-J Posture/Palpation/Skin Start: 06/15/21 09:13 Freq: Status: Active Protocol: Document 06/15/21 12:00 [facility] (Rec: 06/16/21 12:50 [facility] [id number]) Skin Assessment Circumference Measurement 5 cm above patella Measurement (Centimeters) 19 Comments bilaterally joint line knee Location knee joint line Measurement (Centimeters) 17.5 Comments 16.5 L PT-OP-K Range of Motion Start: 06/15/21 09:13 Freq: Status: Active Protocol: Document 08/25/21 11:20 [facility] (Rec: 08/25/21 11:50 [facility] [id number]) Knee Goniometric Range of Motion Knee Right Flexion Active (degrees) 85 Extension Active (degrees) 0 Comments pt is able to touch the back of her knee to the table PT-OP-M Strength Start: 06/15/21 09:13 Freq: Status: Active Protocol: Document 08/22/21 12:59 [facility] (Rec: 08/22/21 13:53 [facility] [id number]) Hip Strength Hip Manual Muscle Testing Left Flexion (L2) 4 Good Abduction 3+ Fair+ Adduction 4- Good- External Rotation 4 Good Internal Rotation 4 Good Right Flexion (L2) 3 Fair Abduction 3+ Fair+ Adduction 3 Fair External Rotation 3 Fair Internal Rotation 3 Fair Knee Strength Knee Manual Muscle Testing Left Flexion (S2) 5 Normal Extension (L3) 4 Good Right Flexion (S2) 3+ Fair+ Extension (L3) 3- Fair- Ankle/Foot Strength Ankle and Foot Manual Muscle Testing Left Dorsiflexion (L4) 5 Normal Plantarflexion (S1) 5 Normal Right Dorsiflexion (L4) 5 Normal Plantarflexion (S1) 4 Good Comments PF tested seated PT-OP-Q Treatments Start: 06/15/21 09:13 Freq: Status: Active Protocol: Document 09/08/21 08:12 [facility] (Rec: 09/08/21 09:00 [facility] [id number]) Cardio Equipment Recumbent Bicycle Duration (Minutes) 6 Resistance 0 Seat Position 5 Gym Equipment Shuttle Recovery Bilateral Squats Resistance 75# Shuttle Recovery Platform Stable Reps/Time 2x15 Therapeutic Ball supine Ball Size/Color 55cm Body Position Supine Reps/Duration 10x 5 sec hold Comments 1. knee bends w/focus on core neutral for ROM Therapeutic Exercises Standing Exercises knee flex Side bilateral Reps/Minutes 15 ea hip ext Side bilateral Equipment Used Lvl 1 Reps/Minutes 15 ea step ups Side right Equipment Used 4 in step Reps/Minutes 12 Comments rail only prn sidestep Side bilateral Equipment Used Lvl 1 Reps/Minutes 20ft ea TKE Side right Equipment Used L1 Reps/Minutes 15 stretch Standing Exercise Name 1.calf on step 2. HS on step Side bilateral Reps/Minutes 30 sec standing calf raises Standing Exercise Name on stairs Side bilateral Reps/Minutes 20 reps Manual Therapy Treatment Soft Tissue Mobilization 1 Body Location calf & adductor Mobilization Type Rolling,Strumming Intensity/Depth Moderate Body Position Supine Joint Mobilizations patellofemoral Joint R Direction sup, inf, med PT-OP-R Modalities Start: 08/22/21 14:02 Freq: Status: Active Protocol: Document 08/22/21 12:59 [facility] (Rec: 08/22/21 14:03 [facility] [id number]) Hot Pack/Cold Pack Treatment Cold Pack Location R groin & R knee Patient Position Supine Treatment Duration (minutes) 10 Comments pillow under R lower leg PT-OP-T Assessment and Plan Start: 06/15/21 09:13 Freq: Status: Active Protocol: Document 09/08/21 08:12 [facility] (Rec: 09/08/21 09:00 [facility] [id number]) Physical Therapy Assessment Goals up/down Short Term Goal (STG) Pt will be able to do sit to stand from chair w/equal WB and no hands. STG Duration 09/28/21 Aquatic Physiotherapist Goal (LTG) Pt will be able to get up/down from the ground and squat for gardening tasks. LTG Duration 10/22/21 stairs Short Term Goal (STG) Pt will be able to go up/down stairs in house (15) with SPC and 1 rail safely step to so she can sleep in her bedroom STG Duration 09/09/21 Aquatic Physiotherapist Goal (LTG) Pt will be able to ascend and descend stairs reciprocally without rail in order to be safe in the community when amb . LTG Duration 10/22/21 ROM Short Term Goal (STG) Pt will improve AROM R knee ROM to 5-105 degrees. STG Duration 09/22/21 Aquatic Physiotherapist Goal (LTG) Pt will improve AROM R knee ROM to 0-120 degrees to allow for ability to do stairs and good gait mechanics. LTG Duration 10/22/21 gait Short Term Goal (STG) Pt will be able to amb with cane safely in order to be able to return to wrok at the [facility] [place]. STG Duration 09/22/21 [facility] Goal (LTG) Pt will be able to amb as much as she would like w/o AD without inc pain with good gait pattern in order to be able to travel to [place] with family. LTG Duration 10/22/21 1 Impairment strength Impairment pt lacks a pre-operative HEP Short Term Goal (STG) Pt will be indep w/HEP STG Duration 09/22/21 [facility] Goal (LTG) Pt will score at least 5/5 BLE strength to show improved strength to allow improved functional mobility. LTG Duration 10/22/21 Assessment Summary Assessment Pt cont to improve w/ resistance of exercises and tolerates more difficult exercises. She can do 6 in step ups w/a lot of body momentum but can do 4in w/good control. AROM today 3-101 Physical Therapy Plan Frequency and Duration Frequency of Treatment 1-2x/week Duration of Treatment 2 months Plan of Care Start Date 08/22/21 Plan of Care End Date 10/22/21 Next Visit Focus/Plan Next Note Type Treatment Note Next Visit Plan cont to work knee ROM and LE strength
--- NOTE | 2021-09-13 09:00 | PT.OTN ---
Current Diagnoses Unilateral primary osteoarthritis, right knee (09/13/21) Difficulty in walking, not elsewhere classified (09/13/21) Weakness (09/13/21) Presence of right artificial knee joint (09/13/21) Physical Therapy Treatment Note PT-OP-A Visit Information Start: 06/15/21 09:13 Freq: Status: Active Protocol: Document 09/13/21 08:02 [facility] (Rec: 09/13/21 09:00 [facility] [id number]) Out-Patient Physical Therapy Visit Information Visit Information Visit Type Treatment Note Visit Note 12/18 Visit Start Time 08:15 Visit Stop Time 08:58 Total Visit Minutes 43 Visit Number 8 Number of RATE ENGINEER Visits 0 PT-OP-B Current Condition Start: 06/15/21 09:13 Freq: Status: Active Protocol: Document 08/22/21 12:59 [facility] (Rec: 08/22/21 13:53 [facility] [id number]) Current Condition History of Current Condition Onset Date 08/15 Current Complaints R knee pain s/p TKA History of Current Condition RE-eval 08/22- Pt reports surgery 1 week ago on 08/15/21 in surgery center and overall doing well. She has been doing ice and breathing exercises for pain and has only had to take 1 ibuprofen. Pt lost her exercises so she hasn't been doing them. She has been making herself walk through the house for meals and bathroom. IE:surgery 07/14/21 Right knee pain is 4/10 the knee is aggravated is longer walking distances, she needs to hold onto the cart at the store, the more I use it the more it hurts PT is scheduled to go to [place] on Sunday for 3 weeks so is doing her pre op now Treatment Goals Patient/Caregiver Goals Be able to return to work at the [employer] (needs to be amb w/ o cane), Be able to walk distance at a time w/o cane so she can do her trip in Jan in [place], gardening (weeding)-being able to get up/down from ground, get downstairs to her own bed (15 stairs)-eventually reciprocally & w/o rail PT-OP-C Subjective Start: 06/15/21 09:13 Freq: Status: Active Protocol: Document 09/13/21 08:02 [facility] (Rec: 09/13/21 09:00 [facility] [id number]) OP-PT Subjective Patient Comments Patient Comments It keeps getting better every day. She worked 4 hours on Sunday but was exhausted after . Notes L hip is a little sore again. Pt has been going up/ down her stairs (step to downa nd step through up). PT-OP-F Manual Assessment Start: 06/15/21 09:13 Freq: Status: Active Protocol: Document 08/22/21 12:59 [facility]Rec[facility] 08/22/21 [id number] Manual Assessments Soft Tissue Assessment Soft Tissue Mobility Assessment tightness in ITB, add, quads, HS& calf R Other Manual Assessments Other Manual Assessments some yellow streaking on RLE unsure if bruising or iodine left; fredrick drain intact, no drainage on bandage PT-OP-G Mobility & Gait Start: 06/15/21 09:13 Freq: Status: Active Protocol: Document 08/22/21 12:59 [facility] (Rec: 08/22/21 [id number] OP Mobility Evaluation Bed Mobility Supine to and from Sit indep and can lift LE into bed w/o UEs Transfers Sit to Stand uses UE on seat RLE out in front OP Gait Assessment Comments Gait Comments Amb w/ dec knee ext in WB on RLE and dec push off, dec stance time RLE and some lat leaning w/4WW PT-OP-J Posture/Palpation/Skin Start: 06/15/21 09:13 Freq: Status: Active Protocol: Document 06/15/21 12:00 [facility] (Rec: 06/16/21 12:50 [facility] [id number]) Skin Assessment Circumference Measurement 5 cm above patella Measurement (Centimeters) 19 Comments bilaterally joint line knee Location knee joint line Measurement (Centimeters) 17.5 Comments 16.5 L PT-OP-K Range of Motion Start: 06/15/21 09:13 Freq: Status: Active Protocol: Document 08/25/21 11:20 [facility] (Rec: 08/25/21 11:50 [facility] [id number]) Knee Goniometric Range of Motion Knee Right Flexion Active (degrees) 85 Extension Active (degrees) 0 Comments pt is able to touch the back of her knee to the table PT-OP-M Strength Start: 06/15/21 09:13 Freq: Status: Active Protocol: Document 08/22/21 12:59 [facility] (Rec: 08/22/21 13:53 [facility] [id number]) Hip Strength Hip Manual Muscle Testing Left Flexion (L2) 4 Good Abduction 3+ Fair+ Adduction 4- Good- External Rotation 4 Good Internal Rotation 4 Good Right Flexion (L2) 3 Fair Abduction 3+ Fair+ Adduction 3 Fair External Rotation 3 Fair Internal Rotation 3 Fair Knee Strength Knee Manual Muscle Testing Left Flexion (S2) 5 Normal Extension (L3) 4 Good Right Flexion (S2) 3+ Fair+ Extension (L3) 3- Fair- Ankle/Foot Strength Ankle and Foot Manual Muscle Testing Left Dorsiflexion (L4) 5 Normal Plantarflexion (S1) 5 Normal Right Dorsiflexion (L4) 5 Normal Plantarflexion (S1) 4 Good Comments PF tested seated PT-OP-Q Treatments Start: 06/15/21 09:13 Freq: Status: Active Protocol: Document 09/13/21 08:02 [facility] (Rec: 09/13/21 09:00 [facility] [id number]) Cardio Equipment Recumbent Bicycle Duration (Minutes) 6 Resistance 0 Seat Position 6 Other fwd/back circles Gym Equipment Shuttle Recovery Unilateral Squats Resistance 37# Shuttle Recovery Platform Stable Reps/Time x15 Bilateral Squats Resistance 87# Shuttle Recovery Platform Stable Reps/Time x15 Therapeutic Exercises Supine Exercises stretch Supine Exercise Name 1. figure 4 2. piriformis Side bilateral Reps/Minutes 30 sec ea Standing Exercises knee flex Side bilateral Reps/Minutes 15 ea step ups Side right Equipment Used 5 in step Reps/Minutes 12 Comments rail only prn sidestep Side bilateral Equipment Used Lvl 2 Reps/Minutes 20ft ea TKE Side right Equipment Used L2 Reps/Minutes 15 stretch Standing Exercise Name 1.calf on step 2. HS on step Side bilateral Reps/Minutes 30 sec standing calf raises Standing Exercise Name on stairs Side bilateral Reps/Minutes 20 reps Manual Therapy Treatment Soft Tissue Mobilization quad Body Location VM & VL & quad tendon Mobilization Type Rolling,Strumming Intensity/Depth Moderate Body Position Supine 1 Body Location R ITB Mobilization Type Rolling,Strumming Intensity/Depth Moderate Body Position Supine Joint Mobilizations patellofemoral Joint R Direction sup, inf, med PT-OP-R Modalities Start: 08/22/21 14:02 Freq: Status: Active Protocol: Document 08/22/21 12:59 [facility] (Rec: 08/22/21 14:03 [facility] [id number]) Hot Pack/Cold Pack Treatment Cold Pack Location R groin & R knee Patient Position Supine Treatment Duration (minutes) 10 Comments pillow under R lower leg PT-OP-T Assessment and Plan Start: 06/15/21 09:13 Freq: Status: Active Protocol: Document 09/13/21 08:02 [facility] (Rec: 09/13/21 09:00 [facility] [id number]) Physical Therapy Assessment Goals up/down Short Term Goal (STG) Pt will be able to do sit to stand from chair w/equal WB and no hands. STG Duration 09/28/21 Group Home Goal (LTG) Pt will be able to get up/down from the ground and squat for gardening tasks. LTG Duration 10/22/21 stairs Short Term Goal (STG) Pt will be able to go up/down stairs in house (15) with SPC and 1 rail safely step to so she can sleep in her bedroom STG Duration 09/09/21 Gaming Department Head Goal (LTG) Pt will be able to ascend and descend stairs reciprocally without rail in order to be safe in the community when amb . LTG Duration 10/22/21 ROM Short Term Goal (STG) Pt will improve AROM R knee ROM to 5-105 degrees. STG Duration 09/22/21 Group Home Goal (LTG) Pt will improve AROM R knee ROM to 0-120 degrees to allow for ability to do stairs and good gait mechanics. LTG Duration 10/22/21 gait Short Term Goal (STG) Pt will be able to amb with cane safely in order to be able to return to wrok at the [employer]. STG Duration 09/22/21 Gaming Department Head Goal (LTG) Pt will be able to amb as much as she would like w/o AD without inc pain with good gait pattern in order to be able to travel to [place] with family. LTG Duration 10/22/21 1 Impairment strength Impairment pt lacks a pre-operative HEP Short Term Goal (STG) Pt will be indep w/HEP STG Duration 09/22/21 Group Home Goal (LTG) Pt will score at least 5/5 BLE strength to show improved strength to allow improved functional mobility. LTG Duration 10/22/21 Assessment Summary Assessment Pt had pain in L LB area ( where pt refers to L hip) with knee flex so told to stop. She does get good stretch w/HS stretch after. She is improving w/strength and function but did require cues w/TKE and step ups though. ROM prior to manual today:4-103 Physical Therapy Plan Frequency and Duration Frequency of Treatment 1-2x/week Duration of Treatment 2 months Plan of Care Start Date 08/22/21 Plan of Care End Date 10/22/21 Next Visit Focus/Plan Next Note Type Treatment Note Next Visit Plan cont to work knee ROM and LE strength
--- NOTE | 2021-09-15 13:43 | PT.OTN ---
Current Diagnoses Unilateral primary osteoarthritis, right knee (09/15/21) Difficulty in walking, not elsewhere classified (09/15/21) Weakness (09/15/21) Presence of right artificial knee joint (09/15/21) Physical Therapy Treatment Note PT-OP-A Visit Information Start: 06/15/21 09:13 Freq: Status: Active Protocol: Document 09/15/21 13:04 [facility] (Rec: 09/15/21 13:43 [facility] [id number]) Out-Patient Physical Therapy Visit Information Visit Information Visit Type Treatment Note Visit Note 01/18 Visit Start Time 13:01 Visit Stop Time 13:41 Total Visit Minutes 40 Visit Number 9 Number of SHIP LOADER Visits 0 PT-OP-B Current Condition Start: 06/15/21 09:13 Freq: Status: Active Protocol: Document 08/22/21 12:59 [facility] (Rec: 08/22/21 13:53 [facility] [id number]) Current Condition History of Current Condition Onset Date 08/15 Current Complaints R knee pain s/p TKA History of Current Condition RE-eval 08/22- Pt reports surgery 1 week ago on 08/15/21 in surgery center and overall doing well. She has been doing ice and breathing exercises for pain and has only had to take 1 ibuprofen. Pt lost her exercises so she hasn't been doing them. She has been making herself walk through the house for meals and bathroom. IE:surgery 07/14/21 Right knee pain is 4/10 the knee is aggravated is longer walking distances, she needs to hold onto the cart at the store, the more I use it the more it hurts PT is scheduled to go to [place] on Sunday for 3 weeks so is doing her pre op now Treatment Goals Patient/Caregiver Goals Be able to return to work at the [employer] (needs to be amb w/ o cane), Be able to walk distance at a time w/o cane so she can do her trip in Jan in [place], gardening (weeding)-being able to get up/down from ground, get downstairs to her own bed (15 stairs)-eventually reciprocally & w/o rail PT-OP-C Subjective Start: 06/15/21 09:13 Freq: Status: Active Protocol: Document 09/15/21 13:04 [facility] (Rec: 09/15/21 13:43 [facility] [id number]) OP-PT Subjective Patient Comments Patient Comments Pt reports she was able to get in/out of the bathtub shower and she slept down stairs and it went great. Patient Reported Progress Improving PT-OP-F Manual Assessment Start: 06/15/21 09:13 Freq: Status: Active Protocol: Document 08/22/21 12:59 [facility] (Rec: 08/22/21 13:53 [id number] Manual Assessments Soft Tissue Assessment Soft Tissue Mobility Assessment tightness in ITB, add, quads, HS& calf R Other Manual Assessments Other Manual Assessments some yellow streaking on RLE unsure if bruising or iodine left; fredrick drain intact, no drainage on bandage PT-OP-G Mobility & Gait Start: 06/15/21 09:13 Freq: Status: Active Protocol: Document 08/22/21 12:59 [facility] (Rec: 08/22/21 13:53 [id number] OP Mobility Evaluation Bed Mobility Supine to and from Sit indep and can lift LE into bed w/o UEs Transfers Sit to Stand uses UE on seat RLE out in front OP Gait Assessment Comments Gait Comments Amb w/ dec knee ext in WB on RLE and dec push off, dec stance time RLE and some lat leaning w/4WW PT-OP-J Posture/Palpation/Skin Start: 06/15/21 09:13 Freq: Status: Active Protocol: Document 06/15/21 12:00 [facility] (Rec: 06/16/21 12:50 [facility] [id number]) Skin Assessment Circumference Measurement 5 cm above patella Measurement (Centimeters) 19 Comments bilaterally joint line knee Location knee joint line Measurement (Centimeters) 17.5 Comments 16.5 L PT-OP-K Range of Motion Start: 06/15/21 09:13 Freq: Status: Active Protocol: Document 08/25/21 11:20 [facility] (Rec: 08/25/21 11:50 [facility] [id number]) Knee Goniometric Range of Motion Knee Right Flexion Active (degrees) 85 Extension Active (degrees) 0 Comments pt is able to touch the back of her knee to the table PT-OP-M Strength Start: 06/15/21 09:13 Freq: Status: Active Protocol: Document 08/22/21 12:59 [facility] (Rec: 08/22/21 13:53 [facility] [id number]) Hip Strength Hip Manual Muscle Testing Left Flexion (L2) 4 Good Abduction 3+ Fair+ Adduction 4- Good- External Rotation 4 Good Internal Rotation 4 Good Right Flexion (L2) 3 Fair Abduction 3+ Fair+ Adduction 3 Fair External Rotation 3 Fair Internal Rotation 3 Fair Knee Strength Knee Manual Muscle Testing Left Flexion (S2) 5 Normal Extension (L3) 4 Good Right Flexion (S2) 3+ Fair+ Extension (L3) 3- Fair- Ankle/Foot Strength Ankle and Foot Manual Muscle Testing Left Dorsiflexion (L4) 5 Normal Plantarflexion (S1) 5 Normal Right Dorsiflexion (L4) 5 Normal Plantarflexion (S1) 4 Good Comments PF tested seated PT-OP-Q Treatments Start: 06/15/21 09:13 Freq: Status: Active Protocol: Document 09/15/21 13:04 [facility] (Rec: 09/15/21 13:43 [facility] [id number]) Cardio Equipment Recumbent Bicycle Duration (Minutes) 6 Resistance 0-3 Seat Position 6 Other fwd/back circles 1st min then backwards for 2 min then fwd Gym Equipment Shuttle Recovery Unilateral Squats Resistance 50# Shuttle Recovery Platform Stable Reps/Time x15 B Bilateral Squats Resistance 100# Shuttle Recovery Platform Stable Reps/Time x15 Therapeutic Exercises Standing Exercises squat Standing Exercise Name at rail w/chair behind mini squats Side bilateral Reps/Minutes 10 step downs Standing Exercise Name 4 in step in the mirror Side right Reps/Minutes 12 knee flex Side right Reps/Minutes 15 ea step ups Side right Equipment Used 6 in step Reps/Minutes 12 Comments rail only prn sidestep Side bilateral Equipment Used Lvl 2 Reps/Minutes 20ft ea stretch Standing Exercise Name 1.calf on step 2. HS on step Side bilateral Reps/Minutes 30 sec ea Manual Therapy Treatment Soft Tissue Mobilization quad Body Location VM & VL Mobilization Type Rolling,Strumming Intensity/Depth Moderate Body Position Supine 1 Body Location HS & calf Mobilization Type Rolling,Strumming Intensity/Depth Moderate Body Position Supine PT-OP-R Modalities Start: 08/22/21 14:02 Freq: Status: Active Protocol: Document 08/22/21 12:59 [facility] (Rec: 08/22/21 14:03 [facility] [id number]) Hot Pack/Cold Pack Treatment Cold Pack Location R groin & R knee Patient Position Supine Treatment Duration (minutes) 10 Comments pillow under R lower leg PT-OP-T Assessment and Plan Start: 06/15/21 09:13 Freq: Status: Active Protocol: Document 09/15/21 13:04 [facility] (Rec: 09/15/21 13:43 [facility] [id number]) Physical Therapy Assessment Goals up/down Short Term Goal (STG) Pt will be able to do sit to stand from chair w/equal WB and no hands. STG Duration 09/28/21 Fpc Goal (LTG) Pt will be able to get up/down from the ground and squat for gardening tasks. LTG Duration 10/22/21 stairs Short Term Goal (STG) Pt will be able to go up/down stairs in house (15) with SPC and 1 rail safely step to so she can sleep in her bedroom STG Duration 09/09/21 It Help Desk Technician Goal (LTG) Pt will be able to ascend and descend stairs reciprocally without rail in order to be safe in the community when amb . LTG Duration 10/22/21 ROM Short Term Goal (STG) Pt will improve AROM R knee ROM to 5-105 degrees. STG Duration 09/22/21 It Help Desk Technician Goal (LTG) Pt will improve AROM R knee ROM to 0-120 degrees to allow for ability to do stairs and good gait mechanics. LTG Duration 10/22/21 gait Short Term Goal (STG) Pt will be able to amb with cane safely in order to be able to return to wrsc at the [facility]. STG Duration 09/22/21 Fpc Goal (LTG) Pt will be able to amb as much as she would like w/o AD without inc pain with good gait pattern in order to be able to travel to [place] with family. LTG Duration 10/22/21 1 Impairment strength Impairment pt lacks a pre-operative HEP Short Term Goal (STG) Pt will be indep w/HEP STG Duration 09/22/21 It Help Desk Technician Goal (LTG) Pt will score at least 5/5 BLE strength to show improved strength to allow improved functional mobility. LTG Duration 10/22/21 Assessment Summary Assessment Pt did well with exercises today and was able to go around a full revolution fwd and backwards today. She cont to tolerate inc resistance w/ exercises and demonstrates more control. 3-107 Physical Therapy Plan Frequency and Duration Frequency of Treatment 1-2x/week Duration of Treatment 2 months Plan of Care Start Date 08/22/21 Plan of Care End Date 10/22/21 Next Visit Focus/Plan Next Note Type Treatment Note Next Visit Plan cont to work knee ROM and LE strength
--- NOTE | 2021-09-19 15:02 | PT.OTN ---
Current Diagnoses Unilateral primary osteoarthritis, right knee (09/19/21) Difficulty in walking, not elsewhere classified (09/19/21) Weakness (09/19/21) Presence of right artificial knee joint (09/19/21) Physical Therapy Treatment Note PT-OP-A Visit Information Start: 06/15/21 09:13 Freq: Status: Active Protocol: Document 09/19/21 13:00 [facility] (Rec: 09/19/21 15:02 [facility] [id number]) Out-Patient Physical Therapy Visit Information Visit Information Visit Type Progress Note Visit Note 06/20 Visit Start Time 13:01 Visit Stop Time 13:45 Total Visit Minutes 44 Visit Number 10 Number of FOOD SAFETY DIRECTOR Visits 0 PT-OP-B Current Condition Start: 06/15/21 09:13 Freq: Status: Active Protocol: Document 08/22/21 12:59 [facility] (Rec: 08/22/21 13:53 [facility] [id number]) Current Condition History of Current Condition Onset Date 08/15 Current Complaints R knee pain s/p TKA History of Current Condition RE-eval 08/22- Pt reports surgery 1 week ago on 08/15/21 in surgery center and overall doing well. She has been doing ice and breathing exercises for pain and has only had to take 1 ibuprofen. Pt lost her exercises so she hasn't been doing them. She has been making herself walk through the house for meals and bathroom. IE:surgery 07/14/21 Right knee pain is 4/10 the knee is aggravated is longer walking distances, she needs to hold onto the cart at the store, the more I use it the more it hurts PT is scheduled to go to [place] on Sunday for 3 weeks so is doing her pre op now Treatment Goals Patient/Caregiver Goals Be able to return to work at the [employer] (needs to be amb w/ o cane), Be able to walk distance at a time w/o cane so she can do her trip in Jan in [place], gardening (weeding)-being able to get up/down from ground, get downstairs to her own bed (15 stairs)-eventually reciprocally & w/o rail PT-OP-C Subjective Start: 06/15/21 09:13 Freq: Status: Active Protocol: Document 09/19/21 13:00 [facility] (Rec: 09/19/21 15:02 [facility] [id number]) OP-PT Subjective Patient Comments Patient Comments Pt reports her neck and head are sore and had a Johnson that started yesterday but she turne dher neck and it cracked yesterday and felt better but started again this AM. She took ibuprofen to help her get through therapy. She has been getting up/down stairs at home well. PT-OP-F Manual Assessment Start: 06/15/21 09:13 Freq: Status: Active Protocol: Document 08/22/21 12:59 [facility] (Rec: 08/22/21 13:53 [facility] [id number]) Manual Assessments Soft Tissue Assessment Soft Tissue Mobility Assessment tightness in ITB, add, quads, HS& calf R Other Manual Assessments Other Manual Assessments some yellow streaking on RLE unsure if bruising or iodine left; fredrick drain intact, no drainage on bandage PT-OP-G Mobility & Gait Start: 06/15/21 09:13 Freq: Status: Active Protocol: Document 08/22/21 12:59 [facility] (Rec: 08/22/21 13:53 [facility] [id number]) OP Mobility Evaluation Bed Mobility Supine to and from Sit indep and can lift LE into bed w/o UEs Transfers Sit to Stand uses UE on seat RLE out in front OP Gait Assessment Comments Gait Comments Amb w/ dec knee ext in WB on RLE and dec push off, dec stance time RLE and some lat leaning w/4WW PT-OP-J Posture/Palpation/Skin Start: 06/15/21 09:13 Freq: Status: Active Protocol: Document 06/15/21 12:00 [facility] (Rec: 06/16/21 12:50 [facility] [id number]) Skin Assessment Circumference Measurement 5 cm above patella Measurement (Centimeters) 19 Comments bilaterally joint line knee Location knee joint line Measurement (Centimeters) 17.5 Comments 16.5 L PT-OP-K Range of Motion Start: 06/15/21 09:13 Freq: Status: Active Protocol: Document 09/19/21 13:00 [facility] (Rec: 09/19/21 15:02 [facility] [id number]) Knee Goniometric Range of Motion Knee Left Flexion Active (degrees) 111 Extension Active (degrees) 3 PT-OP-M Strength Start: 06/15/21 09:13 Freq: Status: Active Protocol: Document 09/19/21 13:00 [facility] (Rec: 09/19/21 15:02 [facility] [id number]) Hip Strength Hip Manual Muscle Testing Left Flexion (L2) 4+ Good+ Extension (S1) 4 Good Abduction 5 Normal Adduction 5 Normal External Rotation 4 Good Internal Rotation 4+ Good+ Right Flexion (L2) 4 Good Extension (S1) 4 Good Abduction 4+ Good+ Adduction 4+ Good+ External Rotation 4- Good- Internal Rotation 4 Good Knee Strength Knee Manual Muscle Testing Left Flexion (S2) 5 Normal Extension (L3) 5 Normal Right Flexion (S2) 4+ Good+ Extension (L3) 4 Good Ankle/Foot Strength Ankle and Foot Manual Muscle Testing Left Dorsiflexion (L4) 5 Normal Plantarflexion (S1) 4 Good Right Dorsiflexion (L4) 5 Normal Plantarflexion (S1) 4 Good Comments PF tested standing PT-OP-Q Treatments Start: 06/15/21 09:13 Freq: Status: Active Protocol: Document 09/19/21 13:00 [facility] (Rec: 09/19/21 15:02 [facility] [id number]) Cardio Equipment Bicycle (Upright) Duration (Minutes) 6 Resistance 7 Seat Position 5 Gym Equipment Shuttle Recovery Unilateral Squats Resistance 50# Shuttle Recovery Platform Stable Reps/Time x15 B Bilateral Squats Resistance 100# Shuttle Recovery Platform Stable Reps/Time x15 Therapeutic Exercises Sidelying Exercises clamshell Side right Reps/Minutes 15 Sitting Exercises knee flex Sitting Exercise Name seated w/scoot fwd Side right Reps/Minutes 15 sec x4 Standing Exercises squat Standing Exercise Name at rail w/chair behind mini squats Side bilateral Reps/Minutes 10 step downs Standing Exercise Name 4 in step in the mirror Side right Reps/Minutes 12 Comments tried 5 in but no control knee flex Side right Reps/Minutes 15 ea stretch Standing Exercise Name 1.calf on step 2. HS on step Side bilateral Reps/Minutes 30 sec ea standing calf raises Standing Exercise Name SL Side bilateral Reps/Minutes x10 Manual Therapy Treatment Soft Tissue Mobilization 1 Body Location scar Mobilization Type Myofascial Release,Rolling, Strumming Intensity/Depth Superficial Body Position Supine PT-OP-R Modalities Start: 08/22/21 14:02 Freq: Status: Active Protocol: Document 08/22/21 12:59 [facility] (Rec: 08/22/21 14:03 [facility] [id number]) Hot Pack/Cold Pack Treatment Cold Pack Location R groin & R knee Patient Position Supine Treatment Duration (minutes) 10 Comments pillow under R lower leg PT-OP-T Assessment and Plan Start: 06/15/21 09:13 Freq: Status: Active Protocol: Document 09/19/21 13:00 [facility] (Rec: 09/19/21 15:02 [facility] [id number]) Physical Therapy Assessment Goals up/down Short Term Goal (STG) Pt will be able to do sit to stand from chair w/equal WB and no hands. STG Duration achieved Type Copy Examiner Goal (LTG) Pt will be able to get up/down from the ground and squat for gardening tasks. 09/19-improving mobility LTG Duration 10/22/21 stairs Short Term Goal (STG) Pt will be able to go up/down stairs in house (15) with SPC and 1 rail safely step to so she can sleep in her bedroom STG Duration achieved Retirement Goal (LTG) Pt will be able to ascend and descend stairs reciprocally without rail in order to be safe in the community when amb . 09/19-can go up without rail but requires rail reciprocally down. LTG Duration 10/22/21 ROM Short Term Goal (STG) Pt will improve AROM R knee ROM to 5-105 degrees. STG Duration achieved 3-111 Retirement Goal (LTG) Pt will improve AROM R knee ROM to 0-120 degrees to allow for ability to do stairs and good gait mechanics. LTG Duration 10/22/21 gait Short Term Goal (STG) Pt will be able to amb with cane safely in order to be able to return to wrok at the [employer]. STG Duration achieved Type Copy Examiner Goal (LTG) Pt will be able to amb as much as she would like w/o AD without inc pain with good gait pattern in order to be able to travel to [place] with family. 09/19-no AD but still limited in distance LTG Duration 10/22/21 1 Impairment strength Impairment pt lacks a pre-operative HEP Short Term Goal (STG) Pt will be indep w/HEP STG Duration achieved advancing as able Type Copy Examiner Goal (LTG) Pt will score at least 5/5 BLE strength to show improved strength to allow improved functional mobility. 09/19-improving LTG Duration 10/22/21 Assessment Summary Assessment Pt is making excellent progress with therapy and has improved functionally, w/ROM and strength. She is overall doing well with stairs and is back to working 5 hours a day. She would benefit from cont PT to returnt o full activities without pain including ability to get up/ down from ground. Physical Therapy Plan Frequency and Duration Frequency of Treatment 1-2x/week Duration of Treatment 2 months Plan of Care Start Date 08/22/21 Plan of Care End Date 10/22/21 Therapeutic Interventions Therapeutic Interventions Aquatic Therapy,Balance Training,Gait Training,Home Exercise Program,Joint Mobilizations,Manual Therapy, Neuromuscular Re-education, Patient/Caregiver Education, Self-Care/Home Management,Soft Tissue Mobilization,Taping, Therapeutic Activities, Therapeutic Exercises Modalities Cold Pack/Ice Massage,Electric Stimulation,Hot Packs Next Visit Focus/Plan Next Note Type Treatment Note Next Visit Plan cont to work knee ROM and LE strength
--- NOTE | 2021-09-22 09:01 | PT.OTN ---
Current Diagnoses Unilateral primary osteoarthritis, right knee (09/22/21) Difficulty in walking, not elsewhere classified (09/22/21) Weakness (09/22/21) Presence of right artificial knee joint (09/22/21) Physical Therapy Treatment Note PT-OP-A Visit Information Start: 06/15/21 09:13 Freq: Status: Active Protocol: Document 09/22/21 07:28 [facility] (Rec: 09/22/21 09:01 [facility] [id number]) Out-Patient Physical Therapy Visit Information Visit Information Visit Type Treatment Note Visit Note 07/21 Visit Start Time 08:14 Visit Stop Time 08:56 Total Visit Minutes 42 Visit Number 11 Number of MUSHROOM GROWING SUPERVISOR Visits 0 PT-OP-B Current Condition Start: 06/15/21 09:13 Freq: Status: Active Protocol: Document 08/22/21 12:59 [facility] (Rec: 08/22/21 13:53 [facility] [id number]) Current Condition History of Current Condition Onset Date 08/15 Current Complaints R knee pain s/p TKA History of Current Condition RE-eval 08/22- Pt reports surgery 1 week ago on 08/15/21 in surgery center and overall doing well. She has been doing ice and breathing exercises for pain and has only had to take 1 ibuprofen. Pt lost her exercises so she hasn't been doing them. She has been making herself walk through the house for meals and bathroom. IE:surgery 07/14/21 Right knee pain is 4/10 the knee is aggravated is longer walking distances, she needs to hold onto the cart at the store, the more I use it the more it hurts PT is scheduled to go to [place] on Sunday for 3 weeks so is doing her pre op now Treatment Goals Patient/Caregiver Goals Be able to return to work at the [employer] (needs to be amb w/ o cane), Be able to walk distance at a time w/o cane so she can do her trip in Jan in [place], gardening (weeding)-being able to get up/down from ground, get downstairs to her own bed (15 stairs)-eventually reciprocally & w/o rail PT-OP-C Subjective Start: 06/15/21 09:13 Freq: Status: Active Protocol: Document 09/22/21 07:28 [facility] (Rec: 09/22/21 09:01 [facility] [id number]) OP-PT Subjective Patient Comments Patient Comments Pt saw her doctor for neck on Sunday and she worked on her whole body and that helped. She sees her again today. She walked 4 blocks yesterday and it was easy. PT-OP-F Manual Assessment Start: 06/15/21 09:13 Freq: Status: Active Protocol: Document 08/22/21 12:59 [facility] (Rec: 08/22/21 13:53 [facility] [id number]) Manual Assessments Soft Tissue Assessment Soft Tissue Mobility Assessment tightness in ITB, add, quads, HS& calf R Other Manual Assessments Other Manual Assessments some yellow streaking on RLE unsure if bruising or iodine left; fredrick drain intact, no drainage on bandage PT-OP-G Mobility & Gait Start: 06/15/21 09:13 Freq: Status: Active Protocol: Document 08/22/21 12:59 [facility] (Rec: 08/22/21 13:53 [facility] [id number]) OP Mobility Evaluation Bed Mobility Supine to and from Sit indep and can lift LE into bed w/o UEs Transfers Sit to Stand uses UE on seat RLE out in front OP Gait Assessment Comments Gait Comments Amb w/ dec knee ext in WB on RLE and dec push off, dec stance time RLE and some lat leaning w/4WW PT-OP-J Posture/Palpation/Skin Start: 06/15/21 09:13 Freq: Status: Active Protocol: Document 06/15/21 12:00 [facility] (Rec: 06/16/21 12:50 [facility] [id number]) Skin Assessment Circumference Measurement 5 cm above patella Measurement (Centimeters) 19 Comments bilaterally joint line knee Location knee joint line Measurement (Centimeters) 17.5 Comments 16.5 L PT-OP-K Range of Motion Start: 06/15/21 09:13 Freq: Status: Active Protocol: Document 09/19/21 13:00 [facility] (Rec: 09/19/21 15:02 [facility] [id number]) Knee Goniometric Range of Motion Knee Left Flexion Active (degrees) 111 Extension Active (degrees) 3 PT-OP-M Strength Start: 06/15/21 09:13 Freq: Status: Active Protocol: Document 09/19/21 13:00 [facility] (Rec: 09/19/21 15:02 [facility] [id number]) Hip Strength Hip Manual Muscle Testing Left Flexion (L2) 4+ Good+ Extension (S1) 4 Good Abduction 5 Normal Adduction 5 Normal External Rotation 4 Good Internal Rotation 4+ Good+ Right Flexion (L2) 4 Good Extension (S1) 4 Good Abduction 4+ Good+ Adduction 4+ Good+ External Rotation 4- Good- Internal Rotation 4 Good Knee Strength Knee Manual Muscle Testing Left Flexion (S2) 5 Normal Extension (L3) 5 Normal Right Flexion (S2) 4+ Good+ Extension (L3) 4 Good Ankle/Foot Strength Ankle and Foot Manual Muscle Testing Left Dorsiflexion (L4) 5 Normal Plantarflexion (S1) 4 Good Right Dorsiflexion (L4) 5 Normal Plantarflexion (S1) 4 Good Comments PF tested standing PT-OP-Q Treatments Start: 06/15/21 09:13 Freq: Status: Active Protocol: Document 09/22/21 07:28 [facility] (Rec: 09/22/21 09:01 [facility] [id number]) Cardio Equipment Bicycle (Upright) Duration (Minutes) 6 Resistance 7 Seat Position 5 Gym Equipment Shuttle Recovery Unilateral Squats Resistance 50# Shuttle Recovery Platform Stable Reps/Time x15 B Bilateral Squats Resistance 112# Shuttle Recovery Platform Stable Reps/Time x15 Therapeutic Exercises Sidelying Exercises clamshell Side bilateral Reps/Minutes 10 Standing Exercises squat Standing Exercise Name w/chair behind mini squats Side bilateral Reps/Minutes 10 step downs Standing Exercise Name 4 in & 5 in step in the mirror Side right Reps/Minutes 8 ea Comments w/step up backwards knee flex Side right Reps/Minutes 10 ea step ups Side right Equipment Used 8 in step Reps/Minutes 10 Comments rail touch w/finger stretch Standing Exercise Name 1.calf on step 2. HS on step 3 . knee flex stretch on step Side bilateral Reps/Minutes 30 sec ea standing calf raises Standing Exercise Name SL Side bilateral Reps/Minutes x10 Manual Therapy Treatment Soft Tissue Mobilization 1 Body Location scar Mobilization Type Myofascial Release,Rolling, Strumming Intensity/Depth Superficial Body Position Supine Comments w/APs in knee flex and ext PT-OP-R Modalities Start: 08/22/21 14:02 Freq: Status: Active Protocol: Document 08/22/21 12:59 [facility] (Rec: 08/22/21 14:03 [facility] [id number]) Hot Pack/Cold Pack Treatment Cold Pack Location R groin & R knee Patient Position Supine Treatment Duration (minutes) 10 Comments pillow under R lower leg PT-OP-T Assessment and Plan Start: 06/15/21 09:13 Freq: Status: Active Protocol: Document 09/22/21 07:28 [facility] (Rec: 09/22/21 09:01 [facility] [id number]) Physical Therapy Assessment Goals up/down Short Term Goal (STG) Pt will be able to do sit to stand from chair w/equal WB and no hands. STG Duration achieved Conservator Artifacts Goal (LTG) Pt will be able to get up/down from the ground and squat for gardening tasks. 09/19-improving mobility LTG Duration 10/22/21 stairs Short Term Goal (STG) Pt will be able to go up/down stairs in house (15) with SPC and 1 rail safely step to so she can sleep in her bedroom STG Duration achieved Longterm Goal (LTG) Pt will be able to ascend and descend stairs reciprocally without rail in order to be safe in the community when amb . 09/19-can go up without rail but requires rail reciprocally down. LTG Duration 10/22/21 ROM Short Term Goal (STG) Pt will improve AROM R knee ROM to 5-105 degrees. STG Duration achieved 3-111 Conservator Artifacts Goal (LTG) Pt will improve AROM R knee ROM to 0-120 degrees to allow for ability to do stairs and good gait mechanics. LTG Duration 10/22/21 gait Short Term Goal (STG) Pt will be able to amb with cane safely in order to be able to return to wrok at the [employer] [facility] [employer]. STG Duration achieved Conservator Artifacts Goal (LTG) Pt will be able to amb as much as she would like w/o AD without inc pain with good gait pattern in order to be able to travel to [place] with family. 09/19-no AD but still limited in distance LTG Duration 10/22/21 1 Impairment strength Impairment pt lacks a pre-operative HEP Short Term Goal (STG) Pt will be indep w/HEP STG Duration achieved advancing as able Conservator Artifacts Goal (LTG) Pt will score at least 5/5 BLE strength to show improved strength to allow improved functional mobility. 09/19-improving LTG Duration 10/22/21 Assessment Summary Assessment Pt is making excellent progress with strength and showed more stability and control with step downs today. Good performance of HEP. ROM 3-112 today Physical Therapy Plan Frequency and Duration Frequency of Treatment 1-2x/week Duration of Treatment 2 months Plan of Care Start Date 08/22/21 Plan of Care End Date 10/22/21 Next Visit Focus/Plan Next Note Type Treatment Note Next Visit Plan cont to work knee ROM and LE strength
--- NOTE | 2021-09-26 13:49 | PT.OTN ---
Current Diagnoses Unilateral primary osteoarthritis, right knee (09/26/21) Difficulty in walking, not elsewhere classified (09/26/21) Weakness (09/26/21) Presence of right artificial knee joint (09/26/21) Physical Therapy Treatment Note PT-OP-A Visit Information Start: 06/15/21 09:13 Freq: Status: Active Protocol: Document 09/26/21 12:59 [facility] (Rec: 09/26/21 13:49 [facility] [id number]) Out-Patient Physical Therapy Visit Information Visit Information Visit Type Treatment Note Visit Note 08/18 Visit Start Time 13:00 Visit Stop Time 13:45 Total Visit Minutes 45 Visit Number 12 Number of GROOVER AND TURNER Visits 0 PT-OP-B Current Condition Start: 06/15/21 09:13 Freq: Status: Active Protocol: Document 08/22/21 12:59 [facility] (Rec: 08/22/21 13:53 [facility] [id number]) Current Condition History of Current Condition Onset Date 08/15 Current Complaints R knee pain s/p TKA History of Current Condition RE-eval 08/22- Pt reports surgery 1 week ago on 08/15/21 in surgery center and overall doing well. She has been doing ice and breathing exercises for pain and has only had to take 1 ibuprofen. Pt lost her exercises so she hasn't been doing them. She has been making herself walk through the house for meals and bathroom. IE:surgery 07/14/21 Right knee pain is 4/10 the knee is aggravated is longer walking distances, she needs to hold onto the cart at the store, the more I use it the more it hurts PT is scheduled to go to [place] on Sunday for 3 weeks so is doing her pre op now Treatment Goals Patient/Caregiver Goals Be able to return to work at the [employer] (needs to be amb w/ o cane), Be able to walk distance at a time w/o cane so she can do her trip in Jan in [place], gardening (weeding)-being able to get up/down from ground, get downstairs to her own bed (15 stairs)-eventually reciprocally & w/o rail PT-OP-C Subjective Start: 06/15/21 09:13 Freq: Status: Active Protocol: Document 09/26/21 12:59 [facility] (Rec: 09/26/21 13:49 [id number]-PT Subjective Patient Comments Patient Comments Pt reprots she saw the chiro earlier who thinks she spraiend her neck neck and she feels good after seeing her. Pt notes she went for a walk w /dgt for about 15 min. Stairs still most difficult. PT-OP-F Manual Assessment Start: 06/15/21 09:13 Freq: Status: Active Protocol: Document 08/22/21 12:59 [facility] (Rec: 08/22/21 13:53 [id number] Manual Assessments Soft Tissue Assessment Soft Tissue Mobility Assessment tightness in ITB, add, quads, HS& calf R Other Manual Assessments Other Manual Assessments some yellow streaking on RLE unsure if bruising or iodine left; fredrick drain intact, no drainage on bandage PT-OP-G Mobility & Gait Start: 06/15/21 09:13 Freq: Status: Active Protocol: Document 08/22/21 12:59 [facility] (Rec: 08/22/21 13:53 [id number] OP Mobility Evaluation Bed Mobility Supine to and from Sit indep and can lift LE into bed w/o UEs Transfers Sit to Stand uses UE on seat RLE out in front OP Gait Assessment Comments Gait Comments Amb w/ dec knee ext in WB on RLE and dec push off, dec stance time RLE and some lat leaning w/4WW PT-OP-J Posture/Palpation/Skin Start: 06/15/21 09:13 Freq: Status: Active Protocol: Document 06/15/21 12:00 [facility] (Rec: 06/16/21 12:50 [facility] [id number]) Skin Assessment Circumference Measurement 5 cm above patella Measurement (Centimeters) 19 Comments bilaterally joint line knee Location knee joint line Measurement (Centimeters) 17.5 Comments 16.5 L PT-OP-K Range of Motion Start: 06/15/21 09:13 Freq: Status: Active Protocol: Document 09/19/21 13:00 [facility] (Rec: 09/19/21 15:02 [facility] [id number]) Knee Goniometric Range of Motion Knee Left Flexion Active (degrees) 111 Extension Active (degrees) 3 PT-OP-M Strength Start: 06/15/21 09:13 Freq: Status: Active Protocol: Document 09/19/21 13:00 [facility] (Rec: 09/19/21 15:02 [facility] [id number]) Hip Strength Hip Manual Muscle Testing Left Flexion (L2) 4+ Good+ Extension (S1) 4 Good Abduction 5 Normal Adduction 5 Normal External Rotation 4 Good Internal Rotation 4+ Good+ Right Flexion (L2) 4 Good Extension (S1) 4 Good Abduction 4+ Good+ Adduction 4+ Good+ External Rotation 4- Good- Internal Rotation 4 Good Knee Strength Knee Manual Muscle Testing Left Flexion (S2) 5 Normal Extension (L3) 5 Normal Right Flexion (S2) 4+ Good+ Extension (L3) 4 Good Ankle/Foot Strength Ankle and Foot Manual Muscle Testing Left Dorsiflexion (L4) 5 Normal Plantarflexion (S1) 4 Good Right Dorsiflexion (L4) 5 Normal Plantarflexion (S1) 4 Good Comments PF tested standing PT-OP-Q Treatments Start: 06/15/21 09:13 Freq: Status: Active Protocol: Document 09/26/21 12:59 [facility] (Rec: 09/26/21 13:49 [facility] [id number]) Cardio Equipment Bicycle (Upright) Duration (Minutes) 6 Resistance 8-10 Seat Position 5 Gym Equipment Shuttle Recovery Unilateral Squats Resistance 62# Shuttle Recovery Platform Stable Reps/Time x15 B Bilateral Squats Resistance 125# Shuttle Recovery Platform Stable Reps/Time x15 Therapeutic Exercises Standing Exercises lunge Standing Exercise Name mini Side bilateral Reps/Minutes 10 squat Standing Exercise Name w/chair behind squats- as close to chair as can Side bilateral Reps/Minutes 12 step downs Standing Exercise Name 5 in step Side right Reps/Minutes 12 Comments hand on hip to monitor rotation sidestep Standing Exercise Name up/down over step Side bilateral Reps/Minutes 8 TKE Side right Equipment Used L3 Reps/Minutes 15 Manual Therapy Treatment Soft Tissue Mobilization 1 Body Location scar Mobilization Type Myofascial Release,Rolling, Strumming Intensity/Depth Superficial Body Position Supine Comments w/APs in knee flex and ext & quad sets ; hands an plunger PT-OP-R Modalities Start: 08/22/21 14:02 Freq: Status: Active Protocol: Document 08/22/21 12:59 [facility] (Rec: 08/22/21 14:03 [facility] [id number]) Hot Pack/Cold Pack Treatment Cold Pack Location R groin & R knee Patient Position Supine Treatment Duration (minutes) 10 Comments pillow under R lower leg PT-OP-T Assessment and Plan Start: 06/15/21 09:13 Freq: Status: Active Protocol: Document 09/26/21 12:59 [facility] (Rec: 09/26/21 13:49 [facility] [id number]) Physical Therapy Assessment Goals up/down Short Term Goal (STG) Pt will be able to do sit to stand from chair w/equal WB and no hands. STG Duration achieved Correction Goal (LTG) Pt will be able to get up/down from the ground and squat for gardening tasks. 09/19-improving mobility LTG Duration 10/22/21 stairs Short Term Goal (STG) Pt will be able to go up/down stairs in house (15) with SPC and 1 rail safely step to so she can sleep in her bedroom STG Duration achieved Correction Goal (LTG) Pt will be able to ascend and descend stairs reciprocally without rail in order to be safe in the community when amb . 09/19-can go up without rail but requires rail reciprocally down. LTG Duration 10/22/21 ROM Short Term Goal (STG) Pt will improve AROM R knee ROM to 5-105 degrees. STG Duration achieved 3-111 Correction Goal (LTG) Pt will improve AROM R knee ROM to 0-120 degrees to allow for ability to do stairs and good gait mechanics. LTG Duration 10/22/21 gait Short Term Goal (STG) Pt will be able to amb with cane safely in order to be able to return to [place] at the [facility] [place] STG Duration achieved Water Aerobics Instructor Goal (LTG) Pt will be able to amb as much as she would like w/o AD without inc pain with good gait pattern in order to be able to travel to [place] with family. 09/19-no AD but still limited in distance LTG Duration 10/22/21 1 Impairment strength Impairment pt lacks a pre-operative HEP Short Term Goal (STG) Pt will be indep w/HEP STG Duration achieved advancing as able Water Aerobics Instructor Goal (LTG) Pt will score at least 5/5 BLE strength to show improved strength to allow improved functional mobility. 09/19-improving LTG Duration 10/22/21 Assessment Summary Assessment Pt cont to progress w/quad strength and stability with still less contorl and strength on R but still struggles w/decnt from step. ROM today before manual 2-112 and improved to 115 after manual. Physical Therapy Plan Frequency and Duration Frequency of Treatment 1-2x/week Duration of Treatment 2 months Plan of Care Start Date 08/22/21 Plan of Care End Date 10/22/21 Next Visit Focus/Plan Next Note Type Treatment Note Next Visit Plan cont to work knee ROM and LE strength
--- NOTE | 2021-09-29 17:54 | PT.OTN ---
Current Diagnoses Unilateral primary osteoarthritis, right knee (09/29/21) Difficulty in walking, not elsewhere classified (09/29/21) Weakness (09/29/21) Presence of right artificial knee joint (09/29/21) Physical Therapy Treatment Note PT-OP-A Visit Information Start: 06/15/21 09:13 Freq: Status: Active Protocol: Document 09/29/21 16:59 [facility] (Rec: 09/29/21 17:53 [facility] [id number]) Out-Patient Physical Therapy Visit Information Visit Information Visit Type Treatment Note Visit Note 09/18 Visit Start Time 16:51 Visit Stop Time 17:31 Total Visit Minutes 40 Visit Number 13 Number of INTELLIGENCE APPLICATIONS Visits 0 PT-OP-B Current Condition Start: 06/15/21 09:13 Freq: Status: Active Protocol: Document 08/22/21 12:59 [facility] (Rec: 08/22/21 13:53 [facility] [id number]) Current Condition History of Current Condition Onset Date 08/15 Current Complaints R knee pain s/p TKA History of Current Condition RE-eval 08/22- Pt reports surgery 1 week ago on 08/15/21 in surgery center and overall doing well. She has been doing ice and breathing exercises for pain and has only had to take 1 ibuprofen. Pt lost her exercises so she hasn't been doing them. She has been making herself walk through the house for meals and bathroom. IE:surgery 07/14/21 Right knee pain is 4/10 the knee is aggravated is longer walking distances, she needs to hold onto the cart at the store, the more I use it the more it hurts PT is scheduled to go to [place] on Sunday for 3 weeks so is doing her pre op now Treatment Goals Patient/Caregiver Goals Be able to return to work at the [employer] (needs to be amb w/ o cane), Be able to walk distance at a time w/o cane so she can do her trip in Jan in [place], gardening (weeding)-being able to get up/down from ground, get downstairs to her own bed (15 stairs)-eventually reciprocally & w/o rail PT-OP-C Subjective Start: 06/15/21 09:13 Freq: Status: Active Protocol: Document 09/29/21 16:59 [facility] (Rec: 09/29/21 17:53 [facility] [id number]) OP-PT Subjective Patient Comments Patient Comments Pt reports down stairs is the only big issue. She is slow going up stairs. She walked up /down hill and did ok PT-OP-F Manual Assessment Start: 06/15/21 09:13 Freq: Status: Active Protocol: Document 08/22/21 12:59 [facility] (Rec: 08/22/21 13:53 [facility] [id number]) Manual Assessments Soft Tissue Assessment Soft Tissue Mobility Assessment tightness in ITB, add, quads, HS& calf R Other Manual Assessments Other Manual Assessments some yellow streaking on RLE unsure if bruising or iodine left; fredrick drain intact, no drainage on bandage PT-OP-G Mobility & Gait Start: 06/15/21 09:13 Freq: Status: Active Protocol: Document 08/22/21 12:59 [facility] (Rec: 08/22/21 13:53 [facility] [id number]) OP Mobility Evaluation Bed Mobility Supine to and from Sit indep and can lift LE into bed w/o UEs Transfers Sit to Stand uses UE on seat RLE out in front OP Gait Assessment Comments Gait Comments Amb w/ dec knee ext in WB on RLE and dec push off, dec stance time RLE and some lat leaning w/4WW PT-OP-J Posture/Palpation/Skin Start: 06/15/21 09:13 Freq: Status: Active Protocol: Document 06/15/21 12:00 [facility] (Rec: 06/16/21 12:50 [facility] [id number]) Skin Assessment Circumference Measurement 5 cm above patella Measurement (Centimeters) 19 Comments bilaterally joint line knee Location knee joint line Measurement (Centimeters) 17.5 Comments 16.5 L PT-OP-K Range of Motion Start: 06/15/21 09:13 Freq: Status: Active Protocol: Document 09/19/21 13:00 [facility] (Rec: 09/19/21 15:02 [facility] [id number]) Knee Goniometric Range of Motion Knee Left Flexion Active (degrees) 111 Extension Active (degrees) 3 PT-OP-M Strength Start: 06/15/21 09:13 Freq: Status: Active Protocol: Document 09/19/21 13:00 [facility] (Rec: 09/19/21 15:02 [facility] [id number]) Hip Strength Hip Manual Muscle Testing Left Flexion (L2) 4+ Good+ Extension (S1) 4 Good Abduction 5 Normal Adduction 5 Normal External Rotation 4 Good Internal Rotation 4+ Good+ Right Flexion (L2) 4 Good Extension (S1) 4 Good Abduction 4+ Good+ Adduction 4+ Good+ External Rotation 4- Good- Internal Rotation 4 Good Knee Strength Knee Manual Muscle Testing Left Flexion (S2) 5 Normal Extension (L3) 5 Normal Right Flexion (S2) 4+ Good+ Extension (L3) 4 Good Ankle/Foot Strength Ankle and Foot Manual Muscle Testing Left Dorsiflexion (L4) 5 Normal Plantarflexion (S1) 4 Good Right Dorsiflexion (L4) 5 Normal Plantarflexion (S1) 4 Good Comments PF tested standing PT-OP-Q Treatments Start: 06/15/21 09:13 Freq: Status: Active Protocol: Document 09/29/21 16:59 [facility] (Rec: 09/29/21 17:53 [facility] [id number]) Gym Equipment Shuttle Recovery Unilateral Squats Resistance 62# Shuttle Recovery Platform Stable Reps/Time x20 B Bilateral Squats Resistance 125# Shuttle Recovery Platform Stable Reps/Time x15 Therapeutic Exercises Standing Exercises lunge Standing Exercise Name mini Side bilateral Reps/Minutes 10 step downs Standing Exercise Name 5 in step Side right Reps/Minutes 12 Comments hand on hip to monitor rotation step ups Side right Equipment Used 8 in step Reps/Minutes 15 Comments no rail Manual Therapy Treatment Soft Tissue Mobilization 1 Body Location scar Mobilization Type Myofascial Release,Rolling, Strumming Intensity/Depth Superficial Body Position Supine Comments w/APs in knee flex and ext & quad sets ; hands, dycem and plunger Joint Mobilizations tibiofemoral Joint AP on femur R FM patellofemoral Joint R Direction sup, inf, med PT-OP-R Modalities Start: 08/22/21 14:02 Freq: Status: Active Protocol: Document 08/22/21 12:59 [facility] (Rec: 08/22/21 14:03 [facility] [id number]) Hot Pack/Cold Pack Treatment Cold Pack Location R groin & R knee Patient Position Supine Treatment Duration (minutes) 10 Comments pillow under R lower leg PT-OP-T Assessment and Plan Start: 06/15/21 09:13 Freq: Status: Active Protocol: Document 09/29/21 16:59 [facility] (Rec: 09/29/21 17:53 [facility] [id number]) Physical Therapy Assessment Goals up/down Short Term Goal (STG) Pt will be able to do sit to stand from chair w/equal WB and no hands. STG Duration achieved External Auditor Goal (LTG) Pt will be able to get up/down from the ground and squat for gardening tasks. 09/19-improving mobility LTG Duration 10/22/21 stairs Short Term Goal (STG) Pt will be able to go up/down stairs in house (15) with SPC and 1 rail safely step to so she can sleep in her bedroom STG Duration achieved Assisted Goal (LTG) Pt will be able to ascend and descend stairs reciprocally without rail in order to be safe in the community when amb . 09/19-can go up without rail but requires rail reciprocally down. LTG Duration 10/22/21 ROM Short Term Goal (STG) Pt will improve AROM R knee ROM to 5-105 degrees. STG Duration achieved 3-111 Assisted Goal (LTG) Pt will improve AROM R knee ROM to 0-120 degrees to allow for ability to do stairs and good gait mechanics. LTG Duration 10/22/21 gait Short Term Goal (STG) Pt will be able to amb with cane safely in order to be able to return to wrok at the [employer]. STG Duration achieved External Auditor Goal (LTG) Pt will be able to amb as much as she would like w/o AD without inc pain with good gait pattern in order to be able to travel to [place] with family. 09/19-no AD but still limited in distance LTG Duration 10/22/21 1 Impairment strength Impairment pt lacks a pre-operative HEP Short Term Goal (STG) Pt will be indep w/HEP STG Duration achieved advancing as able External Auditor Goal (LTG) Pt will score at least 5/5 BLE strength to show improved strength to allow improved functional mobility. 09/19-improving LTG Duration 10/22/21 Assessment Summary Assessment Improved ext after manual treatment today. She cont to lack end range ext, but was able to achieve 115 deg flex today. She is showing better quad strength and quad control Physical Therapy Plan Frequency and Duration Frequency of Treatment 1-2x/week Duration of Treatment 2 months Plan of Care Start Date 08/22/21 Plan of Care End Date 10/22/21 Next Visit Focus/Plan Next Note Type Treatment Note Next Visit Plan cont to work knee ROM and LE strength
--- NOTE | 2021-10-06 09:07 | PT.OTN ---
Current Diagnoses Unilateral primary osteoarthritis, right knee (10/06/21) Difficulty in walking, not elsewhere classified (10/06/21) Weakness (10/06/21) Presence of right artificial knee joint (10/06/21) Physical Therapy Treatment Note PT-OP-A Visit Information Start: 06/15/21 09:13 Freq: Status: Active Protocol: Document 10/06/21 08:25 [facility] (Rec: 10/06/21 09:06 [facility] [id number]) Out-Patient Physical Therapy Visit Information Visit Information Visit Type Treatment Note Visit Note 10/18 Visit Start Time 08:20 Visit Stop Time 09:00 Total Visit Minutes 40 Visit Number 14 Number of BIODIESEL OPERATIONS MANAGER Visits 0 PT-OP-B Current Condition Start: 06/15/21 09:13 Freq: Status: Active Protocol: Document 08/22/21 12:59 [facility] (Rec: 08/22/21 13:53 [facility] [id number]) Current Condition History of Current Condition Onset Date 08/15 Current Complaints R knee pain s/p TKA History of Current Condition RE-eval 08/22- Pt reports surgery 1 week ago on 08/15/21 in surgery center and overall doing well. She has been doing ice and breathing exercises for pain and has only had to take 1 ibuprofen. Pt lost her exercises so she hasn't been doing them. She has been making herself walk through the house for meals and bathroom. IE:surgery 07/14/21 Right knee pain is 4/10 the knee is aggravated is longer walking distances, she needs to hold onto the cart at the store, the more I use it the more it hurts PT is scheduled to go to [place] on Sunday for 3 weeks so is doing her pre op now Treatment Goals Patient/Caregiver Goals Be able to return to work at the [employer] (needs to be amb w/ o cane), Be able to walk distance at a time w/o cane so she can do her trip in Jan in [place], gardening (weeding)-being able to get up/down from ground, get downstairs to her own bed (15 stairs)-eventually reciprocally & w/o rail PT-OP-C Subjective Start: 06/15/21 09:13 Freq: Status: Active Protocol: Document 10/06/21 08:25 [facility] (Rec: 10/06/21 09:06 [facility] [id number]) OP-PT Subjective Patient Comments Patient Comments Pt was wearing socks and slipped on stairs and tweaked R knee and ankle. Pt went to walk in and saw ortho MD who wants her to do 2x/week but nothing is broken. Pt awaiting insurance auth for R ankle also. PT-OP-F Manual Assessment Start: 06/15/21 09:13 Freq: Status: Active Protocol: Document 08/22/21 12:59 [facility] (Rec: 08/22/21 13:53 [id number] Manual Assessments Soft Tissue Assessment Soft Tissue Mobility Assessment tightness in ITB, add, quads, HS& calf R Other Manual Assessments Other Manual Assessments some yellow streaking on RLE unsure if bruising or iodine left; fredrick drain intact, no drainage on bandage PT-OP-G Mobility & Gait Start: 06/15/21 09:13 Freq: Status: Active Protocol: Document 08/22/21 12:59 [facility] (Rec: 08/22/21 13:53 [id number] OP Mobility Evaluation Bed Mobility Supine to and from Sit indep and can lift LE into bed w/o UEs Transfers Sit to Stand uses UE on seat RLE out in front OP Gait Assessment Comments Gait Comments Amb w/ dec knee ext in WB on RLE and dec push off, dec stance time RLE and some lat leaning w/4WW PT-OP-J Posture/Palpation/Skin Start: 06/15/21 09:13 Freq: Status: Active Protocol: Document 06/15/21 12:00 [facility] (Rec: 06/16/21 12:50 [facility] [id number]) Skin Assessment Circumference Measurement 5 cm above patella Measurement (Centimeters) 19 Comments bilaterally joint line knee Location knee joint line Measurement (Centimeters) 17.5 Comments 16.5 L PT-OP-K Range of Motion Start: 06/15/21 09:13 Freq: Status: Active Protocol: Document 09/19/21 13:00 [facility] (Rec: 09/19/21 15:02 [facility] [id number]) Knee Goniometric Range of Motion Knee Left Flexion Active (degrees) 111 Extension Active (degrees) 3 PT-OP-M Strength Start: 06/15/21 09:13 Freq: Status: Active Protocol: Document 09/19/21 13:00 [facility] (Rec: 09/19/21 15:02 [facility] [id number]) Hip Strength Hip Manual Muscle Testing Left Flexion (L2) 4+ Good+ Extension (S1) 4 Good Abduction 5 Normal Adduction 5 Normal External Rotation 4 Good Internal Rotation 4+ Good+ Right Flexion (L2) 4 Good Extension (S1) 4 Good Abduction 4+ Good+ Adduction 4+ Good+ External Rotation 4- Good- Internal Rotation 4 Good Knee Strength Knee Manual Muscle Testing Left Flexion (S2) 5 Normal Extension (L3) 5 Normal Right Flexion (S2) 4+ Good+ Extension (L3) 4 Good Ankle/Foot Strength Ankle and Foot Manual Muscle Testing Left Dorsiflexion (L4) 5 Normal Plantarflexion (S1) 4 Good Right Dorsiflexion (L4) 5 Normal Plantarflexion (S1) 4 Good Comments PF tested standing PT-OP-Q Treatments Start: 06/15/21 09:13 Freq: Status: Active Protocol: Document 10/06/21 08:25 [facility] (Rec: 10/06/21 09:06 [facility] [id number]) Cardio Equipment Recumbent Bicycle Duration (Minutes) 6 Resistance 0 Seat Position 6 Other fwd/back circles Gym Equipment Therapeutic Ball supine Ball Size/Color 55cm Body Position Supine Reps/Duration 10x 5 sec hold Comments 1. knee bends w/focus on core neutral for ROM Therapeutic Exercises Supine Exercises passive ext Side right Reps/Minutes 1 min SLR Side right Reps/Minutes 5 SAQ Side right Reps/Minutes 5x2-3 sec hold APs Supine Exercise Name APs and ankle circles Side bilateral Reps/Minutes 5 ea heel slides Side right Reps/Minutes 6x3 sec hold quad sets Side right Reps/Minutes 5 sec x4 Manual Therapy Treatment Soft Tissue Mobilization quad Body Location quad, ITB & HS R Mobilization Type Rolling,Strumming Intensity/Depth Moderate Body Position Supine 1 Body Location scar Mobilization Type Myofascial Release,Rolling, Strumming Intensity/Depth Superficial Body Position Supine Comments w/APs Taping KT Body Location R knee Treatment Focus swelling Type of Tape Kinesio Tape Comments 2 fans PT-OP-R Modalities Start: 08/22/21 14:02 Freq: Status: Active Protocol: Document 10/06/21 08:25 [facility] (Rec: 10/06/21 09:07 [facility] [id number]) Hot Pack/Cold Pack Treatment Cold Pack Location R groin & R knee Patient Position Hooklying Treatment Duration (minutes) 10 PT-OP-T Assessment and Plan Start: 06/15/21 09:13 Freq: Status: Active Protocol: Document 10/06/21 08:25 [facility] (Rec: 10/06/21 09:06 [facility] [id number]) Physical Therapy Assessment Goals up/down Short Term Goal (STG) Pt will be able to do sit to stand from chair w/equal WB and no hands. STG Duration achieved Java Architect Goal (LTG) Pt will be able to get up/down from the ground and squat for gardening tasks. 09/19-improving mobility LTG Duration 10/22/21 stairs Short Term Goal (STG) Pt will be able to go up/down stairs in house (15) with SPC and 1 rail safely step to so she can sleep in her bedroom STG Duration achieved Jail Goal (LTG) Pt will be able to ascend and descend stairs reciprocally without rail in order to be safe in the community when amb . 09/19-can go up without rail but requires rail reciprocally down. LTG Duration 10/22/21 ROM Short Term Goal (STG) Pt will improve AROM R knee ROM to 5-105 degrees. STG Duration achieved 3-111 Jail Goal (LTG) Pt will improve AROM R knee ROM to 0-120 degrees to allow for ability to do stairs and good gait mechanics. LTG Duration 10/22/21 gait Short Term Goal (STG) Pt will be able to amb with cane safely in order to be able to return to wrwy at the [facility] [place]. STG Duration achieved Jail Goal (LTG) Pt will be able to amb as much as she would like w/o AD without inc pain with good gait pattern in order to be able to travel to [place] with family. 09/19-no AD but still limited in distance LTG Duration 10/22/21 1 Impairment strength Impairment pt lacks a pre-operative HEP Short Term Goal (STG) Pt will be indep w/HEP STG Duration achieved advancing as able Java Architect Goal (LTG) Pt will score at least 5/5 BLE strength to show improved strength to allow improved functional mobility. 09/19-improving LTG Duration 10/22/21 Assessment Summary Assessment 12-101 today with range of motion. She was more swollen in knee today from fall whcih likely affected range. We are awaiting auth for ankle treatment and will add that to treatment once it is gotten as R ankle is sowllen also. Focus on ROM today and edu to return to those exercises. Physical Therapy Plan Frequency and Duration Frequency of Treatment 1-2x/week Duration of Treatment 2 months Plan of Care Start Date 08/22/21 Plan of Care End Date 10/22/21 Next Visit Focus/Plan Next Note Type Treatment Note Next Visit Plan re-evaluation if new code is authorized for ankle treatment
--- NOTE | 2021-10-10 15:18 | PT.OTN ---
Current Diagnoses Unilateral primary osteoarthritis, right knee (10/10/21) Difficulty in walking, not elsewhere classified (10/10/21) Weakness (10/10/21) Presence of right artificial knee joint (10/10/21) Physical Therapy Treatment Note PT-OP-A Visit Information Start: 06/15/21 09:13 Freq: Status: Active Protocol: Document 10/10/21 14:40 [facility] (Rec: 10/10/21 15:18 [facility] [id number]) Out-Patient Physical Therapy Visit Information Visit Information Visit Type Treatment Note Visit Note 11/18 Visit Start Time 14:35 Visit Stop Time 15:15 Total Visit Minutes 40 Visit Number 15 Number of SAND CUTTER Visits 0 PT-OP-B Current Condition Start: 06/15/21 09:13 Freq: Status: Active Protocol: Document 08/22/21 12:59 [facility] (Rec: 08/22/21 13:53 [facility] [id number]) Current Condition History of Current Condition Onset Date 08/15 Current Complaints R knee pain s/p TKA History of Current Condition RE-eval 08/22- Pt reports surgery 1 week ago on 08/15/21 in surgery center and overall doing well. She has been doing ice and breathing exercises for pain and has only had to take 1 ibuprofen. Pt lost her exercises so she hasn't been doing them. She has been making herself walk through the house for meals and bathroom. IE:surgery 07/14/21 Right knee pain is 4/10 the knee is aggravated is longer walking distances, she needs to hold onto the cart at the store, the more I use it the more it hurts PT is scheduled to go to [place] on Sunday for 3 weeks so is doing her pre op now Treatment Goals Patient/Caregiver Goals Be able to return to work at the [employer] (needs to be amb w/ o cane), Be able to walk distance at a time w/o cane so she can do her trip in Jan in [place], gardening (weeding)-being able to get up/down from ground, get downstairs to her own bed (15 stairs)-eventually reciprocally & w/o rail PT-OP-C Subjective Start: 06/15/21 09:13 Freq: Status: Active Protocol: Document 10/10/21 14:40 [facility] (Rec: 10/10/21 15:18 [facility] [id number]) OP-PT Subjective Patient Comments Patient Comments Reports she started going up stairs reciprocally again. ANKle is feeling okay. NOtes just bruised. PT-OP-F Manual Assessment Start: 06/15/21 09:13 Freq: Status: Active Protocol: Document 08/22/21 12:59 [facility] (Rec: 08/22/21 13:53 [facility] [id number]) Manual Assessments Soft Tissue Assessment Soft Tissue Mobility Assessment tightness in ITB, add, quads, HS& calf R Other Manual Assessments Other Manual Assessments some yellow streaking on RLE unsure if bruising or iodine left; fredrick drain intact, no drainage on bandage PT-OP-G Mobility & Gait Start: 06/15/21 09:13 Freq: Status: Active Protocol: Document 08/22/21 12:59 [facility] (Rec: 08/22/21 13:53 [facility] [id number]) OP Mobility Evaluation Bed Mobility Supine to and from Sit indep and can lift LE into bed w/o UEs Transfers Sit to Stand uses UE on seat RLE out in front OP Gait Assessment Comments Gait Comments Amb w/ dec knee ext in WB on RLE and dec push off, dec stance time RLE and some lat leaning w/4WW PT-OP-J Posture/Palpation/Skin Start: 06/15/21 09:13 Freq: Status: Active Protocol: Document 06/15/21 12:00 [facility] (Rec: 06/16/21 12:50 [facility] [id number]) Skin Assessment Circumference Measurement 5 cm above patella Measurement (Centimeters) 19 Comments bilaterally joint line knee Location knee joint line Measurement (Centimeters) 17.5 Comments 16.5 L PT-OP-K Range of Motion Start: 06/15/21 09:13 Freq: Status: Active Protocol: Document 09/19/21 13:00 [facility] (Rec: 09/19/21 15:02 [facility] [id number]) Knee Goniometric Range of Motion Knee Left Flexion Active (degrees) 111 Extension Active (degrees) 3 PT-OP-M Strength Start: 06/15/21 09:13 Freq: Status: Active Protocol: Document 09/19/21 13:00 [facility] (Rec: 09/19/21 15:02 [facility] [id number]) Hip Strength Hip Manual Muscle Testing Left Flexion (L2) 4+ Good+ Extension (S1) 4 Good Abduction 5 Normal Adduction 5 Normal External Rotation 4 Good Internal Rotation 4+ Good+ Right Flexion (L2) 4 Good Extension (S1) 4 Good Abduction 4+ Good+ Adduction 4+ Good+ External Rotation 4- Good- Internal Rotation 4 Good Knee Strength Knee Manual Muscle Testing Left Flexion (S2) 5 Normal Extension (L3) 5 Normal Right Flexion (S2) 4+ Good+ Extension (L3) 4 Good Ankle/Foot Strength Ankle and Foot Manual Muscle Testing Left Dorsiflexion (L4) 5 Normal Plantarflexion (S1) 4 Good Right Dorsiflexion (L4) 5 Normal Plantarflexion (S1) 4 Good Comments PF tested standing PT-OP-Q Treatments Start: 06/15/21 09:13 Freq: Status: Active Protocol: Document 10/10/21 14:40 [facility] (Rec: 10/10/21 15:18 [facility] [id number]) Cardio Equipment Bicycle (Upright) Duration (Minutes) 6 Resistance 0-3 Seat Position 5 Other starting rocking then around once pt able Gym Equipment Shuttle Recovery Unilateral Squats Resistance 50# Shuttle Recovery Platform Stable Reps/Time x15 B Bilateral Squats Resistance 100# Shuttle Recovery Platform Stable Reps/Time x15 Therapeutic Exercises Standing Exercises squat Standing Exercise Name mini squat Side bilateral Reps/Minutes 10 Comments over chair step downs Standing Exercise Name 4 in step Side right Reps/Minutes 12 Comments rail prn knee flex Side right Reps/Minutes 10 step ups Side right Equipment Used 6 in step Reps/Minutes 10 Comments no rail TKE Side right Equipment Used L3 Reps/Minutes 15 standing calf raises Standing Exercise Name DL Side bilateral Reps/Minutes x10 Comments on step Manual Therapy Treatment Soft Tissue Mobilization HS Body Location med R Mobilization Type Rolling Intensity/Depth Moderate Comments w/active hs stretch 1 Body Location scar Mobilization Type Myofascial Release,Rolling, Strumming Intensity/Depth Superficial Body Position Supine Comments w/quad sets Joint Mobilizations tibiofemoral Joint AP on femur R FM patellofemoral Joint R Direction sup, inf, med PT-OP-R Modalities Start: 08/22/21 14:02 Freq: Status: Active Protocol: Document 10/06/21 08:25 [facility] (Rec: 10/06/21 09:07 [facility] [id number]) Hot Pack/Cold Pack Treatment Cold Pack Location R groin & R knee Patient Position Hooklying Treatment Duration (minutes) 10 PT-OP-T Assessment and Plan Start: 06/15/21 09:13 Freq: Status: Active Protocol: Document 10/10/21 14:40 [facility] (Rec: 10/10/21 15:18 [facility] [id number]) Physical Therapy Assessment Goals up/down Short Term Goal (STG) Pt will be able to do sit to stand from chair w/equal WB and no hands. STG Duration achieved Navigation Officer Goal (LTG) Pt will be able to get up/down from the ground and squat for gardening tasks. 09/19-improving mobility LTG Duration 10/22/21 stairs Short Term Goal (STG) Pt will be able to go up/down stairs in house (15) with SPC and 1 rail safely step to so she can sleep in her bedroom STG Duration achieved Navigation Officer Goal (LTG) Pt will be able to ascend and descend stairs reciprocally without rail in order to be safe in the community when amb . 09/19-can go up without rail but requires rail reciprocally down. LTG Duration 10/22/21 ROM Short Term Goal (STG) Pt will improve AROM R knee ROM to 5-105 degrees. STG Duration achieved 3-111 Navigation Officer Goal (LTG) Pt will improve AROM R knee ROM to 0-120 degrees to allow for ability to do stairs and good gait mechanics. LTG Duration 10/22/21 gait Short Term Goal (STG) Pt will be able to amb with cane safely in order to be able to return to wrnv at the [facility] [place]. STG Duration achieved Navigation Officer Goal (LTG) Pt will be able to amb as much as she would like w/o AD without inc pain with good gait pattern in order to be able to travel to [place] with family. 09/19-no AD but still limited in distance LTG Duration 10/22/21 1 Impairment strength Impairment pt lacks a pre-operative HEP Short Term Goal (STG) Pt will be indep w/HEP STG Duration achieved advancing as able Jail Goal (LTG) Pt will score at least 5/5 BLE strength to show improved strength to allow improved functional mobility. 09/19-improving LTG Duration 10/22/21 Assessment Summary Assessment Pt did well with progression back towards exercises and was able to do similar exercises as prior to slipping but does have notable dec end range quad control. ROM 10-104 at start of manual and imporved ext to 7 after manual Physical Therapy Plan Frequency and Duration Frequency of Treatment 1-2x/week Duration of Treatment 2 months Plan of Care Start Date 08/22/21 Plan of Care End Date 10/22/21 Next Visit Focus/Plan Next Note Type Treatment Note Next Visit Plan re-evaluation if new code is authorized for ankle treatment , cont to advance balance and strength
--- NOTE | 2021-10-13 09:03 | PT.OTN ---
Current Diagnoses Unilateral primary osteoarthritis, right knee (10/13/21) Difficulty in walking, not elsewhere classified (10/13/21) Weakness (10/13/21) Presence of right artificial knee joint (10/13/21) Physical Therapy Treatment Note PT-OP-A Visit Information Start: 06/15/21 09:13 Freq: Status: Active Protocol: Document 10/13/21 07:30 [facility] (Rec: 10/13/21 09:03 [facility] [id number]) Out-Patient Physical Therapy Visit Information Visit Information Visit Type Treatment Note Visit Note 12/18 Visit Start Time 08:20 Visit Stop Time 09:10 Total Visit Minutes 50 Visit Number 16 Number of PERSONNEL SECURITY ASSISTANT Visits 0 PT-OP-B Current Condition Start: 06/15/21 09:13 Freq: Status: Active Protocol: Document 08/22/21 12:59 [facility] (Rec: 08/22/21 13:53 [facility] [id number]) Current Condition History of Current Condition Onset Date 08/15 Current Complaints R knee pain s/p TKA History of Current Condition RE-eval 08/22- Pt reports surgery 1 week ago on 08/15/21 in surgery center and overall doing well. She has been doing ice and breathing exercises for pain and has only had to take 1 ibuprofen. Pt lost her exercises so she hasn't been doing them. She has been making herself walk through the house for meals and bathroom. IE:surgery 07/14/21 Right knee pain is 4/10 the knee is aggravated is longer walking distances, she needs to hold onto the cart at the store, the more I use it the more it hurts PT is scheduled to go to [place] on Sunday for 3 weeks so is doing her pre op now Treatment Goals Patient/Caregiver Goals Be able to return to work at the [employer] (needs to be amb w/ o cane), Be able to walk distance at a time w/o cane so she can do her trip in Jan in [place], gardening (weeding)-being able to get up/down from ground, get downstairs to her own bed (15 stairs)-eventually reciprocally & w/o rail PT-OP-C Subjective Start: 06/15/21 09:13 Freq: Status: Active Protocol: Document 10/13/21 07:30 [facility] (Rec: 10/13/21 09:03 [facility] [id number]) OP-PT Subjective Patient Comments Patient Comments Pt reports she was really sore after last session that lasted into the next day. PT-OP-F Manual Assessment Start: 06/15/21 09:13 Freq: Status: Active Protocol: Document 08/22/21 12:59 [facility] (Rec: 08/22/21 13:53 [facility] [id number]) Manual Assessments Soft Tissue Assessment Soft Tissue Mobility Assessment tightness in ITB, add, quads, HS& calf R Other Manual Assessments Other Manual Assessments some yellow streaking on RLE unsure if bruising or iodine left; fredrick drain intact, no drainage on bandage PT-OP-G Mobility & Gait Start: 06/15/21 09:13 Freq: Status: Active Protocol: Document 08/22/21 12:59 [facility] (Rec: 08/22/21 13:53 [facility] [id number]) OP Mobility Evaluation Bed Mobility Supine to and from Sit indep and can lift LE into bed w/o UEs Transfers Sit to Stand uses UE on seat RLE out in front OP Gait Assessment Comments Gait Comments Amb w/ dec knee ext in WB on RLE and dec push off, dec stance time RLE and some lat leaning w/4WW PT-OP-J Posture/Palpation/Skin Start: 06/15/21 09:13 Freq: Status: Active Protocol: Document 06/15/21 12:00 [facility] (Rec: 06/16/21 12:50 [facility] [id number]) Skin Assessment Circumference Measurement 5 cm above patella Measurement (Centimeters) 19 Comments bilaterally joint line knee Location knee joint line Measurement (Centimeters) 17.5 Comments 16.5 L PT-OP-K Range of Motion Start: 06/15/21 09:13 Freq: Status: Active Protocol: Document 09/19/21 13:00 [facility] (Rec: 09/19/21 15:02 [facility] [id number]) Knee Goniometric Range of Motion Knee Left Flexion Active (degrees) 111 Extension Active (degrees) 3 PT-OP-M Strength Start: 06/15/21 09:13 Freq: Status: Active Protocol: Document 09/19/21 13:00 [facility] (Rec: 09/19/21 15:02 [facility] [id number]) Hip Strength Hip Manual Muscle Testing Left Flexion (L2) 4+ Good+ Extension (S1) 4 Good Abduction 5 Normal Adduction 5 Normal External Rotation 4 Good Internal Rotation 4+ Good+ Right Flexion (L2) 4 Good Extension (S1) 4 Good Abduction 4+ Good+ Adduction 4+ Good+ External Rotation 4- Good- Internal Rotation 4 Good Knee Strength Knee Manual Muscle Testing Left Flexion (S2) 5 Normal Extension (L3) 5 Normal Right Flexion (S2) 4+ Good+ Extension (L3) 4 Good Ankle/Foot Strength Ankle and Foot Manual Muscle Testing Left Dorsiflexion (L4) 5 Normal Plantarflexion (S1) 4 Good Right Dorsiflexion (L4) 5 Normal Plantarflexion (S1) 4 Good Comments PF tested standing PT-OP-Q Treatments Start: 06/15/21 09:13 Freq: Status: Active Protocol: Document 10/13/21 07:30 [facility] (Rec: 10/13/21 09:03 [facility] [id number]) Cardio Equipment Bicycle (Upright) Duration (Minutes) 6 Resistance 0-3 Seat Position 5 Other starting rocking then around once pt able Gym Equipment Shuttle Recovery Unilateral Squats Resistance 50# Shuttle Recovery Platform Stable Reps/Time x15 B Bilateral Squats Resistance 100# Shuttle Recovery Platform Stable Reps/Time x15 Therapeutic Exercises Standing Exercises squat Standing Exercise Name mini squat Side bilateral Reps/Minutes 10 Comments over chair step downs Standing Exercise Name 4 in step Side right Reps/Minutes 12 Comments rail prn knee flex Standing Exercise Name knee flex to march Side right Reps/Minutes 10 step ups Side right Equipment Used 6 in step Reps/Minutes 10 Comments no rail TKE Standing Exercise Name cues for quad engagement Side right Equipment Used L3 Reps/Minutes 15 Manual Therapy Treatment Soft Tissue Mobilization thigh Body Location circumfrential MFR Comments R in s/l & supine & knee flex/ ext & ER/IR adductor Body Location r Mobilization Type Rolling Intensity/Depth Moderate 1 Body Location scar Mobilization Type Myofascial Release,Rolling, Strumming Intensity/Depth Superficial Body Position Supine Comments w/quad sets and hip IR/ER PT-OP-R Modalities Start: 08/22/21 14:02 Freq: Status: Active Protocol: Document 10/13/21 07:30 [facility] (Rec: 10/13/21 09:03 [facility] [id number]) Hot Pack/Cold Pack Treatment Cold Pack Location R knee Patient Position Hooklying Treatment Duration (minutes) 10 PT-OP-T Assessment and Plan Start: 06/15/21 09:13 Freq: Status: Active Protocol: Document 10/13/21 07:30 [facility] (Rec: 10/13/21 09:03 [facility] [id number]) Physical Therapy Assessment Goals up/down Short Term Goal (STG) Pt will be able to do sit to stand from chair w/equal WB and no hands. STG Duration achieved Snf Goal (LTG) Pt will be able to get up/down from the ground and squat for gardening tasks. 09/19-improving mobility LTG Duration 10/22/21 stairs Short Term Goal (STG) Pt will be able to go up/down stairs in house (15) with SPC and 1 rail safely step to so she can sleep in her bedroom STG Duration achieved Flight Purser Goal (LTG) Pt will be able to ascend and descend stairs reciprocally without rail in order to be safe in the community when amb . 09/19-can go up without rail but requires rail reciprocally down. LTG Duration 10/22/21 ROM Short Term Goal (STG) Pt will improve AROM R knee ROM to 5-105 degrees. STG Duration achieved 3-111 Snf Goal (LTG) Pt will improve AROM R knee ROM to 0-120 degrees to allow for ability to do stairs and good gait mechanics. LTG Duration 10/22/21 gait Short Term Goal (STG) Pt will be able to amb with cane safely in order to [place] able [place] [facility] [place]G Duration achieved Snf Goal (LTG) Pt will be able to amb as much as she would like w/o AD without inc pain with good gait pattern in order to be able to travel to [place] with family. 09/19-no AD but still limited in distance LTG Duration 10/22/21 1 Impairment strength Impairment pt lacks a pre-operative HEP Short Term Goal (STG) Pt will be indep w/HEP STG Duration achieved advancing as able Flight [employer]ser Goal (LTG) Pt will score at least 5/5 BLE strength to show improved strength to allow improved functional mobility. 09/19-improving LTG Duration 10/22/21 Assessment Summary Assessment Encouraged pt to ice a lot more often d/t inc swelling and pain. She still is stiff when starting ROM on bike but improves after 3 min to go around. Squats felt good but NWB ROM flex to august was sore for pt. Flex still at 103 deg today but pt does still have a lot of swelling. Still dicomfort at med knee. Physical Therapy Plan Frequency and Duration Frequency of Treatment 1-2x/week Duration of Treatment 2 months Plan of Care Start Date 08/22/21 Plan of Care End Date 10/22/21 Next Visit Focus/Plan Next Note Type Treatment Note Next Visit Plan re-evaluation if new code is authorized for ankle treatment , cont to advance balance and strength
--- NOTE | 2021-10-17 15:19 | PT.OTN ---
Current Diagnoses Unilateral primary osteoarthritis, right knee (10/17/21) Difficulty in walking, not elsewhere classified (10/17/21) Weakness (10/17/21) Presence of right artificial knee joint (10/17/21) Physical Therapy Treatment Note PT-OP-A Visit Information Start: 06/15/21 09:13 Freq: Status: Active Protocol: Document 10/17/21 14:30 [facility] (Rec: 10/17/21 15:18 [facility] [id number]) Out-Patient Physical Therapy Visit Information Visit Information Visit Type Progress Note Visit Note 06/20 Visit Start Time 14:30 Visit Stop Time 15:13 Total Visit Minutes 43 Visit Number 17 Number of EXCEPTIONAL STUDENT EDUCATION TEACHER Visits 0 PT-OP-B Current Condition Start: 06/15/21 09:13 Freq: Status: Active Protocol: Document 08/22/21 12:59 [facility] (Rec: 08/22/21 13:53 [facility] [id number]) Current Condition History of Current Condition Onset Date 08/15 Current Complaints R knee pain s/p TKA History of Current Condition RE-eval 08/22- Pt reports surgery 1 week ago on 08/15/21 in surgery center and overall doing well. She has been doing ice and breathing exercises for pain and has only had to take 1 ibuprofen. Pt lost her exercises so she hasn't been doing them. She has been making herself walk through the house for meals and bathroom. IE:surgery 07/14/21 Right knee pain is 4/10 the knee is aggravated is longer walking distances, she needs to hold onto the cart at the store, the more I use it the more it hurts PT is scheduled to go to [place] on Sunday for 3 weeks so is doing her pre op now Treatment Goals Patient/Caregiver Goals Be able to return to work at the [employer] (needs to be amb w/ o cane), Be able to walk distance at a time w/o cane so she can do her trip in Jan in [place], gardening (weeding)-being able to get up/down from ground, get downstairs to her own bed (15 stairs)-eventually reciprocally & w/o rail PT-OP-C Subjective Start: 06/15/21 09:13 Freq: Status: Active Protocol: Document 10/17/21 14:30 [facility] (Rec: 10/17/21 15:18 [facility] [id number]) OP-PT Subjective Patient Comments Patient Comments Pt reports she feels like she is improving. SHe holds the rail going down and up stairs d/t concern for fall. PT-OP-F Manual Assessment Start: 06/15/21 09:13 Freq: Status: Active Protocol: Document 08/22/21 12:59 [facility] (Rec: 08/22/21 13:53 [facility] [id number]) Manual Assessments Soft Tissue Assessment Soft Tissue Mobility Assessment tightness in ITB, add, quads, HS& calf R Other Manual Assessments Other Manual Assessments some yellow streaking on RLE unsure if bruising or iodine left; fredrick drain intact, no drainage on bandage PT-OP-G Mobility & Gait Start: 06/15/21 09:13 Freq: Status: Active Protocol: Document 08/22/21 12:59 [facility] (Rec: 08/22/21 13:53 [facility] [id number]) OP Mobility Evaluation Bed Mobility Supine to and from Sit indep and can lift LE into bed w/o UEs Transfers Sit to Stand uses UE on seat RLE out in front OP Gait Assessment Comments Gait Comments Amb w/ dec knee ext in WB on RLE and dec push off, dec stance time RLE and some lat leaning w/4WW PT-OP-J Posture/Palpation/Skin Start: 06/15/21 09:13 Freq: Status: Active Protocol: Document 06/15/21 12:00 [facility] (Rec: 06/16/21 12:50 [facility] [id number]) Skin Assessment Circumference Measurement 5 cm above patella Measurement (Centimeters) 19 Comments bilaterally joint line knee Location knee joint line Measurement (Centimeters) 17.5 Comments 16.5 L PT-OP-K Range of Motion Start: 06/15/21 09:13 Freq: Status: Active Protocol: Document 10/17/21 14:30 [facility] (Rec: 10/17/21 15:18 [facility] [id number]) Knee Goniometric Range of Motion Knee Right Flexion Active (degrees) 110 Extension Active (degrees) 8 PT-OP-M Strength Start: 06/15/21 09:13 Freq: Status: Active Protocol: Document 10/17/21 14:30 [facility] (Rec: 10/17/21 15:18 [facility] [id number]) Hip Strength Hip Manual Muscle Testing Left Flexion (L2) 5 Normal Extension (S1) 4+ Good+ Abduction 5 Normal Adduction 5 Normal External Rotation 5 Normal Internal Rotation 5 Normal Right Flexion (L2) 5 Normal Extension (S1) 4+ Good+ Abduction 4+ Good+ Adduction 5 Normal External Rotation 4+ Good+ Internal Rotation 5 Normal Knee Strength Knee Manual Muscle Testing Left Flexion (S2) 5 Normal Extension (L3) 5 Normal Right Flexion (S2) 5 Normal Extension (L3) 4+ Good+ Ankle/Foot Strength Ankle and Foot Manual Muscle Testing Left Dorsiflexion (L4) 5 Normal Plantarflexion (S1) 5 Normal Comments 20 heel raises Right Dorsiflexion (L4) 5 Normal Plantarflexion (S1) 3- Fair- Comments PF tested standing; unable to do SL heel raise PT-OP-Q Treatments Start: 06/15/21 09:13 Freq: Status: Active Protocol: Document 10/17/21 14:30 [facility] (Rec: 10/17/21 15:18 [facility] [id number]) Cardio Equipment Bicycle (Upright) Duration (Minutes) 6 Resistance 0-5 Seat Position 5 Other starting rocking then around once pt able Gym Equipment Shuttle Recovery Unilateral Squats Resistance 62# Shuttle Recovery Platform Stable Reps/Time x15 B Bilateral Squats Resistance 112# Shuttle Recovery Platform Stable Reps/Time x15 Therapeutic Exercises Supine Exercises heel slides Side right Reps/Minutes 10 Standing Exercises lunge Standing Exercise Name mini Side bilateral Reps/Minutes 10 step ups Side right Equipment Used 8 in step Reps/Minutes 12 Comments no rail standing calf raises Standing Exercise Name DL Side bilateral Reps/Minutes 20 Comments on step Manual Therapy Treatment Soft Tissue Mobilization HS Body Location med R Mobilization Type Rolling Intensity/Depth Moderate Comments w/active hs stretch Joint Mobilizations tibiofemoral Joint tibia IR FM Grade II PT-OP-R Modalities Start: 08/22/21 14:02 Freq: Status: Active Protocol: Document 10/13/21 07:30 [facility] (Rec: 10/13/21 09:03 [facility] [id number]) Hot Pack/Cold Pack Treatment Cold Pack Location R knee Patient Position Hooklying Treatment Duration (minutes) 10 PT-OP-T Assessment and Plan Start: 06/15/21 09:13 Freq: Status: Active Protocol: Document 10/17/21 14:30 [facility] (Rec: 10/17/21 15:18 [facility] [id number]) Physical Therapy Assessment Goals up/down Short Term Goal (STG) Pt will be able to do sit to stand from chair w/equal WB and no hands. STG Duration achieved [facility] Goal (LTG) Pt will be able to get up/down from the ground and squat for gardening tasks. 09/19-improving mobility 10/17- has not tried to get up/ down from ground; has been doing some in higher gardens LTG Duration 12/17/21 stairs Short Term Goal (STG) Pt will be able to go up/down stairs in house (15) with SPC and 1 rail safely step to so she can sleep in her bedroom STG Duration achieved Pet Supplies Salesperson Goal (LTG) Pt will be able to ascend and descend stairs reciprocally without rail in order to be safe in the community when amb . 09/19-can go up without rail but requires rail reciprocally down. 10/17-uses rail up/down but doesn't feel like she needs it for up LTG Duration 01/17/22 ROM Short Term Goal (STG) Pt will improve AROM R knee ROM to 5-105 degrees. 10/17-pt did backtrack after slip; 8-110 STG Duration 11/17/21 [facility] Goal (LTG) Pt will improve AROM R knee ROM to 0-120 degrees to allow for ability to do stairs and good gait mechanics. LTG Duration 10/22/21 gait Short Term Goal (STG) Pt will be able to amb with cane safely in order to be able to return to wrok at the [facility] [place]. STG Duration achieved Pet Supplies Salesperson Goal (LTG) Pt will be able to amb as much as she would like w/o AD without inc pain with good gait pattern in order to be able to travel to [place] with family. 09/19-no AD but still limited in distance 10/17-no AD but has not tried much distance recently LTG Duration 12/17/21 1 Impairment strength Impairment pt lacks a pre-operative HEP Short Term Goal (STG) Pt will be indep w/HEP STG Duration achieved advancing as able [facility] Goal (LTG) Pt will score at least 5/5 BLE strength to show improved strength to allow improved functional mobility. 09/19-improving 10/17/21 LTG Duration 12/17/21 Assessment Summary Assessment Pt has made excellent progress and was doing very well until she slipped and fell on her stairs d/t wearing socks 2 weeks ago. She is gradually progressing back but is still limited in ROM of knee. Pt to cont w/PT to progress w/ functional mobility, gait, ROM , strength and balance. Physical Therapy Plan Frequency and Duration Frequency of Treatment 1-2x/week Duration of Treatment 2 months Plan of Care Start Date 10/17/21 Plan of Care End Date 12/17/21 Therapeutic Interventions Therapeutic Interventions Aquatic Therapy,Balance Training,Gait Training,Home Exercise Program,Joint Mobilizations,Manual Therapy, Neuromuscular Re-education, Patient/Caregiver Education, Self-Care/Home Management,Soft Tissue Mobilization,Taping, Therapeutic Activities, Therapeutic Exercises Modalities Cold Pack/Ice Massage,Electric Stimulation,Hot Packs Next Visit Focus/Plan Next Note Type Treatment Note Next Visit Plan cont to advance functional strength and balance, improved ROM
--- NOTE | 2021-10-17 15:19 | PT.OPPOC ---
Physical, Occupational & Speech Therapy At [facility] Current Diagnoses Unilateral primary osteoarthritis, right knee (10/17/21) Difficulty in walking, not elsewhere classified (10/17/21) Weakness (10/17/21) Presence of right artificial knee joint (10/17/21) Visit Care Team Role Provider Type Werner Fernandez MD Family Provider Physician Primary Care Provider Specialty: Family Practice Address: [address] [place] [address], [id number] Email: [email or web address] Ericka Greene MD Attending Provider Physician Referring Provider Specialty: Orthopedics Orthopedic Surgery Address: [address] [place] [address], [id number] Email: [email or web address] Plan Of Care PT-OP-T Assessment and Plan Start: 06/15/21 09:13 Freq: Status: Active Protocol: Document 10/17/21 14:30 [facility] (Rec: 10/17/21 15:18 [facility] [id number]) Physical Therapy Assessment Goals up/down Short Term Goal (STG) Pt will be able to do sit to stand from chair w/equal WB and no hands. STG Duration achieved [employer] Goal (LTG) Pt will be able to get up/down from the ground and squat for gardening tasks. 09/19-improving mobility 10/17- has not tried to get up/ down from ground; has been doing some in higher gardens LTG Duration 12/17/21 stairs Short Term Goal (STG) Pt will be able to go up/down stairs in house (15) with SPC and 1 rail safely step to so she can sleep in her bedroom STG Duration achieved Longterm Goal (LTG) Pt will be able to ascend and descend stairs reciprocally without rail in order to be safe in the community when amb . 09/19-can go up without rail but requires rail reciprocally down. 10/17-uses rail up/down but doesn't feel like she needs it for up LTG Duration 01/17/22 ROM Short Term Goal (STG) Pt will improve AROM R knee ROM to 5-105 degrees. 10/17-pt did backtrack after slip; 8-110 STG Duration 11/17/21 [employer] Goal (LTG) Pt will improve AROM R knee ROM to 0-120 degrees to allow for ability to do stairs and good gait mechanics. LTG Duration 10/22/21 gait Short Term Goal (STG) Pt will be able to amb with cane safely in order to be able to return to [facility] the [facility] [place]. STG Duration achieved Longterm Goal (LTG) Pt will be able to amb as much as she would like w/o AD without inc pain with good gait pattern in order to be able to travel to [place] with family. 09/19-no AD but still limited in distance 10/17-no AD but has not tried much distance recently LTG Duration 12/17/21 1 Impairment strength Impairment pt lacks a pre-operative HEP Short Term Goal (STG) Pt will be indep w/HEP STG Duration achieved advancing as able [employer] Goal (LTG) Pt will score at least 5/5 BLE strength to show improved strength to allow improved functional mobility. 09/19-improving 10/17/21 LTG Duration 12/17/21 Assessment Summary Assessment Pt has made excellent progress and was doing very well until she slipped and fell on her stairs d/t wearing socks 2 weeks ago. She is gradually progressing back but is still limited in ROM of knee. Pt to cont w/PT to progress w/ functional mobility, gait, ROM , strength and balance. Physical Therapy Plan Frequency and Duration Frequency of Treatment 1-2x/week Duration of Treatment 2 months Plan of Care Start Date 10/17/21 Plan of Care End Date 12/17/21 Therapeutic Interventions Therapeutic Interventions Aquatic Therapy,Balance Training,Gait Training,Home Exercise Program,Joint Mobilizations,Manual Therapy, Neuromuscular Re-education, Patient/Caregiver Education, Self-Care/Home Management,Soft Tissue Mobilization,Taping, Therapeutic Activities, Therapeutic Exercises Modalities Cold Pack/Ice Massage,Electric Stimulation,Hot Packs Next Visit Focus/Plan Next Note Type Treatment Note Next Visit Plan cont to advance functional strength and balance, improved ROM Plan of Care Dates Plan of Care Start Date 10/17/21 Plan of Care End Date 12/17/21 Electronically Signed by: Gypsy Pascual, PT 10/17/21 1519 If you are in agreement with this Plan of Care, please return a signed and dated copy. I have reviewed this Plan of Care and certify that the skilled therapy services above are required to meet the patient?s needs. Physician Signature Date Printed Name and Credentials Clinical Instructor Signature Printed Name and Credentials
--- NOTE | 2021-10-20 09:08 | PT.OTN ---
Addendum entered and electronically signed by Syeda Ayala, SERGE 10/20/21 09:11: Cued knee alignment, heel/ mid press resulted less to no anterior discomfort. Original Note: Current Diagnoses Unilateral primary osteoarthritis, right knee (10/20/21) Difficulty in walking, not elsewhere classified (10/20/21) Weakness (10/20/21) Presence of right artificial knee joint (10/20/21) Physical Therapy Treatment Note PT-OP-A Visit Information Start: 06/15/21 09:13 Freq: Status: Active Protocol: Document 10/20/21 08:18 SP (Rec: 10/20/21 09:11 SP [id number]) Out-Patient Physical Therapy Visit Information Visit Information Visit Type Treatment Note Visit Note 07/21 Visit Start Time 08:18 Visit Stop Time 09:08 Total Visit Minutes 50 Visit Number 18 Number of CAR WASH ATTENDANT AUTOMATIC Visits 1 PT-OP-B Current Condition Start: 06/15/21 09:13 Freq: Status: Active Protocol: Document 08/22/21 12:59 [facility] (Rec: 08/22/21 13:53 [facility] [id number]) Current Condition History of Current Condition Onset Date 08/15 Current Complaints R knee pain s/p TKA History of Current Condition RE-eval 08/22- Pt reports surgery 1 week ago on 08/15/21 in surgery center and overall doing well. She has been doing ice and breathing exercises for pain and has only had to take 1 ibuprofen. Pt lost her exercises so she hasn't been doing them. She has been making herself walk through the house for meals and bathroom. IE:surgery 07/14/21 Right knee pain is 4/10 the knee is aggravated is longer walking distances, she needs to hold onto the cart at the store, the more I use it the more it hurts PT is scheduled to go to [place] on Sunday for 3 weeks so is doing her pre op now Treatment Goals Patient/Caregiver Goals Be able to return to work at the [employer] (needs to be amb w/ o cane), Be able to walk distance at a time w/o cane so she can do her trip in Jan in [place], gardening (weeding)-being able to get up/down from ground, get downstairs to her own bed (15 stairs)-eventually reciprocally & w/o rail PT-OP-C Subjective Start: 06/15/21 09:13 Freq: Status: Active Protocol: Document 10/20/21 08:18 SP (Rec: 10/20/21 09:11 SP [id number]) OP-PT Subjective Patient Comments Patient Comments Pt stated started elevating and icing the R knee again and seems be helping. Pt stated felt good after last tx. Pt states using Voltarin and helping alot with pain. PT-OP-F Manual Assessment Start: 06/15/21 09:13 Freq: Status: Active Protocol: Document 08/22/21 12:59 [facility] (Rec: 08/22/21 13:53 [facility] [id number]) Manual Assessments Soft Tissue Assessment Soft Tissue Mobility Assessment tightness in ITB, add, quads, HS& calf R Other Manual Assessments Other Manual Assessments some yellow streaking on RLE unsure if bruising or iodine left; fredrick drain intact, no drainage on bandage PT-OP-G Mobility & Gait Start: 06/15/21 09:13 Freq: Status: Active Protocol: Document 08/22/21 12:59 [facility] (Rec: 08/22/21 13:53 [facility] [id number]) OP Mobility Evaluation Bed Mobility Supine to and from Sit indep and can lift LE into bed w/o UEs Transfers Sit to Stand uses UE on seat RLE out in front OP Gait Assessment Comments Gait Comments Amb w/ dec knee ext in WB on RLE and dec push off, dec stance time RLE and some lat leaning w/4WW PT-OP-J Posture/Palpation/Skin Start: 06/15/21 09:13 Freq: Status: Active Protocol: Document 06/15/21 12:00 [facility] (Rec: 06/16/21 12:50 [facility] [id number]) Skin Assessment Circumference Measurement 5 cm above patella Measurement (Centimeters) 19 Comments bilaterally joint line knee Location knee joint line Measurement (Centimeters) 17.5 Comments 16.5 L PT-OP-K Range of Motion Start: 06/15/21 09:13 Freq: Status: Active Protocol: Document 10/20/21 08:18 SP (Rec: 10/20/21 09:11 SP [id number]) Knee Goniometric Range of Motion Knee Right Flexion Active (degrees) 112 Extension Active (degrees) 4 Comments improved 2 deg flexion, improved 4 deg extension QS. measured after ther ex PT-OP-M Strength Start: 06/15/21 09:13 Freq: Status: Active Protocol: Document 10/17/21 14:30 [facility] (Rec: 10/17/21 15:18 [facility] [id number]) Hip Strength Hip Manual Muscle Testing Left Flexion (L2) 5 Normal Extension (S1) 4+ Good+ Abduction 5 Normal Adduction 5 Normal External Rotation 5 Normal Internal Rotation 5 Normal Right Flexion (L2) 5 Normal Extension (S1) 4+ Good+ Abduction 4+ Good+ Adduction 5 Normal External Rotation 4+ Good+ Internal Rotation 5 Normal Knee Strength Knee Manual Muscle Testing Left Flexion (S2) 5 Normal Extension (L3) 5 Normal Right Flexion (S2) 5 Normal Extension (L3) 4+ Good+ Ankle/Foot Strength Ankle and Foot Manual Muscle Testing Left Dorsiflexion (L4) 5 Normal Plantarflexion (S1) 5 Normal Comments 20 heel raises Right Dorsiflexion (L4) 5 Normal Plantarflexion (S1) 3- Fair- Comments PF tested standing; unable to do SL heel raise PT-OP-Q Treatments Start: 06/15/21 09:13 Freq: Status: Active Protocol: Document 10/20/21 08:18 SP (Rec: 10/20/21 09:11 SP [id number]) Cardio Equipment Recumbent Elliptical ([employer]) Duration (Minutes) 6 Resistance 3 Seat Position see 8 Other 440 steps Gym Equipment Shuttle Recovery Unilateral Squats Details cued knee alignment with toes R>L focus Resistance 62# RLE, 62#> 75#LLE Shuttle Recovery Platform Stable Reps/Time 2x10 Bilateral Squats Resistance 112# Shuttle Recovery Platform Stable Reps/Time x15 Therapeutic Exercises Supine Exercises heel slides Supine Exercise Name HEP review Side right Equipment Used w/ Strap Reps/Minutes 10 Comments 112 flexion after assist strap AAROM Standing Exercises lunge Standing Exercise Name mini Side bilateral Resistance AAROM Equipment Used 8 step, B HR support Reps/Minutes 10 Comments good feedback ROM squat Standing Exercise Name mini squat Side bilateral Reps/Minutes 10 Comments over chair step downs Standing Exercise Name 8 in eccentric downstep Side right Equipment Used 8 step Reps/Minutes x6 Comments rail prn, cued knee alignment wtih and behind toes (midfoot/ heel WB/ls calf step ups Standing Exercise Name alternating con/ ecc then single leg Side right Equipment Used 8 in step, rail PRN Reps/Minutes 12 Comments cued knee alignment TKE Standing Exercise Name cues for quad engagement, knee alignment Side right Equipment Used L3 Reps/Minutes 15 Comments knee alignment, gave Lv3 TB for home stretch Standing Exercise Name 1.calf on step 2. HS on step 3 . knee flex stretch on step Side bilateral Reps/Minutes 30 sec ea standing calf raises Standing Exercise Name DL, cued after 10, 2nd set wt shift more wt over RLE, better Side bilateral Equipment Used 8 step Reps/Minutes 10, 10, 3 reps single on own floor. Comments cued knee alignment Manual Therapy Treatment Soft Tissue Mobilization 1 Body Location scar Mobilization Type Rolling,Strumming Intensity/Depth Moderate Body Position Supine Comments manual and instructed self PT-OP-R Modalities Start: 08/22/21 14:02 Freq: Status: Active Protocol: Document 10/20/21 08:18 SP (Rec: 10/20/21 09:11 SP [id number]) Hot Pack/Cold Pack Treatment Cold Pack Location R knee Patient Position Hooklying Treatment Duration (minutes) 10 Patient Tolerance Good Comments stated felt better beforing leaving. PT-OP-T Assessment and Plan Start: 06/15/21 09:13 Freq: Status: Active Protocol: Document 10/20/21 08:18 SP (Rec: 10/20/21 09:11 SP [id number]) Physical Therapy Assessment Goals up/down Short Term Goal (STG) Pt will be able to do sit to stand from chair w/equal WB and no hands. STG Duration achieved Halfway Goal (LTG) Pt will be able to get up/down from the ground and squat for gardening tasks. 09/19-improving mobility 10/17- has not tried to get up/ down from ground; has been doing some in higher gardens LTG Duration 12/17/21 stairs Short Term Goal (STG) Pt will be able to go up/down stairs in house (15) with SPC and 1 rail safely step to so she can sleep in her bedroom STG Duration achieved Halfway Goal (LTG) Pt will be able to ascend and descend stairs reciprocally without rail in order to be safe in the community when amb . 09/19-can go up without rail but requires rail reciprocally down. 10/17-uses rail up/down but doesn't feel like she needs it for up LTG Duration 01/17/22 ROM Short Term Goal (STG) Pt will improve AROM R knee ROM to 5-105 degrees. 10/17-pt did backtrack after slip; 8-110 STG Duration 11/17/21 Director Software Quality Assurance Goal (LTG) Pt will improve AROM R knee ROM to 0-120 degrees to allow for ability to do stairs and good gait mechanics. LTG Duration 10/22/21 gait Short Term Goal (STG) Pt will be able to amb with cane safely in order to be able to return to wrtx at the [facility] [place]. STG Duration achieved Director Software Quality Assurance Goal (LTG) Pt will be able to amb as much as she would like w/o AD without inc pain with good gait pattern in order to be able to travel to [place] with family. 09/19-no AD but still limited in distance 10/17-no AD but has not tried much distance recently LTG Duration 12/17/21 1 Impairment strength Impairment pt lacks a pre-operative HEP Short Term Goal (STG) Pt will be indep w/HEP STG Duration achieved advancing as able Director Software Quality Assurance Goal (LTG) Pt will score at least 5/5 BLE strength to show improved strength to allow improved functional mobility. 09/19-improving 10/17/21 LTG Duration 12/17/21 Assessment Summary Assessment Pt improved AROM 4- 112 deg R knee. Focused on ROM, alignment gradual strengthening. Able to complete 3 reps Single R LE calf raises today. Added TKE to home, provided TB. Physical Therapy Plan Frequency and Duration Frequency of Treatment 1-2x/week Duration of Treatment 2 months Plan of Care Start Date 10/17/21 Plan of Care End Date 12/17/21 Therapeutic Interventions Therapeutic Interventions Aquatic Therapy,Balance Training,Gait Training,Home Exercise Program,Joint Mobilizations,Manual Therapy, Neuromuscular Re-education, Patient/Caregiver Education, Self-Care/Home Management,Soft Tissue Mobilization,Taping, Therapeutic Activities, Therapeutic Exercises Modalities Cold Pack/Ice Massage,Electric Stimulation,Hot Packs Next Visit Focus/Plan Next Note Type Treatment Note Next Visit Plan cont to advance functional strength and balance, improved ROM
--- NOTE | 2021-10-24 15:18 | PT.OTN ---
Current Diagnoses Unilateral primary osteoarthritis, right knee (10/24/21) Difficulty in walking, not elsewhere classified (10/24/21) Weakness (10/24/21) Presence of right artificial knee joint (10/24/21) Physical Therapy Treatment Note PT-OP-A Visit Information Start: 06/15/21 09:13 Freq: Status: Active Protocol: Document 10/24/21 14:36 [facility] (Rec: 10/24/21 15:18 [facility] [id number]) Out-Patient Physical Therapy Visit Information Visit Information Visit Type Treatment Note Visit Note 08/18 Visit Start Time 14:34 Visit Stop Time 15:14 Total Visit Minutes 40 Visit Number 19 Number of BANKING ANALYST Visits 0 PT-OP-B Current Condition Start: 06/15/21 09:13 Freq: Status: Active Protocol: Document 08/22/21 12:59 [facility] (Rec: 08/22/21 13:53 [facility] [id number]) Current Condition History of Current Condition Onset Date 08/15 Current Complaints R knee pain s/p TKA History of Current Condition RE-eval 08/22- Pt reports surgery 1 week ago on 08/15/21 in surgery center and overall doing well. She has been doing ice and breathing exercises for pain and has only had to take 1 ibuprofen. Pt lost her exercises so she hasn't been doing them. She has been making herself walk through the house for meals and bathroom. IE:surgery 07/14/21 Right knee pain is 4/10 the knee is aggravated is longer walking distances, she needs to hold onto the cart at the store, the more I use it the more it hurts PT is scheduled to go to [place] on Sunday for 3 weeks so is doing her pre op now Treatment Goals Patient/Caregiver Goals Be able to return to work at the [employer] (needs to be amb w/ o cane), Be able to walk distance at a time w/o cane so she can do her trip in Jan in [place], gardening (weeding)-being able to get up/down from ground, get downstairs to her own bed (15 stairs)-eventually reciprocally & w/o rail PT-OP-C Subjective Start: 06/15/21 09:13 Freq: Status: Active Protocol: Document 10/24/21 14:36 [facility] (Rec: 10/24/21 15:18 [facility] [id number]) OP-PT Subjective Patient Comments Patient Comments Pt reports doing much better. Patient Reported Progress Improving PT-OP-F Manual Assessment Start: 06/15/21 09:13 Freq: Status: Active Protocol: Document 08/22/21 12:59 [facility] (Rec: 08/22/21 13:53 [facility] [id number]) Manual Assessments Soft Tissue Assessment Soft Tissue Mobility Assessment tightness in ITB, add, quads, HS& calf R Other Manual Assessments Other Manual Assessments some yellow streaking on RLE unsure if bruising or iodine left; fredrick drain intact, no drainage on bandage PT-OP-G Mobility & Gait Start: 06/15/21 09:13 Freq: Status: Active Protocol: Document 08/22/21 12:59 [facility] (Rec: 08/22/21 13:53 [id number] OP Mobility Evaluation Bed Mobility Supine to and from Sit indep and can lift LE into bed w/o UEs Transfers Sit to Stand uses UE on seat RLE out in front OP Gait Assessment Comments Gait Comments Amb w/ dec knee ext in WB on RLE and dec push off, dec stance time RLE and some lat leaning w/4WW PT-OP-J Posture/Palpation/Skin Start: 06/15/21 09:13 Freq: Status: Active Protocol: Document 06/15/21 12:00 [facility] (Rec: 06/16/21 12:50 [facility] [id number]) Skin Assessment Circumference Measurement 5 cm above patella Measurement (Centimeters) 19 Comments bilaterally joint line knee Location knee joint line Measurement (Centimeters) 17.5 Comments 16.5 L PT-OP-K Range of Motion Start: 06/15/21 09:13 Freq: Status: Active Protocol: Document 10/20/21 08:18 SP (Rec: 10/20/21 09:11 SP [id number]) Knee Goniometric Range of Motion Knee Right Flexion Active (degrees) 112 Extension Active (degrees) 4 Comments improved 2 deg flexion, improved 4 deg extension QS. measured after ther ex PT-OP-M Strength Start: 06/15/21 09:13 Freq: Status: Active Protocol: Document 10/17/21 14:30 [facility] (Rec: 10/17/21 15:18 [facility] [id number]) Hip Strength Hip Manual Muscle Testing Left Flexion (L2) 5 Normal Extension (S1) 4+ Good+ Abduction 5 Normal Adduction 5 Normal External Rotation 5 Normal Internal Rotation 5 Normal Right Flexion (L2) 5 Normal Extension (S1) 4+ Good+ Abduction 4+ Good+ Adduction 5 Normal External Rotation 4+ Good+ Internal Rotation 5 Normal Knee Strength Knee Manual Muscle Testing Left Flexion (S2) 5 Normal Extension (L3) 5 Normal Right Flexion (S2) 5 Normal Extension (L3) 4+ Good+ Ankle/Foot Strength Ankle and Foot Manual Muscle Testing Left Dorsiflexion (L4) 5 Normal Plantarflexion (S1) 5 Normal Comments 20 heel raises Right Dorsiflexion (L4) 5 Normal Plantarflexion (S1) 3- Fair- Comments PF tested standing; unable to do SL heel raise PT-OP-Q Treatments Start: 06/15/21 09:13 Freq: Status: Active Protocol: Document 10/24/21 14:36 [facility] (Rec: 10/24/21 15:18 [facility] [id number]) Cardio Equipment Bicycle (Upright) Duration (Minutes) 6 Resistance 0-8 Seat Position 5 Other starting rocking then around once pt able Gym Equipment Shuttle Recovery Unilateral Squats Resistance 62# Shuttle Recovery Platform Stable Reps/Time x12 R Bilateral Squats Resistance 125# Shuttle Recovery Platform Stable Reps/Time x15 Therapeutic Exercises Standing Exercises lunge Standing Exercise Name mini Side bilateral Reps/Minutes 10 squat Standing Exercise Name squat Side bilateral Reps/Minutes 10 Comments over chair step downs Standing Exercise Name 5 in eccentric downstep Side right Equipment Used 5 step Reps/Minutes 12 Comments no rail Therapeutic Activity Therapeutic Activity ground transfer Comments up/down from ground using UE support outsiee and w/o Manual Therapy Treatment Soft Tissue Mobilization 1 Body Location scar Mobilization Type Rolling,Strumming Intensity/Depth Moderate Body Position Supine Comments w/quad set Joint Mobilizations tibiofemoral Joint tibia PA & femur AP FM patellofemoral Joint R Direction sup, inf, med PT-OP-R Modalities Start: 08/22/21 14:02 Freq: Status: Active Protocol: Document 10/24/21 14:36 [facility] (Rec: 10/24/21 15:18 [facility] [id number]) Hot Pack/Cold Pack Treatment Cold Pack Location R knee Patient Position Hooklying Treatment Duration (minutes) 10 Patient Tolerance Good Comments stated felt better beforing leaving. PT-OP-T Assessment and Plan Start: 06/15/21 09:13 Freq: Status: Active Protocol: Document 10/24/21 14:36 [facility] (Rec: 10/24/21 15:18 [facility] [id number]) Physical Therapy Assessment Goals up/down Short Term Goal (STG) Pt will be able to do sit to stand from chair w/equal WB and no hands. STG Duration achieved Volcanology Professor Goal (LTG) Pt will be able to get up/down from the ground and squat for gardening tasks. 09/19-improving mobility 10/17- has not tried to get up/ down from ground; has been doing some in higher gardens LTG Duration 12/17/21 stairs Short Term Goal (STG) Pt will be able to go up/down stairs in house (15) with SPC and 1 rail safely step to so she can sleep in her bedroom STG Duration achieved Volcanology Professor Goal (LTG) Pt will be able to ascend and descend stairs reciprocally without rail in order to be safe in the community when amb . 09/19-can go up without rail but requires rail reciprocally down. 10/17-uses rail up/down but doesn't feel like she needs it for up LTG Duration 01/17/22 ROM Short Term Goal (STG) Pt will improve AROM R knee ROM to 5-105 degrees. 10/17-pt did backtrack after slip; 8-110 STG Duration 11/17/21 Volcanology Professor Goal (LTG) Pt will improve AROM R knee ROM to 0-120 degrees to allow for ability to do stairs and good gait mechanics. LTG Duration 10/22/21 gait Short Term Goal (STG) Pt will be able to amb with cane safely in order to be able to return to wrok at the [employer]. STG Duration achieved Group Home Goal (LTG) Pt will be able to amb as much as she would like w/o AD without inc pain with good gait pattern in order to be able to travel to [place] with family. 09/19-no AD but still limited in distance 10/17-no AD but has not tried much distance recently LTG Duration 12/17/21 1 Impairment strength Impairment pt lacks a pre-operative HEP Short Term Goal (STG) Pt will be indep w/HEP STG Duration achieved advancing as able Volcanology Professor Goal (LTG) Pt will score at least 5/5 BLE strength to show improved strength to allow improved functional mobility. 09/19-improving 10/17/21 LTG Duration 12/17/21 Assessment Summary Assessment Pt did well with ground transfers but did have difficulty w/control down and required cues. Improved stair performance today. ROM prior to manual 6-115 and improved to 4-120 after. Physical Therapy Plan Frequency and Duration Frequency of Treatment 1-2x/week Duration of Treatment 2 months Plan of Care Start Date 10/17/21 Plan of Care End Date 12/17/21 Next Visit Focus/Plan Next Note Type Treatment Note Next Visit Plan cont to advance functional strength and balance, improved ROM
--- NOTE | 2021-10-26 09:10 | PT.OTN ---
Current Diagnoses Unilateral primary osteoarthritis, right knee (10/26/21) Difficulty in walking, not elsewhere classified (10/26/21) Weakness (10/26/21) Presence of right artificial knee joint (10/26/21) Physical Therapy Treatment Note PT-OP-A Visit Information Start: 06/15/21 09:13 Freq: Status: Active Protocol: Document 10/26/21 08:20 SP (Rec: 10/26/21 09:07 SP [id number]) Out-Patient Physical Therapy Visit Information Visit Information Visit Type Treatment Note Visit Note 09/18 Visit Start Time 08:20 Visit Stop Time 09:10 Total Visit Minutes 50 Visit Number 20 Number of MODELING DIRECTOR Visits 1 PT-OP-B Current Condition Start: 06/15/21 09:13 Freq: Status: Active Protocol: Document 08/22/21 12:59 [facility] (Rec: 08/22/21 13:53 [facility] [id number]) Current Condition History of Current Condition Onset Date 08/15 Current Complaints R knee pain s/p TKA History of Current Condition RE-eval 08/22- Pt reports surgery 1 week ago on 08/15/21 in surgery center and overall doing well. She has been doing ice and breathing exercises for pain and has only had to take 1 ibuprofen. Pt lost her exercises so she hasn't been doing them. She has been making herself walk through the house for meals and bathroom. IE:surgery 07/14/21 Right knee pain is 4/10 the knee is aggravated is longer walking distances, she needs to hold onto the cart at the store, the more I use it the more it hurts PT is scheduled to go to [place] on Sunday for 3 weeks so is doing her pre op now Treatment Goals Patient/Caregiver Goals Be able to return to work at the [employer] (needs to be amb w/ o cane), Be able to walk distance at a time w/o cane so she can do her trip in Jan in [place], gardening (weeding)-being able to get up/down from ground, get downstairs to her own bed (15 stairs)-eventually reciprocally & w/o rail PT-OP-C Subjective Start: 06/15/21 09:13 Freq: Status: Active Protocol: Document 10/26/21 08:20 SP (Rec: 10/26/21 09:07 SP [id number]) OP-PT Subjective Patient Comments Patient Comments Pt reports doing well with HEP : does deep knee bends before going down stairs. PT-OP-F Manual Assessment Start: 06/15/21 09:13 Freq: Status: Active Protocol: Document 08/22/21 12:59 [facility] (Rec: 08/22/21 13:53 [facility] [id number]) Manual Assessments Soft Tissue Assessment Soft Tissue Mobility Assessment tightness in ITB, add, quads, HS& calf R Other Manual Assessments Other Manual Assessments some yellow streaking on RLE unsure if bruising or iodine left; fredrick drain intact, no drainage on bandage PT-OP-G Mobility & Gait Start: 06/15/21 09:13 Freq: Status: Active Protocol: Document 08/22/21 12:59 [facility] (Rec: 08/22/21 13:53 [facility] [id number]) OP Mobility Evaluation Bed Mobility Supine to and from Sit indep and can lift LE into bed w/o UEs Transfers Sit to Stand uses UE on seat RLE out in front OP Gait Assessment Comments Gait Comments Amb w/ dec knee ext in WB on RLE and dec push off, dec stance time RLE and some lat leaning w/4WW PT-OP-J Posture/Palpation/Skin Start: 06/15/21 09:13 Freq: Status: Active Protocol: Document 06/15/21 12:00 [facility] (Rec: 06/16/21 12:50 [facility] [id number]) Skin Assessment Circumference Measurement 5 cm above patella Measurement (Centimeters) 19 Comments bilaterally joint line knee Location knee joint line Measurement (Centimeters) 17.5 Comments 16.5 L PT-OP-K Range of Motion Start: 06/15/21 09:13 Freq: Status: Active Protocol: Document 10/20/21 08:18 SP (Rec: 10/20/21 09:11 SP [id number]) Knee Goniometric Range of Motion Knee Right Flexion Active (degrees) 112 Extension Active (degrees) 4 Comments improved 2 deg flexion, improved 4 deg extension QS. measured after ther ex PT-OP-M Strength Start: 06/15/21 09:13 Freq: Status: Active Protocol: Document 10/17/21 14:30 [facility] (Rec: 10/17/21 15:18 [facility] [id number]) Hip Strength Hip Manual Muscle Testing Left Flexion (L2) 5 Normal Extension (S1) 4+ Good+ Abduction 5 Normal Adduction 5 Normal External Rotation 5 Normal Internal Rotation 5 Normal Right Flexion (L2) 5 Normal Extension (S1) 4+ Good+ Abduction 4+ Good+ Adduction 5 Normal External Rotation 4+ Good+ Internal Rotation 5 Normal Knee Strength Knee Manual Muscle Testing Left Flexion (S2) 5 Normal Extension (L3) 5 Normal Right Flexion (S2) 5 Normal Extension (L3) 4+ Good+ Ankle/Foot Strength Ankle and Foot Manual Muscle Testing Left Dorsiflexion (L4) 5 Normal Plantarflexion (S1) 5 Normal Comments 20 heel raises Right Dorsiflexion (L4) 5 Normal Plantarflexion (S1) 3- Fair- Comments PF tested standing; unable to do SL heel raise PT-OP-Q Treatments Start: 06/15/21 09:13 Freq: Status: Active Protocol: Document 10/26/21 08:20 SP (Rec: 10/26/21 09:07 SP [id number]) Cardio Equipment Bicycle (Upright) Duration (Minutes) 6 Resistance 0 (bike not turning on for resistance AROM) Seat Position 5 Other starting rocking then around once pt able Gym Equipment Shuttle Recovery Unilateral Squats Details cued knee alignment with toes R>L focus Resistance 62# Shuttle Recovery Platform Stable Reps/Time x12 R Bilateral Squats Details cued knee alignment see in soles Resistance 125#> 112# Shuttle Recovery Platform Stable Reps/Time x15 Therapeutic Exercises Standing Exercises lunge Standing Exercise Name mini Side bilateral Equipment Used R foot on step, rail contact support Reps/Minutes 10 Comments good form knee alignment squat Standing Exercise Name air mini squat Side bilateral Reps/Minutes 10 Comments free standing space step ups Standing Exercise Name alternating con/ ecc then single leg Side right Equipment Used 8 in step, rail PRN Reps/Minutes 12 Comments cued knee alignment TKE Standing Exercise Name cues for quad engagement, knee alignment Side right Equipment Used L3 Reps/Minutes 15 Comments good knee alignment Gait Training Gait Activity stair training Description stair training Distance/Duration 6 in up and 4 in down x2 Comments receprocal using 0 rail ascend /1 HR needed reciprocal down Manual Therapy Treatment Soft Tissue Mobilization quad Body Location R distal quad superior patella Mobilization Type Myofascial Release,Rolling Intensity/Depth Moderate Body Position Supine Comments manual and discussion can apply self seated with rolling pin to quad, hs, calf for decrease tightness and increase ROM. 1 Body Location scar Mobilization Type Rolling,Strumming Intensity/Depth Moderate Body Position Supine Comments manual Joint Mobilizations patellofemoral Joint R Direction sup, inf, med Neuro Re-Education Treatment Balance Activities aniceto stepping Details R knee alignment clearance Surface firm carpet Equipment 6 hurdles Comments step to> step over step, cued no RLE circumduction trailing LE. CG- 5%A cued slower pacing and core/ alignment for stability. PT-OP-R Modalities Start: 08/22/21 14:02 Freq: Status: Active Protocol: Document 10/26/21 08:20 SP (Rec: 10/26/21 09:07 SP [id number]) Hot Pack/Cold Pack Treatment Cold Pack Location R knee Patient Position Hooklying Treatment Duration (minutes) 10 Patient Tolerance Good Comments stated felt better beforing leaving. PT-OP-T Assessment and Plan Start: 06/15/21 09:13 Freq: Status: Active Protocol: Document 10/26/21 08:20 SP (Rec: 10/26/21 09:07 SP [id number]) Physical Therapy Assessment Goals up/down Short Term Goal (STG) Pt will be able to do sit to stand from chair w/equal WB and no hands. STG Duration achieved Buck Presser Goal (LTG) Pt will be able to get up/down from the ground and squat for gardening tasks. 09/19-improving mobility 10/17- has not tried to get up/ down from ground; has been doing some in higher gardens LTG Duration 12/17/21 stairs Short Term Goal (STG) Pt will be able to go up/down stairs in house (15) with SPC and 1 rail safely step to so she can sleep in her bedroom STG Duration achieved Buck Presser Goal (LTG) Pt will be able to ascend and descend stairs reciprocally without rail in order to be safe in the community when amb . 09/19-can go up without rail but requires rail reciprocally down. 10/17-uses rail up/down but doesn't feel like she needs it for up LTG Duration 01/17/22 ROM Short Term Goal (STG) Pt will improve AROM R knee ROM to 5-105 degrees. 10/17-pt did backtrack after slip; 8-110 STG Duration 11/17/21 Buck Presser Goal (LTG) Pt will improve AROM R knee ROM to 0-120 degrees to allow for ability to do stairs and good gait mechanics. LTG Duration 10/22/21 gait Short Term Goal (STG) Pt will be able to amb with cane safely in [place] [facility] [place] Duration achieved Buck Presser Goal (LTG) Pt will be able to amb as much as she would like w/o AD without inc pain with good gait pattern in order to be able to travel to [place] with family. 09/19-no AD but still limited in distance 10/17-no AD but has not tried much distance recently LTG Duration 12/17/21 1 Impairment strength Impairment pt lacks a pre-operative HEP Short Term Goal (STG) Pt will be indep w/HEP STG Duration achieved advancing as able Buck Presser Goal (LTG) Pt will score at least 5/5 BLE strength to show improved strength to allow improved functional mobility. 09/19-improving 10/17/21 LTG Duration 12/17/21 Assessment Summary Assessment Pt improved AROM 3-115 deg at rest end tx, post manual 2-122 deg R knee. Pt worked hard, painfree throughout ther ex. Improved knee alignment during step up/ downs. Responded well to initiated aniceto stepping with cues for R knee flexion for foot clearance and no R foot circumduction.Pt requested CP end tx for decrease soreness. Physical Therapy Plan Frequency and Duration Frequency of Treatment 1-2x/week Duration of Treatment 2 months Plan of Care Start Date 10/17/21 Plan of Care End Date 12/17/21 Therapeutic Interventions Therapeutic Interventions Aquatic Therapy,Balance Training,Gait Training,Home Exercise Program,Joint Mobilizations,Manual Therapy, Neuromuscular Re-education, Patient/Caregiver Education, Self-Care/Home Management,Soft Tissue Mobilization,Taping, Therapeutic Activities, Therapeutic Exercises Modalities Cold Pack/Ice Massage,Electric Stimulation,Hot Packs Next Visit Focus/Plan Next Note Type Treatment Note Next Visit Plan Continue aniceto stepping. POC: cont to advance functional strength and balance, improved ROM
--- NOTE | 2021-11-02 10:30 | PT.OTN ---
Current Diagnoses Unilateral primary osteoarthritis, right knee (11/02/21) Difficulty in walking, not elsewhere classified (11/02/21) Weakness (11/02/21) Presence of right artificial knee joint (11/02/21) Physical Therapy Treatment Note PT-OP-A Visit Information Start: 06/15/21 09:13 Freq: Status: Active Protocol: Document 11/02/21 09:52 SP (Rec: 11/02/21 10:35 SP [id number]) Out-Patient Physical Therapy Visit Information Visit Information Visit Type Treatment Note Visit Note 10/18 visits Visit Start Time 09:52 Visit Stop Time 10:30 Total Visit Minutes 38 Visit Number 21 Number of WELDING PANTOGRAPH MACHINE OPERATOR Visits 2 PT-OP-B Current Condition Start: 06/15/21 09:13 Freq: Status: Active Protocol: Document 08/22/21 12:59 [facility] (Rec: 08/22/21 13:53 [facility] [id number]) Current Condition History of Current Condition Onset Date 08/15 Current Complaints R knee pain s/p TKA History of Current Condition RE-eval 08/22- Pt reports surgery 1 week ago on 08/15/21 in surgery center and overall doing well. She has been doing ice and breathing exercises for pain and has only had to take 1 ibuprofen. Pt lost her exercises so she hasn't been doing them. She has been making herself walk through the house for meals and bathroom. IE:surgery 07/14/21 Right knee pain is 4/10 the knee is aggravated is longer walking distances, she needs to hold onto the cart at the store, the more I use it the more it hurts PT is scheduled to go to [place] on Sunday for 3 weeks so is doing her pre op now Treatment Goals Patient/Caregiver Goals Be able to return to work at the [employer] (needs to be amb w/ o cane), Be able to walk distance at a time w/o cane so she can do her trip in [place] in [place], gardening (weeding)-being able to get up/down from ground, get downstairs to her own bed (15 stairs)-eventually reciprocally & w/o rail PT-OP-C Subjective Start: 06/15/21 09:13 Freq: Status: Active Protocol: Document 11/02/21 09:52 SP (Rec: 11/02/21 10:35 SP [id number]) OP-PT Subjective Patient Comments Patient Comments Pt stated doing well. See ortho this afternoon due to follow up from fall, progress making. Patient Reported Progress Improving PT-OP-F Manual Assessment Start: 06/15/21 09:13 Freq: Status: Active Protocol: Document 08/22/21 12:59 [facility] (Rec: 08/22/21 13:53 [facility] [id number]) Manual Assessments Soft Tissue Assessment Soft Tissue Mobility Assessment tightness in ITB, add, quads, HS& calf R Other Manual Assessments Other Manual Assessments some yellow streaking on RLE unsure if bruising or iodine left; fredrick drain intact, no drainage on bandage PT-OP-G Mobility & Gait Start: 06/15/21 09:13 Freq: Status: Active Protocol: Document 08/22/21 12:59 [facility] (Rec: 08/22/21 13:53 [facility] [id number]) OP Mobility Evaluation Bed Mobility Supine to and from Sit indep and can lift LE into bed w/o UEs Transfers Sit to Stand uses UE on seat RLE out in front OP Gait Assessment Comments Gait Comments Amb w/ dec knee ext in WB on RLE and dec push off, dec stance time RLE and some lat leaning w/4WW PT-OP-J Posture/Palpation/Skin Start: 06/15/21 09:13 Freq: Status: Active Protocol: Document 06/15/21 12:00 [facility] (Rec: 06/16/21 12:50 [facility] [id number]) Skin Assessment Circumference Measurement 5 cm above patella Measurement (Centimeters) 19 Comments bilaterally joint line knee Location knee joint line Measurement (Centimeters) 17.5 Comments 16.5 L PT-OP-K Range of Motion Start: 06/15/21 09:13 Freq: Status: Active Protocol: Document 11/02/21 09:52 SP (Rec: 11/02/21 10:35 SP [id number]) Knee Goniometric Range of Motion Knee Right Knee ROM WFL No Patient Position Supine Flexion Active (degrees) 122 Flexion Passive (degrees) 124 Extension Active (degrees) 2 Comments improved 2 deg flexion, improved 2 deg extension w/QS. measured after shuttle recovery PT-OP-M Strength Start: 06/15/21 09:13 Freq: Status: Active Protocol: Document 10/17/21 14:30 LR (Rec: 10/17/21 15:18 [facility] [id number]) Hip Strength Hip Manual Muscle Testing Left Flexion (L2) 5 Normal Extension (S1) 4+ Good+ Abduction 5 Normal Adduction 5 Normal External Rotation 5 Normal Internal Rotation 5 Normal Right Flexion (L2) 5 Normal Extension (S1) 4+ Good+ Abduction 4+ Good+ Adduction 5 Normal External Rotation 4+ Good+ Internal Rotation 5 Normal Knee Strength Knee Manual Muscle Testing Left Flexion (S2) 5 Normal Extension (L3) 5 Normal Right Flexion (S2) 5 Normal Extension (L3) 4+ Good+ Ankle/Foot Strength Ankle and Foot Manual Muscle Testing Left Dorsiflexion (L4) 5 Normal Plantarflexion (S1) 5 Normal Comments 20 heel raises Right Dorsiflexion (L4) 5 Normal Plantarflexion (S1) 3- Fair- Comments PF tested standing; unable to do SL heel raise PT-OP-Q Treatments Start: 06/15/21 09:13 Freq: Status: Active Protocol: Document 11/02/21 09:52 SP (Rec: 11/02/21 10:35 [id number]) Gym Equipment Shuttle Recovery Unilateral Squats Details cued knee alignment with toes R>L focus Resistance 62#> 75# Shuttle Recovery Platform Stable Reps/Time x15 B Bilateral Squats Details cued knee alignment see in soles Resistance 125# Shuttle Recovery Platform Stable Reps/Time x15 Therapeutic Ball supine Ball Size/Color 55cm Body Position Supine Reps/Duration 10x 5 sec hold Comments 1. R knee bends w/ strap self assist focus on core neutral and AAROM 119deg Therapeutic Exercises Supine Exercises quad sets Side right Equipment Used foam roller under ankle Reps/Minutes 5 sec x6 Comments during measurements 2 deg ext Sitting Exercises sit to stand Sitting Exercise Name from mat table Equipment Used from 16 box step Reps/Minutes x 3 reps Comments trying to get R LE under her further Standing Exercises lunge Standing Exercise Name AROM- measurement Side right Equipment Used R foot on step, rail contact support Reps/Minutes x10 Comments good form knee alignment- 118 deg R knee flexion stretch Standing Exercise Name 1.calf on step 2. HS on step 3 . knee flex stretch on step Side bilateral Reps/Minutes 30 sec ea standing calf raises Standing Exercise Name eccentric descent Side bilateral Reps/Minutes x5 reps hold 3 sec Comments good form and stretch response Gait Training Gait Activity stair training Description stair training Distance/Duration 6 in up and 4 in down x2 Comments receprocal using 0 rail ascend /1 HR needed reciprocal down- for ROM RLE PT-OP-R Modalities Start: 08/22/21 14:02 Freq: Status: Active Protocol: Document 11/02/21 09:52 SP (Rec: 11/02/21 10:35 SP [id number]) Hot Pack/Cold Pack Treatment Cold Pack Location R knee Patient Position Hooklying Treatment Duration (minutes) 10 Patient Tolerance Good Comments stated felt better beforing leaving. PT-OP-T Assessment and Plan Start: 06/15/21 09:13 Freq: Status: Active Protocol: Document 11/02/21 09:52 SP (Rec: 11/02/21 10:35 SP [id number]) Physical Therapy Assessment Goals up/down Short Term Goal (STG) Pt will be able to do sit to stand from chair w/equal WB and no hands. STG Duration achieved Nursing Home Goal (LTG) Pt will be able to get up/down from the ground and squat for gardening tasks. 09/19-improving mobility 10/17- has not tried to get up/ down from ground; has been doing some in higher gardens LTG Duration 12/17/21 stairs Short Term Goal (STG) Pt will be able to go up/down stairs in house (15) with SPC and 1 rail safely step to so she can sleep in her bedroom STG Duration achieved Business Development Officer Goal (LTG) Pt will be able to ascend and descend stairs reciprocally without rail in order to be safe in the community when amb . 09/19-can go up without rail but requires rail reciprocally down. 10/17-uses rail up/down but doesn't feel like she needs it for up LTG Duration 01/17/22 ROM Short Term Goal (STG) Pt will improve AROM R knee ROM to 5-105 degrees. 10/17-pt did backtrack after slip; 8-110 STG Duration 11/17/21 Nursing Home Goal (LTG) Pt will improve AROM R knee ROM to 0-120 degrees to allow for ability to do stairs and good gait mechanics. LTG Duration 10/22/21 gait Short Term Goal (STG) Pt will be able to amb with cane safely in order to be able to return [place] [facility] [place] STG Duration achieved Business Development Officer Goal (LTG) Pt will be able to amb as much as she would like w/o AD without inc pain with good gait pattern in order to be able to travel to [place] with family. 09/19-no AD but still limited in distance 10/17-no AD but has not tried much distance recently LTG Duration 12/17/21 1 Impairment strength Impairment pt lacks a pre-operative HEP Short Term Goal (STG) Pt will be indep w/HEP STG Duration achieved advancing as able Business Development Officer Goal (LTG) Pt will score at least 5/5 BLE strength to show improved strength to allow improved functional mobility. 09/19-improving 10/17/21 LTG Duration 12/17/21 Assessment Summary Assessment Pt good response to ROM focus, improved 2 deg R knee flexion and 2 deg extension assessment today. Pt requested CP end tx to allow decrease soreness. CUed awarness of heel toe and knee flexion during gait for normalizing. Physical Therapy Plan Frequency and Duration Frequency of Treatment 1-2x/week Duration of Treatment 2 months Plan of Care Start Date 10/17/21 Plan of Care End Date 12/17/21 Therapeutic Interventions Therapeutic Interventions Aquatic Therapy,Balance Training,Gait Training,Home Exercise Program,Joint Mobilizations,Manual Therapy, Neuromuscular Re-education, Patient/Caregiver Education, Self-Care/Home Management,Soft Tissue Mobilization,Taping, Therapeutic Activities, Therapeutic Exercises Modalities Cold Pack/Ice Massage,Electric Stimulation,Hot Packs Next Visit Focus/Plan Next Note Type Treatment Note Next Visit Plan Continue aniceto stepping. POC: cont to advance functional strength and balance, improved ROM
--- NOTE | 2021-11-09 09:15 | PT.OTN ---
Current Diagnoses Unilateral primary osteoarthritis, right knee (11/09/21) Difficulty in walking, not elsewhere classified (11/09/21) Weakness (11/09/21) Presence of right artificial knee joint (11/09/21) Physical Therapy Treatment Note PT-OP-A Visit Information Start: 06/15/21 09:13 Freq: Status: Active Protocol: Document 11/09/21 08:19 [facility] (Rec: 11/09/21 09:14 [facility] [id number]) Out-Patient Physical Therapy Visit Information Visit Information Visit Type Treatment Note Visit Note 11/18 Visit Start Time 08:19 Visit Stop Time 09:10 Total Visit Minutes 51 Visit Number 22 Number of DEBT COUNSELOR Visits 0 PT-OP-B Current Condition Start: 06/15/21 09:13 Freq: Status: Active Protocol: Document 08/22/21 12:59 [facility] (Rec: 08/22/21 13:53 [facility] [id number]) Current Condition History of Current Condition Onset Date 08/15 Current Complaints R knee pain s/p TKA History of Current Condition RE-eval 08/22- Pt reports surgery 1 week ago on 08/15/21 in surgery center and overall doing well. She has been doing ice and breathing exercises for pain and has only had to take 1 ibuprofen. Pt lost her exercises so she hasn't been doing them. She has been making herself walk through the house for meals and bathroom. IE:surgery 07/14/21 Right knee pain is 4/10 the knee is aggravated is longer walking distances, she needs to hold onto the cart at the store, the more I use it the more it hurts PT is scheduled to go to [place] on Sunday for 3 weeks so is doing her pre op now Treatment Goals Patient/Caregiver Goals Be able to return to work at the [employer] (needs to be amb w/ o cane), Be able to walk distance at a time w/o cane so she can do her trip in Jan in [place], gardening (weeding)-being able to get up/down from ground, get downstairs to her own bed (15 stairs)-eventually reciprocally & w/o rail PT-OP-C Subjective Start: 06/15/21 09:13 Freq: Status: Active Protocol: Document 11/09/21 08:19 [facility] (Rec: 11/09/21 09:14 [facility] [id number]) OP-PT Subjective Patient Comments Patient Comments Pt reports ortho is done w/her for about 1 year. Notes she wants an exercise PT-OP-F Manual Assessment Start: 06/15/21 09:13 Freq: Status: Active Protocol: Document 08/22/21 12:59 [facility] (Rec: 08/22/21 13:53 [facility] [id number]) Manual Assessments Soft Tissue Assessment Soft Tissue Mobility Assessment tightness in ITB, add, quads, HS& calf R Other Manual Assessments Other Manual Assessments some yellow streaking on RLE unsure if bruising or iodine left; fredrick drain intact, no drainage on bandage PT-OP-G Mobility & Gait Start: 06/15/21 09:13 Freq: Status: Active Protocol: Document 08/22/21 12:59 [facility] (Rec: 08/22/21 13:53 [facility] [id number]) OP Mobility Evaluation Bed Mobility Supine to and from Sit indep and can lift LE into bed w/o UEs Transfers Sit to Stand uses UE on seat RLE out in front OP Gait Assessment Comments Gait Comments Amb w/ dec knee ext in WB on RLE and dec push off, dec stance time RLE and some lat leaning w/4WW PT-OP-J Posture/Palpation/Skin Start: 06/15/21 09:13 Freq: Status: Active Protocol: Document 06/15/21 12:00 [facility] (Rec: 06/16/21 12:50 [facility] [id number]) Skin Assessment Circumference Measurement 5 cm above patella Measurement (Centimeters) 19 Comments bilaterally joint line knee Location knee joint line Measurement (Centimeters) 17.5 Comments 16.5 L PT-OP-K Range of Motion Start: 06/15/21 09:13 Freq: Status: Active Protocol: Document 11/02/21 09:52 [facility] (Rec: 11/02/21 10:35 [facility] [id number]) Knee Goniometric Range of Motion Knee Right Knee ROM WFL No Patient Position Supine Flexion Active (degrees) 122 Flexion Passive (degrees) 124 Extension Active (degrees) 2 Comments improved 2 deg flexion, improved 2 deg extension w/QS. measured after shuttle recovery PT-OP-M Strength Start: 06/15/21 09:13 Freq: Status: Active Protocol: Document 10/17/21 14:30 [facility] (Rec: 10/17/21 15:18 [facility] [id number]) Hip Strength Hip Manual Muscle Testing Left Flexion (L2) 5 Normal Extension (S1) 4+ Good+ Abduction 5 Normal Adduction 5 Normal External Rotation 5 Normal Internal Rotation 5 Normal Right Flexion (L2) 5 Normal Extension (S1) 4+ Good+ Abduction 4+ Good+ Adduction 5 Normal External Rotation 4+ Good+ Internal Rotation 5 Normal Knee Strength Knee Manual Muscle Testing Left Flexion (S2) 5 Normal Extension (L3) 5 Normal Right Flexion (S2) 5 Normal Extension (L3) 4+ Good+ Ankle/Foot Strength Ankle and Foot Manual Muscle Testing Left Dorsiflexion (L4) 5 Normal Plantarflexion (S1) 5 Normal Comments 20 heel raises Right Dorsiflexion (L4) 5 Normal Plantarflexion (S1) 3- Fair- Comments PF tested standing; unable to do SL heel raise PT-OP-Q Treatments Start: 06/15/21 09:13 Freq: Status: Active Protocol: Document 11/09/21 08:19 [facility] (Rec: 11/09/21 09:14 [facility] [id number]) Cardio Equipment Bicycle (Upright) Duration (Minutes) 5 Resistance 10 Seat Position 5 Therapeutic Exercises Sitting Exercises quad set Side right Reps/Minutes 5 sec 10 Standing Exercises SL Standing Exercise Name stance Side bilateral Comments in mirror working on hips level lunge Standing Exercise Name mini Side bilateral Equipment Used rail prn Reps/Minutes 8 squat Standing Exercise Name squat as much range as able Side bilateral Reps/Minutes 10 Comments over chair standing calf raises Standing Exercise Name single leg Side right Reps/Minutes 2x5 Therapeutic Activity Therapeutic Activity ground transfer Comments up/down from ground using UE support on ground w/bear position cueing needed Manual Therapy Treatment Soft Tissue Mobilization thigh Body Location ITB ant/ post aspects distally Mobilization Type Strumming Intensity/Depth Moderate Joint Mobilizations tibiofemoral Comments AP and IR FM tibia PT-OP-R Modalities Start: 08/22/21 14:02 Freq: Status: Active Protocol: Document 11/09/21 08:19 [facility] (Rec: 11/09/21 09:14 [facility] [id number]) Hot Pack/Cold Pack Treatment Cold Pack Location R knee Patient Position Hooklying Treatment Duration (minutes) 10 Patient Tolerance Good Comments stated felt better beforing leaving. PT-OP-T Assessment and Plan Start: 06/15/21 09:13 Freq: Status: Active Protocol: Document 11/09/21 08:19 [facility] (Rec: 11/09/21 09:14 [facility] [id number]) Physical Therapy Assessment Goals up/down Short Term Goal (STG) Pt will be able to do sit to stand from chair w/equal WB and no hands. STG Duration achieved Bending Machine Set Up Operator Goal (LTG) Pt will be able to get up/down from the ground and squat for gardening tasks. 09/19-improving mobility 10/17- has not tried to get up/ down from ground; has been doing some in higher gardens LTG Duration 12/17/21 stairs Short Term Goal (STG) Pt will be able to go up/down stairs in house (15) with SPC and 1 rail safely step to so she can sleep in her bedroom STG Duration achieved Bending Machine Set Up Operator Goal (LTG) Pt will be able to ascend and descend stairs reciprocally without rail in order to be safe in the community when amb . 09/19-can go up without rail but requires rail reciprocally down. 10/17-uses rail up/down but doesn't feel like she needs it for up LTG Duration 01/17/22 ROM Short Term Goal (STG) Pt will improve AROM R knee ROM to 5-105 degrees. 10/17-pt did backtrack after slip; 8-110 STG Duration 11/17/21 Bending Machine Set Up Operator Goal (LTG) Pt will improve AROM R knee ROM to 0-120 degrees to allow for ability to do stairs and good gait mechanics. LTG Duration 10/22/21 gait Short Term Goal (STG) Pt will be able to amb with cane safely in order to be able to return to wrok at the [employer]. STG Duration achieved Bending Machine Set Up Operator Goal (LTG) Pt will be able to amb as much as she would like w/o AD without inc pain with good gait pattern in order to be able to travel to [place] with family. 09/19-no AD but still limited in distance 10/17-no AD but has not tried much distance recently LTG Duration 12/17/21 1 Impairment strength Impairment pt lacks a pre-operative HEP Short Term Goal (STG) Pt will be indep w/HEP STG Duration achieved advancing as able Snf Goal (LTG) Pt will score at least 5/5 BLE strength to show improved strength to allow improved functional mobility. 09/19-improving 10/17/21 LTG Duration 12/17/21 Assessment Summary Assessment Pt started with 5-115 deg and imrpoved to 2-121 after manual treatment. She was given HEP for focus on at home to focus on major deficits. Physical Therapy Plan Frequency and Duration Frequency of Treatment 1-2x/week Duration of Treatment 2 months Plan of Care Start Date 10/17/21 Plan of Care End Date 12/17/21 Next Visit Focus/Plan Next Note Type Treatment Note Next Visit Plan Continue aniceto stepping. POC: cont to advance functional strength and balance, improved ROM
--- NOTE | 2021-11-14 15:19 | PT.OTN ---
Current Diagnoses Unilateral primary osteoarthritis, right knee (11/14/21) Difficulty in walking, not elsewhere classified (11/14/21) Weakness (11/14/21) Presence of right artificial knee joint (11/14/21) Physical Therapy Treatment Note PT-OP-A Visit Information Start: 06/15/21 09:13 Freq: Status: Active Protocol: Document 11/14/21 14:38 [facility] (Rec: 11/14/21 15:19 [facility] [id number]) Out-Patient Physical Therapy Visit Information Visit Information Visit Type Treatment Note Visit Note 12/18 Visit Start Time 14:33 Visit Stop Time 15:24 Total Visit Minutes 51 Visit Number 23 Number of DATABASE ANALYST Visits 0 PT-OP-B Current Condition Start: 06/15/21 09:13 Freq: Status: Active Protocol: Document 08/22/21 12:59 [facility] (Rec: 08/22/21 13:53 [facility] [id number]) Current Condition History of Current Condition Onset Date 08/15 Current Complaints R knee pain s/p TKA History of Current Condition RE-eval 08/22- Pt reports surgery 1 week ago on 08/15/21 in surgery center and overall doing well. She has been doing ice and breathing exercises for pain and has only had to take 1 ibuprofen. Pt lost her exercises so she hasn't been doing them. She has been making herself walk through the house for meals and bathroom. IE:surgery 07/14/21 Right knee pain is 4/10 the knee is aggravated is longer walking distances, she needs to hold onto the cart at the store, the more I use it the more it hurts PT is scheduled to go to [place] on Sunday for 3 weeks so is doing her pre op now Treatment Goals Patient/Caregiver Goals Be able to return to work at the [employer] (needs to be amb w/ o cane), Be able to walk distance at a time w/o cane so she can do her trip in Jan in [place], gardening (weeding)-being able to get up/down from ground, get downstairs to her own bed (15 stairs)-eventually reciprocally & w/o rail PT-OP-C Subjective Start: 06/15/21 09:13 Freq: Status: Active Protocol: Document 11/14/21 14:38 [facility] (Rec: 11/14/21 15:19 [facility] [id number]) OP-PT Subjective Patient Comments Patient Comments Pt reports she rode down to [place] for show and was so sore after the drive post. It was sore the rest of the night . Since then it was okay PT-OP-F Manual Assessment Start: 06/15/21 09:13 Freq: Status: Active Protocol: Document 08/22/21 12:59 [facility] (Rec: 08/22/21 13:53 [facility] [id number]) Manual Assessments Soft Tissue Assessment Soft Tissue Mobility Assessment tightness in ITB, add, quads, HS& calf R Other Manual Assessments Other Manual Assessments some yellow streaking on RLE unsure if bruising or iodine left; fredrick drain intact, no drainage on bandage PT-OP-G Mobility & Gait Start: 06/15/21 09:13 Freq: Status: Active Protocol: Document 08/22/21 12:59 [facility] (Rec: 08/22/21 13:53 [facility] [id number]) OP Mobility Evaluation Bed Mobility Supine to and from Sit indep and can lift LE into bed w/o UEs Transfers Sit to Stand uses UE on seat RLE out in front OP Gait Assessment Comments Gait Comments Amb w/ dec knee ext in WB on RLE and dec push off, dec stance time RLE and some lat leaning w/4WW PT-OP-J Posture/Palpation/Skin Start: 06/15/21 09:13 Freq: Status: Active Protocol: Document 06/15/21 12:00 [facility] (Rec: 06/16/21 12:50 [facility] [id number]) Skin Assessment Circumference Measurement 5 cm above patella Measurement (Centimeters) 19 Comments bilaterally joint line knee Location knee joint line Measurement (Centimeters) 17.5 Comments 16.5 L PT-OP-K Range of Motion Start: 06/15/21 09:13 Freq: Status: Active Protocol: Document 11/02/21 09:52 [facility] (Rec: 11/02/21 10:35 [facility] [id number]) Knee Goniometric Range of Motion Knee Right Knee ROM WFL No Patient Position Supine Flexion Active (degrees) 122 Flexion Passive (degrees) 124 Extension Active (degrees) 2 Comments improved 2 deg flexion, improved 2 deg extension w/QS. measured after shuttle recovery PT-OP-M Strength Start: 06/15/21 09:13 Freq: Status: Active Protocol: Document 10/17/21 14:30 [facility] (Rec: 10/17/21 15:18 [facility] [id number]) Hip Strength Hip Manual Muscle Testing Left Flexion (L2) 5 Normal Extension (S1) 4+ Good+ Abduction 5 Normal Adduction 5 Normal External Rotation 5 Normal Internal Rotation 5 Normal Right Flexion (L2) 5 Normal Extension (S1) 4+ Good+ Abduction 4+ Good+ Adduction 5 Normal External Rotation 4+ Good+ Internal Rotation 5 Normal Knee Strength Knee Manual Muscle Testing Left Flexion (S2) 5 Normal Extension (L3) 5 Normal Right Flexion (S2) 5 Normal Extension (L3) 4+ Good+ Ankle/Foot Strength Ankle and Foot Manual Muscle Testing Left Dorsiflexion (L4) 5 Normal Plantarflexion (S1) 5 Normal Comments 20 heel raises Right Dorsiflexion (L4) 5 Normal Plantarflexion (S1) 3- Fair- Comments PF tested standing; unable to do SL heel raise PT-OP-Q Treatments Start: 06/15/21 09:13 Freq: Status: Active Protocol: Document 11/14/21 14:38 [facility] (Rec: 11/14/21 15:19 [facility] [id number]) Cardio Equipment Bicycle (Upright) Duration (Minutes) 5 Resistance 11 Seat Position 5 Therapeutic Exercises Standing Exercises SL Standing Exercise Name stance Side bilateral Comments in mirror working on hips level lunge Standing Exercise Name mini Side bilateral Equipment Used rail prn Reps/Minutes 8 squat Standing Exercise Name squat as much range as able Side bilateral Reps/Minutes 10 Comments over chair stretch Standing Exercise Name 1. fwd lean calf stretch 2. HS Side right Reps/Minutes 30 sec standing calf raises Standing Exercise Name single leg Side right Reps/Minutes 5 Therapeutic Activity Therapeutic Activity ground transfer Comments up/down from ground using UE support on ground w/bear position cueing needed x3 Manual Therapy Treatment Soft Tissue Mobilization adductor Body Location r Mobilization Type Rolling Intensity/Depth Moderate HS Body Location along mm borders R Mobilization Type Rolling Intensity/Depth Moderate Comments w/active hs stretch Joint Mobilizations tibiofemoral Comments AP and IR & PA FM tibia PT-OP-R Modalities Start: 08/22/21 14:02 Freq: Status: Active Protocol: Document 11/14/21 14:38 [facility] (Rec: 11/14/21 15:19 [facility] [id number]) Hot Pack/Cold Pack Treatment Cold Pack Location R knee Patient Position Hooklying Treatment Duration (minutes) 10 Patient Tolerance Good Comments stated felt better beforing leaving. PT-OP-T Assessment and Plan Start: 06/15/21 09:13 Freq: Status: Active Protocol: Document 11/14/21 14:38 [facility] (Rec: 11/14/21 15:19 [facility] [id number]) Physical Therapy Assessment Goals up/down Short Term Goal (STG) Pt will be able to do sit to stand from chair w/equal WB and no hands. STG Duration achieved Long-Term Goal (LTG) Pt will be able to get up/down from the ground and squat for gardening tasks. 09/19-improving mobility 10/17- has not tried to get up/ down from ground; has been doing some in higher gardens LTG Duration 12/17/21 stairs Short Term Goal (STG) Pt will be able to go up/down stairs in house (15) with SPC and 1 rail safely step to so she can sleep in her bedroom STG Duration achieved Long-Term Goal (LTG) Pt will be able to ascend and descend stairs reciprocally without rail in order to be safe in the community when amb . 09/19-can go up without rail but requires rail reciprocally down. 10/17-uses rail up/down but doesn't feel like she needs it for up LTG Duration 01/17/22 ROM Short Term Goal (STG) Pt will improve AROM R knee ROM to 5-105 degrees. 10/17-pt did backtrack after slip; 8-110 STG Duration 11/17/21 Pressure Steamer Tender Goal (LTG) Pt will improve AROM R knee ROM to 0-120 degrees to allow for ability to do stairs and good gait mechanics. LTG Duration 10/22/21 gait Short Term Goal (STG) Pt will be able to amb with cane safely in order to be able to return to wrok at the [employer]. STG Duration achieved Long-Term Goal (LTG) Pt will be able to amb as much as she would like w/o AD without inc pain with good gait pattern in order to be able to travel to [place] with family. 09/19-no AD but still limited in distance 10/17-no AD but has not tried much distance recently LTG Duration 12/17/21 1 Impairment strength Impairment pt lacks a pre-operative HEP Short Term Goal (STG) Pt will be indep w/HEP STG Duration achieved advancing as able Pressure Steamer Tender Goal (LTG) Pt will score at least 5/5 BLE strength to show improved strength to allow improved functional mobility. 09/19-improving 10/17/21 LTG Duration 12/17/21 Assessment Summary Assessment Pt had 5-115 to start and improved to 118 flex manual. Pt had more post swelling in R HS region today which likely affected ROM. IMproved fluidity w/up/down from ground today w/practice. Physical Therapy Plan Frequency and Duration Frequency of Treatment 1-2x/week Duration of Treatment 2 months Plan of Care Start Date 10/17/21 Plan of Care End Date 12/17/21 Next Visit Focus/Plan Next Note Type Treatment Note Next Visit Plan POC: cont to advance functional strength and balance, improved ROM
--- NOTE | 2021-11-21 15:44 | PT.OTN ---
Current Diagnoses Unilateral primary osteoarthritis, right knee (11/21/21) Difficulty in walking, not elsewhere classified (11/21/21) Weakness (11/21/21) Presence of right artificial knee joint (11/21/21) Physical Therapy Treatment Note PT-OP-A Visit Information Start: 06/15/21 09:13 Freq: Status: Active Protocol: Document 11/21/21 14:34 [facility] (Rec: 11/21/21 15:44 [facility] [id number]) Out-Patient Physical Therapy Visit Information Visit Information Visit Type Treatment Note Visit Note 01/18 Visit Start Time 14:35 Visit Stop Time 15:25 Total Visit Minutes 50 Visit Number 24 Number of P[employer]ER Visits 0 PT-OP-B Current Condition Start: 06/15/21 09:13 Freq: Status: Active Protocol: Document 08/22/21 12:59 [facility] (Rec: 08/22/21 13:53 [facility] [id number]) Current Condition History of Current Condition Onset Date 08/15 Current Complaints R knee pain s/p TKA History of Current Condition RE-eval 08/22- Pt reports surgery 1 week ago on 08/15/21 in surgery center and overall doing well. She has been doing ice and breathing exercises for pain and has only had to take 1 ibuprofen. Pt lost her exercises so she hasn't been doing them. She has been making herself walk through the house for meals and bathroom. IE:surgery 07/14/21 Right knee pain is 4/10 the knee is aggravated is longer walking distances, she needs to hold onto the cart at the store, the more I use it the more it hurts PT is scheduled to go to [place] on Sunday for 3 weeks so is doing her pre op now Treatment Goals Patient/Caregiver Goals Be able to return to work at the [employer] (needs to be amb w/ o cane), Be able to walk distance at a time w/o cane so she can do her trip in Jan in [place], gardening (weeding)-being able to get up/down from ground, get downstairs to her own bed (15 stairs)-eventually reciprocally & w/o rail PT-OP-C Subjective Start: 06/15/21 09:13 Freq: Status: Active Protocol: Document 11/21/21 14:34 [id number] Subjective Patient Comments Patient Comments Pt reports knee isn't slowing her down anymore. Pt reports she still has difficulty getting down to the ground. PT-OP-F Manual Assessment Start: 06/15/21 09:13 Freq: Status: Active Protocol: Document 08/22/21 12:59 [facility] (Rec: 08/22/21 13:53 [facility] [id number]) Manual Assessments Soft Tissue Assessment Soft Tissue Mobility Assessment tightness in ITB, add, quads, HS& calf R Other Manual Assessments Other Manual Assessments some yellow streaking on RLE unsure if bruising or iodine left; fredrick drain intact, no drainage on bandage PT-OP-G Mobility & Gait Start: 06/15/21 09:13 Freq: Status: Active Protocol: Document 08/22/21 12:59 [facility] (Rec: 08/22/21 13:53 [facility] [id number]) OP Mobility Evaluation Bed Mobility Supine to and from Sit indep and can lift LE into bed w/o UEs Transfers Sit to Stand uses UE on seat RLE out in front OP Gait Assessment Comments Gait Comments Amb w/ dec knee ext in WB on RLE and dec push off, dec stance time RLE and some lat leaning w/4WW PT-OP-J Posture/Palpation/Skin Start: 06/15/21 09:13 Freq: Status: Active Protocol: Document 06/15/21 12:00 [facility] (Rec: 06/16/21 12:50 [facility] [id number]) Skin Assessment Circumference Measurement 5 cm above patella Measurement (Centimeters) 19 Comments bilaterally joint line knee Location knee joint line Measurement (Centimeters) 17.5 Comments 16.5 L PT-OP-K Range of Motion Start: 06/15/21 09:13 Freq: Status: Active Protocol: Document 11/02/21 09:52 [facility] (Rec: 11/02/21 10:35 [facility] [id number]) Knee Goniometric Range of Motion Knee Right Knee ROM WFL No Patient Position Supine Flexion Active (degrees) 122 Flexion Passive (degrees) 124 Extension Active (degrees) 2 Comments improved 2 deg flexion, improved 2 deg extension w/QS. measured after shuttle recovery PT-OP-M Strength Start: 06/15/21 09:13 Freq: Status: Active Protocol: Document 10/17/21 14:30 [facility] (Rec: 10/17/21 15:18 [facility] [id number]) Hip Strength Hip Manual Muscle Testing Left Flexion (L2) 5 Normal Extension (S1) 4+ Good+ Abduction 5 Normal Adduction 5 Normal External Rotation 5 Normal Internal Rotation 5 Normal Right Flexion (L2) 5 Normal Extension (S1) 4+ Good+ Abduction 4+ Good+ Adduction 5 Normal External Rotation 4+ Good+ Internal Rotation 5 Normal Knee Strength Knee Manual Muscle Testing Left Flexion (S2) 5 Normal Extension (L3) 5 Normal Right Flexion (S2) 5 Normal Extension (L3) 4+ Good+ Ankle/Foot Strength Ankle and Foot Manual Muscle Testing Left Dorsiflexion (L4) 5 Normal Plantarflexion (S1) 5 Normal Comments 20 heel raises Right Dorsiflexion (L4) 5 Normal Plantarflexion (S1) 3- Fair- Comments PF tested standing; unable to do SL heel raise PT-OP-Q Treatments Start: 06/15/21 09:13 Freq: Status: Active Protocol: Document 11/21/21 14:34 [facility] (Rec: 11/21/21 15:44 [facility] [id number]) Cardio Equipment Bicycle (Upright) Duration (Minutes) 5 Resistance 11 Seat Position 5 Therapeutic Activity Therapeutic Activity ground transfer Comments up/down from ground using UE support on ground w/bear position cueing needed x3 Gait Training Gait Activity stair training Description work on knee position Comments 1.up/down 6 in stairs lobby stairs (26) x1 2. controlled down 6 in step x20 w/decreasing rail Manual Therapy Treatment Soft Tissue Mobilization adductor Body Location r Mobilization Type Rolling Intensity/Depth Moderate Comments distal 1 Body Location scar Mobilization Type Rolling,Strumming Intensity/Depth Moderate Comments supine & 1/2 kneel position Joint Mobilizations tibiofemoral Comments AP & PA FM tibia supine & in 1 /2 kneel patellofemoral Joint R Direction sup FM PT-OP-R Modalities Start: 08/22/21 14:02 Freq: Status: Active Protocol: Document 11/21/21 14:34 [facility] (Rec: 11/21/21 15:44 [facility] [id number]) Hot Pack/Cold Pack Treatment Cold Pack Location R knee Patient Position Hooklying Treatment Duration (minutes) 10 Patient Tolerance Good Comments stated felt better beforing leaving. PT-OP-T Assessment and Plan Start: 06/15/21 09:13 Freq: Status: Active Protocol: Document 11/21/21 14:34 [facility] (Rec: 11/21/21 15:44 [facility] [id number]) Physical Therapy Assessment Goals up/down Short Term Goal (STG) Pt will be able to do sit to stand from chair w/equal WB and no hands. STG Duration achieved Skilled Nursing Goal (LTG) Pt will be able to get up/down from the ground and squat for gardening tasks. 09/19-improving mobility 10/17- has not tried to get up/ down from ground; has been doing some in higher gardens LTG Duration 12/17/21 stairs Short Term Goal (STG) Pt will be able to go up/down stairs in house (15) with SPC and 1 rail safely step to so she can sleep in her bedroom STG Duration achieved Snow Removal/Plowing Goal (LTG) Pt will be able to ascend and descend stairs reciprocally without rail in order to be safe in the community when amb . 09/19-can go up without rail but requires rail reciprocally down. 10/17-uses rail up/down but doesn't feel like she needs it for up LTG Duration 01/17/22 ROM Short Term Goal (STG) Pt will improve AROM R knee ROM to 5-105 degrees. 10/17-pt did backtrack after slip; 8-110 STG Duration 11/17/21 Snow Removal/Plowing Goal (LTG) Pt will improve AROM R knee ROM to 0-120 degrees to allow for ability to do stairs and good gait mechanics. LTG Duration 10/22/21 gait Short Term Goal (STG) Pt will be able to amb with cane safely in order to be able to return to wrok at the [employer]. STG Duration achieved Snow Removal/Plowing Goal (LTG) Pt will be able to amb as much as she would like w/o AD without inc pain with good gait pattern in order to be able to travel to [place] with family. 09/19-no AD but still limited in distance 10/17-no AD but has not tried much distance recently LTG Duration 12/17/21 1 Impairment strength Impairment pt lacks a pre-operative HEP Short Term Goal (STG) Pt will be indep w/HEP STG Duration achieved advancing as able Snow Removal/Plowing Goal (LTG) Pt will score at least 5/5 BLE strength to show improved strength to allow improved functional mobility. 09/19-improving 10/17/21 LTG Duration 12/17/21 Assessment Summary Assessment Pt able to get to 3-123 deg after manual and did better with stairs w/6 in steps w/ cues to avoid IR of knee or rotationo f pelvis that created taht IR. Physical Therapy Plan Frequency and Duration Frequency of Treatment 1-2x/week Duration of Treatment 2 months Plan of Care Start Date 10/17/21 Plan of Care End Date 12/17/21 Next Visit Focus/Plan Next Note Type Treatment Note Next Visit Plan POC: cont to advance functional strength and balance, improved ROM
--- NOTE | 2021-11-30 17:57 | PT.OTN ---
Current Diagnoses Unilateral primary osteoarthritis, right knee (11/30/21) Difficulty in walking, not elsewhere classified (11/30/21) Weakness (11/30/21) Presence of right artificial knee joint (11/30/21) Physical Therapy Treatment Note PT-OP-A Visit Information Start: 06/15/21 09:13 Freq: Status: Active Protocol: Document 11/30/21 16:08 [facility] (Rec: 11/30/21 17:57 [facility] [id number]) Out-Patient Physical Therapy Visit Information Visit Information Visit Type Treatment Note Visit Note 02/18 Visit Start Time 16:03 Visit Stop Time 16:55 Total Visit Minutes 52 Visit Number 25 Number of [employer] Visits 0 PT-OP-B Current Condition Start: 06/15/21 09:13 Freq: Status: Active Protocol: Document 08/22/21 12:59 [facility] (Rec: 08/22/21 13:53 [facility] [id number]) Current Condition History of Current Condition Onset Date 08/15 Current Complaints R knee pain s/p TKA History of Current Condition RE-eval 08/22- Pt reports surgery 1 week ago on 08/15/21 in surgery center and overall doing well. She has been doing ice and breathing exercises for pain and has only had to take 1 ibuprofen. Pt lost her exercises so she hasn't been doing them. She has been making herself walk through the house for meals and bathroom. IE:surgery 07/14/21 Right knee pain is 4/10 the knee is aggravated is longer walking distances, she needs to hold onto the cart at the store, the more I use it the more it hurts PT is scheduled to go to [place] on Sunday for 3 weeks so is doing her pre op now Treatment Goals Patient/Caregiver Goals Be able to return to work at the [employer] (needs to be amb w/ o cane), Be able to walk distance at a time w/o cane so she can do her trip in Jan in [place], gardening (weeding)-being able to get up/down from ground, get downstairs to her own bed (15 stairs)-eventually reciprocally & w/o rail PT-OP-C Subjective Start: 06/15/21 09:13 Freq: Status: Active Protocol: Document 11/30/21 16:08 [facility] (Rec: 11/30/21 17:57 [id number]-PT Subjective Patient Comments Patient Comments Pt was able to get up from the ground w/o any outside support PT-OP-F Manual Assessment Start: 06/15/21 09:13 Freq: Status: Active Protocol: Document 08/22/21 12:59 [facility] (Rec: 08/22/21 13:53 [facility] [id number]) Manual Assessments Soft Tissue Assessment Soft Tissue Mobility Assessment tightness in ITB, add, quads, HS& calf R Other Manual Assessments Other Manual Assessments some yellow streaking on RLE unsure if bruising or iodine left; fredrick drain intact, no drainage on bandage PT-OP-G Mobility & Gait Start: 06/15/21 09:13 Freq: Status: Active Protocol: Document 08/22/21 12:59 [facility] (Rec: 08/22/21 13:53 [facility] [id number]) OP Mobility Evaluation Bed Mobility Supine to and from Sit indep and can lift LE into bed w/o UEs Transfers Sit to Stand uses UE on seat RLE out in front OP Gait Assessment Comments Gait Comments Amb w/ dec knee ext in WB on RLE and dec push off, dec stance time RLE and some lat leaning w/4WW PT-OP-J Posture/Palpation/Skin Start: 06/15/21 09:13 Freq: Status: Active Protocol: Document 06/15/21 12:00 [facility] (Rec: 06/16/21 12:50 [facility] [id number]) Skin Assessment Circumference Measurement 5 cm above patella Measurement (Centimeters) 19 Comments bilaterally joint line knee Location knee joint line Measurement (Centimeters) 17.5 Comments 16.5 L PT-OP-K Range of Motion Start: 06/15/21 09:13 Freq: Status: Active Protocol: Document 11/02/21 09:52 [facility] (Rec: 11/02/21 10:35 [facility] [id number]) Knee Goniometric Range of Motion Knee Right Knee ROM WFL No Patient Position Supine Flexion Active (degrees) 122 Flexion Passive (degrees) 124 Extension Active (degrees) 2 Comments improved 2 deg flexion, improved 2 deg extension w/QS. measured after shuttle recovery PT-OP-M Strength Start: 06/15/21 09:13 Freq: Status: Active Protocol: Document 10/17/21 14:30 [facility] (Rec: 10/17/21 15:18 [facility] [id number]) Hip Strength Hip Manual Muscle Testing Left Flexion (L2) 5 Normal Extension (S1) 4+ Good+ Abduction 5 Normal Adduction 5 Normal External Rotation 5 Normal Internal Rotation 5 Normal Right Flexion (L2) 5 Normal Extension (S1) 4+ Good+ Abduction 4+ Good+ Adduction 5 Normal External Rotation 4+ Good+ Internal Rotation 5 Normal Knee Strength Knee Manual Muscle Testing Left Flexion (S2) 5 Normal Extension (L3) 5 Normal Right Flexion (S2) 5 Normal Extension (L3) 4+ Good+ Ankle/Foot Strength Ankle and Foot Manual Muscle Testing Left Dorsiflexion (L4) 5 Normal Plantarflexion (S1) 5 Normal Comments 20 heel raises Right Dorsiflexion (L4) 5 Normal Plantarflexion (S1) 3- Fair- Comments PF tested standing; unable to do SL heel raise PT-OP-Q Treatments Start: 06/15/21 09:13 Freq: Status: Active Protocol: Document 11/30/21 16:08 [facility] (Rec: 11/30/21 17:57 [facility] [id number]) Cardio Equipment Bicycle (Upright) Duration (Minutes) 5 Resistance 11 Seat Position 5 Therapeutic Exercises Standing Exercises SL Standing Exercise Name stance Side bilateral Comments in mirror working on hips level squat Standing Exercise Name squat as much range as able Side bilateral Reps/Minutes 15 Comments over chair step downs Side right Equipment Used 6 in Reps/Minutes 15 Comments 2x down 6 in reciprocally stretch Standing Exercise Name 1. stair 2. HS on step Side bilateral Reps/Minutes 30 sec standing calf raises Standing Exercise Name single leg Side right Reps/Minutes 20 Therapeutic Activity Therapeutic Activity ground transfer Comments up/down from ground using UE support on ground w/bear position cueing needed x3 Manual Therapy Treatment Soft Tissue Mobilization HS Body Location R HS & calf Mobilization Type Rolling Intensity/Depth Moderate 1 Body Location scar Mobilization Type Rolling,Strumming Intensity/Depth Moderate Comments supine Joint Mobilizations tibiofemoral Comments AP tibia FM patellofemoral Joint R Direction sup FM PT-OP-R Modalities Start: 08/22/21 14:02 Freq: Status: Active Protocol: Document 11/30/21 16:08 [facility] (Rec: 11/30/21 17:57 [facility] [id number]) Hot Pack/Cold Pack Treatment Cold Pack Location R knee Patient Position Hooklying Treatment Duration (minutes) 10 Patient Tolerance Good Comments stated felt better beforing leaving. PT-OP-T Assessment and Plan Start: 06/15/21 09:13 Freq: Status: Active Protocol: Document 11/30/21 16:08 [facility] (Rec: 11/30/21 17:57 [facility] [id number]) Physical Therapy Assessment Goals up/down Short Term Goal (STG) Pt will be able to do sit to stand from chair w/equal WB and no hands. STG Duration achieved Halfway Goal (LTG) Pt will be able to get up/down from the ground and squat for gardening tasks. 09/19-improving mobility 10/17- has not tried to get up/ down from ground; has been doing some in higher gardens LTG Duration 12/17/21 stairs Short Term Goal (STG) Pt will be able to go up/down stairs in house (15) with SPC and 1 rail safely step to so she can sleep in her bedroom STG Duration achieved Halfway Goal (LTG) Pt will be able to ascend and descend stairs reciprocally without rail in order to be safe in the community when amb . 09/19-can go up without rail but requires rail reciprocally down. 10/17-uses rail up/down but doesn't feel like she needs it for up LTG Duration 01/17/22 ROM Short Term Goal (STG) Pt will improve AROM R knee ROM to 5-105 degrees. 10/17-pt did backtrack after slip; 8-110 STG Duration 11/17/21 Halfway Goal (LTG) Pt will improve AROM R knee ROM to 0-120 degrees to allow for ability to do stairs and good gait mechanics. LTG Duration 10/22/21 gait Short Term Goal (STG) Pt will be able to amb with cane safely in order to be able to return to wrok at the [employer]. STG Duration achieved Director Of Oncology Goal (LTG) Pt will be able to amb as much as she would like w/o AD without inc pain with good gait pattern in order to be able to travel to [place] with family. 09/19-no AD but still limited in distance 10/17-no AD but has not tried much distance recently LTG Duration 12/17/21 1 Impairment strength Impairment pt lacks a pre-operative HEP Short Term Goal (STG) Pt will be indep w/HEP STG Duration achieved advancing as able Halfway Goal (LTG) Pt will score at least 5/5 BLE strength to show improved strength to allow improved functional mobility. 09/19-improving 10/17/21 LTG Duration 12/17/21 Assessment Summary Assessment Pt started at 5-115 and improved to about 1-119 after manual. She had greater ease w /up/down from the ground w/ more control. She did better w /step downs but does still rqurie some cues to use more control. Physical Therapy Plan Frequency and Duration Frequency of Treatment 1-2x/week Duration of Treatment 2 months Plan of Care Start Date 10/17/21 Plan of Care End Date 12/17/21 Next Visit Focus/Plan Next Note Type Discharge Summary Next Visit Plan make sure pt indep w/HEP
--- NOTE | 2021-12-06 17:48 | PT.OTN ---
Current Diagnoses Unilateral primary osteoarthritis, right knee (12/06/21) Difficulty in walking, not elsewhere classified (12/06/21) Weakness (12/06/21) Presence of right artificial knee joint (12/06/21) Physical Therapy Treatment Note PT-OP-A Visit Information Start: 06/15/21 09:13 Freq: Status: Active Protocol: Document 12/06/21 16:53 [facility] (Rec: 12/06/21 17:48 [facility] [id number]) Out-Patient Physical Therapy Visit Information Visit Information Visit Type Discharge Summary Visit Start Time 16:50 Visit Stop Time 17:40 Total Visit Minutes 50 Visit Number 26 Number of PRINTING ROLLER HANDLER Visits 0 PT-OP-B Current Condition Start: 06/15/21 09:13 Freq: Status: Active Protocol: Document 08/22/21 12:59 [facility]22/21 [id number] Current Condition History of Current Condition Onset Date 08/15 Current Complaints R knee pain s/p TKA History of Current Condition RE-eval 08/22- Pt reports surgery 1 week ago on 08/15/21 in surgery center and overall doing well. She has been doing ice and breathing exercises for pain and has only had to take 1 ibuprofen. Pt lost her exercises so she hasn't been doing them. She has been making herself walk through the house for meals and bathroom. IE:surgery 07/14/21 Right knee pain is 4/10 the knee is aggravated is longer walking distances, she needs to hold onto the cart at the store, the more I use it the more it hurts PT is scheduled to go to [place] on Sunday for 3 weeks so is doing her pre op now Treatment Goals Patient/Caregiver Goals Be able to return to work at the [employer] (needs to be amb w/ o cane), Be able to walk distance at a time w/o cane so she can do her trip in Jan in [place], gardening (weeding)-being able to get up/down from ground, get downstairs to her own bed (15 stairs)-eventually reciprocally & w/o rail PT-OP-C Subjective Start: 06/15/21 09:13 Freq: Status: Active Protocol: Document 12/06/21 16:53 [facility] (Rec: 12/06/21 17:48 [facility] [id number]) OP-PT Subjective Patient Comments Patient Comments Pt reports she noted some stiffness with the heat. She did walk all around [place] yesterday though w /visiting family. PT-OP-F Manual Assessment Start: 06/15/21 09:13 Freq: Status: Active Protocol: Document 08/22/21 12:59 [facility] (Rec: 08/22/21 13:53 [facility] [id number]) Manual Assessments Soft Tissue Assessment Soft Tissue Mobility Assessment tightness in ITB, add, quads, HS& calf R Other Manual Assessments Other Manual Assessments some yellow streaking on RLE unsure if bruising or iodine left; fredrick drain intact, no drainage on bandage PT-OP-G Mobility & Gait Start: 06/15/21 09:13 Freq: Status: Active Protocol: Document 08/22/21 12:59 [facility] (Rec: 08/22/21 13:53 [facility] [id number]) OP Mobility Evaluation Bed Mobility Supine to and from Sit indep and can lift LE into bed w/o UEs Transfers Sit to Stand uses UE on seat RLE out in front OP Gait Assessment Comments Gait Comments Amb w/ dec knee ext in WB on RLE and dec push off, dec stance time RLE and some lat leaning w/4WW PT-OP-J Posture/Palpation/Skin Start: 06/15/21 09:13 Freq: Status: Active Protocol: Document 06/15/21 12:00 [facility] (Rec: 06/16/21 12:50 [facility] [id number]) Skin Assessment Circumference Measurement 5 cm above patella Measurement (Centimeters) 19 Comments bilaterally joint line knee Location knee joint line Measurement (Centimeters) 17.5 Comments 16.5 L PT-OP-K Range of Motion Start: 06/15/21 09:13 Freq: Status: Active Protocol: Document 12/06/21 16:53 [facility] (Rec: 12/06/21 17:48 [facility] [id number]) Knee Goniometric Range of Motion Knee Right Knee ROM WFL No Patient Position Supine Flexion Active (degrees) 119 Extension Active (degrees) 1 PT-OP-M Strength Start: 06/15/21 09:13 Freq: Status: Active Protocol: Document 12/06/21 16:53 [facility] (Rec: 12/06/21 17:48 [facility] [id number]) Hip Strength Hip Manual Muscle Testing Left Flexion (L2) 5 Normal Extension (S1) 5 Normal Abduction 5 Normal Adduction 5 Normal External Rotation 5 Normal Internal Rotation 5 Normal Right Flexion (L2) 5 Normal Extension (S1) 5 Normal Abduction 5 Normal Adduction 5 Normal External Rotation 5 Normal Internal Rotation 5 Normal Knee Strength Knee Manual Muscle Testing Left Flexion (S2) 5 Normal Extension (L3) 5 Normal Right Flexion (S2) 5 Normal Extension (L3) 5 Normal Ankle/Foot Strength Ankle and Foot Manual Muscle Testing Left Dorsiflexion (L4) 5 Normal Plantarflexion (S1) 5 Normal Comments 20 heel raises Right Dorsiflexion (L4) 5 Normal Plantarflexion (S1) 5 Normal Comments 20 heel raises PT-OP-Q Treatments Start: 06/15/21 09:13 Freq: Status: Active Protocol: Document 12/06/21 16:53 [facility] (Rec: 12/06/21 17:48 [facility] [id number]) Cardio Equipment Bicycle (Upright) Duration (Minutes) 5 Resistance 11 Seat Position 5 Manual Therapy Treatment Soft Tissue Mobilization adductor Body Location r Mobilization Type Rolling Intensity/Depth Moderate Comments distal to proximal w/ER in hookyling 1 Body Location scar Mobilization Type Rolling,Strumming Intensity/Depth Moderate Comments supine Joint Mobilizations tibiofemoral Comments AP tibia & femur FM PT-OP-R Modalities Start: 08/22/21 14:02 Freq: Status: Active Protocol: Document 12/06/21 16:53 [facility] (Rec: 12/06/21 17:48 [facility] [id number]) Hot Pack/Cold Pack Treatment Cold Pack Location R knee Patient Position Hooklying Treatment Duration (minutes) 10 Patient Tolerance Good PT-OP-T Assessment and Plan Start: 06/15/21 09:13 Freq: Status: Active Protocol: Document 12/06/21 16:53 [facility] (Rec: 12/06/21 17:48 [facility] [id number]) Physical Therapy Assessment Goals up/down Short Term Goal (STG) Pt will be able to do sit to stand from chair w/equal WB and no hands. STG Duration achieved Insurance Rater Goal (LTG) Pt will be able to get up/down from the ground and squat for gardening tasks. 09/19-improving mobility 10/17- has not tried to get up/ down from ground; has been doing some in higher gardens LTG Duration achieved 6/28 stairs Short Term Goal (STG) Pt will be able to go up/down stairs in house (15) with SPC and 1 rail safely step to so she can sleep in her bedroom STG Duration achieved [facility] Goal (LTG) Pt will be able to ascend and descend stairs reciprocally without rail in order to be safe in the community when amb . 09/19-can go up without rail but requires rail reciprocally down. 10/17-uses rail up/down but doesn't feel like she needs it for up LTG Duration achieved in clinic ROM Short Term Goal (STG) Pt will improve AROM R knee ROM to 5-105 degrees. 10/17-pt did backtrack after slip; 8-110 STG Duration achieved 12/06 Insurance Rater Goal (LTG) Pt will improve AROM R knee ROM to 0-120 degrees to allow for ability to do stairs and good gait mechanics. LTG Duration improved to 1-119 today gait Short Term Goal (STG) Pt will be able to amb with cane safely in order to be able to return to wrok at the [employer]. STG Duration achieved Insurance Rater Goal (LTG) Pt will be able to amb as much as she would like w/o AD without inc pain with good gait pattern in order to be able to travel to [place] with family. 09/19-no AD but still limited in distance 10/17-no AD but has not tried much distance recently LTG Duration achieved 1 Impairment strength Impairment pt lacks a pre-operative HEP Short Term Goal (STG) Pt will be indep w/HEP STG Duration achieved advancing as able [facility] Goal (LTG) Pt will score at least 5/5 BLE strength to show improved strength to allow improved functional mobility. 09/19-improving 10/17/21 LTG Duration achieved Assessment Summary Assessment Pt started w/5-116 and improved to 1-119 after manual . She is doing well functionally and has exercises to cont to progress strength, endurance and ROM.She is encouraged to inc her walking in prep for her jan trip. Pt is DC now d/t meeting goals. Physical Therapy Plan Discharge Physical Therapy Discharge Reasons Goals Met
== END 2021-12-07 14:04 ==
LOC: PHYS 16:45
PROVIDERS: Family Provider Family Medicine; PCP Family Medicine; Referring Provider Orthopaedic Surgery; Visit Provider Orthopaedic Surgery
DX: M17.11 Unilateral primary osteoarthritis, right knee (principal); Z96.651 Presence of right artificial knee joint; R53.1 Weakness; R26.2 Difficulty in walking, not elsewhere classified
CPT/HCPCS: 97110; 97112; 97116; 97140; 97161; 97164; 97530; 97535

== ENCOUNTER → 2022-02-10 12:06 | Outpatient (CLI) | payer OTHER, SELFPAY | PROVIDERS: Family Provider Family Medicine; PCP Family Medicine; Visit Provider Registered Nurse | DX: R53.83 Other fatigue (principal) | CPT/HCPCS: 87086 ==

== ENCOUNTER → 2022-02-20 11:25 | Outpatient (CLI) | payer OTHER, SELFPAY ==
[2022-02-20 18:09] LABS: Appearance Urine UA CLEAR; Bilirubin Urine UA NEGATIVE (NEGATIVE); Color Urine UA YELLOW; Glucose Urine UA NEGATIVE (Negative); Ketones Urine UA NEGATIVE (NEGATIVE); Leukocyte Esterase Urine UA 1+ (NEGATIVE); Nitrite Urine UA NEGATIVE (Negative); Occult Blood Urine UA 1+ (Negative); Protein Urine UA NEGATIVE (Negative); Urobilinogen Urine UA 0.2 E.U./dL (0.2)
[2022-02-20 18:15] LABS: Bacteria Urine Moderate (10-30); Culture Indicated Urine Specimen Cultured; RBC Urine 5-10/HPF (0-5/HPF); Renal Epithelial Cells Urine 0-1/HPF (0-1/HPF); Squamous Epithelial Cell Urine 0-1 /HPF (0-5/HPF); Transitional Epi Cells Urine 0-1/HPF (0-5/HPF); WBC Urine 5-10/HPF (0-5/HPF)
== END ==
PROVIDERS: Family Provider Family Medicine; PCP Family Medicine; Referring Provider Family Medicine; Visit Provider Family Medicine
DX: N30.01 Acute cystitis with hematuria (principal)
CPT/HCPCS: 81001; 87086

== ENCOUNTER → 2022-03-10 07:36 | Outpatient (CLI) | payer OTHER, SELFPAY ==
[2022-03-10 08:39] LABS: Add Manual Diff / Slide Review NO; Basophils Absolute Auto 100 /uL (0-100); Basophils Percent Auto 0.8 % (0-2); Eosinophils Absolute Auto 300 /uL (0-450); Eosinophils Percent Auto 4.2 % (2-4); Hematocrit 33.8 % (36-46); Hemoglobin 11.5 g/dL (12.0-16.0); Lymphocytes Absolute Auto 2000 /uL (1100-4500); Lymphocytes Percent Auto 28.1 % (25-40); Mean Corpuscular HGB Conc 33.9 % (30-36); Mean Corpuscular Hemoglobin 29.6 PG (26-34); Mean Corpuscular Volume 87.2 fL (80-100); Monocytes Absolute Auto 600 /uL (0-900); Monocytes Percent Auto 8.7 % (3-14); Neutrophils Absolute Auto 4100 /uL (1500-7000); Neutrophils Percent Auto 58.2 % (50-75); Platelet Count 315 X10^3/uL (150-400); Red Blood Cell Count 3.87 X10^6/uL (4.0-5.2); Red Cell Distribution Width 15.7 % (11.6-14.8)
[2022-03-10 09:06] LABS: Alanine Aminotransferase 17 IU/L (<35); Alkaline Phosphatase 126 U/L (38-126); Aspartate Aminotransferase 21 IU/L (14-36); BUN Creatinine Ratio 23.5 (6-22); Bilirubin Total 0.4 mg/dL (0.2-1.3); Blood Urea Nitrogen 28 mg/dL (7-17); Calcium 9.3 mg/dL (8.4-10.2); Carbon Dioxide 30 mmol/L (22-32); Chloride 104 mmol/L (98-107); Estimated Glomerular Filt Rate 47 mL/min (>60); Globulin 3.9 g/dL (1.7-4.1); Glucose 97 mg/dL (80-110); HEMOLYSIS < 15 (0-50); Potassium 4.2 mmol/L (3.4-5.1); Sodium 141 mmol/L (137-145); Total Protein 7.9 g/dL (6.3-8.2)
== END ==
PROVIDERS: Family Provider Family Medicine; PCP Family Medicine; Referring Provider Family Medicine; Visit Provider Family Medicine
DX: N30.01 Acute cystitis with hematuria (principal)
CPT/HCPCS: 36415; 80053; 85025

== ENCOUNTER → 2022-10-03 07:00 | Outpatient (CLI) | payer OTHER, SELFPAY ==
[2022-10-03 08:26] LABS: Add Manual Diff / Slide Review NO; Basophils Absolute Auto 100 /uL (0-100); Eosinophils Absolute Auto 400 /uL (0-450); Eosinophils Percent Auto 4.9 % (2-4); Hematocrit 35.5 % (36-46); Hemoglobin 11.9 g/dL (12.0-16.0); Lymphocytes Absolute Auto 2100 /uL (1100-4500); Lymphocytes Percent Auto 28.9 % (25-40); Mean Corpuscular HGB Conc 33.6 % (30-36); Mean Corpuscular Hemoglobin 30.2 PG (26-34); Monocytes Absolute Auto 600 /uL (0-900); Monocytes Percent Auto 8.7 % (3-14); Neutrophils Absolute Auto 4200 /uL (1500-7000); Neutrophils Percent Auto 56.5 % (50-75); Platelet Count 340 X10^3/uL (150-400); Red Blood Cell Count 3.95 X10^6/uL (4.0-5.2); Red Cell Distribution Width 13.7 % (11.6-14.8); White Blood Cell Count 7.4 X10^3/uL (4.5-11.0)
[2022-10-03 08:53] LABS: HEMOLYSIS < 15 (0-50); Iron 71 ug/dL (37-170)
[2022-10-03 08:59] LABS: Alanine Aminotransferase 24 IU/L (<35); Alkaline Phosphatase 124 U/L (38-126); Aspartate Aminotransferase 22 IU/L (14-36); Bilirubin Total 0.3 mg/dL (0.2-1.3); Blood Urea Nitrogen 27 mg/dL (7-17); Calcium 9.1 mg/dL (8.4-10.2); Carbon Dioxide 34 mmol/L (22-32); Chloride 102 mmol/L (98-107); Cholesterol 175 mg/dL (140-199); Estimated Glomerular Filt Rate > 60 mL/min (>60); Globulin 3.9 g/dL (1.7-4.1); Glucose 87 mg/dL (80-110); HDL Cholesterol 41 mg/dL (40-60); HEMOLYSIS < 15 (0-50); LDL Cholesterol Calculated 106 mg/dL (<100); Potassium 4.4 mmol/L (3.4-5.1); Sodium 140 mmol/L (137-145); Total Protein 7.9 g/dL (6.3-8.2); Triglycerides 138 mg/dL (35-150)
[2022-10-03 09:03] LABS: Percent Iron Saturation 25 % (15-50); Total Iron Binding Capacity 289 ug/dL (265-497); Transferrin 215 mg/dL (206-381)
[2022-10-03 09:04] LABS: Creatinine Urine Random 94.1 mg/dL
[2022-10-03 09:08] LABS: Microalbumi Creatinin Ratio Ur 56.3 ug/mg CR (<30); Microalbumin Urine Random 5.3 mg/dL (0-1.6)
[2022-10-03 09:24] LABS: TSH w/ Reflex to FT4 1.95 uIU/mL (0.47-4.68)
[2022-10-03 09:33] LABS: Ferritin 81 ng/mL (11-264)
== END ==
PROVIDERS: Family Provider Family Medicine; PCP Family Medicine; Referring Provider Family Medicine; Visit Provider Family Medicine
DX: E78.5 Hyperlipidemia, unspecified (principal); F32.9 Major depressive disorder, single episode, unspecified; F41.9 Anxiety disorder, unspecified; M17.11 Unilateral primary osteoarthritis, right knee; R79.89 Other specified abnormal findings of blood chemistry; D64.9 Anemia, unspecified
CPT/HCPCS: 36415; 80053; 80061; 82043; 82570; 82728; 83540; 83550; 84443; 85025

== ENCOUNTER 2023-02-05 14:15 | Outpatient (RCR) | payer OTHER, SELFPAY ==
--- NOTE | 2022-11-29 18:52 | PT.OIE ---
Current Diagnoses Unilateral primary osteoarthritis, right knee (11/29/22) Effusion, right knee (11/29/22) Unsteadiness on feet (11/29/22) Other abnormalities of gait and mobility (11/29/22) Weakness (11/29/22) Unspecified injury of unspecified lower leg, initial encounter (11/29/22) Past Medical History (Last Reviewed 09/18/22 @ 12:32 by JAKE Brady) Actinic keratosis Anxiety and depression Depression Dry skin dermatitis Headache History of nephrolithiasis History of squamous cell carcinoma Hyperlipidemia Left foot pain Neoplasm of uncertain behavior of skin Nondisplaced fracture Obstructive sleep apnea Osteoarthritis of right knee Osteopenia Seborrhea Shingles Skin cancer Skin lesion Stress incontinence Swelling of right knee joint Ureterolithiasis Past Surgical History (Last Reviewed 09/18/22 @ 12:32 by JAKE Brady) Hx of bilateral cataract extraction Hx of elbow surgery (12/18/17) Hx of excision of dermoid cyst Status post adenoidectomy Status post hysterectomy Status post laparoscopic cholecystectomy Visit Care Team Role Provider Type Werner Fernandez MD Attending Provider Physician Family Provider Primary Care Provider Referring Provider Specialty: Family Practice Address: [address] [place] [address] Email: [email or web address] Physical Therapy Initial Evaluation PT-OP-A Visit Information Start: 11/29/22 13:42 Freq: Status: Active Protocol: Document 11/29/22 15:55 [facility] (Rec: 11/29/22 16:50 [facility] [id number]) Out-Patient Physical Therapy Visit Information Visit Information Visit Type Initial Evaluation Visit Note 06/20 Visit Start Time 16:03 Visit Stop Time 16:45 Total Visit Minutes 42 Visit Number 1 Number of MIXER OPERATOR HOT METAL Visits 0 PT-OP-B Current Condition Start: 11/29/22 13:42 Freq: Status: Active Protocol: Document 11/29/22 15:55 [facility] (Rec: 11/29/22 16:50 [facility] [id number]) Current Condition History of Current Condition Onset Date about 1 year Current Complaints R knee stiffness & dec balance History of Current Condition Pt reports she went ziplining the other day and noticed she needed help w/getting in/out of the van and required assistance. 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 Reports feels like R knee feels like it needs to be loosened up. Pt notes she feels lke B legs are weak and she needs to work on balance. Pt reports B hips sore in superior buttocks that she notices the most getting up from sitting. Pt reports at end of October she was on a traila nd slipped on gravel stepping up and scraped face. Down stairs feels tight in the knee and she makes sure she holds it. Pt reprots balance is getting worse. She does have hx about 3-4 months ago when laying down feeling dizzy but that hasn't happend recently. Feels like balance ahs been off for about a year. Treatment Goals Patient/Caregiver Goals improve balance, improve LE strength, be able to go down stairs easier PT-OP-C Subjective Start: 11/29/22 13:42 Freq: Status: Active Protocol: Document 11/29/22 15:55 [facility] (Rec: 11/29/22 [facility]:50 [id number] Patient Questionnaires Lower Extremity Functional Scale LEFS Score 49/80 OP-PT Pain Assessment Location R knee Pain Location Details R ant knee Description Pressure,Tightness Frequency Intermittent Pain Aggravating Factors Changing Position,Stair Climbing Other Pain Aggravating Factors recliner w/knees bent, up/down PT-OP-D Balance Start: 11/29/22 13:42 Freq: Status: Active Protocol: Document 11/29/22 15:55 [facility] (Rec: 11/29/22 16:50 [facility] [id number]) Balance Tests Single Limb Standing Single Limb- Right 4 sec much lat lean Single Limb- Left 4 sec much lat lean PT-OP-E Functional Tests Start: 11/29/22 18:43 Freq: Status: Active Protocol: Document 11/29/22 15:55 [facility] (Rec: 11/29/22 18:44 [facility] [id number]) Functional Tests 30 Second Sit to Stand Test Score 9 Five Times Sit to Stand Test Score 17 sec Functional Gait Assessment Score 19/30 PT-OP-G Mobility & Gait Start: 11/29/22 13:42 Freq: Status: Active Protocol: Document 11/29/22 15:55 [facility] (Rec: 11/29/22 16:50 [facility] [id number]) OP Gait Assessment Comments Gait Comments pt PT-OP-K Range of Motion Start: 11/29/22 13:42 Freq: Status: Active Protocol: Document 11/29/22 15:55 [facility] (Rec: 11/29/22 16:50 [facility] [id number]) Knee Goniometric Range of Motion Knee Right Flexion Active (degrees) 118 Extension Active (degrees) 7 Comments tight and discomfort w/flex ( ant knee) & ext (quad) Left Flexion Active (degrees) 132 Extension Active (degrees) 4 PT-OP-M Strength Start: 11/29/22 13:42 Freq: Status: Active Protocol: Document 11/29/22 15:55 [facility] (Rec: 11/29/22 16:50 [facility] [id number]) Hip Strength Hip Manual Muscle Testing Right Flexion (L2) 4 Good Extension (S1) 3+ Fair+ Abduction 5 Normal Adduction 3+ Fair+ External Rotation 4+ Good+ Internal Rotation 3+ Fair+ Left Flexion (L2) 3+ Fair+ Extension (S1) 4 Good Abduction 4+ Good+ Adduction 3+ Fair+ Internal Rotation 3+ Fair+ Knee Strength Knee Manual Muscle Testing Right Flexion (S2) 4 Good Extension (L3) 5 Normal Left Flexion (S2) 4 Good Extension (L3) 4+ Good+ Ankle/Foot Strength Ankle and Foot Manual Muscle Testing Right Dorsiflexion (L4) 5 Normal Plantarflexion (S1) 5 Normal Comments discomfort in knee w/DF Left Dorsiflexion (L4) 5 Normal Plantarflexion (S1) 5 Normal Comments 20 heel raises PT-OP-T Assessment and Plan Start: 11/29/22 13:42 Freq: Status: Active Protocol: Document 11/29/22 15:55 [facility] (Rec: 11/29/22 16:50 [facility] [id number]) Physical Therapy Assessment Rehab Potential Rehabilitation Potential Excellent Evaluation Complexity Number of Personal Factors/Comorbidities 3 or More Number of Body Systems Impaired 4 or More Clinical Presentation at Evaluation Evolving Impairments Impairments Activity Tolerance,Balance, Functional Activities, Functional Mobility,Gait,Pain, Posture,ROM,Soft Tissue Mobility,Strength,Transfers Goals ROM Short Term Goal (STG) Pt will have at least 3-120 deg ROM R knee w/o significant tightness or discomfort at end range STG Duration 8/20 Fdc Goal (LTG) Pt will be able to descend stairs reciprocally w/o feeling unstable or discomfort /tightness in R knee. LTG Duration 02/19 FGA Impairment Urban Anthropologist Goal (LTG) Pt will imrpove score to at least 30 to show dec risk for falls LTG Duration 02/19/23 1 Impairment sit to stands Impairment 17 sec 5 sit to stands 9x in 30 sec Short Term Goal (STG) Pt will be able to do at least 10 sit to stands in 30 sec to show irpoved LE strength and dec risk for falls STG Duration 01/09/23 Urban Anthropologist Goal (LTG) Pt will be able to do 5x sit to newsstand vendor 12 sec to show dec risk for falls and imrpoved LE strength LTG Duration 02/21/23 Assessment Summary Assessment Pt presents w/c/o R knee stiffness, BLE weakness, and dec overall balance. She had one fall on a traila bout a month ago and noticed weakness w/getting in/out of a van w/ feeling like legs are overall weak. She demonstrates some weakness w/MMT and does have dec R knee ROM w/dec mobility functionally. She shows dec balance w/testing and would benefit from work on core stability, LE stability and balance work to improve functional ability. Physical Therapy Plan Frequency and Duration Frequency of Treatment 2x/Week Duration of treatment (weeks) 12 Plan of Care Start Date 11/29/22 Plan of Care End Date 02/21/23 Therapeutic Interventions Therapeutic Interventions Balance Training,Gait Training ,Home Exercise Program,Joint Mobilizations,Manual Therapy, Neuromuscular Re-education, Orthotic/Prosthetic Management ,Patient/Caregiver Education, Self-Care/Home Management,Soft Tissue Mobilization,Taping, Therapeutic Activities, Therapeutic Exercises Modalities Cold Pack/Ice Massage,Electric Stimulation,Hot Packs, Ultrasound Next Visit Focus/Plan Next Note Type Treatment Note Next Visit Plan Give pt LE strength/core HEP; manual to R knee, hip and ankle for improved mobility, shuttle balance, other balance training
--- NOTE | 2022-11-29 18:52 | PT.OPPOC ---
Physical, Occupational & Speech Therapy At [facility] Current Diagnoses Unilateral primary osteoarthritis, right knee (11/29/22) Effusion, right knee (11/29/22) Unsteadiness on feet (11/29/22) Other abnormalities of gait and mobility (11/29/22) Weakness (11/29/22) Unspecified injury of unspecified lower leg, initial encounter (11/29/22) Visit Care Team Role Provider Type Werner Fernandez MD Attending Provider Physician Family Provider Primary Care Provider Referring Provider Specialty: Family Practice Address: [address] [place] [address] Email: [email or web address] Plan Of Care PT-OP-T Assessment and Plan Start: 11/29/22 13:42 Freq: Status: Active Protocol: Document 11/29/22 15:55 [facility] (Rec: 11/29/22 16:50 [facility] [id number]) Physical Therapy Assessment Rehab Potential Rehabilitation Potential Excellent Evaluation Complexity Number of Personal Factors/Comorbidities 3 or More Number of Body Systems Impaired 4 or More Clinical Presentation at Evaluation Evolving Impairments Impairments Activity Tolerance,Balance, Functional Activities, Functional Mobility,Gait,Pain, Posture,ROM,Soft Tissue Mobility,Strength,Transfers Goals ROM Short Term Goal (STG) Pt will have at least 3-120 deg ROM R knee w/o significant tightness or discomfort at end range STG Duration 01/28 Director Of Training Goal (LTG) Pt will be able to descend stairs reciprocally w/o feeling unstable or discomfort /tightness in R knee. LTG Duration 02/19 FGA Impairment 19/30 Fdc Goal (LTG) Pt will imrpove score to at least 23/30 to show dec risk for falls LTG Duration 02/19/23 1 Impairment sit to stands Impairment 17 sec 5 sit to stands 9x in 30 sec Short Term Goal (STG) Pt will be able to do at least 10 sit to stands in 30 sec to show irpoved LE strength and dec risk for falls STG Duration 01/09/23 Fdc Goal (LTG) Pt will be able to do 5x sit to chief executive or managing director 12 sec to show dec risk for falls and imrpoved LE strength LTG Duration 02/21/23 Assessment Summary Assessment Pt presents w/c/o R knee stiffness, BLE weakness, and dec overall balance. She had one fall on a traila bout a month ago and noticed weakness w/getting in/out of a van w/ feeling like legs are overall weak. She demonstrates some weakness w/MMT and does have dec R knee ROM w/dec mobility functionally. She shows dec balance w/testing and would benefit from work on core stability, LE stability and balance work to improve functional ability. Physical Therapy Plan Frequency and Duration Frequency of Treatment 2x/Week Duration of treatment (weeks) 12 Plan of Care Start Date 11/29/22 Plan of Care End Date 02/21/23 Therapeutic Interventions Therapeutic Interventions Balance Training,Gait Training ,Home Exercise Program,Joint Mobilizations,Manual Therapy, Neuromuscular Re-education, Orthotic/Prosthetic Management ,Patient/Caregiver Education, Self-Care/Home Management,Soft Tissue Mobilization,Taping, Therapeutic Activities, Therapeutic Exercises Modalities Cold Pack/Ice Massage,Electric Stimulation,Hot Packs, Ultrasound Next Visit Focus/Plan Next Note Type Treatment Note Next Visit Plan Give pt LE strength/core HEP; manual to R knee, hip and ankle for improved mobility, shuttle balance, other balance training Plan of Care Dates Plan of Care Start Date 11/29/22 Plan of Care End Date 02/21/23 Electronically Signed by: Gypsy Pascual, PT 11/29/22 0052 If you are in agreement with this Plan of Care, please return a signed and dated copy. I have reviewed this Plan of Care and certify that the skilled therapy services above are required to meet the patient?s needs. Physician Signature Date Printed Name and Credentials Clinical Instructor Signature Printed Name and Credentials
--- NOTE | 2022-12-05 17:50 | PT.OTN ---
Current Diagnoses Unilateral primary osteoarthritis, right knee (12/05/22) Effusion, right knee (12/05/22) Unsteadiness on feet (12/05/22) Other abnormalities of gait and mobility (12/05/22) Weakness (12/05/22) Unspecified injury of unspecified lower leg, initial encounter (12/05/22) Physical Therapy Treatment Note PT-OP-A Visit Information Start: 11/29/22 13:42 Freq: Status: Active Protocol: Document 12/05/22 16:50 [facility] (Rec: 12/05/22 17:49 [facility] [id number]) Out-Patient Physical Therapy Visit Information Visit Information Visit Type Treatment Note Visit Note 06/20 Visit Start Time 16:48 Visit Stop Time 17:38 Total Visit Minutes 50 Visit Number 2 Number of LATIN DANCE INSTRUCTOR Visits 0 PT-OP-B Current Condition Start: 11/29/22 13:42 Freq: Status: Active Protocol: Document 11/29/22 15:55 [facility] (Rec: 11/29/22 16:50 [facility] [id number]) Current Condition History of Current Condition Onset Date about 1 year Current Complaints R knee stiffness & dec balance History of Current Condition Pt reports she went ziplining the other day and noticed she needed help w/getting in/out of the van and required assistance. 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 Reports feels like R knee feels like it needs to be loosened up. Pt notes she feels lke B legs are weak and she needs to work on balance. Pt reports B hips sore in superior buttocks that she notices the most getting up from sitting. Pt reports at end of October she was on a traila nd slipped on gravel stepping up and scraped face. Down stairs feels tight in the knee and she makes sure she holds it. Pt reprots balance is getting worse. She does have hx about 3-4 months ago when laying down feeling dizzy but that hasn't happend recently. Feels like balance ahs been off for about a year. Treatment Goals Patient/Caregiver Goals improve balance, improve LE strength, be able to go down stairs easier PT-OP-C Subjective Start: 11/29/22 13:42 Freq: Status: Active Protocol: Document 12/05/22 16:50 [facility] (Rec: 12/05/22 17:49 [facility] [id number]) OP-PT Subjective Patient Comments Patient Comments I just want to not have to think about my knee Notes she was dizzy for about an hour the day after PT. notes she also felt dizzy bending over gardening the other day. She iddn't fall PT-OP-D Balance Start: 11/29/22 13:42 Freq: Status: Active Protocol: Document 11/29/22 15:55 [facility] (Rec: 11/29/22 16:50 [facility] [id number]) Balance Tests Single Limb Standing Single Limb- Right 4 sec much lat lean Single Limb- Left 4 sec much lat lean PT-OP-E Functional Tests Start: 11/29/22 18:43 Freq: Status: Active Protocol: Document 11/29/22 15:55 [facility] (Rec: 11/29/22 18:44 [facility] [id number]) Functional Tests 30 Second Sit to Stand Test Score 9 Five Times Sit to Stand Test Score 17 sec Functional Gait Assessment Score 19/30 PT-OP-G Mobility & Gait Start: 11/29/22 13:42 Freq: Status: Active Protocol: Document 11/29/22 15:55 [facility] (Rec: 11/29/22 16:50 [facility] [id number]) OP Gait Assessment Comments Gait Comments pt PT-OP-K Range of Motion Start: 11/29/22 13:42 Freq: Status: Active Protocol: Document 11/29/22 15:55 [facility] (Rec: 11/29/22 16:50 [facility] [id number]) Knee Goniometric Range of Motion Knee Right Flexion Active (degrees) 118 Extension Active (degrees) 7 Comments tight and discomfort w/flex ( ant knee) & ext (quad) Left Flexion Active (degrees) 132 Extension Active (degrees) 4 PT-OP-M Strength Start: 11/29/22 13:42 Freq: Status: Active Protocol: Document 11/29/22 15:55 [facility] (Rec: 11/29/22 16:50 [facility] [id number]) Hip Strength Hip Manual Muscle Testing Right Flexion (L2) 4 Good Extension (S1) 3+ Fair+ Abduction 5 Normal Adduction 3+ Fair+ External Rotation 4+ Good+ Internal Rotation 3+ Fair+ Left Flexion (L2) 3+ Fair+ Extension (S1) 4 Good Abduction 4+ Good+ Adduction 3+ Fair+ Internal Rotation 3+ Fair+ Knee Strength Knee Manual Muscle Testing Right Flexion (S2) 4 Good Extension (L3) 5 Normal Left Flexion (S2) 4 Good Extension (L3) 4+ Good+ Ankle/Foot Strength Ankle and Foot Manual Muscle Testing Right Dorsiflexion (L4) 5 Normal Plantarflexion (S1) 5 Normal Comments discomfort in knee w/DF Left Dorsiflexion (L4) 5 Normal Plantarflexion (S1) 5 Normal Comments 20 heel raises PT-OP-Q Treatments Start: 11/29/22 13:42 Freq: Status: Active Protocol: Document 12/05/22 16:50 [facility] (Rec: 12/05/22 17:49 [facility] [id number]) Gym Equipment Shuttle Balance blue clips Comments fwd: WBOS progressed to wt shift (lat & fwd/back), NBOS progressed to wt shift (lat & fwd/back), staggered stance B head turns & EC trials side: WBOS Therapeutic Exercises Supine Exercises Bridge Side bilateral Equipment Used orange tband Reps/Minutes 10 Sidelying Exercises clamshell Side bilateral Equipment Used green band Reps/Minutes 10 Sitting Exercises HS curl Side bilateral Equipment Used [place] band Reps/Minutes 15 ea Standing Exercises DF Standing Exercise Name DL Side bilateral Reps/Minutes 20 Comments w/back on wall and cues for wall posture roll up squat Standing Exercise Name over chair w/blue foam tap down Side bilateral Reps/Minutes 15 Comments cues for knees Manual Therapy Treatment Soft Tissue Mobilization ant Body Location R quad and patellar tendon & ant tib Mobilization Type Strumming,Sustained Pressure Intensity/Depth Moderate Body Position Supine scar Body Location R Mobilization Type Myofascial Release Intensity/Depth Moderate Body Position Supine Joint Mobilizations patellofemoral Joint sup FM Neuro Re-Education Treatment Balance Activities hurdles Details 6 Reps/Duration 8 Comments fwd over PT-OP-T Assessment and Plan Start: 11/29/22 13:42 Freq: Status: Active Protocol: Document 12/05/22 16:50 [facility] (Rec: 12/05/22 17:49 [facility] [id number]) Physical Therapy Assessment Goals ROM Short Term Goal (STG) Pt will have at least 3-120 deg ROM R knee w/o significant tightness or discomfort at end range STG Duration 01/28 Community Organization Aide Goal (LTG) Pt will be able to descend stairs reciprocally w/o feeling unstable or discomfort /tightness in R knee. LTG Duration 02/19 FGA Impairment Retirement Goal (LTG) Pt will imrpove score to at least /30 to show dec risk for falls LTG Duration 02/19/23 1 Impairment sit to stands Impairment 17 sec 5 sit to stands 9x in 30 sec Short Term Goal (STG) Pt will be able to do at least 10 sit to stands in 30 sec to show irpoved LE strength and dec risk for falls STG Duration 01/09/23 Retirement Goal (LTG) Pt will be able to do 5x sit to fly finisher 12 sec to show dec risk for falls and imrpoved LE strength LTG Duration 02/21/23 Assessment Summary Assessment Pt educated to check BP and call MD if she keeps having long dizzy spells during the day. Edut ot maintain hydration also. She did well with balance and was challenged w/balance board. Cues needed for form throughout exercises. Pt reprots knee feels better after manualt reatment. Physical Therapy Plan Frequency and Duration Frequency of Treatment 2x/Week Duration of treatment (weeks) 12 Plan of Care Start Date 11/29/22 Plan of Care End Date 02/21/23 Next Visit Focus/Plan Next Note Type Treatment Note Next Visit Plan review HEP; manual to R knee, hip and ankle to imrpove mobility, advance balance.
--- NOTE | 2022-12-13 10:45 | PT.OTN ---
Addendum entered and electronically signed by Gypsy Pascual, PT 12/13/22 15:54: PT direct supervision and direction to PT student. Original Note: Current Diagnoses Unilateral primary osteoarthritis, right knee (12/13/22) Effusion, right knee (12/13/22) Unsteadiness on feet (12/13/22) Other abnormalities of gait and mobility (12/13/22) Weakness (12/13/22) Unspecified injury of unspecified lower leg, subsequent encounter (12/13/22) Physical Therapy Treatment Note PT-OP-A Visit Information Start: 11/29/22 13:42 Freq: Status: Active Protocol: Document 12/13/22 08:20 (Rec: 12/13/22 08:35 [id number]) Out-Patient Physical Therapy Visit Information Visit Information Visit Type Treatment Note Visit Note 08/18 Visit Start Time 07:33 Visit Stop Time 08:15 Total Visit Minutes 42 Visit Number 3 Number of TALENT ADVISOR Visits 0 PT-OP-B Current Condition Start: 11/29/22 13:42 Freq: Status: Active Protocol: Document 11/29/22 15:55 [facility] (Rec: 11/29/22 16:50 [facility] [id number]) Current Condition History of Current Condition Onset Date about 1 year Current Complaints R knee stiffness & dec balance History of Current Condition Pt reports she went ziplining the other day and noticed she needed help w/getting in/out of the van and required assistance. 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 Reports feels like R knee feels like it needs to be loosened up. Pt notes she feels lke B legs are weak and she needs to work on balance. Pt reports B hips sore in superior buttocks that she notices the most getting up from sitting. Pt reports at end of October she was on a traila nd slipped on gravel stepping up and scraped face. Down stairs feels tight in the knee and she makes sure she holds it. Pt reprots balance is getting worse. She does have hx about 3-4 months ago when laying down feeling dizzy but that hasn't happend recently. Feels like balance ahs been off for about a year. Treatment Goals Patient/Caregiver Goals improve balance, improve LE strength, be able to go down stairs easier PT-OP-C Subjective Start: 11/29/22 13:42 Freq: Status: Active Protocol: Document 12/13/22 08:20 [facility] (Rec: 12/13/22 08:35 [id number]) OP-PT Subjective Patient Comments Patient Comments Pt had a very busy weekend and did a lot of driving. Her knee did not bother her with driving. She did a lot of gardening on sunday. She still gets dizzy spells when she changes position. PT-OP-D Balance Start: 11/29/22 13:42 Freq: Status: Active Protocol: Document 11/29/22 15:55 [facility] (Rec: 11/29/22 16:50 [facility] [id number]) Balance Tests Single Limb Standing Single Limb- Right 4 sec much lat lean Single Limb- Left 4 sec much lat lean PT-OP-E Functional Tests Start: 11/29/22 18:43 Freq: Status: Active Protocol: Document 11/29/22 15:55 [facility] (Rec: 11/29/22 18:44 [facility] [id number]) Functional Tests 30 Second Sit to Stand Test Score 9 Five Times Sit to Stand Test Score 17 sec Functional Gait Assessment Score 19/30 PT-OP-G Mobility & Gait Start: 11/29/22 13:42 Freq: Status: Active Protocol: Document 11/29/22 15:55 [facility] (Rec: 11/29/22 16:50 [facility] [id number]) OP Gait Assessment Comments Gait Comments pt PT-OP-K Range of Motion Start: 11/29/22 13:42 Freq: Status: Active Protocol: Document 11/29/22 15:55 [facility] (Rec: 11/29/22 16:50 [facility] [id number]) Knee Goniometric Range of Motion Knee Right Flexion Active (degrees) 118 Extension Active (degrees) 7 Comments tight and discomfort w/flex ( ant knee) & ext (quad) Left Flexion Active (degrees) 132 Extension Active (degrees) 4 PT-OP-M Strength Start: 11/29/22 13:42 Freq: Status: Active Protocol: Document 11/29/22 15:55 [facility] (Rec: 11/29/22 16:50 [facility] [id number]) Hip Strength Hip Manual Muscle Testing Right Flexion (L2) 4 Good Extension (S1) 3+ Fair+ Abduction 5 Normal Adduction 3+ Fair+ External Rotation 4+ Good+ Internal Rotation 3+ Fair+ Left Flexion (L2) 3+ Fair+ Extension (S1) 4 Good Abduction 4+ Good+ Adduction 3+ Fair+ Internal Rotation 3+ Fair+ Knee Strength Knee Manual Muscle Testing Right Flexion (S2) 4 Good Extension (L3) 5 Normal Left Flexion (S2) 4 Good Extension (L3) 4+ Good+ Ankle/Foot Strength Ankle and Foot Manual Muscle Testing Right Dorsiflexion (L4) 5 Normal Plantarflexion (S1) 5 Normal Comments discomfort in knee w/DF Left Dorsiflexion (L4) 5 Normal Plantarflexion (S1) 5 Normal Comments 20 heel raises PT-OP-Q Treatments Start: 11/29/22 13:42 Freq: Status: Active Protocol: Document 12/13/22 08:20 (Rec: 12/13/22 08:35 [id number]) Gym Equipment Shuttle Recovery Unilateral Squats Details cued knee alignment with toes R>L focus Resistance 50# Shuttle Recovery Platform Stable Reps/Time 20x Bilateral Squats Details cued knee alignment see in soles Resistance 75# Shuttle Recovery Platform Stable Reps/Time 30x Shuttle Balance blue clips Details Red clips Comments fwd: WBOS progressed to wt shift (fwd/back) side: WBOS wt shift (lat) Therapeutic Exercises Supine Exercises Bridge Supine Exercise Name bridge w/august Side bilateral Reps/Minutes 10 Comments added august. cues for not stomping foot down. Sidelying Exercises clamshell Side bilateral Equipment Used green band Reps/Minutes 10 Sitting Exercises HS curl Side bilateral Equipment Used [place] band Reps/Minutes 15 ea Standing Exercises squat Standing Exercise Name over chair Side bilateral Reps/Minutes 10 Comments cues for knees Manual Therapy Treatment Soft Tissue Mobilization ant Body Location R ADD and Patellar tendon & ant Tib Mobilization Type Oscillations,Strumming, Sustained Pressure Intensity/Depth Moderate Body Position supine and sidelying Neuro Re-Education Treatment Balance Activities hurdles Reps/Duration 6 ea Comments 1. fwd over 2. side step 3. fwd over w/ sec pause high knee Self-Care/Home Management Treatment Education Other Education Self manual with rolling pin to R ADD. PT-OP-T Assessment and Plan Start: 11/29/22 13:42 Freq: Status: Active Protocol: Document 12/13/22 08:20 (Rec: 12/13/22 08:35 [id number]) Physical Therapy Assessment Assessment Summary Assessment Pt did well w/balance and strength exercises. Cues were needed throughout exercises for knee/hip postion. She still notes feeling dizzy when she changes positions. PT educated on moving slowly and pausing when changing positions. She had discomfort in her medial R knee when doing clamshells. Very tender in her adductors along inner R thigh. Pt was given instruction on self manual treatment with roller. Pt will ice when she gets home. Physical Therapy Plan Frequency and Duration Frequency of Treatment 2x/Week Duration of treatment (weeks) 12 Plan of Care Start Date 11/29/22 Plan of Care End Date 02/21/23 Next Visit Focus/Plan Next Note Type Treatment Note Next Visit Plan review HEP; manual to R knee, hip and ADD to improve mobility. Challenge blance.
--- NOTE | 2022-12-20 17:56 | PT.OTN ---
Addendum entered and electronically signed by Gypsy Pascual, PT 12/21/22 08:44: PT direct supervision and direction to PT student. Original Note: Current Diagnoses Unilateral primary osteoarthritis, right knee (12/20/22) Effusion, right knee (12/20/22) Unsteadiness on feet (12/20/22) Other abnormalities of gait and mobility (12/20/22) Weakness (12/20/22) Unspecified injury of unspecified lower leg, subsequent encounter (12/20/22) Physical Therapy Treatment Note PT-OP-A Visit Information Start: 11/29/22 13:42 Freq: Status: Active Protocol: Document 12/20/22 17:18 (Rec: 12/20/22 17:29 [id number]) Out-Patient Physical Therapy Visit Information Visit Information Visit Type Treatment Note Visit Note 09/18 Visit Start Time 16:04 Visit Stop Time 16:47 Total Visit Minutes 43 Visit Number 4 Number of PRODUCTION SUPPORT SUPERVISOR Visits 0 PT-OP-B Current Condition Start: 11/29/22 13:42 Freq: Status: Active Protocol: Document 11/29/22 15:55 [facility] (Rec: 11/29/22 16:50 [facility] [id number]) Current Condition History of Current Condition Onset Date about 1 year Current Complaints R knee stiffness & dec balance History of Current Condition Pt reports she went ziplining the other day and noticed she needed help w/getting in/out of the van and required assistance. 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 Reports feels like R knee feels like it needs to be loosened up. Pt notes she feels lke B legs are weak and she needs to work on balance. Pt reports B hips sore in superior buttocks that she notices the most getting up from sitting. Pt reports at end of October she was on a traila nd slipped on gravel stepping up and scraped face. Down stairs feels tight in the knee and she makes sure she holds it. Pt reprots balance is getting worse. She does have hx about 3-4 months ago when laying down feeling dizzy but that hasn't happend recently. Feels like balance ahs been off for about a year. Treatment Goals Patient/Caregiver Goals improve balance, improve LE strength, be able to go down stairs easier PT-OP-C Subjective Start: 11/29/22 13:42 Freq: Status: Active Protocol: Document 12/20/22 17:18 (Rec: 12/20/22 17:29 [id number]) OP-PT Subjective Patient Comments Patient Comments pt has no new concerns. She is currently painting berry in her home and had no issues other than it was tiring. PT-OP-D Balance Start: 11/29/22 13:42 Freq: Status: Active Protocol: Document 11/29/22 15:55 [facility] (Rec: 11/29/22 16:50 [facility] [id number]) Balance Tests Single Limb Standing Single Limb- Right 4 sec much lat lean Single Limb- Left 4 sec much lat lean PT-OP-E Functional Tests Start: 11/29/22 18:43 Freq: Status: Active Protocol: Document 11/29/22 15:55 [facility] (Rec: 11/29/22 18:44 [facility] [id number]) Functional Tests 30 Second Sit to Stand Test Score 9 Five Times Sit to Stand Test Score 17 sec Functional Gait Assessment Score 19/30 PT-OP-G Mobility & Gait Start: 11/29/22 13:42 Freq: Status: Active Protocol: Document 11/29/22 15:55 [facility] (Rec: 11/29/22 16:50 [facility] [id number]) OP Gait Assessment Comments Gait Comments pt PT-OP-K Range of Motion Start: 11/29/22 13:42 Freq: Status: Active Protocol: Document 11/29/22 15:55 [facility] (Rec: 11/29/22 16:50 [facility] [id number]) Knee Goniometric Range of Motion Knee Right Flexion Active (degrees) 118 Extension Active (degrees) 7 Comments tight and discomfort w/flex ( ant knee) & ext (quad) Left Flexion Active (degrees) 132 Extension Active (degrees) 4 PT-OP-M Strength Start: 11/29/22 13:42 Freq: Status: Active Protocol: Document 11/29/22 15:55 [facility] (Rec: 11/29/22 16:50 [facility] [id number]) Hip Strength Hip Manual Muscle Testing Right Flexion (L2) 4 Good Extension (S1) 3+ Fair+ Abduction 5 Normal Adduction 3+ Fair+ External Rotation 4+ Good+ Internal Rotation 3+ Fair+ Left Flexion (L2) 3+ Fair+ Extension (S1) 4 Good Abduction 4+ Good+ Adduction 3+ Fair+ Internal Rotation 3+ Fair+ Knee Strength Knee Manual Muscle Testing Right Flexion (S2) 4 Good Extension (L3) 5 Normal Left Flexion (S2) 4 Good Extension (L3) 4+ Good+ Ankle/Foot Strength Ankle and Foot Manual Muscle Testing Right Dorsiflexion (L4) 5 Normal Plantarflexion (S1) 5 Normal Comments discomfort in knee w/DF Left Dorsiflexion (L4) 5 Normal Plantarflexion (S1) 5 Normal Comments 20 heel raises PT-OP-Q Treatments Start: 11/29/22 13:42 Freq: Status: Active Protocol: Document 12/20/22 17:18 (Rec: 12/20/22 17:29 [id number]) Gym Equipment Shuttle Recovery Unilateral Squats Details cued knee alignment with toes R>L focus Resistance 75 Shuttle Recovery Platform Stable Reps/Time 2x10 Bilateral Squats Details orange band used to cue Resistance 112 Shuttle Recovery Platform Stable Reps/Time 2x15 Therapeutic Exercises Standing Exercises box steps Standing Exercise Name @rail. gait belt w/max cues for slowing down and posture Side bilateral Equipment Used 4 box and 8box Reps/Minutes 8x ea Comments 1. fwrd w/ high knee 4box, 2. lateral side step 8box Manual Therapy Treatment Soft Tissue Mobilization HS Body Location R HS Mobilization Type Myofascial Release,Sustained Pressure Intensity/Depth Moderate Body Position Supine Joint Mobilizations hip Joint R hip Comments 1. ER in hooklying FM 2. Flexion supine FM Neuro Re-Education Treatment Balance Activities hurdles Reps/Duration 6x Comments fwrd w/ tpads between hurdles for different surfaces PT-OP-T Assessment and Plan Start: 11/29/22 13:42 Freq: Status: Active Protocol: Document 12/20/22 17:18 (Rec: 12/20/22 17:29 [id number]) Physical Therapy Assessment Goals ROM Short Term Goal (STG) Pt will have at least 3-120 deg ROM R knee w/o significant tightness or discomfort at end range STG Duration 01/28 Juvenile Justice Specialist Goal (LTG) Pt will be able to descend stairs reciprocally w/o feeling unstable or discomfort /tightness in R knee. LTG Duration 02/19 FGA Impairment 19/30 Senior Living Goal (LTG) Pt will imrpove score to at least 23/30 to show dec risk for falls LTG Duration 02/19/23 1 Impairment sit to stands Impairment 17 sec 5 sit to stands 9x in 30 sec Short Term Goal (STG) Pt will be able to do at least 10 sit to stands in 30 sec to show irpoved LE strength and dec risk for falls STG Duration 01/09/23 Juvenile Justice Specialist Goal (LTG) Pt will be able to do 5x sit to corporate coordinator 12 sec to show dec risk for falls and imrpoved LE strength LTG Duration 02/21/23 Assessment Summary Assessment pt's demonstrated increased knee flexion during exercises than she has past treatments. Gait belt was needed for balance and box step exercises due to multiple losses in balance. pt was uneasy and had difficulty trusting herself to not use the rail. in supine she was able to get her knee to 127 degrees knee flexion. She still feels dizzy when picking things up from [place] floor. Her HS in her RLE is tight. Following manual there was increased tissue mobility. Physical Therapy Plan Frequency and Duration Frequency of Treatment 2x/Week Duration of treatment (weeks) 12 Plan of Care Start Date 11/29/22 Plan of Care End Date 02/21/23 Next Visit Focus/Plan Next Note Type Treatment Note Next Visit Plan review HEP; manual to R knee, hip and ADD to improve mobility. assess R hip. Challenge kimberlynce.
--- NOTE | 2022-12-27 18:07 | PT.OTN ---
Addendum entered and electronically signed by Gypsy Pascual, PT 12/28/22 08:12: PT direct supervision and direction to PT student. Original Note: Current Diagnoses Unilateral primary osteoarthritis, right knee (12/27/22) Effusion, right knee (12/27/22) Unsteadiness on feet (12/27/22) Other abnormalities of gait and mobility (12/27/22) Weakness (12/27/22) Unspecified injury of unspecified lower leg, subsequent encounter (12/27/22) Physical Therapy Treatment Note PT-OP-A Visit Information Start: 11/29/22 13:42 Freq: Status: Active Protocol: Document 12/27/22 10:19 (Rec: 12/27/22 10:32 [id number]) Out-Patient Physical Therapy Visit Information Visit Information Visit Type Treatment Note Visit Note 10/18 Visit Start Time 08:18 Visit Stop Time 09:03 Total Visit Minutes 45 Visit Number 5 Number of SIGNAL HELPER Visits 0 PT-OP-B Current Condition Start: 11/29/22 13:42 Freq: Status: Active Protocol: Document 11/29/22 15:55 [facility] (Rec: 11/29/22 16:50 [facility] [id number]) Current Condition History of Current Condition Onset Date about 1 year Current Complaints R knee stiffness & dec balance History of Current Condition Pt reports she went ziplining the other day and noticed she needed help w/getting in/out of the van and required assistance. 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 Reports feels like R knee feels like it needs to be loosened up. Pt notes she feels lke B legs are weak and she needs to work on balance. Pt reports B hips sore in superior buttocks that she notices the most getting up from sitting. Pt reports at end of October she was on a traila nd slipped on gravel stepping up and scraped face. Down stairs feels tight in the knee and she makes sure she holds it. Pt reprots balance is getting worse. She does have hx about 3-4 months ago when laying down feeling dizzy but that hasn't happend recently. Feels like balance ahs been off for about a year. Treatment Goals Patient/Caregiver Goals improve balance, improve LE strength, be able to go down stairs easier PT-OP-C Subjective Start: 11/29/22 13:42 Freq: Status: Active Protocol: Document 12/27/22 10:19 [facility] (Rec: 12/27/22 10:32 [id number]) OP-PT Subjective Patient Comments Patient Comments pt went to a baseball game over the weekend. going up stairs was fine, but going down the stairs was much harder. PT-OP-D Balance Start: 11/29/22 13:42 Freq: Status: Active Protocol: Document 11/29/22 15:55 [facility] (Rec: 11/29/22 16:50 [facility] [id number]) Balance Tests Single Limb Standing Single Limb- Right 4 sec much lat lean Single Limb- Left 4 sec much lat lean PT-OP-E Functional Tests Start: 11/29/22 18:43 Freq: Status: Active Protocol: Document 11/29/22 15:55 [facility] (Rec: 11/29/22 18:44 [facility] [id number]) Functional Tests 30 Second Sit to Stand Test Score 9 Five Times Sit to Stand Test Score 17 sec Functional Gait Assessment Score PT-OP-G Mobility & Gait Start: 11/29/22 13:42 Freq: Status: Active Protocol: Document 11/29/22 15:55 [facility] (Rec: 11/29/22 16:50 [facility] [id number]) OP Gait Assessment Comments Gait Comments pt PT-OP-K Range of Motion Start: 11/29/22 13:42 Freq: Status: Active Protocol: Document 11/29/22 15:55 [facility] (Rec: 11/29/22 16:50 [facility] [id number]) Knee Goniometric Range of Motion Knee Right Flexion Active (degrees) 118 Extension Active (degrees) 7 Comments tight and discomfort w/flex ( ant knee) & ext (quad) Left Flexion Active (degrees) 132 Extension Active (degrees) 4 PT-OP-M Strength Start: 11/29/22 13:42 Freq: Status: Active Protocol: Document 11/29/22 15:55 [facility] (Rec: 11/29/22 16:50 [facility] [id number]) Hip Strength Hip Manual Muscle Testing Right Flexion (L2) 4 Good Extension (S1) 3+ Fair+ Abduction 5 Normal Adduction 3+ Fair+ External Rotation 4+ Good+ Internal Rotation 3+ Fair+ Left Flexion (L2) 3+ Fair+ Extension (S1) 4 Good Abduction 4+ Good+ Adduction 3+ Fair+ Internal Rotation 3+ Fair+ Knee Strength Knee Manual Muscle Testing Right Flexion (S2) 4 Good Extension (L3) 5 Normal Left Flexion (S2) 4 Good Extension (L3) 4+ Good+ Ankle/Foot Strength Ankle and Foot Manual Muscle Testing Right Dorsiflexion (L4) 5 Normal Plantarflexion (S1) 5 Normal Comments discomfort in knee w/DF Left Dorsiflexion (L4) 5 Normal Plantarflexion (S1) 5 Normal Comments 20 heel raises PT-OP-Q Treatments Start: 11/29/22 13:42 Freq: Status: Active Protocol: Document 12/27/22 10:19 (Rec: 12/27/22 10:32 [id number]) Gym Equipment Shuttle Recovery Unilateral Squats Details cued knee alignment with toes R>L focus Resistance 62 Shuttle Recovery Platform Stable Reps/Time 2x10 Bilateral Squats Details 75 pulse squats, 112 full squat Resistance 75, 112 Reps/Time 20x ea Therapeutic Exercises Sitting Exercises figure four Sitting Exercise Name piriformis stretch Side bilateral Comments cues for sitting up straight Standing Exercises squat Standing Exercise Name elevated surface (elevated table) w/ ball b/w knees Side bilateral Equipment Used ball Reps/Minutes 20 Manual Therapy Treatment Soft Tissue Mobilization Thigh Body Location ADD, IT band Mobilization Type Myofascial Release, Oscillations,Sustained Pressure Intensity/Depth Moderate Body Position Hooklying Joint Mobilizations hip Joint R hip Comments 1. ER in hooklying FM 2. ADD in sidelying FM Neuro Re-Education Treatment Balance Activities SLS Details slow august w/10 sec hold Reps/Duration 12x hurdles Reps/Duration 6x Comments fwrd w/ tpads between hurdles for different surfaces PT-OP-T Assessment and Plan Start: 11/29/22 13:42 Freq: Status: Active Protocol: Document 12/27/22 10:19 (Rec: 12/27/22 10:32 [id number]) Physical Therapy Assessment Goals ROM Short Term Goal (STG) Pt will have at least 3-120 deg ROM R knee w/o significant tightness or discomfort at end range STG Duration 01/28 French Binder Goal (LTG) Pt will be able to descend stairs reciprocally w/o feeling unstable or discomfort /tightness in R knee. LTG Duration 02/19 FGA Impairment Halfway Goal (LTG) Pt will imrpove score to at least to show dec risk for falls LTG Duration 02/19/23 1 Impairment sit to stands Impairment 17 sec 5 sit to stands 9x in 30 sec Short Term Goal (STG) Pt will be able to do at least 10 sit to stands in 30 sec to show irpoved LE strength and dec risk for falls STG Duration 01/09/23 Halfway Goal (LTG) Pt will be able to do 5x sit to automatic spinning lathe setter 12 sec to show dec risk for falls and imrpoved LE strength LTG Duration 02/21/23 Assessment Summary Assessment pt notes that she feels stronger and is less wobbly w/ balance activities. She still needs to grab for the rail occ when stepping on different surfaces. A gait belt was needed for blance excercises due to multiple losses in balance. She still has difficulty w/ stairs and feels unsteady when she has to look up. Physical Therapy Plan Frequency and Duration Frequency of Treatment 2x/Week Duration of treatment (weeks) 12 Plan of Care Start Date 11/29/22 Plan of Care End Date 02/21/23 Next Visit Focus/Plan Next Note Type Treatment Note Next Visit Plan review HEP; manual to L glute region and pelvis, R knee, hip and ADD to improve mobility. assess R hip. Challenge blance.
--- NOTE | 2023-01-01 15:17 | PT.OTN ---
Current Diagnoses Unilateral primary osteoarthritis, right knee (01/01/23) Effusion, right knee (01/01/23) Unsteadiness on feet (01/01/23) Other abnormalities of gait and mobility (01/01/23) Weakness (01/01/23) Unspecified injury of unspecified lower leg, subsequent encounter (01/01/23) Physical Therapy Treatment Note PT-OP-A Visit Information Start: 11/29/22 13:42 Freq: Status: Active Protocol: Document 01/01/23 14:15 [facility] (Rec: 01/01/23 15:17 [facility] [id number]) Out-Patient Physical Therapy Visit Information Visit Information Visit Type Treatment Note Visit Note 11/18 Visit Start Time 14:18 Visit Stop Time 15:00 Total Visit Minutes 42 Visit Number 6 Number of TIMBER HEWER Visits 0 PT-OP-B Current Condition Start: 11/29/22 13:42 Freq: Status: Active Protocol: Document 11/29/22 15:55 [facility] (Rec: 11/29/22 16:50 [facility] [id number]) Current Condition History of Current Condition Onset Date about 1 year Current Complaints R knee stiffness & dec balance History of Current Condition Pt reports she went ziplining the other day and noticed she needed help w/getting in/out of the van and required assistance. 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 Reports feels like R knee feels like it needs to be loosened up. Pt notes she feels lke B legs are weak and she needs to work on balance. Pt reports B hips sore in superior buttocks that she notices the most getting up from sitting. Pt reports at end of October she was on a traila nd slipped on gravel stepping up and scraped face. Down stairs feels tight in the knee and she makes sure she holds it. Pt reprots balance is getting worse. She does have hx about 3-4 months ago when laying down feeling dizzy but that hasn't happend recently. Feels like balance ahs been off for about a year. Treatment Goals Patient/Caregiver Goals improve balance, improve LE strength, be able to go down stairs easier PT-OP-C Subjective Start: 11/29/22 13:42 Freq: Status: Active Protocol: Document 01/01/23 14:15 [facility] (Rec: 01/01/23 15:17 [facility] [id number]) OP-PT Subjective Patient Comments Patient Comments Pt reports when I was walking in here, I realized I didn't think have about walking or pain. Notes hips feels btter and balance seems better PT-OP-D Balance Start: 11/29/22 13:42 Freq: Status: Active Protocol: Document 11/29/22 15:55 [facility] (Rec: 11/29/22 16:50 [facility] [id number]) Balance Tests Single Limb Standing Single Limb- Right 4 sec much lat lean Single Limb- Left 4 sec much lat lean PT-OP-E Functional Tests Start: 11/29/22 18:43 Freq: Status: Active Protocol: Document 11/29/22 15:55 [facility] (Rec: 11/29/22 18:44 [facility] [id number]) Functional Tests 30 Second Sit to Stand Test Score 9 Five Times Sit to Stand Test Score 17 sec Functional Gait Assessment Score 30 PT-OP-G Mobility & Gait Start: 11/29/22 13:42 Freq: Status: Active Protocol: Document 11/29/22 15:55 [facility] (Rec: 11/29/22 16:50 [facility] [id number]) OP Gait Assessment Comments Gait Comments pt PT-OP-K Range of Motion Start: 11/29/22 13:42 Freq: Status: Active Protocol: Document 11/29/22 15:55 [facility] (Rec: 11/29/22 16:50 [facility] [id number]) Knee Goniometric Range of Motion Knee Right Flexion Active (degrees) 118 Extension Active (degrees) 7 Comments tight and discomfort w/flex ( ant knee) & ext (quad) Left Flexion Active (degrees) 132 Extension Active (degrees) 4 PT-OP-M Strength Start: 11/29/22 13:42 Freq: Status: Active Protocol: Document 11/29/22 15:55 [facility] (Rec: 11/29/22 16:50 [facility] [id number]) Hip Strength Hip Manual Muscle Testing Right Flexion (L2) 4 Good Extension (S1) 3+ Fair+ Abduction 5 Normal Adduction 3+ Fair+ External Rotation 4+ Good+ Internal Rotation 3+ Fair+ Left Flexion (L2) 3+ Fair+ Extension (S1) 4 Good Abduction 4+ Good+ Adduction 3+ Fair+ Internal Rotation 3+ Fair+ Knee Strength Knee Manual Muscle Testing Right Flexion (S2) 4 Good Extension (L3) 5 Normal Left Flexion (S2) 4 Good Extension (L3) 4+ Good+ Ankle/Foot Strength Ankle and Foot Manual Muscle Testing Right Dorsiflexion (L4) 5 Normal Plantarflexion (S1) 5 Normal Comments discomfort in knee w/DF Left Dorsiflexion (L4) 5 Normal Plantarflexion (S1) 5 Normal Comments 20 heel raises PT-OP-Q Treatments Start: 11/29/22 13:42 Freq: Status: Active Protocol: Document 01/01/23 14:15 [facility] (Rec: 01/01/23 15:17 [facility] [id number]) Gym Equipment Shuttle Recovery Unilateral Squats Details cued knee alignment with toes R>L focus Resistance 62 Shuttle Recovery Platform Stable Reps/Time 2x12 Bilateral Squats Resistance 112 Shuttle Recovery Platform Stable Reps/Time x15 Shuttle Balance red clips Comments fwd: WBOS & NBOS: balance and wt shifts; staggered stance B Therapeutic Exercises Supine Exercises hip ER Supine Exercise Name proximal to distal working w/ uni hip lift Side bilateral Reps/Minutes 8 Standing Exercises box steps Standing Exercise Name step down Side right Equipment Used 4 in Reps/Minutes 10 Comments cues for hip ER for better tracking Manual Therapy Treatment Soft Tissue Mobilization HS Body Location R HS Mobilization Type Myofascial Release,Sustained Pressure Intensity/Depth Moderate Body Position Supine Comments w/percussion and R hip lift ant Body Location R quad med Mobilization Type Oscillations,Strumming, Sustained Pressure Intensity/Depth Moderate Body Position w/percussion and R hip lift scar Body Location R Mobilization Type Myofascial Release Intensity/Depth Moderate Body Position Supine Comments w/ R hip lift Neuro Re-Education Treatment Balance Activities SLS Details slow august w/5 sec hold Equipment rail prn Reps/Duration 8 ea hurdles Reps/Duration 6x Comments fwrd w/ tpads between hurdles for different surfaces PT-OP-T Assessment and Plan Start: 11/29/22 13:42 Freq: Status: Active Protocol: Document 01/01/23 14:15 [facility] (Rec: 01/01/23 15:17 [facility] [id number]) Physical Therapy Assessment Goals ROM Short Term Goal (STG) Pt will have at least 3-120 deg ROM R knee w/o significant tightness or discomfort at end range STG Duration 01/28 Penitentiary Goal (LTG) Pt will be able to descend stairs reciprocally w/o feeling unstable or discomfort /tightness in R knee. LTG Duration 02/19 FGA Impairment 19/30 Creative Services Specialist Goal (LTG) Pt will imrpove score to at least 23/30 to show dec risk for falls LTG Duration 02/19/23 1 Impairment sit to stands Impairment 17 sec 5 sit to stands 9x in 30 sec Short Term Goal (STG) Pt will be able to do at least 10 sit to stands in 30 sec to show irpoved LE strength and dec risk for falls STG Duration 01/09/23 Penitentiary Goal (LTG) Pt will be able to do 5x sit to sba business development officer 12 sec to show dec risk for falls and imrpoved LE strength LTG Duration 02/21/23 Assessment Summary Assessment pt had improved lift after manual to LE but does tend to require more cues w/R hip lift than L overrl. her femoral IR likely contributes to her pain w/step downs. Physical Therapy Plan Frequency and Duration Frequency of Treatment 2x/Week Duration of treatment (weeks) 12 Plan of Care Start Date 11/29/22 Plan of Care End Date 02/21/23 Next Visit Focus/Plan Next Note Type Treatment Note Next Visit Plan cont to work on ability to do RLE step down w/o knee pain; advance balance
--- NOTE | 2023-01-22 16:06 | PT.OTN ---
Current Diagnoses Unilateral primary osteoarthritis, right knee (01/22/23) Effusion, right knee (01/22/23) Unsteadiness on feet (01/22/23) Other abnormalities of gait and mobility (01/22/23) Weakness (01/22/23) Unspecified injury of unspecified lower leg, subsequent encounter (01/22/23) Physical Therapy Treatment Note PT-OP-A Visit Information Start: 11/29/22 13:42 Freq: Status: Active Protocol: Document 01/22/23 14:27 [facility] (Rec: 01/22/23 16:06 [facility] [id number]) Out-Patient Physical Therapy Visit Information Visit Information Visit Type Treatment Note Visit Note 12/18 Visit Start Time 14:22 Visit Stop Time 15:00 Total Visit Minutes 38 Visit Number 7 Number of DENTAL TECHNICIAN INSTRUCTOR Visits 0 PT-OP-B Current Condition Start: 11/29/22 13:42 Freq: Status: Active Protocol: Document 11/29/22 15:55 [facility] (Rec: 11/29/22 16:50 [facility] [id number]) Current Condition History of Current Condition Onset Date about 1 year Current Complaints R knee stiffness & dec balance History of Current Condition Pt reports she went ziplining the other day and noticed she needed help w/getting in/out of the van and required assistance. 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 Reports feels like R knee feels like it needs to be loosened up. Pt notes she feels lke B legs are weak and she needs to work on balance. Pt reports B hips sore in superior buttocks that she notices the most getting up from sitting. Pt reports at end of October she was on a traila nd slipped on gravel stepping up and scraped face. Down stairs feels tight in the knee and she makes sure she holds it. Pt reprots balance is getting worse. She does have hx about 3-4 months ago when laying down feeling dizzy but that hasn't happend recently. Feels like balance ahs been off for about a year. Treatment Goals Patient/Caregiver Goals improve balance, improve LE strength, be able to go down stairs easier PT-OP-C Subjective Start: 11/29/22 13:42 Freq: Status: Active Protocol: Document 01/22/23 14:27 [facility] (Rec: 01/22/23 16:06 [facility] [id number]) OP-PT Subjective Patient Comments Patient Comments Pt reports walking is feeling easier PT-OP-D Balance Start: 11/29/22 13:42 Freq: Status: Active Protocol: Document 11/29/22 15:55 [facility] (Rec: 11/29/22 16:50 [facility] [id number]) Balance Tests Single Limb Standing Single Limb- Right 4 sec much lat lean Single Limb- Left 4 sec much lat lean PT-OP-E Functional Tests Start: 11/29/22 18:43 Freq: Status: Active Protocol: Document 11/29/22 15:55 [facility] (Rec: 11/29/22 18:44 [facility] [id number]) Functional Tests 30 Second Sit to Stand Test Score 9 Five Times Sit to Stand Test Score 17 sec Functional Gait Assessment Score 19/30 PT-OP-G Mobility & Gait Start: 11/29/22 13:42 Freq: Status: Active Protocol: Document 11/29/22 15:55 [facility] (Rec: 11/29/22 16:50 [facility] [id number]) OP Gait Assessment Comments Gait Comments pt PT-OP-K Range of Motion Start: 11/29/22 13:42 Freq: Status: Active Protocol: Document 11/29/22 15:55 [facility] (Rec: 11/29/22 16:50 [facility] [id number]) Knee Goniometric Range of Motion Knee Right Flexion Active (degrees) 118 Extension Active (degrees) 7 Comments tight and discomfort w/flex ( ant knee) & ext (quad) Left Flexion Active (degrees) 132 Extension Active (degrees) 4 PT-OP-M Strength Start: 11/29/22 13:42 Freq: Status: Active Protocol: Document 11/29/22 15:55 [facility] (Rec: 11/29/22 16:50 [facility] [id number]) Hip Strength Hip Manual Muscle Testing Right Flexion (L2) 4 Good Extension (S1) 3+ Fair+ Abduction 5 Normal Adduction 3+ Fair+ External Rotation 4+ Good+ Internal Rotation 3+ Fair+ Left Flexion (L2) 3+ Fair+ Extension (S1) 4 Good Abduction 4+ Good+ Adduction 3+ Fair+ Internal Rotation 3+ Fair+ Knee Strength Knee Manual Muscle Testing Right Flexion (S2) 4 Good Extension (L3) 5 Normal Left Flexion (S2) 4 Good Extension (L3) 4+ Good+ Ankle/Foot Strength Ankle and Foot Manual Muscle Testing Right Dorsiflexion (L4) 5 Normal Plantarflexion (S1) 5 Normal Comments discomfort in knee w/DF Left Dorsiflexion (L4) 5 Normal Plantarflexion (S1) 5 Normal Comments 20 heel raises PT-OP-Q Treatments Start: 11/29/22 13:42 Freq: Status: Active Protocol: Document 01/22/23 14:27 [facility] (Rec: 01/22/23 16:06 [facility] [id number]) Gym Equipment Shuttle Recovery Unilateral Squats Details cued knee alignment with toes R>L focus Resistance 62 Shuttle Recovery Platform Stable Reps/Time x20 B Bilateral Squats Details 2nd set w/orange band around knees-dec knee discomfort Resistance 112 Shuttle Recovery Platform Stable Reps/Time 2x15 Shuttle Balance red clips Comments fwd: WBOS & NBOS: balance ; staggered stance B sdie: WBOS Therapeutic Exercises Standing Exercises box steps Standing Exercise Name step down Side right Equipment Used 4 in Reps/Minutes 15 Comments cues for hip ER for better tracking squat Standing Exercise Name over chair Side bilateral Reps/Minutes 12 Comments cues for knee position Manual Therapy Treatment Joint Mobilizations tibfem Comments AP tibia and femur FM patellofemoral Joint sup & med FM Neuro Re-Education Treatment Balance Activities hurdles Reps/Duration 8x Comments fwd w/ tpads between hurdles for different surfaces PT-OP-T Assessment and Plan Start: 11/29/22 13:42 Freq: Status: Active Protocol: Document 01/22/23 14:27 [facility] (Rec: 01/22/23 16:06 [facility] [id number]) Physical Therapy Assessment Goals ROM Short Term Goal (STG) Pt will have at least 3-120 deg ROM R knee w/o significant tightness or discomfort at end range STG Duration 01/28 Intermediate Goal (LTG) Pt will be able to descend stairs reciprocally w/o feeling unstable or discomfort /tightness in R knee. LTG Duration 02/19 FGA Impairment /30 Podopediatrician Goal (LTG) Pt will imrpove score to at least 30 to show dec risk for falls LTG Duration 02/19/23 1 Impairment sit to stands Impairment 17 sec 5 sit to stands 9x in 30 sec Short Term Goal (STG) Pt will be able to do at least 10 sit to stands in 30 sec to show irpoved LE strength and dec risk for falls STG Duration 01/09/23 Podopediatrician Goal (LTG) Pt will be able to do 5x sit to teaching assistant 12 sec to show dec risk for falls and imrpoved LE strength LTG Duration 02/21/23 Assessment Summary Assessment Pt cont to be challenged by balance activities but did improve w/balance over hurdles . She still requires cues for knee tracking w/step downs and sqatting exercises. Physical Therapy Plan Frequency and Duration Frequency of Treatment 2x/Week Duration of treatment (weeks) 12 Plan of Care Start Date 11/29/22 Plan of Care End Date 02/21/23 Next Visit Focus/Plan Next Note Type Treatment Note Next Visit Plan cont to work on ability to do RLE step down w/o knee pain; advance balance
--- NOTE | 2023-01-29 15:18 | PT.OTN ---
Current Diagnoses Unilateral primary osteoarthritis, right knee (01/29/23) Effusion, right knee (01/29/23) Unsteadiness on feet (01/29/23) Other abnormalities of gait and mobility (01/29/23) Weakness (01/29/23) Unspecified injury of unspecified lower leg, subsequent encounter (01/29/23) Physical Therapy Treatment Note PT-OP-A Visit Information Start: 11/29/22 13:42 Freq: Status: Active Protocol: Document 01/29/23 14:20 [facility] (Rec: 01/29/23 15:18 [facility] [id number]) Out-Patient Physical Therapy Visit Information Visit Information Visit Type Treatment Note Visit Note 01/18 Visit Start Time 14:21 Visit Stop Time 15:01 Total Visit Minutes 40 Visit Number 8 Number of CONTRACT LEAD Visits 0 PT-OP-B Current Condition Start: 11/29/22 13:42 Freq: Status: Active Protocol: Document 11/29/22 15:55 [facility] (Rec: 11/29/22 16:50 [facility] [id number]) Current Condition History of Current Condition Onset Date about 1 year Current Complaints R knee stiffness & dec balance History of Current Condition Pt reports she went ziplining the other day and noticed she needed help w/getting in/out of the van and required assistance. 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 Reports feels like R knee feels like it needs to be loosened up. Pt notes she feels lke B legs are weak and she needs to work on balance. Pt reports B hips sore in superior buttocks that she notices the most getting up from sitting. Pt reports at end of October she was on a traila nd slipped on gravel stepping up and scraped face. Down stairs feels tight in the knee and she makes sure she holds it. Pt reprots balance is getting worse. She does have hx about 3-4 months ago when laying down feeling dizzy but that hasn't happend recently. Feels like balance ahs been off for about a year. Treatment Goals Patient/Caregiver Goals improve balance, improve LE strength, be able to go down stairs easier PT-OP-C Subjective Start: 11/29/22 13:42 Freq: Status: Active Protocol: Document 01/29/23 14:20 [facility] (Rec: 01/29/23 15:18 [facility] [id number]) OP-PT Subjective Patient Comments Patient Comments Pt reports she is feeling good walking but still feels her knee a little w/a step down and squat. Pt reports she felt great for a couple days after last session but then cramped lat on lower leg PT-OP-D Balance Start: 11/29/22 13:42 Freq: Status: Active Protocol: Document 11/29/22 15:55 [facility] (Rec: 11/29/22 16:50 [facility] [id number]) Balance Tests Single Limb Standing Single Limb- Right 4 sec much lat lean Single Limb- Left 4 sec much lat lean PT-OP-E Functional Tests Start: 11/29/22 18:43 Freq: Status: Active Protocol: Document 11/29/22 15:55 [facility] (Rec: 11/29/22 18:44 [facility] [id number]) Functional Tests 30 Second Sit to Stand Test Score 9 Five Times Sit to Stand Test Score 17 sec Functional Gait Assessment Score 19/30 PT-OP-G Mobility & Gait Start: 11/29/22 13:42 Freq: Status: Active Protocol: Document 11/29/22 15:55 [facility] (Rec: 11/29/22 16:50 [facility] [id number]) OP Gait Assessment Comments Gait Comments pt PT-OP-K Range of Motion Start: 11/29/22 13:42 Freq: Status: Active Protocol: Document 11/29/22 15:55 [facility] (Rec: 11/29/22 16:50 [facility] [id number]) Knee Goniometric Range of Motion Knee Right Flexion Active (degrees) 118 Extension Active (degrees) 7 Comments tight and discomfort w/flex ( ant knee) & ext (quad) Left Flexion Active (degrees) 132 Extension Active (degrees) 4 PT-OP-M Strength Start: 11/29/22 13:42 Freq: Status: Active Protocol: Document 11/29/22 15:55 [facility] (Rec: 11/29/22 16:50 [facility] [id number]) Hip Strength Hip Manual Muscle Testing Right Flexion (L2) 4 Good Extension (S1) 3+ Fair+ Abduction 5 Normal Adduction 3+ Fair+ External Rotation 4+ Good+ Internal Rotation 3+ Fair+ Left Flexion (L2) 3+ Fair+ Extension (S1) 4 Good Abduction 4+ Good+ Adduction 3+ Fair+ Internal Rotation 3+ Fair+ Knee Strength Knee Manual Muscle Testing Right Flexion (S2) 4 Good Extension (L3) 5 Normal Left Flexion (S2) 4 Good Extension (L3) 4+ Good+ Ankle/Foot Strength Ankle and Foot Manual Muscle Testing Right Dorsiflexion (L4) 5 Normal Plantarflexion (S1) 5 Normal Comments discomfort in knee w/DF Left Dorsiflexion (L4) 5 Normal Plantarflexion (S1) 5 Normal Comments 20 heel raises PT-OP-Q Treatments Start: 11/29/22 13:42 Freq: Status: Active Protocol: Document 01/29/23 14:20 [facility] (Rec: 01/29/23 15:18 [facility] [id number]) Gym Equipment Shuttle Recovery Unilateral Squats Details cued knee alignment with toes R>L focus Resistance 62 Shuttle Recovery Platform Stable Reps/Time x20 B Bilateral Squats Details 2nd set w/orange band around knees-dec knee discomfort Resistance 112 Shuttle Recovery Platform Stable Reps/Time 2x15 Shuttle Balance red clips Comments fwd: WBOS & NBOS: balance ; staggered stance B sdie: WBOS Therapeutic Exercises Standing Exercises box steps Standing Exercise Name step down Side right Equipment Used 4 in w/rail prn Reps/Minutes 15 Comments cues for hip ER for better tracking Manual Therapy Treatment Soft Tissue Mobilization Thigh Body Location ADD, IT band Mobilization Type Myofascial Release, Oscillations,Sustained Pressure Intensity/Depth Moderate Body Position Hooklying Comments w/ER Joint Mobilizations tibfib Joint proximal R Comments distraction and AP FM tibfem Comments AP tibia and lat glide tib FM hip Joint R Comments hip on axis ER FM & ER free the ball FM PT-OP-T Assessment and Plan Start: 11/29/22 13:42 Freq: Status: Active Protocol: Document 01/29/23 14:20 [facility] (Rec: 01/29/23 15:18 [facility] [id number]) Physical Therapy Assessment Goals ROM Short Term Goal (STG) Pt will have at least 3-120 deg ROM R knee w/o significant tightness or discomfort at end range STG Duration 01/28 Security Delivery Specialist Goal (LTG) Pt will be able to descend stairs reciprocally w/o feeling unstable or discomfort /tightness in R knee. LTG Duration 9/11 FGA Impairment Half-Way Goal (LTG) Pt will imrpove score to at least to show dec risk for falls LTG Duration 02/19/23 1 Impairment sit to stands Impairment 17 sec 5 sit to stands 9x in 30 sec Short Term Goal (STG) Pt will be able to do at least 10 sit to stands in 30 sec to show irpoved LE strength and dec risk for falls STG Duration 01/09/23 Security Delivery Specialist Goal (LTG) Pt will be able to do 5x sit to molding machine operator 12 sec to show dec risk for falls and imrpoved LE strength LTG Duration 02/21/23 Assessment Summary Assessment Pt had less pain w/sit to stand after manual. Pt still requires cues for knee position during step downs and work on this w/4 in step first and pt was able to improve pain and form Physical Therapy Plan Frequency and Duration Frequency of Treatment 2x/Week Duration of treatment (weeks) 12 Plan of Care Start Date 11/29/22 Plan of Care End Date 02/21/23 Next Visit Focus/Plan Next Note Type Treatment Note Next Visit Plan cont to work on ability to do RLE step down w/o knee pain; advance balance
--- NOTE | 2023-02-05 16:44 | PT.OTN ---
Current Diagnoses Unilateral primary osteoarthritis, right knee (02/05/23) Effusion, right knee (02/05/23) Unsteadiness on feet (02/05/23) Other abnormalities of gait and mobility (02/05/23) Weakness (02/05/23) Unspecified injury of unspecified lower leg, subsequent encounter (02/05/23) Physical Therapy Treatment Note PT-OP-A Visit Information Start: 11/29/22 13:42 Freq: Status: Active Protocol: Document 02/05/23 14:23 [facility] (Rec: 02/05/23 16:39 [facility] [id number]) Out-Patient Physical Therapy Visit Information Visit Information Visit Type Discharge Summary Visit Start Time 14:21 Visit Stop Time 15:00 Total Visit Minutes 39 Visit Number 9 Number of FIRE CHIEF'S AIDE Visits 0 PT-OP-B Current Condition Start: 11/29/22 13:42 Freq: Status: Active Protocol: Document 11/29/22 15:55 [facility] (Rec: 11/29/22 16:50 [facility] [id number]) Current Condition History of Current Condition Onset Date about 1 year Current Complaints R knee stiffness & dec balance History of Current Condition Pt reports she went ziplining the other day and noticed she needed help w/getting in/out of the van and required assistance. 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 Reports feels like R knee feels like it needs to be loosened up. Pt notes she feels lke B legs are weak and she needs to work on balance. Pt reports B hips sore in superior buttocks that she notices the most getting up from sitting. Pt reports at end of October she was on a traila nd slipped on gravel stepping up and scraped face. Down stairs feels tight in the knee and she makes sure she holds it. Pt reprots balance is getting worse. She does have hx about 3-4 months ago when laying down feeling dizzy but that hasn't happend recently. Feels like balance ahs been off for about a year. Treatment Goals Patient/Caregiver Goals improve balance, improve LE strength, be able to go down stairs easier PT-OP-C Subjective Start: 11/29/22 13:42 Freq: Status: Active Protocol: Document 02/05/23 14:23 [facility] (Rec: 02/05/23 16:39 [facility] [id number]) OP-PT Subjective Patient Comments Patient Comments Pt feels like she is doing really well Patient Reported Progress Improving PT-OP-D Balance Start: 11/29/22 13:42 Freq: Status: Active Protocol: Document 11/29/22 15:55 [facility] (Rec: 11/29/22 16:50 [facility] [id number]) Balance Tests Single Limb Standing Single Limb- Right 4 sec much lat lean Single Limb- Left 4 sec much lat lean PT-OP-E Functional Tests Start: 11/29/22 18:43 Freq: Status: Active Protocol: Document 02/05/23 14:23 [facility] (Rec: 02/05/23 16:39 [facility] [id number]) Functional Tests 30 Second Sit to Stand Test Score 12x Five Times Sit to Stand Test Score 12 sec Functional Gait Assessment Score 26/30 PT-OP-G Mobility & Gait Start: 11/29/22 13:42 Freq: Status: Active Protocol: Document 11/29/22 15:55 [facility] (Rec: 11/29/22 16:50 [facility] [id number]) OP Gait Assessment Comments Gait Comments pt PT-OP-K Range of Motion Start: 11/29/22 13:42 Freq: Status: Active Protocol: Document 02/05/23 14:23 [facility] (Rec: 02/05/23 16:39 [facility] [id number]) Knee Goniometric Range of Motion Knee Right Flexion Active (degrees) 126 Extension Active (degrees) 2 Comments tightness w/flex PT-OP-M Strength Start: 11/29/22 13:42 Freq: Status: Active Protocol: Document 11/29/22 15:55 [facility] (Rec: 11/29/22 16:50 [facility] [id number]) Hip Strength Hip Manual Muscle Testing Right Flexion (L2) 4 Good Extension (S1) 3+ Fair+ Abduction 5 Normal Adduction 3+ Fair+ External Rotation 4+ Good+ Internal Rotation 3+ Fair+ Left Flexion (L2) 3+ Fair+ Extension (S1) 4 Good Abduction 4+ Good+ Adduction 3+ Fair+ Internal Rotation 3+ Fair+ Knee Strength Knee Manual Muscle Testing Right Flexion (S2) 4 Good Extension (L3) 5 Normal Left Flexion (S2) 4 Good Extension (L3) 4+ Good+ Ankle/Foot Strength Ankle and Foot Manual Muscle Testing Right Dorsiflexion (L4) 5 Normal Plantarflexion (S1) 5 Normal Comments discomfort in knee w/DF Left Dorsiflexion (L4) 5 Normal Plantarflexion (S1) 5 Normal Comments 20 heel raises PT-OP-Q Treatments Start: 11/29/22 13:42 Freq: Status: Active Protocol: Document 02/05/23 14:23 [facility] (Rec: 02/05/23 16:39 [facility] [id number]) Therapeutic Exercises Supine Exercises Bridge Supine Exercise Name bridge w/march Side bilateral Reps/Minutes 8 Sitting Exercises figure four Sitting Exercise Name supine Side bilateral Reps/Minutes 30 sec ea Manual Therapy Treatment Soft Tissue Mobilization Thigh Body Location ADD, IT band Mobilization Type Myofascial Release, Oscillations,Sustained Pressure Intensity/Depth Moderate Body Position Hooklying Comments w/ER ant Body Location R quad med Mobilization Type Oscillations,Strumming, Sustained Pressure Intensity/Depth Moderate Body Position w/percussion and R hip lift PT-OP-T Assessment and Plan Start: 11/29/22 13:42 Freq: Status: Active Protocol: Document 02/05/23 14:23 [facility] (Rec: 02/05/23 16:39 [facility] [id number]) Physical Therapy Assessment Goals ROM Short Term Goal (STG) Pt will have at least 3-120 deg ROM R knee w/o significant tightness or discomfort at end range STG Duration achieved 02/05 Intermediate Goal (LTG) Pt will be able to descend stairs reciprocally w/o feeling unstable or discomfort /tightness in R knee. LTG Duration achieved-minor discomfort occ FGA Impairment Intermediate Goal (LTG) Pt will imrpove score to at least 23/30 to show dec risk for falls LTG Duration achieved 02/05 1 Impairment sit to stands Impairment 17 sec 5 sit to stands 9x in 30 sec Short Term Goal (STG) Pt will be able to do at least 10 sit to stands in 30 sec to show irpoved LE strength and dec risk for falls STG Duration achieved 02/05 Intermediate Goal (LTG) Pt will be able to do 5x sit to industrial maintenance repairer helper 12 sec to show dec risk for falls and imrpoved LE strength LTG Duration achieved 02/05 Assessment Summary Assessment Pt has made excellent progress w/PT and met all goals. She is doing well with balance, strength and knee ROM and function. She is indep w/ exercises and encouraged to cont exercises and walking Physical Therapy Plan Discharge Physical Therapy Discharge Reasons Goals Met
== END 2023-02-07 09:22 | disposition home or self-care (01) ==
LOC: PHYS 14:15
PROVIDERS: Family Provider Family Medicine; PCP Family Medicine; Referring Provider Family Medicine; Visit Provider Family Medicine
DX: M25.461 Effusion, right knee (principal); R26.89 Other abnormalities of gait and mobility; M17.11 Unilateral primary osteoarthritis, right knee; R53.1 Weakness; R26.81 Unsteadiness on feet; S89.90XD Unspecified injury of unspecified lower leg, subsequent encounter
CPT/HCPCS: 97110; 97112; 97140; 97162

== ENCOUNTER → 2023-07-24 08:32 | Outpatient (CLI) | payer OTHER, SELFPAY | PROVIDERS: Family Provider Family Medicine; PCP Family Medicine; Visit Provider Physician Assistant Surgical | DX: N89.8 Other specified noninflammatory disorders of vagina (principal) | CPT/HCPCS: 87086 ==

== ENCOUNTER → 2023-12-31 10:38 | Outpatient (CLI) | payer OTHER, SELFPAY ==
[2023-12-31 12:26] LABS: Appearance Urine UA CLEAR; Bilirubin Urine UA NEGATIVE (NEGATIVE); Color Urine UA YELLOW; Glucose Urine UA NEGATIVE (Negative); Ketones Urine UA TRACE (NEGATIVE); Leukocyte Esterase Urine UA 2+ (NEGATIVE); Nitrite Urine UA NEGATIVE (Negative); Occult Blood Urine UA 3+ (Negative); Protein Urine UA 1+ (Negative); Specific Gravity Urine UA 1.015 (1.000-1.035)
[2023-12-31 12:27] LABS: pH Urine UA 5.5 (4.5-8.0)
[2023-12-31 12:55] LABS: Bacteria Urine Many (>30); RBC Urine 1-5/HPF (0-5/HPF); Squamous Epithelial Cell Urine 1-5 /HPF (0-5/HPF); Urine Volume 10mL (spun); WBC Urine 10-30/HPF (0-5/HPF)
[2023-12-31 12:56] LABS: Culture Indicated Urine Specimen Cultured; Granular Casts Urine 0-1/LPF; Mucus Urine 1+ (Negative); Transitional Epi Cells Urine 0-1/HPF (0-5/HPF)
== END ==
PROVIDERS: Family Provider Family Medicine; PCP Family Medicine; Visit Provider Student in an Organized Health Care Education/Training Program
DX: N39.0 Urinary tract infection, site not specified (principal)
CPT/HCPCS: 81001; 87086

== ENCOUNTER → 2023-12-31 11:20 | Outpatient (CLI) | payer OTHER, SELFPAY ==
--- NOTE | 2023-12-31 11:21 | DI.RAD.S_ITS ---
PROCEDURE: XR CHEST 2V INDICATIONS: cough x 2 week, chills/low fevers TECHNIQUE: 2 views of the chest were acquired. COMPARISON: None. FINDINGS: Surgical changes and devices: None. Lungs and pleura: Lungs are clear. No pleural effusions or pneumothorax. Mediastinum: Mediastinal contours are normal. Heart size is normal. Bones and chest wall: No suspicious bony abnormalities. Soft tissues appear unremarkable. IMPRESSION: No acute cardiopulmonary abnormality is seen. Dictated by: Jose Alexander M.D. on 12/31/2023 at 12:15 Approved by: Jose Alexander M.D. on 12/31/2023 at 12:16
== END ==
PROVIDERS: Family Provider Family Medicine; PCP Family Medicine; Referring Provider Student in an Organized Health Care Education/Training Program; Visit Provider Student in an Organized Health Care Education/Training Program
DX: R05.9 Cough, unspecified (principal); R68.83 Chills (without fever); N39.0 Urinary tract infection, site not specified
CPT/HCPCS: 71046; 81001; 87086

== ENCOUNTER → 2024-03-03 07:49 | Outpatient (CLI) | payer OTHER, SELFPAY ==
[2024-03-03 08:29] LABS: Add Manual Diff / Slide Review NO; Basophils Absolute Auto 100 /uL (0-100); Basophils Percent Auto 1.1 % (0-2); Eosinophils Absolute Auto 200 /uL (0-450); Eosinophils Percent Auto 2.9 % (2-4); Hematocrit 34.7 % (36-46); Hemoglobin 11.7 g/dL (12.0-16.0); Lymphocytes Absolute Auto 2100 /uL (1100-4500); Lymphocytes Percent Auto 29.9 % (25-40); Mean Corpuscular HGB Conc 33.8 % (30-36); Mean Corpuscular Hemoglobin 30.3 PG (26-34); Mean Corpuscular Volume 89.6 fL (80-100); Monocytes Absolute Auto 500 /uL (0-900); Monocytes Percent Auto 7.5 % (3-14); Neutrophils Absolute Auto 4100 /uL (1500-7000); Neutrophils Percent Auto 58.6 % (50-75); Platelet Count 337 X10^3/uL (150-400); Red Blood Cell Count 3.88 X10^6/uL (4.0-5.2); Red Cell Distribution Width 14.5 % (11.6-14.8)
[2024-03-03 08:52] LABS: HEMOLYSIS < 15 (0-50); Iron 82 ug/dL (37-170)
[2024-03-03 08:59] LABS: Alanine Aminotransferase 27 IU/L (<35); Albumin Globulin Ratio 1.1 (1.0-2.8); Alkaline Phosphatase 134 U/L (38-126); Aspartate Aminotransferase 24 IU/L (14-36); BUN Creatinine Ratio 25.8 (6-22); Bilirubin Total 0.5 mg/dL (0.2-1.3); Blood Urea Nitrogen 24 mg/dL (7-17); Calcium 9.4 mg/dL (8.4-10.2); Carbon Dioxide 28 mmol/L (22-32); Chloride 105 mmol/L (98-107); Cholesterol 172 mg/dL (140-199); Estimated Glomerular Filt Rate > 60 mL/min (>60); Globulin 3.6 g/dL (1.7-4.1); Glucose 99 mg/dL (80-110); HDL Cholesterol 41 mg/dL (40-60); HEMOLYSIS < 15 (0-50); LDL Cholesterol Calculated 100 mg/dL (<100); Potassium 4.2 mmol/L (3.4-5.1); Sodium 142 mmol/L (137-145); Total Protein 7.6 g/dL (6.3-8.2); Triglycerides 155 mg/dL (35-150)
[2024-03-03 09:03] LABS: Percent Iron Saturation 29 % (15-50); Total Iron Binding Capacity 287 ug/dL (265-497); Transferrin 217 mg/dL (206-381)
[2024-03-03 09:28] LABS: TSH w/ Reflex to FT4 2.16 uIU/mL (0.47-4.68)
[2024-03-03 09:32] LABS: Ferritin 76 ng/mL (11-264)
[2024-03-03 16:26] LABS: Hep C Virus Ab w/Reflex Quant NEGATIVE s/c (NEGATIVE)
== END ==
PROVIDERS: Family Provider Family Medicine; PCP Family Medicine; Referring Provider Family Medicine; Visit Provider Family Medicine
DX: F41.9 Anxiety disorder, unspecified (principal); F32.9 Major depressive disorder, single episode, unspecified; E78.5 Hyperlipidemia, unspecified; R79.89 Other specified abnormal findings of blood chemistry; D64.9 Anemia, unspecified
CPT/HCPCS: 36415; 80053; 80061; 82728; 83540; 83550; 84443; 85025; 86803

== ENCOUNTER 2024-03-13 15:56 | Emergency (ER) | payer OTHER, SELFPAY ==
[2024-03-13 16:02] VITALS: BP 178/87; PULSE 89; RESP 17; TEMP 36.6; O2SAT 96
--- NOTE | 2024-03-13 16:20 | DI.CT.S_ITS ---
PROCEDURE: CT HEAD/BRAIN WO CON INDICATIONS: fall TECHNIQUE: Noncontrast 4.5 mm thick angled axial sections acquired from the foramen magnum to the vertex, with coronal and sagittal reformats. For radiation dose reduction, the following was used: automated exposure control, adjustment of mA and/or kV according to patient size. COMPARISON: None. FINDINGS: Image quality: Diagnostic. CSF spaces: Basal cisterns are patent. No extra-axial fluid collections. The ventricles are symmetric in size and shape. Brain: No intracranial bleeds or masses. There is cerebral volume loss for age, with resultant ventricular and sulcal prominence. There are periventricular and deep white matter chronic small vessel ischemic changes. There is intracranial internal carotid artery atherosclerosis. Skull and face: Calvarium and visualized facial bones appear intact, without suspicious lesions. Bilateral lens replacements. Sinuses: Visualized sinuses and mastoids are clear. IMPRESSION: No acute intracranial pathology. Dictated by: Salomon Pearce M.D. on 03/13/2024 at 16:55 Approved by: Salomon Pearce M.D. on 03/13/2024 at 16:56
--- NOTE | 2024-03-13 16:21 | DI.RAD.S_ITS ---
PROCEDURE: XR RIBS LT MIN 3V W CXR1V INDICATIONS: fall TECHNIQUE: 3 views of the ribs were acquired, along with a single view chest. COMPARISON: None. FINDINGS: Surgical changes and devices: None. Bones and chest wall: No fractures or dislocations. No suspicious bony lesions. Overlying soft tissues appear unremarkable. Lungs and pleura: No pleural effusions or pneumothorax. Lungs appear clear. Mediastinum: Mediastinal contours appear normal. Heart size is normal. IMPRESSION: No visualized acute fracture or dislocation. However, if clinical concern and/or pain persist, short interval imaging followup in 7-10 days is recommended, as occult injury cannot be definitively excluded. Dictated by: Brynn Yee M.D. on 03/13/2024 at 17:24 Approved by: Brynn Yee M.D. on 03/13/2024 at 17:24
--- NOTE | 2024-03-13 16:21 | DI.CT.S_ITS ---
PROCEDURE: CT CERVICAL SPINE WO CON INDICATIONS: fall TECHNIQUE: Noncontrast 3 mm thick sections acquired from the skull base to the T4 level. Sagittal and coronal reformats were then constructed. For radiation dose reduction, the following was used: automated exposure control, adjustment of mA and/or kV according to patient size. COMPARISON: None. FINDINGS: Image quality: This examination is somewhat limited by quantum mottle artifact. Bones: No fractures or dislocations. Visualized superior ribs are intact. Focal degenerative change is seen involving the C1-C2 interface anteriorly. There is at least moderate disc space narrowing seen at C5-C6 and C6-C7. Multiple levels of significant facet hypertrophy can be seen. Soft tissues: Prevertebral soft tissues are normal in thickness. No paravertebral hematomas. No apical pneumothoraces. The thyroid is abnormal, with left-sided nodule seen, including a substernal component. The largest mass measures 2.8 cm. There is deviation of the trachea to the right. Atherosclerotic calcification is noted. IMPRESSION: No displaced fracture or traumatic subluxation. Multiple levels of underlying cervical spine degenerative change can be seen. Abnormal thyroid, with left-sided nodules and a substernal component. Associated deviation of the trachea can be seen to the right side. When clinically appropriate, please consider a follow-up thyroid ultrasound for further evaluation. Dictated by: Michael Roth M.D. on 03/13/2024 at 16:05 Approved by: Michael Roth M.D. on 03/13/2024 at 16:07
--- NOTE | 2024-03-13 16:22 | DI.RAD.S_ITS ---
PROCEDURE: XR HIP W PEL IF DONE LT 2V INDICATIONS: fall TECHNIQUE: AP pelvis with lateral view(s) of the left hip(s). COMPARISON: None. FINDINGS: Bones: No fractures or dislocations. Pelvic ring appears intact. No suspicious bony lesions. Moderate bilateral degenerative hip joint space narrowing. Minimal periarticular osteophytes. No erosions. Degenerative changes are present within the lower lumbar spine. Soft tissues: The visualized bowel gas pattern is normal. No suspicious soft tissue calcifications. IMPRESSION: Moderate bilateral hip arthritic change. No visualized acute fracture or dislocation. However, if clinical concern and/or pain persist, short interval imaging followup in 7-10 days is recommended, as occult injury cannot be definitively excluded. Dictated by: Brynn Yee M.D. on 03/13/2024 at 17:23 Approved by: Brynn Yee M.D. on 03/13/2024 at 17:23
[2024-03-13 17:00] VITALS: BP 167/79; PULSE 80; RESP 20; O2SAT 96
--- NOTE | 2024-03-13 17:00 | ED.FALL ---
HPI - Fall General Chief Complaint: Fall Stated Complaint: fall down hill Time Seen by Provider: 03/13/24 16:59 Source: patient Mode of arrival: Ambulatory History of Present Illness HPI Narrative: Patient is a 79-year-old female with no significant past medical history presents to the ED with EMS after a mechanical trip and fall. States that prior to arrival she was at her house on a slanted slope and fell forward denies any syncopal or presyncopal symptoms. She states that she did fall into a cantu and got stuck but was able to get up after the incident with help by medics, however she is stating she is having pain primarily complaining of pain to her left side, does have an abrasion/laceration to her scalp. Is complaining of left hip pain and left rib pain. Not on any blood thinners. Related Data Home Medications Medication Instructions Recorded Confirmed multivitamin 1 cap PO DAILY ##0 11/20/11 01/31/24 cholecalciferol (vitamin D3) 50 1 tab PO QDAY #0 tabs 03/13/16 01/31/24 mcg (2,000 unit) tablet (Vitamin D3) ibuprofen 400 mg tablet 400 mg PO Q8HP PRN Pain 07/06/21 01/31/24 vitamins A,C,R-[id number] 4,296 1 cap PO BID 10/02/22 01/31/24 mcg-226 mg-90 mg capsule (PreserVision AREDS) biotin PO 07/24/23 01/31/24 Previous Rx's Medication Instructions Recorded Parking Permit... #1 ea 05/30/21 citalopram 40 mg tablet (Celexa) 40 mg PO QDAY #90 tabs 11/20/23 Allergies Allergy/AdvReac Type Severity Reaction Status Date / Time Penicillins [PENICILLINS] Allergy Unknown as a Verified 01/31/24 14:58 child, unknown Review of Systems Review of Systems Narrative: General: Denies fever, chills, weight loss HEENT: Denies headache, eye drainage, eye irritation, head trauma, sore throat, voice change Cardiovascular: Denies any chest pain, palpitations, shortness of breath, tachycardia Respiratory: Denies any shortness of breath, cough, wheeze, stridor GI/: Denies any abdominal pain, nausea, vomiting, diarrhea, bright red blood per rectum, melanotic stools, urinary frequency, urinary retention, dysuria, hematuria MSK: Pain to the left chest left hip Skin: Cut to the left scalp Neuro: Denies any headache, lightheadedness, dizziness, fainting, weakness Psych: Denies SI/HI Patient History Medical History Depression Skin cancer Osteoarthritis of right knee Swelling of right knee joint Nondisplaced fracture Skin lesion Stress incontinence Actinic keratosis Neoplasm of uncertain behavior of skin Dry skin dermatitis Left foot pain Seborrhea Headache Shingles Obstructive sleep apnea History of nephrolithiasis History of squamous cell carcinoma Anxiety and depression Osteopenia Hyperlipidemia Ureterolithiasis Surgical History Hx of bilateral cataract extraction Hx of elbow surgery (12/18/17) Hx of excision of dermoid cyst Status post laparoscopic cholecystectomy Status post hysterectomy Status post adenoidectomy Family History Father Cholangiocarcinoma of biliary tract Mother Squamous cell carcinoma Glaucoma Social History household members: spouse Smoking Status: Never smoker alcohol intake: current Smoking Status: Never smoker alcohol intake frequency: a few times a month Substance Use Type: does not use Exam Narrative Exam Narrative: General: Cooperative, comfortable, well-developed, not in acute distress HEENT: Normocephalic, atraumatic, PERRLA, normal sclera, eyelids normal, Neck: Active full range of motion, atraumatic Chest: Normal to inspection, negative crepitus, no overlying erythema ecchymosis Respiratory: Normal respiratory effort, not in acute respiratory distress, clear to auscultation bilaterally negative cough, wheeze, tachypnea, rhonchi, rales Cardiology: Regular rate rhythm negative gallop, murmur, rubs GI/: Normal to inspection, soft, nonrigid, no tenderness to palpation, exam deferred MSK: There is tenderness to palpation over the lateral chest but no overlying erythema or ecchymosis, there is moderate tenderness to palpation of the left greater trochanter but is able to move lower extremities spontaneously neurovascularly intact compartments are soft Skin: Laceration noted to the scalp, Neuro: Alert awake oriented x3, moves all 4 extremities spontaneously, cranial nerves intact, able to answer all questions appropriately follows commands appropriately Psych: Cooperative, negative suicidal or homicidal ideations Initial Vital Signs Initial Vital Signs: Vital Signs Temperature 98 F 03/13/24 16:02 Pulse Rate 89 03/13/24 16:02 Respiratory Rate 17 03/13/24 16:02 Blood Pressure 178/87 H 03/13/24 16:02 Pulse Oximetry 96 03/13/24 16:02 Oxygen Delivery Method Room Air 03/13/24 16:02 Course Orders Ordered: Discontinued Medications Diphtheria/Tetanus/Acell Pertussis (Tet,Diph,Pertuss(Acell),Vac/Pf 0.5 Ml Syringe) 0.5 ml IM .ONCE ONE Stop: 03/13/24 17:02 Last Admin: 03/13/24 18:15 Dose: 0.5 ml Documented By: SAUL Vital Signs Vital signs: Vital Signs - 8 hr 03/13/24 16:02 Temperature 98 F Pulse Rate 89 Respiratory Rate 17 Blood Pressure 178/87 H Pulse Oximetry 96 Oxygen Delivery Method Room Air MDM - Fall Differential Diagnosis Differential diagnosis: Likely other (Muscle contusion, closed head injury, abrasion, rib fracture) Medical Records Attestation: I reviewed the patient's medical records. Lab Data 03/13/24 17:30 03/13/24 17:30 Labs: Lab Results 03/13/24 Range/Units 17:30 WBC 11.6 H (4.5-11.0) X10^3/uL RBC 4.09 (4.0-5.2) X10^6/uL Hgb 12.2 (12.0-16.0) g/dL Hct 36.7 (36-46) % MCV 89.8 (80-100) fL MCH 29.7 (26-34) PG MCHC 33.1 (30-36) % RDW 14.5 (11.6-14.8) % Plt Count 330 (150-400) X10^3/uL Neut % (Auto) 72.8 (50-75) % Lymph % (Auto) 15.4 L (25-40) % Crockett % (Auto) 9.4 (3-14) % Eos % (Auto) 1.7 L (2-4) % Baso % (Auto) 0.7 (0-2) % Neut # (Auto) 8500 H (3312-2040) /uL Lymph # (Auto) 1800 (4336-3430) /uL Crockett # (Auto) 1100 H (0-900) /uL Eos # (Auto) 200 (0-450) /uL Baso # (Auto) 100 (0-100) /uL Sodium 139 (137-145) mmol/L Potassium 4.2 (3.4-5.1) mmol/L Chloride 104 (98-107) mmol/L Carbon Dioxide 28 (22-32) mmol/L BUN 30 H (7-17) mg/dL Creatinine 0.94 (0.52-1.04) mg/dL Estimated GFR > 60 (>60) mL/min BUN/Creatinine Ratio 31.9 H (6-22) Glucose 101 (80-110) mg/dL Calcium 9.4 (8.4-10.2) mg/dL Total Bilirubin 0.5 (0.2-1.3) mg/dL AST 42 H (14-36) IU/L ALT 64 H (<35) IU/L Alkaline Phosphatase 152 H (38-126) U/L Total Protein 8.6 H (6.3-8.2) g/dL Albumin 4.4 (3.5-5.0) g/dL Globulin 4.2 H (1.7-4.1) g/dL Albumin/Globulin Ratio 1.0 (1.0-2.8) Imaging Data CT scan - abdomen/pelvis: Radiologist's Impression: PROCEDURE: CT CHEST ABD PEL W CON INDICATIONS: trauma, worse pain to left upper chest TECHNIQUE: After the administration of intravenous contrast, 5 mm thick sections acquired from the lung apices to the symphysis. 2.5 mm thick coronal and sagittal reformats were acquired. Additional 7 mm thick coronal maximum intensity projection (MIP) reformats acquired through the lungs. Optional 10-minute delayed imaging may be performed from the kidneys to the bladder. For radiation dose reduction, the following was used: automated exposure control, adjustment of mA and/or kV according to patient size. COMPARISON: None. FINDINGS: Image quality: Diagnostic. CHEST: Lower Neck: No enlarged lymph nodes. Thyroid: Enlarged and lobulated left thyroid lobe with a prominent nodule extending dorsal and inferior into the mediastinum, deviating the trachea to the right and compressing the esophagus. Axillae: No enlarged lymph nodes. Chest Wall: No visible contusions. No subcutaneous gas. Lungs and Pleura: No pulmonary contusions or lacerations. No acute airspace opacities. No pneumothorax or hemothorax. Incidental note of juxta fissural lymph node on the right. Mediastinum: No mediastinal hematomas. Heart size is normal. No pericardial effusion. Thoracic aorta and pulmonary arteries demonstrate normal size and enhancement. No mediastinal or hilar adenopathy. Esophagus is normal in caliber. Tiny hiatal hernia. ABDOMEN: Liver: No lacerations. Gallbladder: Surgically absent. Biliary ducts: Appropriate biliary tree caliber post cholecystectomy. Pancreas: Homogenous enhancement. No transsection. Spleen: Homogenous enhancement without laceration or hematoma. Adrenal Glands: Symmetric enhancement. Kidneys and Ureters: Numerous bilateral intrarenal calculi. 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 There is severe, chronic right hydroureteronephrosis of upper and lower pole moiety. Calcifications are present in the right distal ureter just above the UVJ. The largest measures 6 mm with Hounsfield units of about 600. Mild prominence of the left intrarenal collecting system but no left hydroureter or calcification. Prominent exophytic left lower pole cyst. No evidence of renal laceration or suspicious perinephric fluid. Stomach and Bowel: Stomach and small bowel are decompressed. Increased quantity of solid stool present throughout the colon. The appendix was not seen. Peritoneum: No abnormal intraperitoneal fluid. No free air. Ventral Wall: No hernia. No visible contusions or foreign bodies. Abdominal Nodes: No retroperitoneal or mesenteric adenopathy by size criteria. Vessels: The abdominal aorta, IVC, and portal vein are of normal caliber. Mild abdominal aortic atherosclerotic calcification. PELVIS: Pelvic Organs: Hysterectomy. Ovaries are not seen. Bladder: Intact. Normal bladder wall thickness. Pelvic Nodes: No enlarged lymph nodes. Miscellaneous: No inguinal hernias are seen. Bones: Pelvic ring and hip joints appear intact. No displaced rib fractures. No vertebral body fractures seen. Degenerative changes and vacuum disc phenomenon present in the lumbar spine. IMPRESSION: No evidence of traumatic injury to the chest, abdomen or pelvis. Chronic appearing right urinary obstruction at the level of the distal ureter. Duplicated right collecting system to the level of the mid to distal ureter. hip xray : Radiologist's Impression: PROCEDURE: XR HIP W PEL IF DONE LT 2V INDICATIONS: fall TECHNIQUE: AP pelvis with lateral view(s) of the left hip(s). COMPARISON: None. FINDINGS: Bones: No fractures or dislocations. Pelvic ring appears intact. No suspicious bony lesions. Moderate bilateral degenerative hip joint space narrowing. Minimal periarticular osteophytes. No erosions. Degenerative changes are present within the lower lumbar spine. Soft tissues: The visualized bowel gas pattern is normal. No suspicious soft tissue calcifications. IMPRESSION: Moderate bilateral hip arthritic change. No visualized acute fracture or dislocation. However, if clinical concern and/or pain persist, short interval imaging followup in 7-10 days is recommended, as occult injury cannot be definitively excluded. Chest x-ray: Radiologist's Impression: PROCEDURE: XR RIBS LT MIN 3V W CXR1V INDICATIONS: fall TECHNIQUE: 3 views of the ribs were acquired, along with a single view chest. COMPARISON: None. FINDINGS: Surgical changes and devices: None. Bones and chest wall: No fractures or dislocations. No suspicious bony lesions. Overlying soft tissues appear unremarkable. Lungs and pleura: No pleural effusions or pneumothorax. Lungs appear clear. Mediastinum: Mediastinal contours appear normal. Heart size is normal. IMPRESSION: No visualized acute fracture or dislocation. However, if clinical concern and/or pain persist, short interval imaging followup in 7-10 days is recommended, as occult injury cannot be definitively excluded. CT - cervical spine: Radiologist's Impression: PROCEDURE: CT CERVICAL SPINE WO CON INDICATIONS: fall TECHNIQUE: Noncontrast 3 mm thick sections acquired from the skull base to the T4 level. Sagittal and coronal reformats were then constructed. For radiation dose reduction, the following was used: automated exposure control, adjustment of mA and/or kV according to patient size. COMPARISON: None. FINDINGS: Image quality: This examination is somewhat limited by quantum mottle artifact. Bones: No fractures or dislocations. Visualized superior ribs are intact. Focal degenerative change is seen involving the C1-C2 interface anteriorly. There is at least moderate disc space narrowing seen at C5-C6 and C6-C7. Multiple levels of significant facet hypertrophy can be seen. Soft tissues: Prevertebral soft tissues are normal in thickness. No paravertebral hematomas. No apical pneumothoraces. The thyroid is abnormal, with left-sided nodule seen, including a substernal component. The largest mass measures 2.8 cm. There is deviation of the trachea to the right. Atherosclerotic calcification is noted. IMPRESSION: No displaced fracture or traumatic subluxation. Multiple levels of underlying cervical spine degenerative change can be seen. Abnormal thyroid, with left-sided nodules and a substernal component. Associated deviation of the trachea can be seen to the right side. When clinically appropriate, please consider a follow-up thyroid ultrasound for further evaluation. CT scan - head: Radiologist's Impression: PROCEDURE: CT HEAD/BRAIN WO CON INDICATIONS: fall TECHNIQUE: Noncontrast 4.5 mm thick angled axial sections acquired from the foramen magnum to the vertex, with coronal and sagittal reformats. For radiation dose reduction, the following was used: automated exposure control, adjustment of mA and/or kV according to patient size. COMPARISON: None. FINDINGS: Image quality: Diagnostic. CSF spaces: Basal cisterns are patent. No extra-axial fluid collections. The ventricles are symmetric in size and shape. Brain: No intracranial bleeds or masses. There is cerebral volume loss for age, with resultant ventricular and sulcal prominence. There are periventricular and deep white matter chronic small vessel ischemic changes. There is intracranial internal carotid artery atherosclerosis. Skull and face: Calvarium and visualized facial bones appear intact, without suspicious lesions. Bilateral lens replacements. Sinuses: Visualized sinuses and mastoids are clear. IMPRESSION: No acute intracranial pathology. MDM Narrative Medical decision making narrative: Patient is a 79-year-old female with no significant past medical history who presented to the emergency department with EMS for evaluation of mechanical trip and fall prior to arrival. Patient was at her house doing yd work on a slanted slope when she fell forward, states that she did roll down the slope into a cantu/tree and into the wall. She was able to stand ambulate with help when paramedics arrived. She has not on any blood thinners. She was primarily complaining left rib pain and left hip pain. CT scan did not show any intracranial hemorrhage, no rib fractures x-ray without any signs of fracture to the left hip. Lab work unremarkable. Patient only with a skin abrasion noted to the left scalp no need for laceration repair. Patient did have incidental findings noted on CT neck with enlarged thyroid, however patient is speaking in full sentences protecting airway no signs of dysphagia stridor or trismus, all incidental findings was presented to the patient and instructed to follow up with appropriate specialists in an outpatient setting. She verbalized understanding of this and will be safe for discharge home with outpatient follow up. Discharge Plan Departure Patient Disposition: Home Clinical Impression: Closed head injury, Abrasion of skin, Acute pain of left hip, Contusion of muscle Activity Restrictions/Additional Instructions: Please read the discharge instructions sheet carefully and bring all papers to all doctor follow-up visits, as it may contain information that your doctor may want to see. Disease processes change and evolve, if your symptoms worsen or if you develop any new symptoms that are concerning to you please return for evaluation. Your evaluation today does not show any evidence of any life-threatening/serious illnesses requiring admission to the hospital or surgery. Please follow-up with your doctor for re-evaluation in approximately 1 day. Seek immediate medical attention for any worrisome symptoms. Prescriptions: No Action biotin PO multivitamin Capsule 1 cap PO DAILY Qty: 0 cholecalciferol (vitamin D3) [Vitamin D3] 2,000 UNIT tablet 1 tab PO QDAY Qty: 0 (DME) Parking Permit... See Rx Instructions .Route .MEDSUPPLY Qty: 1 0RF Rx Instructions: i find this patient to be medically disabled and qualified for disabled parking as indicated , and signed, on the Accompanying Disabled parking Application for individuals. citalopram [Celexa] 40 mg tablet 40 mg PO QDAY Qty: 90 0RF PreserVision AREDS 4,296 mcg-226 mg-90 mg capsule 1 cap PO BID ibuprofen 400 mg tablet 400 mg PO Q8HP PRN (Reason: Pain) Referrals: Werner Fernandez MD [Primary Care Provider] - Stand Alone Forms: Patient Portal/API
[2024-03-13 17:30] VITALS: BP 168/71; PULSE 84; RESP 19; O2SAT 96
[2024-03-13 17:45] LABS: Add Manual Diff / Slide Review NO; Basophils Absolute Auto 100 /uL (0-100); Basophils Percent Auto 0.7 % (0-2); Eosinophils Absolute Auto 200 /uL (0-450); Eosinophils Percent Auto 1.7 % (2-4); Hematocrit 36.7 % (36-46); Hemoglobin 12.2 g/dL (12.0-16.0); Lymphocytes Absolute Auto 1800 /uL (1100-4500); Lymphocytes Percent Auto 15.4 % (25-40); Mean Corpuscular HGB Conc 33.1 % (30-36); Mean Corpuscular Hemoglobin 29.7 PG (26-34); Mean Corpuscular Volume 89.8 fL (80-100); Monocytes Absolute Auto 1100 /uL (0-900); Monocytes Percent Auto 9.4 % (3-14); Neutrophils Absolute Auto 8500 /uL (1500-7000); Neutrophils Percent Auto 72.8 % (50-75); Platelet Count 330 X10^3/uL (150-400); Red Blood Cell Count 4.09 X10^6/uL (4.0-5.2); Red Cell Distribution Width 14.5 % (11.6-14.8); White Blood Cell Count 11.6 X10^3/uL (4.5-11.0)
[2024-03-13 17:58] LABS: Alanine Aminotransferase 64 IU/L (<35); Albumin 4.4 g/dL (3.5-5.0); Alkaline Phosphatase 152 U/L (38-126); Aspartate Aminotransferase 42 IU/L (14-36); BUN Creatinine Ratio 31.9 (6-22); Bilirubin Total 0.5 mg/dL (0.2-1.3); Blood Urea Nitrogen 30 mg/dL (7-17); Calcium 9.4 mg/dL (8.4-10.2); Carbon Dioxide 28 mmol/L (22-32); Chloride 104 mmol/L (98-107); Estimated Glomerular Filt Rate > 60 mL/min (>60); Globulin 4.2 g/dL (1.7-4.1); Glucose 101 mg/dL (80-110); HEMOLYSIS 30 (0-50); Potassium 4.2 mmol/L (3.4-5.1); Sodium 139 mmol/L (137-145); Total Protein 8.6 g/dL (6.3-8.2)
[2024-03-13 18:00] VITALS: BP 152/71; PULSE 86; RESP 20; O2SAT 95
[2024-03-13] MEDS: TET,DIPH,PERTUSS(ACELL),VAC/PF 0.5 ML SYRINGE IM (18:15)
[2024-03-13 18:30] VITALS: BP 173/76; PULSE 93; RESP 18; O2SAT 96
[2024-03-13 19:21] VITALS: BP 144/66; PULSE 102; RESP 20; TEMP 37; O2SAT 98
== END 2024-03-13 19:22 | disposition home or self-care (01) ==
PROVIDERS: Emergency Provider Student in an Organized Health Care Education/Training Program; Family Provider Family Medicine; PCP Family Medicine
DX: S09.90XA Unspecified injury of head, initial encounter (principal); R07.81 Pleurodynia; M25.552 Pain in left hip; S29.9XXA Unspecified injury of thorax, initial encounter; T14.8XXA Other injury of unspecified body region, initial encounter; S00.01XA Abrasion of scalp, initial encounter; E04.1 Nontoxic single thyroid nodule; Z23 Encounter for immunization; W19.XXXA Unspecified fall, initial encounter
CPT/HCPCS: 70450; 71101; 71260; 72125; 73502; 74177; 80053; 85025; 90471; 99283; 99284; 90715; Q9967

== ENCOUNTER → 2024-04-28 08:29 | Outpatient (CLI) | payer OTHER, SELFPAY ==
--- NOTE | 2024-04-28 08:31 | DI.US.S_ITS ---
PROCEDURE: US THYROID INDICATIONS: Thyroid Nodules TECHNIQUE: Real-time scanning was performed of the thyroid gland, with image documentation. COMPARISON: None. FINDINGS: Thyroid: Right lobe measures 4.5 by 1.9 x 1.6 cm. Left lobe measures 6 x 4 x 3.6 x 2.1 cm. Isthmus is 0.3 cm thick. Echotexture is heterogenous. Nodule number: 1 Location: Left mid Size: 2.4 x 2.0 x 2.5 cm. Composition: Solid Echogenicity: Isoechoic Shape: wider than tall. Margins: Ill-defined Echogenic foci: None Total points: 3 ACR TI-RADS category: 3 Nodule number: 2 Location: Left inferior Size: 2.1 x 2.0 x 2.2 cm. Composition: Solid Echogenicity: Isoechoic Shape: wider than tall. Margins: Ill-defined Echogenic foci: No Total points: 3 ACR TI-RADS category: 3 Nodule number: 3 Location: Left superior Size: 2.3 x 1.8 x 2.0 cm. Composition: Solid Echogenicity: Isoechoic Shape: wider than tall. Margins: Ill-defined Echogenic foci: No Total points: 3 ACR TI-RADS category: 3 IMPRESSION: Left-sided category 3 nodules. ACR guidelines recommend follow-up at 1, 3 and 5 years ACR TI-RADS definitions and recommendations: TI-RADS 1 (benign): 0 points. FNA not needed. TI-RADS 2 (not suspicious): 2 points. FNA not needed. TI-RADS 3: 3 points. * FNA if 2.5 cm or larger, follow up if 1.5 cm or larger (at 1, 3, and 5 years). TI-RADS 4: 4-6 points. * FNA if 1.5 cm or larger, follow up if 1 cm or larger (at 1, 2, 3, and 5 years). TI-RADS 5: 7 points or more. * FNA if 1 cm or larger, follow up if 0.5 cm or larger (every year for 5 years). 1. Dictated by: Lg Holt M.D. on 04/29/2024 at 12:02 Approved by: Lg Holt M.D. on 04/29/2024 at 12:35
[2024-04-28 09:42] LABS: Add Manual Diff / Slide Review NO; Basophils Absolute Auto 100 /uL (0-100); Basophils Percent Auto 0.9 % (0-2); Eosinophils Absolute Auto 200 /uL (0-450); Hematocrit 35.2 % (36-46); Hemoglobin 11.8 g/dL (12.0-16.0); Lymphocytes Absolute Auto 2000 /uL (1100-4500); Lymphocytes Percent Auto 26.9 % (25-40); Mean Corpuscular HGB Conc 33.4 % (30-36); Mean Corpuscular Volume 89.9 fL (80-100); Monocytes Absolute Auto 600 /uL (0-900); Monocytes Percent Auto 8.4 % (3-14); Neutrophils Absolute Auto 4400 /uL (1500-7000); Neutrophils Percent Auto 60.8 % (50-75); Platelet Count 343 X10^3/uL (150-400); Red Blood Cell Count 3.92 X10^6/uL (4.0-5.2); Red Cell Distribution Width 13.2 % (11.6-14.8); White Blood Cell Count 7.3 X10^3/uL (4.5-11.0)
[2024-04-28 10:00] LABS: Alanine Aminotransferase 36 IU/L (<35); Albumin Globulin Ratio 1.1 (1.0-2.8); Alkaline Phosphatase 157 U/L (38-126); Aspartate Aminotransferase 32 IU/L (14-36); BUN Creatinine Ratio 26.1 (6-22); Bilirubin Total 0.4 mg/dL (0.2-1.3); Blood Urea Nitrogen 29 mg/dL (7-17); Calcium 9.6 mg/dL (8.4-10.2); Carbon Dioxide 29 mmol/L (22-32); Chloride 107 mmol/L (98-107); Estimated Glomerular Filt Rate 51 mL/min (>60); Globulin 3.7 g/dL (1.7-4.1); Glucose 100 mg/dL (80-110); HEMOLYSIS < 15 (0-50); Sodium 142 mmol/L (137-145); Total Protein 7.7 g/dL (6.3-8.2)
== END ==
PROVIDERS: Family Provider Family Medicine; PCP Family Medicine; Referring Provider Family Medicine; Visit Provider Family Medicine
DX: E04.2 Nontoxic multinodular goiter (principal); F41.9 Anxiety disorder, unspecified; E78.5 Hyperlipidemia, unspecified; F32.9 Major depressive disorder, single episode, unspecified; D64.9 Anemia, unspecified; R05.3 Chronic cough
CPT/HCPCS: 36415; 76536; 80053; 84155; 84156; 84165; 84166; 85025

== ENCOUNTER → 2024-06-05 | Outpatient (CLI) | payer OTHER, SELFPAY ==
--- NOTE | 2024-06-05 11:59 | DI.CT.S_ITS ---
PROCEDURE: CT KIDNEY URETER BLADDER (KUB) INDICATIONS: 79 y/o F w/ distal right ureterolith, eval for passage TECHNIQUE: Axial sections were acquired from the lung bases to the pubic symphysis. Coronal and sagittal reformats were performed. For radiation dose reduction, the following was used: automated exposure control, adjustment of mA and/or kV according to patient size. COMPARISON: [facility], CT, CT CHEST ABD PEL W CON, 03/13/2024, 17:40. [facility], CT, CT KIDNEY URETER BLADDER (KUB), 09/12/2018, 10:59. FINDINGS: Image quality: Diagnostic Lower chest: Normal heart size. Unremarkable lung bases. Liver: No contour deforming mass. Solid organs not well assessed without IV contrast Gallbladder and biliary system: Cholecystectomy clips. There is a small calcification or dropped stone at the armida hepatis, similar. No biliary ductal dilation. Pancreas: No ductal dilation Spleen: Nonenlarged Adrenals: No discrete nodule Kidneys: Numerous small nonobstructing renal calculi are seen. There is a slightly exophytic region in the right lower pole (/), possibly normal prominent renal parenchyma on the prior CT, but indeterminate on this study. Scattered cysts are present. No right hydronephrosis. The right collecting system is partially duplicated parapelvic cysts are seen on the right. Mild left hydronephrosis is present, with a 3 mm distal ureter stone. Medullary nephrocalcinosis. Vessels and lymph nodes: Vascular calcifications. No pathologic lymph nodes by size criteria. Bowel and peritoneum: No evidence of small bowel obstruction. No pathologic ascites. Increased fecal loading. The cecum is flipped toward midline in the upper abdomen. No drainable abscess. Body wall: Unremarkable Pelvis: Numerous pelvic phleboliths. Small hyperdensity at the vaginal cuff is similar to prior. Bones: No acute or suspicious osseous findings. IMPRESSION: No right hydronephrosis or distal ureter stone. Partially duplicated right collecting system. Mild left hydronephrosis is seen, with 3 mm distal ureter stone. There are many small nonobstructing calyceal renal calculi. Medullary nephrocalcinosis. Slight exophytic region is seen in the right lower pole, possibly a prominent renal pyramid on the prior CT, but with some heterogeneity seen with contrast enhancement. Reference image . Consider ultrasound to ensure that there is no underlying solid mass. Other findings above. Dictated by: Sergei Sheth M.D. on 06/05/2024 at 17:09 Approved by: Pedro Leon M.D. on 06/20/2024 at 13:19
== END ==
LOC: CT 11:54
PROVIDERS: Family Provider Family Medicine; PCP Family Medicine; Referring Provider Urology; Visit Provider Urology
DX: N13.2 Hydronephrosis with renal and ureteral calculous obstruction (principal); N28.1 Cyst of kidney, acquired
CPT/HCPCS: 74176

== ENCOUNTER → 2024-08-19 14:39 | Outpatient (CLI) | payer OTHER, SELFPAY ==
--- NOTE | 2024-08-19 14:41 | DI.CT.S_ITS ---
PROCEDURE: CT KIDNEY URETER BLADDER (KUB) INDICATIONS: 3mm left distal ureterolith, eval for passage. TECHNIQUE: Axial sections were acquired from the lung bases to the pubic symphysis. Coronal and sagittal reformats were performed. For radiation dose reduction, the following was used: automated exposure control, adjustment of mA and/or kV according to patient size. COMPARISON: [facility], CT, CT KIDNEY URETER BLADDER (KUB), 06/05/2024, 11:57. [facility], CT, CT KIDNEY URETER BLADDER (KUB), 09/12/2018, 10:59. FINDINGS: Image quality: Diagnostic. Lower Chest: No significant findings. URINARY: Kidneys/ureters: Redemonstration of multiple bilateral punctate nonobstructing renal stones. Interval passage of previously described 3 mm distal left ureteral stone. No residual left-sided hydronephrosis. Multiple bilateral renal hypodensities likely representing cysts. Previously described partially exophytic region in the right lower pole (75/series 2) is again noted and not significantly changed in size. There are adjacent calcifications. It appears slightly more hypodense. Mild medullary nephrocalcinosis as before. Bladder: Normal wall thickness. No stones. ABDOMEN: Liver: No contour-deforming solid mass. Gallbladder: Surgically absent. Small punctate calcification or drop stone noted at the armida hepatis, unchanged (34/series 2). Biliary ducts: No biliary dilation. Pancreas: No ductal dilation. Spleen: Size is within normal limits. Adrenal Glands: No adrenal nodules. Stomach and Bowel: Normal colonic caliber, without significant wall thickening. Moderate fecal burden seen throughout the colon. No evidence for small bowel obstruction or associated inflammatory changes. Peritoneum: No abnormal intraperitoneal fluid. No free air. Ventral Wall: No hernia. Abdominal Nodes: No enlarged retroperitoneal or mesenteric lymph nodes. Vessels: Aorta and inferior vena cava are normal in size. Atherosclerosis. PELVIS: Pelvic Organs: Unremarkable. Pelvic Nodes: Unremarkable. Miscellaneous: No inguinal hernias are seen. Bones: Unremarkable. No acute vertebral body compression fractures. Multilevel spondylitic changes throughout the imaged spine. No suspicious osseous lesions. Stable alignment with mild anterolisthesis of L4 relative to L3 and L5. IMPRESSION: 1. Interval passage of previously described 3 mm distal left ureteral stone. No hydronephrosis. 2. Multiple persistent bilateral nonobstructing renal stones. 3. Redemonstration of slightly exophytic region in the right lower pole which may have been suggested on previous imaging. However, recommend further evaluation with renal ultrasound to help determine if there is a possible underlying renal mass. 4. Other chronic/non-acute findings as above. Dictated by: Jorge Eldridge M.D. on 08/20/2024 at 10:55 Approved by: Jorge Eldridge M.D. on 08/20/2024 at 11:12
== END ==
PROVIDERS: Family Provider Family Medicine; PCP Family Medicine; Referring Provider Urology; Visit Provider Urology
DX: N20.1 Calculus of ureter (principal); I70.90 Unspecified atherosclerosis; M43.16 Spondylolisthesis, lumbar region; Z90.49 Acquired absence of other specified parts of digestive tract
CPT/HCPCS: 74176

== ENCOUNTER → 2024-11-28 13:13 | Outpatient (CLI) | payer OTHER, SELFPAY ==
--- NOTE | 2024-11-28 13:23 | DI.RAD.S_ITS ---
PROCEDURE: XR KUB INDICATIONS: Bilateral kidney stones TECHNIQUE: One view of the abdomen acquired. COMPARISON: [facility], , KUB XRAY (1 VIEW ABDOMEN), 03/20/2016, 19:36. FINDINGS: Surgical changes and devices: Right upper quadrant surgical clips. Bowel: Bowel gas pattern is normal. Soft tissues: No suspicious abdominal calcifications. Visualized solid organ contours appear normal in size. Bones: No suspicious bony lesions. IMPRESSION: No acute abnormality. Dictated by: Nasim Chinchilla M.D. on 11/29/2024 at 0:42 Approved by: Nasim Chinchilla M.D. on 11/29/2024 at 1:46
== END ==
PROVIDERS: Family Provider Family Medicine; PCP Family Medicine; Referring Provider Urology; Visit Provider Urology
DX: N20.2 Calculus of kidney with calculus of ureter (principal)
CPT/HCPCS: 74018

== ENCOUNTER → 2024-12-02 16:52 | Outpatient (CLI) | payer OTHER, SELFPAY ==
[2024-12-02 17:18] LABS: Add Manual Diff / Slide Review NO; Basophils Absolute Auto 0 /uL (0-100); Basophils Percent Auto 0.8 % (0-2); Eosinophils Absolute Auto 100 /uL (0-450); Eosinophils Percent Auto 1.5 % (2-4); Hematocrit 35.4 % (36-46); Lymphocytes Absolute Auto 1700 /uL (1100-4500); Lymphocytes Percent Auto 27.4 % (25-40); Mean Corpuscular HGB Conc 33.9 % (30-36); Mean Corpuscular Hemoglobin 29.9 PG (26-34); Mean Corpuscular Volume 88.2 fL (80-100); Monocytes Absolute Auto 800 /uL (0-900); Monocytes Percent Auto 12.4 % (3-14); Neutrophils Absolute Auto 3600 /uL (1500-7000); Neutrophils Percent Auto 57.9 % (50-75); Platelet Count 290 X10^3/uL (150-400); Red Blood Cell Count 4.01 X10^6/uL (4.0-5.2); Red Cell Distribution Width 13.4 % (11.6-14.8); White Blood Cell Count 6.3 X10^3/uL (4.5-11.0)
[2024-12-02 17:46] LABS: Alanine Aminotransferase 97 IU/L (<35); Albumin 4.2 g/dL (3.5-5.0); Alkaline Phosphatase 197 U/L (38-126); Aspartate Aminotransferase 59 IU/L (14-36); BUN Creatinine Ratio 23.5 (6-22); Bilirubin Total 0.6 mg/dL (0.2-1.3); Blood Urea Nitrogen 24 mg/dL (7-17); Calcium 9.2 mg/dL (8.4-10.2); Carbon Dioxide 28 mmol/L (22-32); Chloride 101 mmol/L (98-107); Estimated Glomerular Filt Rate 56 mL/min (>60); Globulin 4.1 g/dL (1.7-4.1); Glucose 124 mg/dL (70-99); HEMOLYSIS < 15 (0-50); Potassium 4.1 mmol/L (3.4-5.1); Sodium 138 mmol/L (137-145); Total Protein 8.3 g/dL (6.3-8.2)
[2024-12-02 17:53] LABS: Appearance Urine UA CLEAR; Bilirubin Urine UA NEGATIVE (NEGATIVE); Color Urine UA YELLOW; Glucose Urine UA NEGATIVE (Negative); Ketones Urine UA TRACE (NEGATIVE); Leukocyte Esterase Urine UA 2+ (NEGATIVE); Nitrite Urine UA NEGATIVE (Negative); Occult Blood Urine UA 2+ (Negative); Protein Urine UA 1+ (Negative); Urobilinogen Urine UA 0.2 E.U./dL (0.2)
[2024-12-02 17:56] LABS: pH Urine UA 5.5 (4.5-8.0)
[2024-12-02 18:18] LABS: Urine Volume 10mL (spun)
[2024-12-02 18:19] LABS: Bacteria Urine None Seen; Culture Indicated Urine Specimen Cultured; Granular Casts Urine 1-5/LPF; Hyaline Casts Urine 1-5/LPF; RBC Urine 1-5/HPF (0-5/HPF); Squamous Epithelial Cell Urine 1-5 /HPF (0-5/HPF); WBC Urine 1-5/HPF (0-5/HPF)
[2024-12-02 18:20] LABS: Renal Epithelial Cells Urine 0-1/HPF (0-1/HPF); Transitional Epi Cells Urine 0-1/HPF (0-5/HPF)
== END ==
PROVIDERS: Physician Assistant; Family Provider Family Medicine; PCP Family Medicine; Referring Provider Family Medicine; Visit Provider Internal Medicine Infectious Disease
DX: R10.9 Unspecified abdominal pain (principal); R63.0 Anorexia; N20.0 Calculus of kidney
CPT/HCPCS: 36415; 80053; 81001; 84443; 85025; 87086

== ENCOUNTER → 2024-12-16 07:13 | Outpatient (CLI) | payer OTHER, SELFPAY ==
--- NOTE | 2024-12-16 07:21 | DI.US.S_ITS ---
PROCEDURE: US ABDOMEN COMPLETE INDICATIONS: Upper abdominal pain; LFTs elevated; new dx lymphoma TECHNIQUE: Real-time scanning was performed of the abdominal and retroperitoneal organs, with image documentation. COMPARISON: None. FINDINGS: Liver: Liver is normal in size and homogeneous in echotexture. 2 x 1.3 x 2.1 cm solid appearing echogenic structure is noted in left lobe of liver and show no significant internal vascularity. Gallbladder: Gallbladder is surgically absent. Biliary ducts: Intrahepatic bile ducts are non-dilated. Extrahepatic bile duct caliber measures 5.8 mm. Normal is 6-7 mm or less in diameter, or 10 mm or less post-cholecystectomy. Pancreas: Visualized portions of the pancreas are sonographically normal. Spleen: Normal in size and echotexture. Kidneys: Right kidney measures 13.7 cm in length. Left kidney measures 14.8 cm in length. There is no hydronephrosis. 2 nonobstructing stones are seen in right kidney measures 9 and 9.5 millimeters in size. Simple cysts are also seen in right kidney measures up to 1.3 cm in lower pole. Simple cyst is also seen in left kidney measures 10.5 x 7.4 x 7.4 cm in size. Miscellaneous: No free abdominal fluid. Aorta is normal in size. IVC is patent. IMPRESSION: 1. Possible 2 cm hemangioma in left lobe of liver. 2. Prior cholecystectomy. No biliary ductal dilatation. 3. Bilateral renal cysts as above. No gross solid appearing renal lesion or hydronephrosis. Nonobstructing stones also seen in right kidney. Dictated by: Michael Lopes M.D. on 12/16/2024 at 11:55 Approved by: Michael Lopes M.D. on 12/16/2024 at 11:58
== END ==
LOC: US 07:15
PROVIDERS: Family Provider Family Medicine; PCP Family Medicine; Referring Provider Physician Assistant; Visit Provider Physician Assistant
DX: C85.90 Non-Hodgkin lymphoma, unspecified, unspecified site (principal); K76.9 Liver disease, unspecified; R10.9 Unspecified abdominal pain; R79.89 Other specified abnormal findings of blood chemistry; Z90.49 Acquired absence of other specified parts of digestive tract; N20.0 Calculus of kidney; N28.1 Cyst of kidney, acquired
CPT/HCPCS: 76700

== ENCOUNTER → 2024-12-16 07:16 | Outpatient (CLI) | payer OTHER, SELFPAY ==
[2024-12-16 08:19] LABS: Add Manual Diff / Slide Review NO; Hematocrit 34.7 % (36-46); Hemoglobin 11.6 g/dL (12.0-16.0); Lymphocytes Absolute Auto 2000 /uL (1100-4500); Mean Corpuscular HGB Conc 33.4 % (30-36); Mean Corpuscular Hemoglobin 29.3 PG (26-34); Mean Corpuscular Volume 87.6 fL (80-100); Platelet Count 434 X10^3/uL (150-400)
[2024-12-16 08:34] LABS: Alanine Aminotransferase 37 IU/L (<35); Albumin 4.3 g/dL (3.5-5.0); Albumin Globulin Ratio 1.2 (1.0-2.8); Alkaline Phosphatase 178 U/L (38-126); Blood Urea Nitrogen 28 mg/dL (7-17); Calcium 9.7 mg/dL (8.4-10.2); Carbon Dioxide 29 mmol/L (22-32); Chloride 106 mmol/L (98-107); Estimated Glomerular Filt Rate 59 mL/min (>60); Globulin 3.7 g/dL (1.7-4.1); Glucose 98 mg/dL (70-99); HEMOLYSIS < 15 (0-50); Potassium 4.3 mmol/L (3.4-5.1); Sodium 142 mmol/L (137-145); Total Protein 8.0 g/dL (6.3-8.2)
[2024-12-17 16:36] LABS: Free Kappa Lt Chains, Serum 43.5 mg/L (3.3-19.4); Free Lambda Lt Chains,Serum 10.2 mg/L (5.7-26.3)
[2024-12-18 11:40] LABS: Albumin 3.3 g/dL (2.9-4.4); Alpha-1-Globulin 0.3 g/dL (0.0-0.4); Alpha-2-Globulin 0.9 g/dL (0.4-1.0); Gamma Globulin 2.0 g/dL (0.4-1.8)
[2024-12-19 13:36] LABS: Viscosity, Serum 2.1 rel.saline (1.4-2.1)
== END ==
PROVIDERS: Family Provider Family Medicine; PCP Family Medicine; Referring Provider Internal Medicine; Visit Provider Internal Medicine
DX: C83.00 Small cell B-cell lymphoma, unspecified site (principal); C85.90 Non-Hodgkin lymphoma, unspecified, unspecified site; N20.0 Calculus of kidney; N28.1 Cyst of kidney, acquired; K76.9 Liver disease, unspecified; R10.9 Unspecified abdominal pain; R79.89 Other specified abnormal findings of blood chemistry; Z90.49 Acquired absence of other specified parts of digestive tract
CPT/HCPCS: 36415; 76700; 80053; 82232; 82595; 82784; 82785; 83615; 83883; 84155; 84165; 85025; 85810; 86157; 86704; 86706; 86708; 86803; 87340

== ENCOUNTER → 2024-12-17 09:26 | Outpatient (CLI) | payer OTHER, SELFPAY ==
--- NOTE | 2024-12-17 09:27 | DI.CT.S_ITS ---
PROCEDURE: CT ABDOMEN PELVIS W CON INDICATIONS: LYMPHOPLASMACYTIC LYMPHOMA TECHNIQUE: After the administration of intravenous contrast, axial sections acquired from the lung bases to the pubic symphysis. Coronal and sagittal reformats were performed. For radiation dose reduction, the following was used: automated exposure control, adjustment of mA and/or kV according to patient size. COMPARISON: [facility], US, US ABDOMEN COMPLETE, 12/16/2024, 7:54. [facility], CT, CT CHEST ABD PEL W CON, 03/13/2024, 17:40. [facility], CT, ABDOMEN/PELVIS WITH CONTRAST, 05/16/2016, 8:14. FINDINGS: Image quality: Diagnostic. Lower Chest: No significant findings. ABDOMEN: Liver: Subtle hypodensity in the left liver, (2/). This could correspond to the echogenic focus seen on recent ultrasound. Gallbladder: Absent. Biliary ducts: No biliary dilation. Pancreas: No ductal dilation. Spleen: Size is within normal limits. Adrenal Glands: No adrenal nodules. Kidneys and Ureters: No hydronephrosis. Bilateral small nonobstructing kidney stones. No solid mass. No complex renal cystic lesion which requires follow up. Multiple low-density renal cysts. The majority are small. A larger simple cyst at the inferior pole of the left kidney measuring 8.3 cm. Stomach and Bowel: Normal colonic caliber, without significant wall thickening. The appendix is not seen. Peritoneum: No abnormal intraperitoneal fluid. No free air. Ventral Wall: No significant ventral hernia. Abdominal Nodes: No retroperitoneal or mesenteric adenopathy by size criteria. Vessels: Aorta and inferior vena cava are normal in size. PELVIS: Pelvic Organs: Uterus is absent. Bladder: No bladder wall thickening, accounting for underdistention. Pelvic Nodes: No enlarged lymph nodes. Miscellaneous: No inguinal hernias are seen. Bones: No aggressive osseous abnormality. Multilevel DDD. IMPRESSION: 1. No adenopathy. No splenomegaly. No free fluid. 2. Subtle hypodense focus in the left liver. This could correspond to the echogenic focus seen on recent ultrasound. This could represent a hemangioma. This is not well characterized on this single phase exam. This could be further characterized with liver MRI or multiphase liver CT. 3. Nonobstructing kidney stones bilaterally. Dictated by: Bhupinder Villatoro M.D. on 12/17/2024 at 14:18 Approved by: Bhupinder Villatoro M.D. on 12/17/2024 at 14:42
== END ==
LOC: CT 09:26
PROVIDERS: Family Provider Family Medicine; PCP Family Medicine; Referring Provider Internal Medicine; Visit Provider Internal Medicine
DX: C83.00 Small cell B-cell lymphoma, unspecified site (principal); N20.0 Calculus of kidney; N28.1 Cyst of kidney, acquired; Z90.49 Acquired absence of other specified parts of digestive tract; Z90.710 Acquired absence of both cervix and uterus
CPT/HCPCS: 74177; Q9967

== ENCOUNTER → 2025-03-16 11:41 | Outpatient (CLI) | payer OTHER, SELFPAY ==
[2025-03-16 13:37] LABS: Add Manual Diff / Slide Review NO; Hematocrit 35.8 % (36-46); Hemoglobin 12.2 g/dL (12.0-16.0); Lymphocytes Absolute Auto 1800 /uL (1100-4500); Mean Corpuscular HGB Conc 34.1 % (30-36); Mean Corpuscular Hemoglobin 29.8 PG (26-34); Mean Corpuscular Volume 87.5 fL (80-100); Platelet Count 330 X10^3/uL (150-400)
[2025-03-16 14:01] LABS: Alanine Aminotransferase 77 IU/L (<35); Albumin 4.3 g/dL (3.5-5.0); Albumin Globulin Ratio 1.1 (1.0-2.8); Alkaline Phosphatase 163 U/L (38-126); Blood Urea Nitrogen 27 mg/dL (7-17); Calcium 9.7 mg/dL (8.4-10.2); Carbon Dioxide 27 mmol/L (22-32); Chloride 103 mmol/L (98-107); Estimated Glomerular Filt Rate 58 mL/min (>60); Globulin 3.9 g/dL (1.7-4.1); Glucose 92 mg/dL (70-99); HEMOLYSIS < 15 (0-50); Potassium 4.5 mmol/L (3.4-5.1); Sodium 140 mmol/L (137-145); Total Protein 8.2 g/dL (6.3-8.2)
[2025-03-18 13:10] LABS: Albumin 3.4 g/dL (2.9-4.4); Alpha-1-Globulin 0.2 g/dL (0.0-0.4); Alpha-2-Globulin 0.9 g/dL (0.4-1.0); Gamma Globulin 2.3 g/dL (0.4-1.8)
[2025-03-18 13:36] LABS: Viscosity, Serum 2.2 rel.saline (1.4-2.1)
[2025-03-18 16:36] LABS: Free Kappa Lt Chains, Serum 40.6 mg/L (3.3-19.4); Free Lambda Lt Chains,Serum 7.8 mg/L (5.7-26.3)
== END ==
PROVIDERS: Family Provider Family Medicine; PCP Family Medicine; Referring Provider Internal Medicine; Visit Provider Internal Medicine
DX: C83.00 Small cell B-cell lymphoma, unspecified site (principal)
CPT/HCPCS: 36415; 80053; 82784; 82785; 83883; 84155; 84165; 85025; 85810

== ENCOUNTER → 2025-06-09 14:42 | Outpatient (CLI) | payer OTHER, SELFPAY ==
[2025-06-09 15:32] LABS: Add Manual Diff / Slide Review NO; Hematocrit 34.8 % (36-46); Hemoglobin 11.8 g/dL (12.0-16.0); Lymphocytes Absolute Auto 2000 /uL (1100-4500); Mean Corpuscular HGB Conc 33.9 % (30-36); Mean Corpuscular Hemoglobin 30.0 PG (26-34); Mean Corpuscular Volume 88.6 fL (80-100); Platelet Count 329 X10^3/uL (150-400)
[2025-06-09 15:55] LABS: Alanine Aminotransferase 85 IU/L (<35); Albumin 4.4 g/dL (3.5-5.0); Albumin Globulin Ratio 1.2 (1.0-2.8); Alkaline Phosphatase 149 U/L (38-126); Blood Urea Nitrogen 33 mg/dL (7-17); Calcium 9.6 mg/dL (8.4-10.2); Carbon Dioxide 28 mmol/L (22-32); Chloride 106 mmol/L (98-107); Estimated Glomerular Filt Rate > 60 mL/min (>60); Globulin 3.8 g/dL (1.7-4.1); Glucose 96 mg/dL (70-99); HEMOLYSIS < 15 (0-50); Potassium 4.2 mmol/L (3.4-5.1); Sodium 142 mmol/L (137-145); Total Protein 8.2 g/dL (6.3-8.2)
[2025-06-09 16:28] LABS: TSH w/ Reflex to FT4 1.16 uIU/mL (0.47-4.68)
[2025-06-10 16:36] LABS: Free Kappa Lt Chains, Serum 33.2 mg/L (3.3-19.4); Free Lambda Lt Chains,Serum 9.6 mg/L (5.7-26.3)
[2025-06-11 14:36] LABS: Albumin 3.4 g/dL (2.9-4.4); Alpha-1-Globulin 0.2 g/dL (0.0-0.4); Alpha-2-Globulin 0.7 g/dL (0.4-1.0); Gamma Globulin 2.2 g/dL (0.4-1.8)
== END ==
PROVIDERS: Family Provider Family Medicine; PCP Family Medicine; Referring Provider Family Medicine; Visit Provider Family Medicine
DX: Z00.00 Encounter for general adult medical examination without abnormal findings (principal); C85.90 Non-Hodgkin lymphoma, unspecified, unspecified site; R10.9 Unspecified abdominal pain; D64.9 Anemia, unspecified; E78.5 Hyperlipidemia, unspecified; F41.9 Anxiety disorder, unspecified; F32.9 Major depressive disorder, single episode, unspecified
CPT/HCPCS: 36415; 80053; 83883; 84155; 84165; 84443; 85025